=== PATIENT | male | born 1950 | race Caucasian/White ===

== ENCOUNTER 2019-11-10 03:12 | Inpatient (IN) | payer MEDICARE, MEDICAID, SELFPAY ==
[2019-11-10] VITALS (32 sets, daily range): BP systolic 91–163; BP diastolic 64–84; PULSE 64–120; RESP 10–28; TEMP 35.7–37.2; O2SAT 67–100; BMI 28.5
--- NOTE | ~2019-11-10 | XR_ITS ---
EXAMINATION: XR chest 1V portable DATE: 11/22/2019 05:47 INDICATION: Respiratory failure. TECHNIQUE: A single frontal view of the chest was obtained. COMPARISON: Chest single view 11/21/2019 FINDINGS: There is mild atelectasis in the lower lung zones. No pleural effusion or pneumothorax. The heart size is normal. The endotracheal tube tip is 1.1 cm above the sherie. A left subclavian centra l venous catheter is seen with tip in the superior vena cava. The nasogastric tube tip is beyond the inferior margin of the radiograph, but at least to the stomach. There are changes of coronary artery bypass grafting. There is a thoracotomy defect of right sixth rib. IMPRESSION: 1. Mild atelectasis in the lower lung zones. Reviewed, dictated and finalized at location A. CULTURIST
--- NOTE | ~2019-11-10 | XR_ITS ---
EXAMINATION: XR abdomen NG/feed tube rechec EXAM DATE: 11/13/2019 09:33 INDICATION: Feeding tube placement. TECHNIQUE: Frontal projection(s) of the abdomen for interpretation. Comparison is made to prior exami nation from 11/11/2019. FINDINGS: Feeding tube is in position. The upper abdominal bowel gas pattern is unremarkable. There is an endotracheal tube also appears to be in position. Left-sided portacatheter. IMPRESSION: Feeding tube position. Reviewed, dictated and finalized at location A. MANAGER IMPRESSION: Feeding tube position.
--- NOTE | ~2019-11-10 | XR_ITS ---
EXAMINATION: XR chest 1V portable DATE: 11/14/2019 06:04 INDICATION: Pneumonia. Acute respiratory failure. TECHNIQUE: A single frontal view of the chest was obtained. COMPARISON: Chest single view 11/13/2019 FINDINGS: Again seen is mild elevation of right hemidiaphragm. There are airspace opacities in the pe rihilar regions. There is mild atelectasis at the lung bases. No pleural effusion or pneumothorax. Th e heart size is normal. The endotracheal tube tip is 2.7 cm above the sherie. There are likely change s of coronary artery bypass grafting. The nasogastric tube tip is beyond the inferior margin of the r adiograph, but at least to the stomach. There is a left subclavian port with tip in superior vena cav a. IMPRESSION: 1. Airspace opacities in the perihilar regions with slight worsening on the right, consistent with pu lmonary edema versus pneumonia. Reviewed, dictated and finalized at location A. EXTINGUISHER CHARGER IMPRESSION: 1. Airspace opacities in the perihilar regions with slight worsening on the rig ht, consistent with pulmonary edema versus pneumonia.
--- NOTE | ~2019-11-10 | XR_ITS ---
EXAMINATION: XR chest 1V portable INDICATION: Pneumonia, acute respiratory failure TECHNIQUE: Portable AP chest at 0524 hours COMPARISON: 11/15/2019 FINDINGS: The endotracheal tube ends approximately 3.6 cm above the sherie. The nasogastric tube is i n the stomach. A left subclavian port ends with its tip in the superior vena cava. There is mild elev ation of the right hemidiaphragm. The heart size is normal. Patchy bilateral airspace opacities persi st without change. There are changes of coronary artery bypass grafting. IMPRESSION: 1. Diffuse lung disease without significant change, consistent with pulmonary edema versus pneumonia. Reviewed, dictated and finalized at location A. PROCESSING MACHINE OPERATOR IMPRESSION: 1. Diffuse lung disease without significant change, consistent with pulmonary e yue versus pneumonia.
--- NOTE | ~2019-11-10 | XR_ITS ---
XR chest 1V portable 11/17/2019 05:40 Indication: Acute respiratory failure. Pneumonia. Procedure: AP portable chest Comparison: Comparison to multiple prior studies sequentially, with oldest reviewed study dated 11/13. Findings: No significant change to patchy bilateral airspace disease. No pleural effusion or pneumoth orax. Stable cardiomediastinal silhouette. Port catheter tip in the SVC. Endotracheal tube tip 3.4 cm above the sherie. NG tube in the stomach. There are cholecystectomy clips. Impression: 1: Stable patchy bilateral airspace disease, pneumonia versus edema. Reviewed, dictated and finalized at location A. WRAPPER Impression: 1: Stable patchy bilateral airspace disease, pneumonia versus edema.
--- NOTE | ~2019-11-10 | US_ITS ---
EXAMINATION: US venous doppler [facility] DATE: 11/19/2019 17:32 INDICATION: Respiratory failure. Fever. TECHNIQUE: Grayscale ultrasound images without and with compression and Doppler ultrasound images of the bilateral lower extremity veins were obtained. COMPARISON: None. FINDINGS: The visualized portions of right common femoral vein, profunda (deep) femoral vein, femoral vein, pop liteal vein, posterior tibial veins, peroneal veins, gastrocnemius vein and greater saphenous vein ou tflow are patent. The visualized portions of left common femoral vein, profunda femoral vein, femoral vein, popliteal v ein, posterior tibial veins, peroneal veins, gastrocnemius vein and greater saphenous vein outflow ar e patent. IMPRESSION: 1. No deep venous thrombosis in either lower limb. Reviewed, dictated and finalized at location A. MIC ARTIST
--- NOTE | ~2019-11-10 | XR_ITS ---
EXAMINATION: XR chest 1V portable DATE: 11/24/2019 05:51 INDICATION: Respiratory failure. TECHNIQUE: A single frontal view of the chest was obtained. COMPARISON: Chest single view 11/23/2019 FINDINGS: There are airspace opacities in right midlung zone. There is mild atelectasis in the lower lung zones. No pleural effusion or pneumothorax. The heart size is normal. There are changes of coron hayley artery bypass grafting. The endotracheal tube tip is 3.0 cm above the sherie. There is a left sub clavian central venous catheter with tip in superior vena cava. IMPRESSION: 1. Worsened airspace opacities in right midlung zone, consistent with atelectasis versus pneumonia. 2. Mild atelectasis in the lower lung zones. Reviewed, dictated and finalized at location A. HOST/HOSTESS IMPRESSION: 1. Worsened airspace opacities in right midlung zone, consistent with atelectas is versus pneumonia. 2. Mild atelectasis in the lower lung zones.
--- NOTE | ~2019-11-10 | XR_ITS ---
EXAMINATION: XR chest 1V portable DATE: 11/11/2019 06:05 INDICATION: Shortness of breath TECHNIQUE: frontal view of the chest was obtained. COMPARISON: Chest radiograph dated 11/10/2019 FINDINGS: Endotracheal tube tip 2.8 cm above the sherie. Left subclavian central venous port catheter with dist al tip at the cephalad superior vena cava. Nasogastric tube appears to have withdrawn with distal tip approximately 9 cm above level of the gastroesophageal junction. Lung volumes are decreased. Increasing opacities in the bilateral lower lung zones. No pleural effusi on or pneumothorax. Borderline heart size. Median sternotomy plate and screw fixation and mediastinal surgical clips are seen, likely from prior coronary artery bypass grafting. Surgical clips projectin g over the lateral right mid to upper lung zone and likely posterior right sixth rib thoracotomy defe ct. Degenerative skeletal changes in the spine and at the right glenohumeral joint. IMPRESSION: 1. Nasogastric tube appears to have withdrawn into the distal esophagus. Per discussion with the stanton ent's nurse Mela Morrison the tube does not appear to have withdrawn at the nares and KUB radiogra phs of the upper abdomen would be recommended to more definitively confirm positioning. 2. Small lung volumes with opacities in the bilateral lower lung zones which could represent atelecta sis versus pneumonia. Reviewed, dictated and finalized at location A. ERY HEAD FORMER IMPRESSION: 1. Nasogastric tube appears to have withdrawn into the distal esophagus. Per di scussion with the patient's nurse Mela Morrison the tube does not appear to have withdrawn at the nares and KUB radiographs of the upper abdomen would be r ecommended to more definitively confirm positioning. 2. Small lung volumes with opacities in the bilateral lower lung zones which co uld represent atelectasis versus pneumonia.
--- NOTE | ~2019-11-10 | XR_ITS ---
EXAMINATION: XR chest 1V portable DATE: 11/10/2019 04:18 INDICATION: Shortness of breath TECHNIQUE: frontal view of the chest was obtained. COMPARISON: None FINDINGS: Small lung volumes. Primarily streaky opacities in the bilateral lower lung zones. pleural effusion o r pneumothorax. The cardiomediastinal silhouette is normal. Median sternotomy and screw fixation and mediastinal surgical clips are seen, likely from prior coronary artery bypass grafting. Left subclavi an central venous port catheter with distal tip at the cephalad superior vena cava. IMPRESSION: 1. Small lung volumes with streaky opacities in the bilateral lower lung zones most likely atelectasi s and could not exclude superimposed pulmonary edema or pneumonia. Reviewed, dictated and finalized at location A. O OPERATOR IMPRESSION: 1. Small lung volumes with streaky opacities in the bilateral lower lung zones most likely atelectasis and could not exclude superimposed pulmonary edema or p neumonia.
--- NOTE | ~2019-11-10 | XR_ITS ---
EXAMINATION: XR chest 1V portable DATE: 11/27/2019 06:07 INDICATION: Respiratory failure TECHNIQUE: frontal view of the chest was obtained. COMPARISON: Chest radiograph dated 11/26/2019 FINDINGS: Endotracheal tube has been removed and replaced with a tracheostomy tube which is in expected positio n at the thoracic inlet. Left subclavian central venous port catheter with distal tip at the superior vena cava. Elevation right hemidiaphragm. Persistent airspace opacities in the bilateral lower lung zones with s ome of which demonstrate linear configuration consistent with atelectasis. No pleural effusion or pne umothorax. The cardiomediastinal silhouette is normal. Median sternotomy with plate and screw fixatio n, ostial markers and mediastinal surgical clips consistent with prior coronary artery bypass graftin g. Additional surgical clips project over the right axilla. IMPRESSION: 1. Minimal change in bibasilar opacities likely related to to atelectasis although differential inclu albert superimposed pneumonia or residual mild pulmonary edema. Reviewed, dictated and finalized at location A. NE EQUIPMENT TEST ENGINEER IMPRESSION: 1. Minimal change in bibasilar opacities likely related to to atelectasis altho ugh differential includes superimposed pneumonia or residual mild pulmonary rachna
--- NOTE | ~2019-11-10 | XR_ITS ---
EXAMINATION: XR chest 1V portable DATE: 11/20/2019 05:29 INDICATION: Respiratory failure. TECHNIQUE: A single frontal view of the chest was obtained. COMPARISON: Chest single view 11/19/2019, chest CT 11/17/2019 FINDINGS: Lung volumes are small. There are mild airspace opacities involving all lung zones bilatera lly. No pleural effusion or pneumothorax. The heart size is normal. There is a left subclavian centra l venous catheter with tip in superior vena cava. There are changes of coronary artery bypass graftin g. IMPRESSION: 1. Small lung volumes with mild diffuse lung disease without change, likely a combination of atelecta sis and pneumonia. Reviewed, dictated and finalized at location A. AL REGULATORY LEAD IMPRESSION: 1. Small lung volumes with mild diffuse lung disease without change, likely a c ombination of atelectasis and pneumonia.
--- NOTE | ~2019-11-10 | XR_ITS ---
EXAMINATION: XR chest 1V portable DATE: 11/23/2019 05:47 INDICATION: Respiratory failure. TECHNIQUE: A single frontal view of the chest was obtained. COMPARISON: Chest single view 11/22/2019 FINDINGS: There is new mild elevation of right hemidiaphragm. There is mild atelectasis at the lung b ases. No pleural effusion or pneumothorax. The heart size is normal. The endotracheal tube tip is 3.3 cm above the sherie. There is a left subclavian port with tip in superior vena cava. There are hardin es of coronary artery bypass grafting. IMPRESSION: 1. New mild elevation of right hemidiaphragm and slightly improved mild atelectasis at the lung bases . Reviewed, dictated and finalized at location A. NESS PLANNING MANAGER IMPRESSION: 1. New mild elevation of right hemidiaphragm and slightly improved mild atelect asis at the lung bases.
--- NOTE | ~2019-11-10 | XR_ITS ---
EXAMINATION: XR chest 1V portable DATE: 11/26/2019 05:43 INDICATION: Respiratory failure TECHNIQUE: frontal view of the chest was obtained. COMPARISON: Chest radiograph dated 11/25/2019 FINDINGS: Endotracheal tube tip 4.2 cm above the sherie. Left subclavian central venous port catheter with dist al tip at the superior vena cava. Elevation right hemidiaphragm. Based opacities in the right mid and bilateral lower lung zones consis tent with likely improvement in prior pulmonary edema. Some of the opacities demonstrate linear confi guration consistent with atelectasis. No pleural effusion or pneumothorax. The cardiomediastinal silh ouette is normal. Median sternotomy with plate and screw fixation, ostial markers and mediastinal barbara gical clips consistent with prior coronary artery bypass grafting. IMPRESSION: 1. Interval decrease in pulmonary edema. 2. Residual opacities to atelectasis although differential includes superimposed pneumonia or residua l mild pulmonary edema. Reviewed, dictated and finalized at location A. ELET MAKER NOVELTY IMPRESSION: 1. Interval decrease in pulmonary edema. 2. Residual opacities to atelectasis although differential includes superimpose d pneumonia or residual mild pulmonary edema.
--- NOTE | ~2019-11-10 | XR_ITS ---
EXAMINATION: XR abdomen NG/feed tube insert EXAM DATE: 11/20/2019 09:49 INDICATION: Feeding tube placement. TECHNIQUE: Frontal projection(s) of the abdomen for interpretation. Comparison is made to prior exami nation from 11/13/2019. FINDINGS: Feeding tube tip and side-port project over left upper quadrant, expected position. Nonobs tructive upper abdominal bowel gas pattern. Moderate to severe lumbar spondylosis. IMPRESSION: Feeding tube in position. Reviewed, dictated and finalized at location B. INE RECORDS UNITS SUPERVISOR IMPRESSION: Feeding tube in position.
--- NOTE | ~2019-11-10 | XR_ITS ---
EXAMINATION: XR chest 1V portable DATE: 11/25/2019 05:41 INDICATION: Respiratory failure TECHNIQUE: frontal view of the chest was obtained. COMPARISON: Chest radiograph dated 11/24/2019 FINDINGS: Endotracheal tube tip 3.1 cm above the sherie. Left subclavian central venous port catheter with dist al tip at the cephalad superior vena cava. Elevation of the right hemidiaphragm. Airspace opacities in the right mid and bilateral lower lung zo karine including streaky/linear atelectasis. No pleural effusion or pneumothorax. Heart size is normal. Median sternotomy with plate and screw fixation, ostial markers and mediastinal surgical clips consis tent with prior coronary artery bypass grafting. IMPRESSION: 1. No significant interval change in opacities in the right mid and bilateral lower lung zones due at least in part to atelectasis although differential includes superimposed pneumonia or mild pulmonary edema. Reviewed, dictated and finalized at location A. EMIC DIRECTOR IMPRESSION: 1. No significant interval change in opacities in the right mid and bilateral l ower lung zones due at least in part to atelectasis although differential inclu albert superimposed pneumonia or mild pulmonary edema.
--- NOTE | ~2019-11-10 | US_ITS ---
EXAMINATION: US renal BI EXAM DATE: 11/11/2019 11:08 INDICATION: Acute kidney insufficiency. TECHNIQUE: Multiple grayscale and Doppler images of the kidneys were obtained (by a technologist who performed the scan) and subsequently reviewed. There is no prior study for comparison. FINDINGS: Right kidney: There is normal contour and echogenicity. It measures 11.3 x 5.7 x 4.6 centimeters. T here are no focal renal lesions identified. There is no hydronephrosis. Left kidney: There is normal contour and echogenicity. It measures 10.0 x 5.6 x 5.7 centimeters. Th ere are no focal renal lesions identified. There is no hydronephrosis. Bladder is collapsed, Flores catheter in position. IMPRESSION: 1. Sonographically unremarkable kidneys. Reviewed, dictated and finalized at location A. IN MARKER
--- NOTE | ~2019-11-10 | XR_ITS ---
XR chest 1V portable DATE: 11/13/2019 05:55 INDICATION: Acute respiratory failure. Pneumonia. TECHNIQUE: Portable AP chest on 11/13/2019 at 0514 hours COMPARISON: 11/12/2019 portable AP chest at 0516 hours FINDINGS: ET tube tip 1.6 cm above sherie; ideal range is 2-5 cm. NG tube is noted in stomach. Left subclavian central venous Port-A-Cath catheter tip overlies the upp er superior vena cava. Persistent bilateral lower lung infiltrate and/atelectasis, without significant change since 0. Normal heart size. Status post coronary artery bypass graft surgery. IMPRESSION: Endotracheal tube tip 1.5 cm above sherie; ideal range is 2-5 cm Stable bilateral lower lung infiltrate and/atelectasis Reviewed, dictated and finalized at location A. FEATHER MACHINE OPERATOR
--- NOTE | ~2019-11-10 | CT_ITS ---
EXAMINATION: CT chest abdomen pelvis w con DATE: 11/17/2019 18:38 INDICATION: Persistent fevers despite antibiotics TECHNIQUE: Transaxial computed tomographic images of the chest, abdomen, and pelvis were obtained aft er the administration of 100 cc of Omnipaque 350 intravenous contrast. The dose-length product (DLP) was 1360.96 mGy-cm. Automated exposure control and iterative reconstruction technique were employed. COMPARISON: None FINDINGS: CHEST CT: There are patchy bilateral airspace opacities. There appears to be an approximately 1.5 cm area of ca vitation with internal debris in the right middle lobe on image 57. The heart size is normal. There a re small pleural effusions. No pneumothorax is identified. Changes of coronary artery bypass grafting are noted. The lower sternum is dehiscent with a small amount of fluid seen in the vacated space. Th yroid nodules measure up to 10 mm. Surgical changes in the posterior right ribs are consistent with p rior thoracotomy. A left subclavian Port-A-Cath ends with its tip in the proximal superior vena cava. There is calcified coronary artery atherosclerosis. No pathologically enlarged thoracic lymph nodes are identified. The endotracheal tube is in adequate position. ABDOMEN/PELVIS CT: The nasogastric tube is in the stomach. The liver, spleen, pancreas, gallbladder, and adrenal glands are normal. Streak artifact from the patient's arms somewhat limits evaluation of the kidneys. There are questionable perfusion defects in both kidneys. No pathologically enlarged abdominal or pelvic ly mph nodes are identified. There is no free intraperitoneal gas or evidence of bowel obstruction. Ther e is calcified atherosclerosis of the aorta and many of the other arteries. The bladder is decompress ed by a Flores catheter. A large volume of colonic stool is present. The appendix is normal. There is lumbar levoscoliosis and severe spondylosis. IMPRESSION: 1. Patchy bilateral airspace opacities, consistent with atelectasis and pneumonia. 2. Possible perfusion defects of the kidneys which could reflect pyelonephritis although evaluation l imited by streak artifact from the patient's arms. Correlation with urinalysis is recommended. 3. Lower sternal dehiscence with fluid in the vacated space. Reviewed, dictated and finalized at location A. OR NET DEVELOPER IMPRESSION: 1. Patchy bilateral airspace opacities, consistent with atelectasis and pneumon ia. 2. Possible perfusion defects of the kidneys which could reflect pyelonephritis although evaluation limited by streak artifact from the patient's arms. Correl ation with urinalysis is recommended. 3. Lower sternal dehiscence with fluid in the vacated space.
--- NOTE | ~2019-11-10 | XR_ITS ---
EXAMINATION: XR chest 1V portable DATE: 11/19/2019 05:31 INDICATION: Respiratory failure. TECHNIQUE: A single frontal view of the chest was obtained. COMPARISON: Chest single view 11/18/2019 FINDINGS: The lung volumes are small. There is mild atelectasis in the lower lung zones. There are mi ld airspace opacities in right mid and upper lung zones and left upper lung zone. No pleural effusion or pneumothorax. The heart size is normal. There are changes of coronary artery bypass grafting. The re is a thoracotomy defect of right sixth rib. The endotracheal tube tip is 3.9 cm above the sherie. There is a left-sided central venous catheter with tip in superior vena cava. IMPRESSION: 1. Worsened mild airspace opacities in right mid and upper lung zones and left upper lung zone, consi stent with pneumonia. 2. Small lung volumes with mild atelectasis in the lower lung zones. Reviewed, dictated and finalized at location A. STICS OPERATIONS MANAGER IMPRESSION: 1. Worsened mild airspace opacities in right mid and upper lung zones and left upper lung zone, consistent with pneumonia. 2. Small lung volumes with mild atelectasis in the lower lung zones.
--- NOTE | ~2019-11-10 | XR_ITS ---
EXAMINATION: XR chest 1V portable DATE: 11/12/2019 05:30 INDICATION: Intubation TECHNIQUE: frontal view of the chest was obtained. COMPARISON: Chest radiograph dated 11/11/2019 FINDINGS: Endotracheal tube tip 3.5 cm above the sherie. Nasogastric tube in the stomach. Left subclavian centr al venous port catheter with distal tip in the cephalad superior vena cava. Elevation of right hemidiaphragm. Bilateral airspace opacities predominantly at the lower lung zones. Skinfold projects over the left hemithorax. No pleural effusion or pneumothorax. Cardiomegaly. Plain screw fixation for median sternotomy, ostial markers and mediastinal surgical clips consistent with coronary artery bypass grafting. Additional surgical clips project over the right axilla. Right sixth rib thoracotomy defect. Severe right glenohumeral osteoarthritis. IMPRESSION: 1. Small lung volumes with unchanged low lung predominant airspace disease which could represent atel ectasis or pneumonia. 2. Cardiomegaly. Reviewed, dictated and finalized at location A. TER AND CUTTER OPERATOR IMPRESSION: 1. Small lung volumes with unchanged low lung predominant airspace disease whic h could represent atelectasis or pneumonia. 2. Cardiomegaly.
--- NOTE | ~2019-11-10 | CT_ITS ---
EXAMINATION: CT brain wo con EXAM DATE: 11/21/2019 10:41 INDICATION: Sepsis. Altered mental status. TECHNIQUE: Spiral CT of the head was performed without contrast. Axial, coronal and sagittal images were reviewed. The dose-length product (DLP) for this examination was 756.67 mGy-cm. The exposure w as tailored according to patient size, and iterative reconstruction (ASIR) was used as additional dos e reduction technique. There is no prior study for comparison. FINDINGS: There is no acute intraparenchymal hemorrhage. No evidence of intraparenchymal brain mass lesion. No evidence of acute infarction. Please note that initial head CT has limited sensitivity f or small or acute infarctions. There is mild periventricular and subcortical hypodensity, nonspecific but probably related to small vessel ischemic disease. There is moderate prominence of the sulci a nd ventricles related to cerebral atrophy. There is intracranial carotid arteriosclerosis. There a re no extra-axial collections. There is no mass effect or midline shift. Patient has had bilateral ocular lens surgery. Soft tissue is unremarkable. The visualized sinuses and mastoid air cells are well aerated. IMPRESSION: 1. No acute intracranial findings. 2. Chronic age related findings. Reviewed, dictated and finalized at location B. ER REPAIRER
--- NOTE | ~2019-11-10 | US_ITS ---
EXAMINATION: US abscess cyst aspiration DATE: 11/18/2019 11:19 INDICATION: Median sternotomy fluid collection. Fever. TECHNIQUE: The skin overlying the sternum was prepped and draped in usual sterile fashion. Anestheti c was administered with 1% lidocaine subcutaneously. An 18 gauge spinal needle was then used to aspi rate fluid under continuous sonographic guidance. The entry site was cleaned and dressed. There were no immediate complications. FINDINGS: Ultrasound images demonstrate the needle in a 3.7 x 1.5 x 1.4 cm fluid collection in the me rodolfo sternotomy. IMPRESSION: 1. Ultrasound-guided needle aspiration of a fluid collection in the median sternotomy. Reviewed, dictated and finalized at location A. CHOOL TEACHER ASSISTANT IMPRESSION: 1. Ultrasound-guided needle aspiration of a fluid collection in the median ster notomy.
--- NOTE | ~2019-11-10 | XR_ITS ---
EXAMINATION: XR chest 1V portable INDICATION: Intubation TECHNIQUE: Portable AP chest at 0508 hours COMPARISON: 11/17/2019 FINDINGS: The endotracheal tube ends approximately 2.5 cm above the sherie. The nasogastric tube is in the stomach. A left subclavian Port-A-Cath ends with its tip in the proximal superior vena cava. T here are minimal bibasilar airspace opacities. No pleural effusion or pneumothorax is identified. The heart size is normal. IMPRESSION: 1. Bibasilar airspace opacities consistent with atelectasis and pneumonia. Reviewed, dictated and finalized at location A. L CUTTER
--- NOTE | ~2019-11-10 | US_ITS ---
EXAMINATION: US venous doppler UE DATE: 11/19/2019 17:32 INDICATION: Respiratory failure. Fever. TECHNIQUE: Grayscale images without and with compression and Doppler images of the bilateral upper ex tremity veins were obtained. COMPARISON: None. FINDINGS: The right internal jugular vein, subclavian vein, axillary vein, brachial vein, basilic vein, cephali c vein, radial vein, and ulnar vein are patent. Small amount of noncompressible thrombus in the left cephalic vein just above the level of the antecu bital fossa the distal upper arm. The cephalic vein is patent and compressible at both the mid upper arm. The left internal jugular vein, subclavian vein, axillary vein, brachial vein, basilic vein, rad ial vein, and ulnar vein are patent. IMPRESSION: 1. Small amount of thrombus within the left cephalic vein at the distal left upper arm. Findings were discussed with Pieter Puentes, the nurse caring for the patient, at 7:15 PM. 2. No thrombosis in the right upper extremity. Reviewed, dictated and finalized at location A. SAFETY COORDINATOR IMPRESSION: 1. Small amount of thrombus within the left cephalic vein at the distal left up per arm. Findings were discussed with Pieter Puentes, the nurse caring for the patient, at 7:15 PM. 2. No thrombosis in the right upper extremity.
--- NOTE | ~2019-11-10 | XR_ITS ---
EXAMINATION: XR chest 1V portable DATE: 11/21/2019 05:35 INDICATION: Respiratory failure. TECHNIQUE: A single frontal view of the chest was obtained. COMPARISON: Chest single view 11/20/2019, chest CT 11/17/2019 FINDINGS: Again seen is elevation of right hemidiaphragm. There is mild atelectasis in the lower lung zones. There are mild airspace opacities in right mid and upper lung zones and left upper lung zone. No pleural effusion or pneumothorax. The heart size is normal. The endotracheal tube tip is 3.2 cm a dean the sherie. There is a left subclavian central venous catheter with tip in superior vena cava. T he nasogastric tube tip is beyond the inferior margin of the radiograph, but at least to the stomach. IMPRESSION: 1. Stable mild diffuse lung disease, likely a combination of atelectasis and pneumonia. Reviewed, dictated and finalized at location A. ETIC INTERN IMPRESSION: 1. Stable mild diffuse lung disease, likely a combination of atelectasis and pn eumonia.
--- NOTE | ~2019-11-10 | XR_ITS ---
EXAMINATION: XR chest ET placement EXAM DATE: 11/20/2019 09:49 INDICATION: Intubated. Respiratory distress. TECHNIQUE: Portable AP frontal chest x-ray was obtained. Comparison is made to prior examination from earlier same date. FINDINGS: Endotracheal tube tip is 3-4 centimeters above the sherie (ideal range is between 2 to 5 cm ). Feeding tube is in position. There is a left subclavian venous line in position. Patchy bilateral perihilar, left basilar airspace disease probably combination of atelectasis and pne umonia. There are no sizable pleural effusions. There is no pneumothorax suspected. The cardiome diastinal silhouette is prominent but magnified on this AP technique. The bones and soft tissues ar e unremarkable. There is no significant interval change compared to prior exam. IMPRESSION: 1. Line(s) and tube(s) in position. 2. Stable airspace disease and other findings as above. Reviewed, dictated and finalized at location B. APPLICATIONS ASSOCIATE
--- NOTE | ~2019-11-10 | XR_ITS ---
EXAMINATION: XR chest 1V portable DATE: 11/15/2019 05:57 INDICATION: Pneumonia. Acute respiratory failure. TECHNIQUE: A single frontal view of the chest was obtained. COMPARISON: Chest single view 11/14/2019 FINDINGS: Again seen is mild elevation of right hemidiaphragm. There are airspace opacities in all ida ng zones bilaterally. No pleural effusion or pneumothorax. The heart size is normal. The endotracheal tube tip is 4.37 m above the sherie. There is a left subclavian port with tip in superior vena cava. There is displacement of the catheter between the clavicle and first rib. There are likely changes o f coronary artery bypass grafting. The nasogastric tube tip is in the stomach. IMPRESSION: 1. Worsened diffuse lung disease, consistent with pulmonary edema versus pneumonia. Reviewed, dictated and finalized at location A. IGN EXCHANGE DEALER IMPRESSION: 1. Worsened diffuse lung disease, consistent with pulmonary edema versus pneumo lucinda.
--- NOTE | ~2019-11-10 | XR_ITS ---
EXAMINATION: XR abdomen NG/feed tube insert INDICATION: OG placement TECHNIQUE: Portable AP KUB-NG at 1406 hours COMPARISON: None available FINDINGS: The tip of the nasogastric tube is in the stomach. The proximal side port is near the gastr oesophageal junction. IMPRESSION: 1. Nasogastric tube in the stomach with the proximal side port near the gastroesophageal junction. Co nsider advancing 2 to 3 cm. Reviewed, dictated and finalized at location A. RANCE JOB TITLES IMPRESSION: 1. Nasogastric tube in the stomach with the proximal side port near the gastroe sophageal junction. Consider advancing 2 to 3 cm.
--- NOTE | ~2019-11-10 | XR_ITS ---
EXAMINATION: XR chest ET placement DATE: 11/10/2019 14:11 INDICATION: Endotracheal tube placement TECHNIQUE: frontal view of the chest was obtained. COMPARISON: Chest radiograph dated 11/10/2019 FINDINGS: Endotracheal tube tip 3.3 cm above the sherie. Left subclavian central venous port catheter with dist al tip at the cephalad superior vena cava. Nasogastric tube extends below the left hemidiaphragm wit h distal tip collimated off the study. Decreased lung volumes. Curvilinear opacities at the left lower lung zone favoring atelectasis/scarri ng. Right thoracotomy defect at the posterior right sixth rib few surgical clips project over the lat eral right mid to upper lung zone. Blunting at the right costophrenic angle which could represent sma ll pleural effusion or pleural parenchymal scarring. No pneumothorax. Heart size is normal. Median st ernotomy plate and screw fixation and mediastinal surgical clips are seen, likely from prior coronary artery bypass grafting. IMPRESSION: 1. Lines and tubes in expected position. 2. Persistent mild left basilar atelectasis. 3. Small right pleural effusion versus pleural parenchymal scarring at the right costophrenic angle r elated to prior surgical procedure in the right hemithorax with posterior right thoracotomy defect. Reviewed, dictated and finalized at location A. AND GARDEN TECHNICIAN IMPRESSION: 1. Lines and tubes in expected position. 2. Persistent mild left basilar atelectasis. 3. Small right pleural effusion versus pleural parenchymal scarring at the righ t costophrenic angle related to prior surgical procedure in the right hemithora x with posterior right thoracotomy defect.
--- NOTE | ~2019-11-10 | XR_ITS ---
EXAMINATION: XR abdomen NG/feed tube rechec DATE: 11/11/2019 08:02 INDICATION: Confirm nasogastric tube positioning. TECHNIQUE: A supine view of the abdomen and lower chest was obtained for evaluation of feeding tube placement. COMPARISON: 11/10/2019 FINDINGS: Nasogastric tube extends below the gastroesophageal junction with distal tip in the body of the stoma ch. Linear atelectasis at the lateral left lung base. Ostial markers and mediastinal surgical clips c onsistent with prior coronary artery bypass grafting. Handley for an intravenous port catheter proj ects over the left midlung zone. Severe thoracolumbar spondylosis. IMPRESSION: 1. Nasogastric tube in the stomach. Reviewed, dictated and finalized at location A. T END SOFTWARE DEVELOPER
--- NOTE | 2019-11-10 03:16 | ECG_ITS ---
Measurements Intervals [place] Rate: 114 P: [place]: 0 QRS: 35 QRSD: 150 T: 31 QT: 353 QTc: 487 Interpretive Statements ECTOPIC ATRIAL TACHYCARDIA FREQUENT VENTRICULAR PREMATURE COMPLEXES RIGHT BUNDLE BRANCH BLOCK BASELINE ARTIFACT- V1-V3 ABNORMAL ECG Electronically Signed On 11-10-2019 9:23:42 DIRECTOR INSTRUCTIONAL MATERIAL by Torito Stapleton D.O.
[2019-11-10 03:30] LABS: Basophils Absolute Auto 0.1 K/mm3 (0.0-0.1); Basophils Percent Auto 0.3 % (0.2-1.2); Eosinophils Percent Auto 0.1 % (0-4.4); Hematocrit 33.7 % (42.0-52.0); Hemoglobin 10.4 g/dL (14.0-18.0); Immature Granulocyte Absolute 0.14 K/mm3 (0.00-0.031); Immature Granulocyte Percent A 0.9 % (0-0.5); Lymphocytes Absolute Auto 0.28 K/mm3 (0.9-3.2); Lymphocytes Percent Auto 1.8 % (18.3-44.2); Mean Corpuscular HGB Conc 30.9 g/dl (32-36); Mean Corpuscular Hemoglobin 26.5 pg (26-34); Mean Platelet Volume 10.5 fl (7.4-10.4); Monocytes Absolute Auto 0.4 K/mm3 (0.1-0.6); Monocytes Percent Auto 2.8 % (2.6-8.5); Neutrophils Percent Auto 94.1 % (45.5-73.1); Platelet Count Result 169 k/mm3 (150-375); Red Blood Count 3.92 M/mm3 (4.6-6.20); Red Cell Distribution Width 17.4 % (11.5-14.5); White Blood Count 15.9 K/mm3 (4.5-10.0)
[2019-11-10 03:48] LABS: Blood Urea Nitrogen 30 mg/dL (9-20); Calcium 8.2 mg/dL (8.4-10.2); Carbon Dioxide 26 mmol/L (22-30); Chloride 92 mmol/L (98-107); Estimated Glomerular Filt Rate 32; Glucose 229 mg/dL (75-110); Potassium 5.6 mmol/L (3.4-5.0); Sodium 132 mmol/L (137-145)
[2019-11-10] MEDS: IPRATROPIUM BR 0.02% INH SOLN 0.5 MG/2.5 ML VIAL 1 MG INHALATION (03:52)
[2019-11-10] MEDS: ALBUTEROL SULFATE NEB 2.5 MG/0.5 ML INH 10 MG INHALATION (03:52)
[2019-11-10 03:53] LABS: Hypochromasia 1+ (NORMAL); Macrocytosis 1+ (NORMAL); Platelet Estimate Adequate (Adequate)
[2019-11-10 04:05] LABS: Alveolar/Arterial O2 Gradient 82.4 mmHg; Base Excess ABG -3.8 mEq/l (+/-2.0); Carboxyhemoglobin 1.2 % THb (0-2.0); Fractional Inspired Oxygen 60 %; HCO3 ABG 26.5 mEq/l (22.0-26.0); Methemoglobin ABG 0.4 %THb (0-1.5); Oxygen Content ABG 15.8 %vol (16.0-22.0); Oxygen Saturation ABG 99.3 % (95.0-100.0); Oxyhemoglobin 97.3 % THb (90.0-100.0); PO2 ABG 256.7 mmHg (80.0-100.0); PO2 FiO2 Ratio Arterial Blood 4.28 %; Reduced Hemoglobin 1.1 %THb (0-5.0); Total Hemoglobin 11.1 g/dL (12.0-18.0)
[2019-11-10 04:06] LABS: PCO2 ABG 80.6 mmHg (35.0-45.0); pH ABG 7.135 (7.350-7.450)
[2019-11-10 04:07] LABS: Device SIMPLE MASK; Modified Allen's Test Pass; Site Drawn LEFT RADIAL
[2019-11-10 04:11] LABS: INR 1.2; Partial Thromboplastin Time 30.4 SECONDS (22.3-36.8); Prothrombin Time 14.6 Seconds (11.1-14.7)
[2019-11-10 04:13] LABS: Lactic Acid Reflex 1.2 mmol/L (0.7-2.1)
--- NOTE | 2019-11-10 04:26 | PC.NURSE ---
Pt put on BIPAP at this time.
[2019-11-10] MEDS: SODIUM CHLORIDE 0.9% IV 1,000 ML 999 ML IV CONT ×2 (04:50→16:20)
--- NOTE | 2019-11-10 04:55 | ED.SOB ---
HPI - SOB/Dyspnea General Chief Complaint: Shortness of Breath/Dyspnea Stated Complaint: sob Time Seen by Provider: 11/10/19 03:40 History of Present Illness HPI Narrative: Patient is a 69-year-old male who presents the ER from [facility]. Patient was found to be satting 73% on room air so EMS was called. Patient is developed increased shortness of breath over the last couple days with productive cough of yellow sputum. Patient was short of breath the point today that he decided to quit smoking. Patient had a CABG performed in February 2019 at [place]. Patient having difficulty giving history given clinical condition. Related Data Home Medications Medication Instructions Recorded Confirmed albuterol sulfate [ProAir HFA] 2 puff INHALATION QID PRN 11/10/19 aspirin 325 mg PO BID 11/10/19 citalopram 20 mg PO DAILY 11/10/19 esomeprazole magnesium 40 mg PO DAILY 11/10/19 furosemide 11/10/19 insulin glargine [Lantus U-100 15 unit SUBCUT HS 11/10/19 Insulin] paliperidone palmitate [Invega 156 mg IM Q30D 11/10/19 Sustenna] Allergies Allergy/AdvReac Type Severity Reaction Status Date / Time latex Allergy Unknown Verified 11/10/19 03:42 PLASTIC Allergy Unknown Uncoded 11/10/19 03:43 Review of Systems Review of Systems: ROS unobtainable: unobtainable due to mental condition PMFSH Past Medical History Medical History (Updated 11/10/19 @ 05:39 by Andrea Amanda MD) COPD (chronic obstructive pulmonary disease) Diabetes type 2, controlled GERD (gastroesophageal reflux disease) Hyperlipidemia Hypertension Schizoaffective disorder Surgical History Surgical History (Updated 11/10/19 @ 05:34 by Andrea Amanda MD) History of open heart surgery History of thoracotomy Social History Social History (Updated 11/10/19 @ 05:34 by Andrea Amanda MD) Smoking status: Current every day smoker Exam Narrative: Exam Narrative: GENERAL: Chronically yeh-otyhzocoo-gwuyclqyt, well-nourished, and in moderate distress. HEAD: Normocephalic, atraumatic. EYES: PERRL and EOMI. ENT: Dry mucous membranes. CHEST: Coarse rales throughout with scattered wheezing as well. Moderate respiratory distress and speaking in 3-5 word phrases with frequent coughing. HEART: Irregular rate and rhythm that is tachycardic. Normal peripheral pulses. ABDOMEN: Soft, nontender, nondistended. EXTREMITIES: Normal range of motion. Normal strength. SKIN: Warm, dry, no rash. Healing wound upper central chest wall that is packed. NEURO: Alert and oriented x3. Course Course Emergency Course: Patient tolerating BiPAP well and seems to be improving with hour-long nebulizer treatment and some IV fluid. Chest x-ray concerning for pneumonia and some pulmonary edema. BNP elevated. Unsure what patient's baseline creatinine is however suspect patient is dry due to sepsis so we will continue to hydrate. Vital Signs Vital signs: Vital Signs Temperature 99.0 F 11/10/19 03:09 Pulse Rate 115 H 11/10/19 03:09 Respiratory Rate 28 H 11/10/19 03:09 Blood Pressure 163/84 H 11/10/19 03:09 Pulse Oximetry 67 L 11/10/19 03:09 Temperature 99.0 F 11/10/19 03:09 Pulse Rate 120 H 11/10/19 04:27 Respiratory Rate 25 H 11/10/19 04:27 Blood Pressure 163/84 H 11/10/19 03:09 Pulse Oximetry 98 11/10/19 04:27 MDM - SOB/Dyspnea Lab Data Result diagrams: 11/10/19 03:25 11/10/19 03:25 Labs: Lab Results 11/10/19 11/10/19 11/10/19 Range/Units 03:25 03:25 03:25 WBC 15.9 H (4.5-10.0) K/mm3 RBC 3.92 L (4.6-6.20) M/mm3 Hgb 10.4 L (14.0-18.0) g/dL Hct 33.7 L (42.0-52.0) % MCV 86.0 (80-100) fl MCH 26.5 (26-34) pg MCHC 30.9 L (32-36) g/dl RDW 17.4 H (11.5-14.5) % Plt Count 169 (150-375) k/mm3 MPV 10.5 H (7.4-10.4) fl Immature Gran % (Auto) 0.9 H (0-0.5) % Neut % (Auto) 94.1 H (45.5-73.1) % Lymph % (Auto) 1.8 L (18.3-4
[2019-11-10 04:56] LABS: NT Pro B Type Natriuretic Pept 10400 PG/ML (5-100)
--- NOTE | 2019-11-10 06:56 | ADMGEN ---
This patient, Marquis Cosme, was admitted to Intensive Care Unit-8 at 0633. Patient/family oriented to hospital policies and general routines including ID bracelet, bed and alarms, visiting hours, pain management, procedures, bathroom and other care routines, personal items, smoking policy, room service/diet, and visiting hours. Valuables list has been completed. Information on how to activate the Rapid Response Team has been discussed. Patient/Family are encouraged to report perceived risks to care and to ask questions if they do not understand what they are told or what they should do.
[2019-11-10] MEDS: SODIUM CHLORIDE 0.9% IV 1,000 ML 125 ML IV CONT (07:21)
[2019-11-10] MEDS: MORPHINE SULFATE 4 MG/ML INJ IV PUSH (08:57)
[2019-11-10] MEDS: LEVALBUTEROL NEB 1.25 MG/3 ML 0.63 MG INHALATION ×2 (09:34→20:22)
[2019-11-10 09:53] LABS: Alveolar/Arterial O2 Gradient 145.5 mmHg; Base Excess ABG -6.4 mEq/l (+/-2.0); Fractional Inspired Oxygen 40 %; HCO3 ABG 23.5 mEq/l (22.0-26.0); Oxygen Content ABG 12.4 %vol (16.0-22.0); Oxyhemoglobin 81.5 % THb (90.0-100.0); PO2 ABG 56.4 mmHg (80.0-100.0); PO2 FiO2 Ratio Arterial Blood 1.41 %; Total Hemoglobin 10.8 g/dL (12.0-18.0)
[2019-11-10 09:56] LABS: PCO2 ABG 72.4 mmHg (35.0-45.0)
[2019-11-10 09:57] LABS: Oxygen Saturation ABG 78.5 % (95.0-100.0)
[2019-11-10 09:58] LABS: Device NON-INVASIVE VENT; Modified Allen's Test Pass; Site Drawn RIGHT RADIAL
[2019-11-10 10:22] LABS: Alveolar/Arterial O2 Gradient 247.7 mmHg; Fractional Inspired Oxygen 70 %; HCO3 ABG 23.9 mEq/l (22.0-26.0); Oxygen Content ABG 15.1 %vol (16.0-22.0); Oxygen Saturation ABG 98.6 % (95.0-100.0); Oxyhemoglobin 97.3 % THb (90.0-100.0); PO2 ABG 172.8 mmHg (80.0-100.0); PO2 FiO2 Ratio Arterial Blood 2.47 %; Total Hemoglobin 10.8 g/dL (12.0-18.0)
[2019-11-10 10:23] LABS: pH ABG 7.133 (7.350-7.450)
[2019-11-10 10:24] LABS: Device NON-INVASIVE VENT; Non-Invasive Expiratory Pressure 8 CMH2O; Non-Invasive Inspiratory Pressure 14 CMH2O; Non-Invasive Vent Rate 16 /MIN; PCO2 ABG 73.1 mmHg (35.0-45.0); Site Drawn RIGHT BRACHIAL
[2019-11-10] MEDS: FUROSEMIDE INJ 40 MG/4 ML VIAL IV PUSH (10:30)
[2019-11-10 13:23] LABS: Alveolar/Arterial O2 Gradient 194.5 mmHg; Base Excess ABG -6.1 mEq/l (+/-2.0); Fractional Inspired Oxygen 50 %; HCO3 ABG 24.6 mEq/l (22.0-26.0); Oxyhemoglobin 89.6 % THb (90.0-100.0); PO2 ABG 70.7 mmHg (80.0-100.0); PO2 FiO2 Ratio Arterial Blood 1.41 %; Total Hemoglobin 11.1 g/dL (12.0-18.0)
[2019-11-10 13:24] LABS: Oxygen Saturation ABG 86.7 % (95.0-100.0); PCO2 ABG 81.2 mmHg (35.0-45.0)
[2019-11-10 13:25] LABS: Device BIPAP; Expiratory Pressure 8 cmH2O; Inspiratory Pressure 18 cmH2O; Modified Allen's Test Pass; Site Drawn LEFT RADIAL
--- NOTE | 2019-11-10 14:06 | P.PCNBED_ITS ---
Procedures Intubation: Intubation Date: 11/10/19 Intubation Time: 13:57 A pre- procedural Time-Out was completed immediately before starting the procedure and confirmed: Patient Identification, Site, Procedure, Patient Position and the Availability of Requisite Equipment: Yes Sedative: etomidate Paralytic: rocuronium Laryngoscope: fiber optic video scope Assist device used: fiber optic device ET tube size: 8 Tube placement confirmation: visualized tube passing through cords, equal breath sounds bilaterally, no breath sounds over epigastrium and confirmation by capnometry Patient tolerated procedure: well Intubation complications: none Additional comments: consent could not be obtained as the number that is listed on the chart has been disconnected. it was an emergency intubation and patient was listed as a full code The patient was lying in the supine position. Preoxygenation via BVM was provided for a minimum of 3 minutes. The patient had continuous cardiac as well as pulse oximetry monitoring during the procedure. Rapid sequence induction was provided by administration of Etomidate and rocuronium. A Glidescope blade 4 was used to directly visualize the vocal cords. A 8 mm endotracheal tube was visualized advancing between the cords to a level of 25 cm at the lip. The stylette was then removed. Tube placement was also noted by fogging in the tube, equal and bilateral breath sounds, no sounds over the epigastrium, and end-tidal colorimetric monitoring. The cuff was then inflated with 10 ml of air and the tube secured using a commercially available device. A good pulse oximetry wave form was seen on the monitor throughout the procedure. The patient was then connected to the ventilator and placed on pressure control ventilation with inspiratory pressure of 44 and peep of 5, 60% FiO2 and rate of 24. Portable chest x-ray shows ETT tip to be in appropriate position.Continued sedation will be provided by Fentanyl and Versed continuous infusion titrated to a RASS of -2. The patient tolerated the procedure well.
--- NOTE | 2019-11-10 14:06 | WPDCNINT ---
Assessment and Plan Assessment and plan (1) Acute hypercapnic respiratory failure: Code(s): J96.02 - Acute respiratory failure with hypercapnia Status: Acute Assessment and Plan: patient acute hypercapnic respiratory failure. Did not tolerate a trial of BiPAP, intubated on 09/09/2020 - on pressure control ventilation due to high peak pressures - will repeat blood cultures - started on ceftriaxone and azithromycin, - started on Solu-Medrol, bronchodilators - sedated with fentanyl and Versed infusion, RASS of 0 to -2, daily sedation vacation (2) COPD exacerbation: Code(s): J44.1 - Chronic obstructive pulmonary disease with (acute) exacerbation Status: Acute Assessment and Plan: continue bronchodilators, steroids, antibiotics and mechanical ventilation (3) Acute kidney injury: Code(s): N17.9 - Acute kidney failure, unspecified Status: Acute Assessment and Plan: patient with acute kidney injury. creatinine 2.10 this morning, unknown baseline. Patient did receive fluid bolus in the ER. - continue maintenance IV fluids - will check renal ultrasound - check urine lytes - monitor urine output, renal function,electrolytes (4) Acute hyperkalemia: Code(s): E87.5 - Hyperkalemia Status: Acute Assessment and Plan: hyperkalemia was treated - repeat BMP (5) Diabetes: Qualifiers: Diabetes mellitus type: type 2 Diabetes mellitus termination clerk insulin use: with termination clerk use Diabetes mellitus complication status: with other specified complication Qualified Code(s): E11.69 - Type 2 diabetes mellitus with other specified complication; Z79.4 - termination clerk (current) use of insulin Code(s): E11.9 - Type 2 diabetes mellitus without complications Status: Acute Assessment and Plan: continue Accu-Cheks, sliding scale insulin and Lantus (6) DVT prophylaxis: Code(s): Z29.9 - Encounter for prophylactic measures, unspecified Status: Acute Assessment and Plan: enoxaparin Additional Plan discussed with patient's sister, Keiko, , and updated her with patient's condition and plan of care. Code status: Full code Critical care time spent: 53 minutes Due to a high probability of clinically significant, life threatening deterioration, the patient required my highest level of preparedness to intervene emergently and I personally spent this critical care time directly and personally managing the patient. This critical care time included obtaining a history; examining the patient; pulse oximetry; ordering and review of studies; arranging urgent treatment with development of a management plan; evaluation of patient's response to treatment; frequent reassessment; and discussions with other providers. It was exclusive of separately billable procedures and treating other patients and teaching time. Please see Assessment and Plan section and the rest of the note for further information on patient assessment and treatment Adobe Ball Mixer Consult Note Consult date: 11/10/19 Time Seen: 14:06 Reason for consult: Acute hypercapnic respiratory failure, COPD exacerbation HPI: Marquis Cosme is a 69 year old male with past medical history of COPD, diabetes type 2, GERD, hyperlipidemia, hypertension, schizoaffective disorder, recent bypass, history of thoracotomy presented the ED from [facility] where was found to be desaturating in the 70s on room air, EMS was called. Patient developed increasing shortness of breath over the last couple of days with productive cough with yellow sputum. patient was short of breath 2 point today that he decided he would quit smoking. Patient had a recent CABG in February 2019 at [place]. Patient's WBC count was 15.9, hemoglobin 10.4, platelets 169, neutrophil 94%. Initial blood gases in the ED showed pH of 7.13, pCO2 of 80, PO2 of 256 on 60% FiO2. Patient was placed on BiPAP
[2019-11-10] MEDS: ALBUTEROL SULFATE NEB 2.5 MG/0.5 ML INH 15 MG (14:09)
[2019-11-10] MEDS: MIDAZOLAM HCL 50 MG in DEXTROSE 5% 90 ML IV CONT (14:14)
[2019-11-10] MEDS: methylPREDNISolone SOD SUCC 125 MG VIAL IV PUSH (14:14)
[2019-11-10 16:07] LABS: Creatinine Urine 48.5 mg/dL
[2019-11-10 16:08] LABS: Potassium Urine Random 34.7 meq/L; Sodium Urine Random 68 meq/L
[2019-11-10 16:17] LABS: Blood Urea Nitrogen 36 mg/dL (9-20); Calcium 7.8 mg/dL (8.4-10.2); Carbon Dioxide 20 mmol/L (22-30); Chloride 93 mmol/L (98-107); Estimated CRCL calculation 29 ml/min; Estimated Glomerular Filt Rate 30; Glucose 186 mg/dL (75-110); Potassium 4.8 mmol/L (3.4-5.0); Sodium 133 mmol/L (137-145)
[2019-11-10 16:26] LABS: Alveolar/Arterial O2 Gradient 203.6 mmHg; Base Excess ABG -7.7 mEq/l (+/-2.0); Fractional Inspired Oxygen 60 %; HCO3 ABG 18.4 mEq/l (22.0-26.0); Oxygen Content ABG 14.9 %vol (16.0-22.0); Oxygen Saturation ABG 99.1 % (95.0-100.0); Oxyhemoglobin 97.9 % THb (90.0-100.0); PCO2 ABG 39.5 mmHg (35.0-45.0); PO2 ABG 180.8 mmHg (80.0-100.0); PO2 FiO2 Ratio Arterial Blood 3.01 %; Total Hemoglobin 10.5 g/dL (12.0-18.0)
[2019-11-10] MEDS: GABAPENTIN 300 MG CAPSULE 600 MG PO (16:26)
[2019-11-10] MEDS: SENNA/DOCUSATE SODIUM TABLET 2 TAB PO (16:26)
[2019-11-10] MEDS: SODIUM CHLORIDE 0.9% IV 1,000 ML 75 ML IV CONT (16:27)
[2019-11-10 16:28] LABS: pH ABG 7.285 (7.350-7.450)
[2019-11-10 16:29] LABS: Device VENTILATOR; Site Drawn LEFT BRACHIAL
[2019-11-10 16:31] LABS: Arterial Blood Gas Minute Volume 0 LPM; Arterial Blood Gas PEEP 5 cmH2O; Arterial Blood Gas Pressure Support 0 cmH2O; Arterial Blood Gas Tidal Volume 0 ml; Arterial Blood Gas Vent Mode PRESSURE CONTROL; Arterial Blood Gas Ventilator rate 24 /MIN; Peak Inspiratory Pressure 44 cmH2O
--- NOTE | 2019-11-10 16:46 | PM.IMHP ---
H&P: HPI History of Present Illness Chief complaint: acute respiratoy,pneumonia,acute renal failure,sep Narrative: Marquis Cosme is a 69 year old male from [facility]. Here with SOB. Pt is Sob at rest started on BIPAP, still appears to be in distress ABG was rpted after adjusted BIPAP setting. ABG is worsening. Pt changed to ICU status and emergently intubated. Pt is too unwell to give a history, Pt has history of COPD, HTN, GERD, DM, schizoaffective disorder. Pt had been coughing and SOb with wheezing and was brought to ED for evalution. Pt has recently had a CABG performed in February 2019 in [place]. Sternotomy scar still fresh and oozing little at the top. Pt seen at 10am today. Nurse mentions that pts feet feel cold, bedside dopplers positive for pulses will order arterial dopplers tomorrow. pt is a smoker and had recent CABG surgery. Review of Systems Review of Systems: ROS unobtainable: unobtainable due to mental condition Respiratory: Respiratory: Reports cough, Reports dyspnea, Reports dyspnea on exertion and Reports wheezing PMFSH Past Medical History Medical History COPD (chronic obstructive pulmonary disease) Diabetes type 2, controlled GERD (gastroesophageal reflux disease) Hyperlipidemia Hypertension Schizoaffective disorder Surgical History Surgical History History of open heart surgery History of thoracotomy Family History Family History Other Unknown family medical history Social History Social History Smoking status: Current every day smoker Alcohol intake: former Substance use: unknown Gender identity (if verbalized by the patient): Male Spiritual care concerns: No Agree to blood products: Yes Meds Home Medications and Allergies Home Medications Medication Instructions Recorded Confirmed Type Antifungal Cream (miconazole) 1 unit TOPICAL Q12H 11/10/19 11/10/19 History Daily Multivitamin 1 tab-cap PO DAILY 11/10/19 11/10/19 History Spiriva Respimat 1 cap INHALATION DAILY 11/10/19 11/10/19 History acetaminophen [Tylenol] 650 mg PO Q6H PRN 11/10/19 11/10/19 History albuterol sulfate [ProAir HFA] 2 puff INHALATION Q4H PRN 11/10/19 11/10/19 History aspirin 325 mg PO DAILY 11/10/19 11/10/19 History citalopram 20 mg PO DAILY 11/10/19 11/10/19 History cyanocobalamin (vitamin B-12) 1,000 mcg PO DAILY 11/10/19 11/10/19 History [Vitamin B-12] esomeprazole magnesium 40 mg PO DAILY 11/10/19 11/10/19 History ferrous sulfate 325 mg PO BID 11/10/19 11/10/19 History fluticasone propion-salmeterol 1 puff INHALATION Q12H 11/10/19 11/10/19 History [Advair Diskus] furosemide 40 mg PO DAILY 11/10/19 11/10/19 History gabapentin 600 mg PO BID 11/10/19 11/10/19 History hydroxyzine pamoate 25 mg PO TID 11/10/19 11/10/19 History insulin glargine [Lantus U-100 14 unit SUBCUT HS 11/10/19 11/10/19 History Insulin] insulin lispro [Humalog U-100 See Rx Instructions .ROUTE .COMPLEX 11/10/19 11/10/19 History Insulin] ipratropium-albuterol 3 ml INHALATION Q6H PRN 11/10/19 11/10/19 History lanolin arztile-su-v.pet-ceres 1 applic TOPICAL Q12H 11/10/19 11/10/19 History [Eucerin] linagliptin [Tradjenta] 5 mg PO DAILY 11/10/19 11/10/19 History losartan 25 mg PO DAILY 11/10/19 11/10/19 History metformin 500 mg PO BID 11/10/19 11/10/19 History metoprolol tartrate 12.5 mg PO Q12H 11/10/19 11/10/19 History nicotine 1 patch TRANSDERMAL DAILY 11/10/19 11/10/19 History paliperidone palmitate [Invega 156 mg IM MONTHLY 11/10/19 11/10/19 History Sustenna] polyethylene glycol 3350 17 g PO DAILY 11/10/19 11/10/19 History sennosides-docusate sodium [Senna 2 tablet PO BID 11/10/19 11/10/19 History with Docusate Sodium] simvastatin 20 mg PO DAILY 11/10/19 11/10/19 History s
[2019-11-10] MEDS: INSULIN ASPART (*BKC) 100 UNITS/ML SUB-Q ×2 (17:20→23:32)
[2019-11-10 17:58] LABS: Glucose Point of Care 216 (65-105)
[2019-11-10] MEDS: INSULIN GLARGINE (*BKC) 100 UNITS/ML 14 UNITS SUB-Q (20:50)
[2019-11-10] MEDS: methylPREDNISolone SOD SUCC 125 MG VIAL 60 MG IV PUSH (20:50)
[2019-11-10 23:31] LABS: Glucose Point of Care 218 (65-105)
[2019-11-11] VITALS (30 sets, daily range): BP systolic 107–159; BP diastolic 70–91; PULSE 70–132; RESP 15–97; TEMP 36–36.6; O2SAT 20–100; BMI 29.3
[2019-11-11] MEDS: LEVALBUTEROL NEB 1.25 MG/3 ML 0.63 MG INHALATION ×4 (01:33→21:25)
[2019-11-11 04:26] LABS: Basophils Percent Auto 0.1 % (0.2-1.2); Hemoglobin 9.5 g/dL (14.0-18.0); Immature Granulocyte Absolute 0.07 K/mm3 (0.00-0.031); Lymphocytes Absolute Auto 0.17 K/mm3 (0.9-3.2); Lymphocytes Percent Auto 2.4 % (18.3-44.2); Mean Corpuscular HGB Conc 31.7 g/dl (32-36); Mean Corpuscular Hemoglobin 26.8 pg (26-34); Mean Corpuscular Volume 84.5 fl (80-100); Mean Platelet Volume 9.7 fl (7.4-10.4); Monocytes Absolute Auto 0.1 K/mm3 (0.1-0.6); Monocytes Percent Auto 1.7 % (2.6-8.5); Neutrophils Absolute Auto 6.6 K/mm3 (1.3-6.7); Neutrophils Percent Auto 94.8 % (45.5-73.1); Platelet Count Result 114 k/mm3 (150-375); Red Blood Count 3.55 M/mm3 (4.6-6.20); Red Cell Distribution Width 17.1 % (11.5-14.5)
[2019-11-11 04:39] LABS: Lactic Acid 0.6 mmol/L (0.7-2.1)
[2019-11-11 04:42] LABS: Alanine Aminotransferase 26 U/L (4-50); Albumin Level 3.3 g/dL (3.5-5.1); Alkaline Phosphatase 99 U/L (38-126); Aspartate Amino Transferase 55 U/L (17-59); Bilirubin,Total 0.2 mg/dL (0.2-1.3); Blood Urea Nitrogen 37 mg/dL (9-20); Calcium 7.8 mg/dL (8.4-10.2); Carbon Dioxide 21 mmol/L (22-30); Chloride 101 mmol/L (98-107); Estimated CRCL calculation 39 ml/min; Estimated Glomerular Filt Rate 43; Glucose 174 mg/dL (75-110); Magnesium 1.5 mg/dL (1.6-2.3); Phosphorus 2.5 mg/dL (2.5-4.5); Potassium 4.6 mmol/L (3.4-5.0); Sodium 134 mmol/L (137-145)
[2019-11-11 05:05] LABS: Base Excess ABG -3.5 mEq/l (+/-2.0); Carboxyhemoglobin 0.3 % THb (0-2.0); Fractional Inspired Oxygen 40 %; HCO3 ABG 22.2 mEq/l (22.0-26.0); Methemoglobin ABG 0.3 %THb (0-1.5); Oxygen Content ABG 14.2 %vol (16.0-22.0); Oxyhemoglobin 93.9 % THb (90.0-100.0); PCO2 ABG 42.4 mmHg (35.0-45.0); PO2 ABG 79.4 mmHg (80.0-100.0); PO2 FiO2 Ratio Arterial Blood 1.99 %; Reduced Hemoglobin 5.5 %THb (0-5.0); Total Hemoglobin 10.7 g/dL (12.0-18.0); pH ABG 7.336 (7.350-7.450)
[2019-11-11 05:07] LABS: Arterial Blood Gas Vent Mode PRESSURE CONTROL; Arterial Blood Gas Ventilator rate 20 /MIN; Device VENTILATOR; Modified Allen's Test Pass; Site Drawn LEFT RADIAL
[2019-11-11 05:08] LABS: Arterial Blood Gas PEEP 5 cmH2O; Arterial Blood Gas Pressure Support 44 cmH2O
[2019-11-11] MEDS: MIDAZOLAM HCL 50 MG in DEXTROSE 5% 90 ML 6 MG IV CONT (05:32)
[2019-11-11] MEDS: SODIUM CHLORIDE 0.9% IV 1,000 ML 75 ML IV CONT ×2 (05:38→18:15)
[2019-11-11] MEDS: methylPREDNISolone SOD SUCC 125 MG VIAL 60 MG IV PUSH ×3 (08:26→17:17)
[2019-11-11] MEDS: polyethylene glycoL 3350 17 GM POWD.PACK PO (08:27)
[2019-11-11] MEDS: ASPIRIN 325 MG TABLET PO (08:27)
[2019-11-11] MEDS: NICOTINE (*PBKC) 21 MG PATCH 1 PATCH TRANSDERM (08:27)
[2019-11-11] MEDS: SENNA/DOCUSATE SODIUM TABLET 2 TAB PO ×2 (08:28→17:16)
[2019-11-11] MEDS: SIMVASTATIN 20 MG TABLET PO (08:28)
[2019-11-11] MEDS: GABAPENTIN 300 MG CAPSULE 600 MG PO ×2 (08:28→17:16)
[2019-11-11] MEDS: ENOXAPARIN 40 MG/0.4 ML SYRINGE SUB-Q (08:28)
[2019-11-11] MEDS: CITALOPRAM HYDROBROMIDE 20 MG TABLET PO (08:28)
--- NOTE | 2019-11-11 08:30 | WPDCDIQUERY2 ---
CDI Query Clarification Request -Sepsis documented by EDP -On arrival T 96.2, P 115, RR 28, WBC 15.9 and Pneumonia, acute renal failure and acute respiratory failure documented. -No mention of sepsis by hospitalist Please clarify if sepsis was ruled in or ruled out or if unable to determine. <Chikis Simmons RN - Last Filed: 11/11/19 08:33>
[2019-11-11] MEDS: MAGNESIUM SULF 2 GM/WATER 50ML 2 GM/50 ML BAG IVPB (09:32)
--- NOTE | 2019-11-11 09:47 | WPDINTPN ---
Progress Note: A&P Assessment and Plan (1) Sepsis: Qualifiers: Acute renal failure type: unspecified Sepsis acute organ dysfunction status: with acute organ dysfunction Sepsis type: sepsis due to unspecified organism Severe sepsis acute organ dysfunction type: acute renal failure Severe sepsis shock status: without septic shock Qualified Code(s): A41.9 - Sepsis, unspecified organism; R65.20 - Severe sepsis without septic shock; N17.9 - Acute kidney failure, unspecified Code(s): A41.9 - Sepsis, unspecified organism Status: Acute Assessment and Plan: patient presented with sepsis, with altered mental status, respiratory distress and tachycardia - lactic acid was normal, acute kidney injury on admission with elevated creatinine - blood cultures have been ordered - likely source of sepsis is lungs (2) Acute hypercapnic respiratory failure: Code(s): J96.02 - Acute respiratory failure with hypercapnia Status: Acute Assessment and Plan: patient acute hypercapnic respiratory failure. Did not tolerate a trial of BiPAP, intubated on 09/09/2020 - on pressure control ventilation due to high peak pressures, - continue ceftriaxone and azithromycin, - continue, bronchodilators - sedated with fentanyl and Versed infusion, RASS of 0 to -2, daily sedation vacation - chest x-ray and ABGs reviewed (3) COPD exacerbation: Code(s): J44.1 - Chronic obstructive pulmonary disease with (acute) exacerbation Status: Acute Assessment and Plan: continue bronchodilators, steroids, antibiotics and mechanical ventilation (4) Acute kidney injury: Code(s): N17.9 - Acute kidney failure, unspecified Status: Acute Assessment and Plan: patient with acute kidney injury. creatinine 2.10 this morning, unknown baseline. Patient did receive fluid bolus in the ER. - continue maintenance IV fluids - urine output much improved, creatinine trending down - monitor urine output, renal function,electrolytes (5) Acute hyperkalemia: Code(s): E87.5 - Hyperkalemia Status: Resolved Assessment and Plan: RESOLVED (6) Diabetes: Qualifiers: Diabetes mellitus complication status: with other specified complication Diabetes mellitus care home insulin use: with care home use Diabetes mellitus type: type 2 Qualified Code(s): E11.69 - Type 2 diabetes mellitus with other specified complication; Z79.4 - ocean transportation intermediary (current) use of insulin Code(s): E11.9 - Type 2 diabetes mellitus without complications Status: Acute Assessment and Plan: continue Accu-Cheks, sliding scale insulin and Lantus (7) DVT prophylaxis: Code(s): Z29.9 - Encounter for prophylactic measures, unspecified Status: Acute Assessment and Plan: enoxaparin Additional Plan discussed with patient's sister, Keiko, , and updated her with patient's condition and plan of care. she will be coming to the hospital on 11/12/2019 Code status: Full code Critical care time spent: 33 minutes Due to a high probability of clinically significant, life threatening deterioration, the patient required my highest level of preparedness to intervene emergently and I personally spent this critical care time directly and personally managing the patient. This critical care time included obtaining a history; examining the patient; pulse oximetry; ordering and review of studies; arranging urgent treatment with development of a management plan; evaluation of patient's response to treatment; frequent reassessment; and discussions with other providers. It was exclusive of separately billable procedures and treating other patients and teaching time. Please see Assessment and Plan section and the rest of the note for further information on patient assessment and treatment Subjective Date/time seen: 11/11/19 09:47 Reason for consult: Acute hypercapnic
[2019-11-11] MEDS: DORNASE ALFA INH SOLN 1 MG/ML 2.5 ML AMP 2.5 MG INHALATION ×2 (10:17→21:25)
[2019-11-11] MEDS: PANTOPRAZOLE SODIUM IV 40 MG VIAL IV PUSH (12:07)
[2019-11-11] MEDS: INSULIN ASPART (*BKC) 100 UNITS/ML SUB-Q (12:08)
[2019-11-11 12:32] LABS: Glucose Point of Care 205 (65-105)
[2019-11-11] MEDS: MIDAZOLAM HCL 50 MG in DEXTROSE 5% 90 ML 10 MG IV CONT (17:01)
[2019-11-11 17:18] LABS: Non-Invasive Expiratory Pressure 8 CMH2O; Non-Invasive Inspiratory Pressure 14 CMH2O; Non-Invasive Vent Rate 16 /MIN
[2019-11-11 17:35] LABS: Glucose Point of Care 197 (65-105)
--- NOTE | 2019-11-11 17:44 | PM.IMPN ---
Progress Note: A&P Assessment and Plan (1) COPD exacerbation: Code(s): J44.1 - Chronic obstructive pulmonary disease with (acute) exacerbation Status: Acute Assessment and Plan: Patient with acute respiratory failure secondary to hypercapnia most likely secondary to exacerbation of COPD patient is being treated with Solu-Medrol updraft antibiotics patient is seen by veterinary practitioner (2) Diabetes: Qualifiers: Diabetes mellitus type: type 2 Diabetes mellitus asphalt raker insulin use: with usp use Diabetes mellitus complication status: with other specified complication Qualified Code(s): E11.69 - Type 2 diabetes mellitus with other specified complication; Z79.4 - supervisor type photography (current) use of insulin Code(s): E11.9 - Type 2 diabetes mellitus without complications Status: Acute Assessment and Plan: Accuchecks, SSI, hold home medications (3) DVT prophylaxis: Code(s): Z29.9 - Encounter for prophylactic measures, unspecified Status: Acute Assessment and Plan: lovenox (4) Acute hypercapnic respiratory failure: Code(s): J96.02 - Acute respiratory failure with hypercapnia Status: Acute Assessment and Plan: Worsening ABG pt emergently intubated (5) Pneumonia: Qualifiers: Laterality: unspecified laterality Lung location: unspecified part of lung Pneumonia type: due to unspecified organism Qualified Code(s): J18.9 - Pneumonia, unspecified organism Code(s): J18.9 - Pneumonia, unspecified organism Status: Acute Assessment and Plan: Cxr shows Small right pleural effusion versus pleural parenchymal scarring at the right costophrenic angle related to prior surgical procedure in the right hemithorax with posterior right thoracotomy defect. (6) Acute kidney injury: Code(s): N17.9 - Acute kidney failure, unspecified Status: Acute Assessment and Plan: Creat is 1.6 pt is on iv fluids patient kidney function is improved ARF secondary to pneumonia Continue to monitor (7) Acute hyperkalemia: Code(s): E87.5 - Hyperkalemia Status: Resolved Assessment and Plan: AFter fluids (8) History of open heart surgery: Code(s): Z98.890 - Other specified postprocedural states Status: Acute Assessment and Plan: recent CABG in [facility] obtain notes, wound swab on sternotomy wound Subjective Date/time seen: 11/11/19 17:44 Patient with history of COPD presented with hypoxia most likely secondary to hypercapnic respiratory failure and now on ventilator Review of Systems Review of Systems: ROS unobtainable: unobtainable due to endotracheal tube Exam Const: Other: Patient on vent HENMT: Other: ET tube in place Eyes: Sclera: sclerae normal Neck: Neck: supple Resp: Other: Bilateral poor air entry with wheezing and rhonchi Cardio: Rate: regular rate Rhythm: regular rhythm GI: Auscultation: normal bowel sounds Skin: General skin exam: normal color and no rashes or lesions noted Neuro: Other: Patient on vent and sedated Extrem: General: normal to inspection Psych: Other: Patient on vent and sedated Objective Data Vital Signs Vital Signs: Vital Signs - 24 hr 11/10/19 18:00 11/10/19 19:56 11/10/19 20:23 Temperature 97.9 F Pulse Rate 91 99 92 Respiratory Rate 20 20 Blood Pressure 97/68 L 101/69 Pulse Oximetry 98 100 100 11/10/19 20:27 11/10/19 20:28 11/10/19 20:37 Temperature Pulse Rate 92 92 87 Respiratory Rate 20 20 Blood Pressure Pulse Oximetry 11/10/19 22:00 11/10/19 23:10 11/10/19 23:40 Temperature 97.6 F Pulse Rate 92 91 92 Respiratory Rate 20 20 Blood Pressure 102/67 91/64 L Pulse Oximetry 98 99 98 11/11/19 01:35 11/11/19 01:36 11/11/19 01:45 Temperature Pulse Rate 88 88 83 Respiratory Rate 20 20 Blood Pressure Pulse Oximetry 96 11/11/19 02:00 11/11/19 04:00 11/11/19 05:11 Temperature
[2019-11-11] MEDS: INSULIN GLARGINE (*BKC) 100 UNITS/ML 14 UNITS SUB-Q (21:47)
[2019-11-12] VITALS (25 sets, daily range): BP systolic 86–167; BP diastolic 62–97; PULSE 92–128; RESP 20; TEMP 36.3–36.9; O2SAT 91–100
[2019-11-12 00:12] LABS: Glucose Point of Care 221 (65-105)
[2019-11-12] MEDS: methylPREDNISolone SOD SUCC 125 MG VIAL 60 MG IV PUSH ×5 (00:16→23:50)
[2019-11-12] MEDS: INSULIN ASPART (*BKC) 100 UNITS/ML SUB-Q ×4 (00:17→23:47)
[2019-11-12] MEDS: MIDAZOLAM HCL 50 MG in DEXTROSE 5% 90 ML 12 MG IV CONT ×2 (02:15→10:29)
[2019-11-12] MEDS: LEVALBUTEROL NEB 1.25 MG/3 ML 0.63 MG INHALATION ×4 (02:18→21:32)
[2019-11-12 04:39] LABS: Alveolar/Arterial O2 Gradient 147.8 mmHg; Base Excess ABG -4.2 mEq/l (+/-2.0); Carboxyhemoglobin 0.3 % THb (0-2.0); Fractional Inspired Oxygen 40 %; Methemoglobin ABG 0.1 %THb (0-1.5); Oxygen Content ABG 15.6 %vol (16.0-22.0); Oxygen Saturation ABG 98.6 % (95.0-100.0); Oxyhemoglobin 97.3 % THb (90.0-100.0); PO2 ABG 112.6 mmHg (80.0-100.0); PO2 FiO2 Ratio Arterial Blood 2.82 %; Reduced Hemoglobin 2.3 %THb (0-5.0); Total Hemoglobin 11.3 g/dL (12.0-18.0)
[2019-11-12 04:41] LABS: PCO2 ABG 21.6 mmHg (35.0-45.0); pH ABG 7.515 (7.350-7.450)
[2019-11-12 04:42] LABS: Arterial Blood Gas PEEP 5 cmH2O; Arterial Blood Gas Vent Mode PRESSURE CONTROL; Arterial Blood Gas Ventilator rate 20 /MIN; Device VENTILATOR; Modified Allen's Test Pass; Peak Inspiratory Pressure 44 cmH2O; Site Drawn LEFT RADIAL
[2019-11-12] MEDS: SODIUM CHLORIDE 0.9% IV 1,000 ML 75 ML IV CONT ×2 (06:24→20:37)
[2019-11-12 06:49] LABS: Basophils Percent Auto 0.1 % (0.2-1.2); Hemoglobin 10.4 g/dL (14.0-18.0); Immature Granulocyte Absolute 0.05 K/mm3 (0.00-0.031); Immature Granulocyte Percent A 0.5 % (0-0.5); Lymphocytes Absolute Auto 0.23 K/mm3 (0.9-3.2); Lymphocytes Percent Auto 2.4 % (18.3-44.2); Mean Corpuscular HGB Conc 33.5 g/dl (32-36); Mean Corpuscular Hemoglobin 27.4 pg (26-34); Mean Corpuscular Volume 81.8 fl (80-100); Mean Platelet Volume 10.7 fl (7.4-10.4); Monocytes Absolute Auto 0.3 K/mm3 (0.1-0.6); Monocytes Percent Auto 3.1 % (2.6-8.5); Neutrophils Absolute Auto 8.9 K/mm3 (1.3-6.7); Neutrophils Percent Auto 93.9 % (45.5-73.1); Platelet Count Result 138 k/mm3 (150-375); Red Blood Count 3.79 M/mm3 (4.6-6.20); Red Cell Distribution Width 17.5 % (11.5-14.5); White Blood Count 9.4 K/mm3 (4.5-10.0)
[2019-11-12 07:03] LABS: Blood Urea Nitrogen 31 mg/dL (9-20); Calcium 8.4 mg/dL (8.4-10.2); Carbon Dioxide 18 mmol/L (22-30); Chloride 102 mmol/L (98-107); Estimated CRCL calculation 97 ml/min; Estimated Glomerular Filt Rate > 60; Glucose 247 mg/dL (75-110); Magnesium 1.8 mg/dL (1.6-2.3); Phosphorus 1.5 mg/dL (2.5-4.5); Potassium 3.7 mmol/L (3.4-5.0); Sodium 138 mmol/L (137-145)
[2019-11-12] MEDS: DORNASE ALFA INH SOLN 1 MG/ML 2.5 ML AMP 2.5 MG INHALATION ×2 (08:10→21:30)
[2019-11-12] MEDS: CITALOPRAM HYDROBROMIDE 20 MG TABLET PO (08:26)
[2019-11-12] MEDS: ASPIRIN 325 MG TABLET PO (08:26)
[2019-11-12] MEDS: GABAPENTIN 300 MG CAPSULE 600 MG PO ×2 (08:26→17:17)
[2019-11-12] MEDS: NICOTINE (*PBKC) 21 MG PATCH 1 PATCH TRANSDERM (08:27)
[2019-11-12] MEDS: SENNA/DOCUSATE SODIUM TABLET 2 TAB PO ×2 (08:27→17:17)
[2019-11-12] MEDS: ENOXAPARIN 40 MG/0.4 ML SYRINGE SUB-Q (08:27)
[2019-11-12] MEDS: polyethylene glycoL 3350 17 GM POWD.PACK PO (08:27)
[2019-11-12] MEDS: SIMVASTATIN 20 MG TABLET PO (08:27)
[2019-11-12] MEDS: PANTOPRAZOLE SODIUM IV 40 MG VIAL IV PUSH (08:28)
--- NOTE | 2019-11-12 11:19 | PCDIET ---
Nutrition Follow-Up Complete: Nutrition Diagnosis: Inadequate oral intake related to respiratory failure as evidenced by NPO. Nutrition Goal: Patient to meet estimated nutritional needs. Goal in progress. RN increased Glucerna 1.2 to 60mL/hr earlier today with goal rate being 65mL/hr. Patient has tolerated well without reported residuals. Last recorded weight is 192.1 kg which is entered in error. Patient is 87.3kg which is stable. Bowel Motility: No documented bowel movement. Labs Reviewed: Glu (247), BUN (31), PO4 (1.5), Hgb (10.4), Hct (31.0) Meds Noted: Rocephin, Novolog, Versed, Protonix, Miralax, Fentanyl, Lantus, Solu Medrol, Senna, NS @ 75mL/hr Additional Notes: Small open area at CABG incision with Band-Aid. No other skin issues reported. Recommend continuing to advance tube feeding as tolerated to goal rate and replacing phosphorus as medically appropriate. Nutrition Monitoring and Evaluation: Follow up every Monday/Monday. Follow daily in ICU rounds.
[2019-11-12 12:25] LABS: Glucose Point of Care 385 (65-105)
--- NOTE | 2019-11-12 13:46 | WPDINTPN ---
Progress Note: A&P Assessment and Plan (1) Sepsis: Qualifiers: Sepsis type: sepsis due to unspecified organism Sepsis acute organ dysfunction status: with acute organ dysfunction Severe sepsis acute organ dysfunction type: acute renal failure Acute renal failure type: unspecified Severe sepsis shock status: without septic shock Qualified Code(s): A41.9 - Sepsis, unspecified organism; R65.20 - Severe sepsis without septic shock; N17.9 - Acute kidney failure, unspecified Code(s): A41.9 - Sepsis, unspecified organism Status: Acute Assessment and Plan: patient presented with sepsis, with altered mental status, respiratory distress and tachycardia - lactic acid was normal, acute kidney injury on admission with elevated creatinine - blood cultures pending - sputum culture growing gram-negative coccobacilli, identification and sensitivities pending - continue ceftriaxone and azithromycin (2) Acute hypercapnic respiratory failure: Code(s): J96.02 - Acute respiratory failure with hypercapnia Status: Acute Assessment and Plan: patient acute hypercapnic respiratory failure. Did not tolerate a trial of BiPAP, intubated on 09/09/2020 - patient initially was on pressure control ventilation due to high peak pressures, with improvement in airway resistance, peak pressures much improved. Will switch patient to CMV mode of ventilation. - continue Antibiotics as above - continue, bronchodilators, steroids - sedated with fentanyl and Versed infusion, RASS of 0 to -2, daily sedation vacation - chest x-ray and ABGs reviewed (3) COPD exacerbation: Code(s): J44.1 - Chronic obstructive pulmonary disease with (acute) exacerbation Status: Acute Assessment and Plan: continue bronchodilators, steroids, antibiotics and mechanical ventilation (4) Acute kidney injury: Code(s): N17.9 - Acute kidney failure, unspecified Status: Acute Assessment and Plan: RESOLVED: - initially admitted with acute kidney injury. creatinine 2.20, received adequate IV fluids - continue maintenance IV fluids - urine output much improved, creatinine normalized - monitor urine output, renal function,electrolytes (5) Acute hyperkalemia: Code(s): E87.5 - Hyperkalemia Status: Resolved Assessment and Plan: RESOLVED (6) Diabetes: Qualifiers: Diabetes mellitus type: type 2 Diabetes mellitus group home insulin use: with terminal make up operator use Diabetes mellitus complication status: with other specified complication Qualified Code(s): E11.69 - Type 2 diabetes mellitus with other specified complication; Z79.4 - manager long term care (current) use of insulin Code(s): E11.9 - Type 2 diabetes mellitus without complications Status: Acute Assessment and Plan: continue Accu-Cheks, sliding scale insulin - patient hyperglycemic could be related to steroids, will increase Lantus (7) DVT prophylaxis: Code(s): Z29.9 - Encounter for prophylactic measures, unspecified Status: Acute Assessment and Plan: enoxaparin Additional Plan discussed with patient's sister, Keiko, , updated with patient's condition and plan of care. Also updated with lab and radiology reports. I answered all questions Code status: Full code Critical care time spent: 32 minutes Due to a high probability of clinically significant, life threatening deterioration, the patient required my highest level of preparedness to intervene emergently and I personally spent this critical care time directly and personally managing the patient. This critical care time included obtaining a history; examining the patient; pulse oximetry; ordering and review of studies; arranging urgent treatment with development of a management plan; evaluation of patient's response to treatment; frequent reassessment; and discussions with other providers. It was exclusive of [facility]
[2019-11-12 17:22] LABS: Glucose Point of Care 394 (65-105)
[2019-11-12] MEDS: MIDAZOLAM HCL 50 MG in DEXTROSE 5% 90 ML 10 MG IV CONT (20:41)
[2019-11-12] MEDS: INSULIN GLARGINE (*BKC) 100 UNITS/ML 16 UNITS SUB-Q (20:53)
[2019-11-12 23:47] LABS: Glucose Point of Care 373 (65-105)
[2019-11-13] VITALS (26 sets, daily range): BP systolic 111–146; BP diastolic 72–92; PULSE 89–120; RESP 20–26; TEMP 36.6–37.3; O2SAT 92–99
[2019-11-13] MEDS: LEVALBUTEROL NEB 1.25 MG/3 ML 0.63 MG INHALATION ×4 (01:40→20:59)
[2019-11-13 04:27] LABS: Alveolar/Arterial O2 Gradient 123.2 mmHg; Base Excess ABG -2.4 mEq/l (+/-2.0); Carboxyhemoglobin 0.3 % THb (0-2.0); Fractional Inspired Oxygen 35 %; HCO3 ABG 23.4 mEq/l (22.0-26.0); Methemoglobin ABG 0.2 %THb (0-1.5); Oxygen Content ABG 14.6 %vol (16.0-22.0); Oxygen Saturation ABG 94.3 % (95.0-100.0); Oxyhemoglobin 93.3 % THb (90.0-100.0); PCO2 ABG 44.1 mmHg (35.0-45.0); PO2 ABG 75.1 mmHg (80.0-100.0); PO2 FiO2 Ratio Arterial Blood 2.15 %; Reduced Hemoglobin 6.2 %THb (0-5.0); Total Hemoglobin 11.1 g/dL (12.0-18.0); pH ABG 7.342 (7.350-7.450)
[2019-11-13 04:28] LABS: Device VENTILATOR; Modified Allen's Test Pass; Site Drawn RIGHT RADIAL
[2019-11-13 04:30] LABS: Arterial Blood Gas PEEP 5 cmH2O; Arterial Blood Gas Tidal Volume 480 ml; Arterial Blood Gas Vent Mode CMV; Arterial Blood Gas Ventilator rate 20 /MIN
[2019-11-13 05:06] LABS: Basophils Percent Auto 0.1 % (0.2-1.2); Immature Granulocyte Absolute 0.05 K/mm3 (0.00-0.031); Immature Granulocyte Percent A 0.6 % (0-0.5); Lymphocytes Absolute Auto 0.19 K/mm3 (0.9-3.2); Lymphocytes Percent Auto 2.3 % (18.3-44.2); Mean Corpuscular HGB Conc 32.3 g/dl (32-36); Mean Corpuscular Hemoglobin 27.2 pg (26-34); Mean Corpuscular Volume 84.2 fl (80-100); Mean Platelet Volume 9.3 fl (7.4-10.4); Monocytes Absolute Auto 0.2 K/mm3 (0.1-0.6); Monocytes Percent Auto 2.3 % (2.6-8.5); Neutrophils Percent Auto 94.7 % (45.5-73.1); Platelet Count Result 115 k/mm3 (150-375); Red Blood Count 3.68 M/mm3 (4.6-6.20); Red Cell Distribution Width 18.4 % (11.5-14.5); White Blood Count 8.4 K/mm3 (4.5-10.0)
[2019-11-13 05:25] LABS: Blood Urea Nitrogen 37 mg/dL (9-20); Calcium 8.1 mg/dL (8.4-10.2); Carbon Dioxide 25 mmol/L (22-30); Chloride 104 mmol/L (98-107); Estimated CRCL calculation 56 ml/min; Estimated Glomerular Filt Rate > 60; Glucose 360 mg/dL (75-110); Magnesium 2.1 mg/dL (1.6-2.3); Phosphorus 2.4 mg/dL (2.5-4.5); Potassium 4.3 mmol/L (3.4-5.0); Sodium 139 mmol/L (137-145)
[2019-11-13 05:31] LABS: Microcytosis 1+ (NORMAL); Platelet Estimate Decreased (Adequate)
[2019-11-13 05:46] LABS: Glucose Point of Care 370 (65-105)
[2019-11-13] MEDS: INSULIN ASPART (*BKC) 100 UNITS/ML SUB-Q ×4 (05:48→23:01)
[2019-11-13] MEDS: methylPREDNISolone SOD SUCC 125 MG VIAL 60 MG IV PUSH (05:52)
[2019-11-13] MEDS: MIDAZOLAM HCL 50 MG in DEXTROSE 5% 90 ML 10 MG IV CONT (06:37)
[2019-11-13] MEDS: ASPIRIN 325 MG TABLET PO (07:59)
[2019-11-13] MEDS: SENNA/DOCUSATE SODIUM TABLET 2 TAB PO ×2 (08:00→18:01)
[2019-11-13] MEDS: ENOXAPARIN 40 MG/0.4 ML SYRINGE SUB-Q (08:00)
[2019-11-13] MEDS: NICOTINE (*PBKC) 21 MG PATCH 1 PATCH TRANSDERM (08:00)
[2019-11-13] MEDS: polyethylene glycoL 3350 17 GM POWD.PACK PO (08:01)
[2019-11-13] MEDS: PANTOPRAZOLE SODIUM IV 40 MG VIAL IV PUSH (08:01)
[2019-11-13] MEDS: GABAPENTIN 300 MG CAPSULE 600 MG PO ×2 (08:01→18:02)
[2019-11-13] MEDS: CITALOPRAM HYDROBROMIDE 20 MG TABLET PO (08:01)
[2019-11-13] MEDS: SIMVASTATIN 20 MG TABLET PO (08:01)
[2019-11-13] MEDS: SODIUM CHLORIDE 0.9% IV 1,000 ML 75 ML IV CONT ×2 (08:13→21:09)
[2019-11-13] MEDS: DORNASE ALFA INH SOLN 1 MG/ML 2.5 ML AMP 2.5 MG INHALATION ×2 (08:45→21:00)
--- NOTE | 2019-11-13 11:05 | PCDIET ---
ICU Rounding Note: Tube feedings on hold for possible extubation. Patient previously tolerating Glucerna 1.2 at goal rate of 65mL/hr with no reported residuals. Last recorded weight is 82.8kg which is decreased. Bowel Motility: No documented bowel movements. Patient on Miralax and Senna. Labs Reviewed: Hgb (10.0), Hct (31.0), Glu (370), BUN (37), PO4 (2.4) Meds Noted: Rocephin, Precedex, Fentanyl, Novolog, Lantus, Solu Medrol, Versed, Protonix, Miralax, Senna, NS @ 75mL/hr Additional Notes: Novolog increased for high blood sugars. Chest incision with small open area; no pressure ulcers reported. Recommend resuming tube feedings if unable to extubate today. Following daily in ICU rounds. Assessing/reassessing every Monday/Monday.
[2019-11-13 11:07] LABS: Glucose Point of Care 326 (65-105)
--- NOTE | 2019-11-13 12:05 | WPDINTPN ---
Progress Note: A&P Assessment and Plan (1) Sepsis: Qualifiers: Sepsis type: sepsis due to unspecified organism Sepsis acute organ dysfunction status: with acute organ dysfunction Severe sepsis acute organ dysfunction type: acute renal failure Acute renal failure type: unspecified Severe sepsis shock status: without septic shock Qualified Code(s): A41.9 - Sepsis, unspecified organism; R65.20 - Severe sepsis without septic shock; N17.9 - Acute kidney failure, unspecified Code(s): A41.9 - Sepsis, unspecified organism Status: Acute Assessment and Plan: patient presented with sepsis, with altered mental status, respiratory distress and tachycardia - lactic acid was normal, acute kidney injury on admission with elevated creatinine, creatinine normalized - blood cultures no growth x2 - sputum culture Pseudomonas, sensitivities pending, will switch ceftriaxone to cefepime - continue azithromycin (2) Acute hypercapnic respiratory failure: Code(s): J96.02 - Acute respiratory failure with hypercapnia Status: Acute Assessment and Plan: acute hypercapnic respiratory failure. Did not tolerate a trial of BiPAP, intubated on 09/09/2020 - patient initially was on pressure control ventilation due to high peak pressures, with improvement in airway resistance, peak pressures much improved. continue CMV mode of ventilation, chest x-ray and ABGs reviewed - continue Antibiotics as above - continue, bronchodilators, will decrease steroid - will start Precedex infusion and wean off Precedex and Versed infusion (3) COPD exacerbation: Code(s): J44.1 - Chronic obstructive pulmonary disease with (acute) exacerbation Status: Acute Assessment and Plan: continue bronchodilators, steroids, antibiotics and mechanical ventilation (4) Acute kidney injury: Code(s): N17.9 - Acute kidney failure, unspecified Status: Acute Assessment and Plan: RESOLVED: - initially admitted with acute kidney injury. creatinine 2.20, received adequate IV fluids - continue maintenance IV fluids - urine output much improved, creatinine normalized - monitor urine output, renal function,electrolytes (5) Acute hyperkalemia: Code(s): E87.5 - Hyperkalemia Status: Resolved Assessment and Plan: RESOLVED (6) Diabetes: Qualifiers: Diabetes mellitus type: type 2 Diabetes mellitus tank terminal gauger insulin use: with tank terminal gauger use Diabetes mellitus complication status: with other specified complication Qualified Code(s): E11.69 - Type 2 diabetes mellitus with other specified complication; Z79.4 - manager terminal (current) use of insulin Code(s): E11.9 - Type 2 diabetes mellitus without complications Status: Acute Assessment and Plan: continue Accu-Cheks, sliding scale insulin - patient hyperglycemic could be related to steroids, will increase Lantus - tolerating tube feeds, Glucerna, at goal (7) DVT prophylaxis: Code(s): Z29.9 - Encounter for prophylactic measures, unspecified Status: Acute Assessment and Plan: enoxaparin Additional Plan discussed with patient's sister, Keiko, , updated with patient's condition and plan of care. I answered all questions Code status: Full code Critical care time spent: 33 minutes Due to a high probability of clinically significant, life threatening deterioration, the patient required my highest level of preparedness to intervene emergently and I personally spent this critical care time directly and personally managing the patient. This critical care time included obtaining a history; examining the patient; pulse oximetry; ordering and review of studies; arranging urgent treatment with development of a management plan; evaluation of patient's response to treatment; frequent reassessment; and discussions with other providers. It was exclusive of separately billabl
[2019-11-13] MEDS: methylPREDNISolone SOD SUCC 40 MG VIAL IV PUSH ×2 (14:05→21:10)
--- NOTE | 2019-11-13 16:09 | PM.IMPN ---
Progress Note: A&P Assessment and Plan (1) COPD exacerbation: Code(s): J44.1 - Chronic obstructive pulmonary disease with (acute) exacerbation Status: Acute Assessment and Plan: Patient with acute respiratory failure secondary to hypercapnia most likely secondary to exacerbation of COPD patient is being treated with Solu-Medrol updraft antibiotics patient is seen by [employer] supervisor needs to be in the patient off the vent patient is on Precedex (2) Diabetes: Qualifiers: Diabetes mellitus type: type 2 Diabetes mellitus halfway insulin use: with termite exterminator use Diabetes mellitus complication status: with other specified complication Qualified Code(s): E11.69 - Type 2 diabetes mellitus with other specified complication; Z79.4 - termite exterminator (current) use of insulin Code(s): E11.9 - Type 2 diabetes mellitus without complications Status: Acute Assessment and Plan: Accuchecks, SSI, hold home medications (3) DVT prophylaxis: Code(s): Z29.9 - Encounter for prophylactic measures, unspecified Status: Acute Assessment and Plan: lovenox (4) Acute hypercapnic respiratory failure: Code(s): J96.02 - Acute respiratory failure with hypercapnia Status: Acute Assessment and Plan: Worsening ABG pt emergently intubated (5) Pneumonia: Qualifiers: Laterality: unspecified laterality Lung location: unspecified part of lung Pneumonia type: due to unspecified organism Qualified Code(s): J18.9 - Pneumonia, unspecified organism Code(s): J18.9 - Pneumonia, unspecified organism Status: Acute Assessment and Plan: Cxr shows Small right pleural effusion versus pleural parenchymal scarring at the right costophrenic angle related to prior surgical procedure in the right hemithorax with posterior right thoracotomy defect. (6) Acute kidney injury: Code(s): N17.9 - Acute kidney failure, unspecified Status: Acute Assessment and Plan: Creat is 1.6 pt is on iv fluids patient kidney function is improved ARF secondary to pneumonia Continue to monitor (7) Acute hyperkalemia: Code(s): E87.5 - Hyperkalemia Status: Resolved Assessment and Plan: AFter fluids (8) History of open heart surgery: Code(s): Z98.890 - Other specified postprocedural states Status: Acute Assessment and Plan: recent CABG in [facility] obtain notes, wound swab on sternotomy wound (9) Sepsis: Qualifiers: Sepsis type: sepsis due to unspecified organism Sepsis acute organ dysfunction status: with acute organ dysfunction Severe sepsis acute organ dysfunction type: acute renal failure Acute renal failure type: unspecified Severe sepsis shock status: without septic shock Qualified Code(s): A41.9 - Sepsis, unspecified organism; R65.20 - Severe sepsis without septic shock; N17.9 - Acute kidney failure, unspecified Code(s): A41.9 - Sepsis, unspecified organism Status: Acute Assessment and Plan: Upon arrival patient with criteria of sepsis most likely secondary to pneumonia patient being treated azithromycin and Cefepime Subjective Date/time seen: 11/13/19 16:09 patient with exacerbation of COPD respiratory failure secondary to hypercapnia patient on vent Review of Systems Review of Systems: ROS unobtainable: unobtainable due to endotracheal tube Exam Narrative: Exam Narrative: Patient on vent Const: General: no acute distress HENMT: Other: ET tube in place Neck: Neck: supple Resp: Other: Bilateral poor air entry with rhonchi and Cardio: Rate: regular rate Rhythm: regular rhythm GI: Auscultation: normal bowel sounds Skin: General skin exam: normal color and no rashes or lesions noted Neuro: Other: Patient on vent and sedated Extrem: General: normal to inspection Psych: Other: Patient on vent and sedated Objective Data Vital Signs Vital Signs: Vital Signs
[2019-11-13 18:06] LABS: Glucose Point of Care 306 (65-105)
[2019-11-13 19:56] LABS: Chloride Rand Ur 75 mmol/L (32-290); Chloride/Creatinine Rand Ur 153 (23-275); Creatinine Random Urine 49 mg/dL (20-320)
[2019-11-13 20:02] LABS: Glucose Point of Care 287 (65-105)
[2019-11-13] MEDS: INSULIN GLARGINE (*BKC) 100 UNITS/ML 25 UNITS SUB-Q (20:03)
[2019-11-13 23:05] LABS: Glucose Point of Care 339 (65-105)
[2019-11-14] VITALS (31 sets, daily range): BP systolic 116–146; BP diastolic 83–106; PULSE 62–142; RESP 18–37; TEMP 36.1–39; O2SAT 86–100
[2019-11-14] MEDS: LEVALBUTEROL NEB 1.25 MG/3 ML 0.63 MG INHALATION ×4 (03:21→21:13)
[2019-11-14 04:30] LABS: Alveolar/Arterial O2 Gradient 100.3 mmHg; Base Excess ABG 0.1 mEq/l (+/-2.0); Carboxyhemoglobin 0.3 % THb (0-2.0); Device VENTILATOR; Fractional Inspired Oxygen 30 %; HCO3 ABG 25.1 mEq/l (22.0-26.0); Methemoglobin ABG 0.3 %THb (0-1.5); Modified Allen's Test Pass; Oxygen Content ABG 15.2 %vol (16.0-22.0); Oxygen Saturation ABG 92.1 % (95.0-100.0); PCO2 ABG 42.5 mmHg (35.0-45.0); PO2 ABG 63.7 mmHg (80.0-100.0); PO2 FiO2 Ratio Arterial Blood 2.12 %; Reduced Hemoglobin 7.4 %THb (0-5.0); Site Drawn LEFT RADIAL; Total Hemoglobin 11.7 g/dL (12.0-18.0)
[2019-11-14 04:31] LABS: Arterial Blood Gas Ventilator rate 20 /MIN
[2019-11-14 04:32] LABS: Arterial Blood Gas PEEP 5 cmH2O; Arterial Blood Gas Tidal Volume 480 ml; Arterial Blood Gas Vent Mode CMV
[2019-11-14 05:16] LABS: Glucose Point of Care 403 (65-105)
[2019-11-14] MEDS: methylPREDNISolone SOD SUCC 40 MG VIAL IV PUSH (05:32)
[2019-11-14] MEDS: INSULIN ASPART (*BKC) 100 UNITS/ML 10 UNITS SUB-Q (05:33)
[2019-11-14 05:41] LABS: Basophils Percent Auto 0.1 % (0.2-1.2); Hematocrit 33.4 % (42.0-52.0); Hemoglobin 10.4 g/dL (14.0-18.0); Immature Granulocyte Absolute 0.08 K/mm3 (0.00-0.031); Immature Granulocyte Percent A 0.7 % (0-0.5); Lymphocytes Absolute Auto 0.27 K/mm3 (0.9-3.2); Lymphocytes Percent Auto 2.5 % (18.3-44.2); Mean Corpuscular HGB Conc 31.1 g/dl (32-36); Mean Corpuscular Hemoglobin 27.1 pg (26-34); Mean Platelet Volume 10.9 fl (7.4-10.4); Monocytes Absolute Auto 0.4 K/mm3 (0.1-0.6); Monocytes Percent Auto 3.5 % (2.6-8.5); Neutrophils Absolute Auto 10.2 K/mm3 (1.3-6.7); Neutrophils Percent Auto 93.2 % (45.5-73.1); Platelet Count Result 96 k/mm3 (150-375); Red Blood Count 3.84 M/mm3 (4.6-6.20); Red Cell Distribution Width 18.4 % (11.5-14.5); White Blood Count 10.9 K/mm3 (4.5-10.0)
[2019-11-14 05:56] LABS: Blood Urea Nitrogen 40 mg/dL (9-20); Calcium 8.2 mg/dL (8.4-10.2); Carbon Dioxide 25 mmol/L (22-30); Chloride 109 mmol/L (98-107); Estimated CRCL calculation 61 ml/min; Estimated Glomerular Filt Rate > 60; Glucose 380 mg/dL (75-110); Phosphorus 1.6 mg/dL (2.5-4.5); Potassium 4.9 mmol/L (3.4-5.0); Sodium 140 mmol/L (137-145)
[2019-11-14 06:20] LABS: Platelet Estimate Decreased (Adequate)
[2019-11-14 06:21] LABS: Anisocytosis 1+ (NORMAL)
[2019-11-14] MEDS: DORNASE ALFA INH SOLN 1 MG/ML 2.5 ML AMP 2.5 MG INHALATION ×2 (08:42→21:13)
[2019-11-14] MEDS: POTASSIUM/PHOSPHORUS/SODIUM 1.5 GM PACKET 1 PACKET FEED TUBE (08:42)
[2019-11-14] MEDS: SENNA/DOCUSATE SODIUM TABLET 2 TAB PO ×2 (08:43→17:07)
[2019-11-14] MEDS: polyethylene glycoL 3350 17 GM POWD.PACK PO (08:43)
[2019-11-14] MEDS: CITALOPRAM HYDROBROMIDE 20 MG TABLET PO (08:44)
[2019-11-14] MEDS: NICOTINE (*PBKC) 21 MG PATCH 1 PATCH TRANSDERM (08:44)
[2019-11-14] MEDS: SIMVASTATIN 20 MG TABLET PO (08:44)
[2019-11-14] MEDS: GABAPENTIN 300 MG CAPSULE 600 MG PO ×2 (08:44→17:07)
[2019-11-14] MEDS: ASPIRIN 325 MG TABLET PO (08:44)
[2019-11-14] MEDS: PANTOPRAZOLE SODIUM IV 40 MG VIAL IV PUSH (08:44)
[2019-11-14] MEDS: ENOXAPARIN 40 MG/0.4 ML SYRINGE SUB-Q (08:44)
[2019-11-14] MEDS: predniSONE 20 MG TABLET PO (09:36)
--- NOTE | 2019-11-14 09:36 | ECHO_ITS ---
Patient Info Name: Marquis Cosme Age: 69 years : 1950 Gender: Male Ht: 68 in Wt: 182 lbs BSA: 2.01 m2 HR: 110 bpm BP: 125 / 89 mmHg Heart Rhythm: Tachycardia, Sinus Rhythm Technical Quality: Good Exam Date: 11/14/2019 12:45 PM Exam Location: [facility] Patient Status: Inpatient Admit Date: 11/10/2019 Staff Ordering Physician: Claire Giles MD School Speech Therapist: Adria Greene RDCS Attending Provider: Sg Shaw MD Referring Physician: Tisha MONTOYA; Exam Type: CA echo dop color flow w con Study Info Indications I50.9 - Heart failure, unspecified Complete two-dimensional, color flow and Doppler transthoracic echocardiogram is performed with contrast to opacify the left ventrical and to improve the deliniation of the left ventrical endocarial boarders. Strain analysis performed. Contrast/Agitated Saline Contrast/Ag. Saline: Definity Amount: 2.00 ml Administered By: Nabila Duke RN History/Risk Factors CHF; COPD exacerbation, HTN, CAD s/p 6vCABG, DM2. Summary 1. Normal left ventricular size with mild concentric hypertrophy. The global ventricular function was mildly impaired, with severe hypokinesis of the mid anteroseptal segments and akinesis of the distal septum, anterior wall, lateral wall, inferior wall and apex. This is consistent with an ischemic or Tako-Tsubo cardiomyopathy. The estimated ejection fraction is 25-30% with a calculated ejection fraction of 29%. Diastolic dysfunction, grade 2, is present. The average global longitudinal strain is 4%, severely diminished, consistent with severe left ventricular dysfunction. 2. Right ventricular chamber dimension is mildly enlarged with mild hypokinesis.. 3. Left atrial chamber dimension is mildly enlarged. 4. There is mild mitral valve regurgitation. 5. Calcification of the proximal aorta. 6. Sinus tachycardia with PVCs. Left Ventricle Left ventricular chamber dimension is normal. Left ventricular systolic function is normal, estimated at 25-30%. There is mildly increased left ventricular wall thickness. Left ventricular septal wall motion is normal. The left ventricular diastolic function is grade II diastolic dysfunction. Global longitudinal strain is severely elevated at 4 %. Normal left ventricular size with mild concentric hypertrophy. The global ventricular function was mildly impaired, with severe hypokinesis of the mid anteroseptal segments and akinesis of the distal septum, anterior wall, lateral wall, inferior wall and apex. This is consistent with an ischemic or Tako-Tsubo cardiomyopathy. The estimated ejection fraction is 25-30% with a calculated ejection fraction of 29%. Diastolic dysfunction, grade 2, is present. The average global longitudinal strain is 4%, severely diminished, consistent with severe left ventricular dysfunction. Right Ventricle Right ventricular chamber dimension is mildly enlarged with mild hypokinesis.. Right ventricular systolic function is reduced. Left Atria Left atrial chamber dimension is mildly enlarged. Right Atria Right atrial chamber dimension is normal. Aortic Valve The aortic valve is trileaflet. There is no aortic valve sclerosis. There is no aortic valve stenosis. There is no aortic valve regurgitation. Pulmonic Valve The pulmonic valve is normal. There is no pulmonic valve stenosis. There is no pulmonic regurgitation. Mitral Valve The mitral valve has thickened leaflets. Th
[2019-11-14] MEDS: LEVALBUTEROL NEB 1.25 MG/3 ML (10:39)
[2019-11-14] MEDS: INSULIN GLARGINE (*BKC) 100 UNITS/ML 20 UNITS SUB-Q (10:58)
--- NOTE | 2019-11-14 11:01 | PCDIET ---
ICU Rounding Note: Tube feedings on hold for possible extubation. Patient previously tolerating Glucerna 1.2 at 65mL/hr goal rate. No significant residuals reported. Last recorded weight is 82.7kg which is stable. Bowel Motility: No documented bowel movement. Labs Reviewed: Glu (403), PO4 (1.6), Ca (8.2) Meds Noted: Cefepime, Precedex, Fentanyl, Protonix, Miralax, Novolog, Lantus, Versed, Senna, Prednisone, NS @ 75mL/hr Additional Notes: Sternal incision with small open area s/p CABG last year. No other skin issues reported. Recommend resuming tube feedings if unable to extubate and replacing phosphorus as medically appropriate. Following daily in ICU rounds. Assessing/reassessing every Monday/Monday.
[2019-11-14] MEDS: SODIUM CHLORIDE 0.9% IV 1,000 ML 75 ML IV CONT (11:56)
[2019-11-14] MEDS: INSULIN ASPART (*BKC) 100 UNITS/ML SUB-Q ×3 (11:57→23:04)
[2019-11-14 12:04] LABS: Glucose Point of Care 315 (65-105)
--- NOTE | 2019-11-14 13:11 | WPDINTPN ---
Progress Note: A&P Assessment and Plan (1) Sepsis: Qualifiers: Sepsis type: sepsis due to unspecified organism Sepsis acute organ dysfunction status: with acute organ dysfunction Severe sepsis acute organ dysfunction type: acute renal failure Acute renal failure type: unspecified Severe sepsis shock status: without septic shock Qualified Code(s): A41.9 - Sepsis, unspecified organism; R65.20 - Severe sepsis without septic shock; N17.9 - Acute kidney failure, unspecified Code(s): A41.9 - Sepsis, unspecified organism Status: Acute Assessment and Plan: Patient febrile, hemodynamically stable. Sputum cultures growing Pseudomonas, sensitive to cefepime. - Continue cefepime - blood cultures no growth x2 - continue azithromycin (2) Acute hypercapnic respiratory failure: Code(s): J96.02 - Acute respiratory failure with hypercapnia Status: Acute Assessment and Plan: acute hypercapnic respiratory failure. Did not tolerate a trial of BiPAP, intubated on 09/09/2020 - patient on CMV mode of ventilation, 30% FiO2 - continue Antibiotics as above - continue, bronchodilators, started patient on prednisone - on Precedex infusion - patient placed on SBT but did not tolerate he was tachypneic, tachycardic. Patient was placed back on CMV mode of ventilation (3) COPD exacerbation: Code(s): J44.1 - Chronic obstructive pulmonary disease with (acute) exacerbation Status: Acute Assessment and Plan: continue bronchodilators, steroids, antibiotics and mechanical ventilation (4) Acute kidney injury: Code(s): N17.9 - Acute kidney failure, unspecified Status: Acute Assessment and Plan: RESOLVED: - initially admitted with acute kidney injury. creatinine 2.20, received adequate IV fluids - continue maintenance IV fluids - urine output much improved, creatinine normalized - monitor urine output, renal function,electrolytes (5) Acute hyperkalemia: Code(s): E87.5 - Hyperkalemia Status: Resolved Assessment and Plan: RESOLVED (6) Diabetes: Qualifiers: Diabetes mellitus type: type 2 Diabetes mellitus longwall headgate operator insulin use: with longwall headgate operator use Diabetes mellitus complication status: with other specified complication Qualified Code(s): E11.69 - Type 2 diabetes mellitus with other specified complication; Z79.4 - nursing home (current) use of insulin Code(s): E11.9 - Type 2 diabetes mellitus without complications Status: Acute Assessment and Plan: continue Accu-Cheks, sliding scale insulin - patient hyperglycemic could be related to steroids, will increase Lantus - tolerating tube feeds, Glucerna, at goal (7) DVT prophylaxis: Code(s): Z29.9 - Encounter for prophylactic measures, unspecified Status: Acute Assessment and Plan: enoxaparin Additional Plan discussed with patient's sister, Keiko, , updated with patient's condition and plan of care. I answered all questions Code status: Full code Critical care time spent: 35 minutes Due to a high probability of clinically significant, life threatening deterioration, the patient required my highest level of preparedness to intervene emergently and I personally spent this critical care time directly and personally managing the patient. This critical care time included obtaining a history; examining the patient; pulse oximetry; ordering and review of studies; arranging urgent treatment with development of a management plan; evaluation of patient's response to treatment; frequent reassessment; and discussions with other providers. It was exclusive of separately billable procedures and treating other patients and teaching time. Please see Assessment and Plan section and the rest of the note for further information on patient assessment and treatment Subjective Date/time seen: 11/14/19 13:11 Reason for consult
[2019-11-14] MEDS: PERFLUTREN LIPID MICROSPHERES 1.5 ML VIAL DILUTED TO 10 ML TOTAL VOLUME IV PUSH (13:42)
--- NOTE | 2019-11-14 13:50 | PM.CNPUL ---
Assessment and Plan Assessment and plan (1) COPD exacerbation: Code(s): J44.1 - Chronic obstructive pulmonary disease with (acute) exacerbation Status: Acute Assessment and Plan: - agree with levalbuterol Q6h scheduled - will add ipratropium bromide 0.5 mg Q6h scheduled - agree with limiting prednisone to 20 mg daily in light of hyperglycemia, continue for a total of 5-7 days then discontinue without taper (2) Pneumonia: Qualifiers: Laterality: unspecified laterality Lung location: unspecified part of lung Pneumonia type: due to unspecified organism Qualified Code(s): J18.9 - Pneumonia, unspecified organism Code(s): J18.9 - Pneumonia, unspecified organism Status: Acute Assessment and Plan: - agree with Cefepime 2gm IV Q8 for pansensitive Pseduomonas. - given fever this morining would suggest repeat sputum, blood and urine culture per [employer] discretion. (3) CHF (congestive heart failure): Code(s): I50.9 - Heart failure, unspecified Status: Acute Assessment and Plan: BNP > 10,000 on admission with cardiomegaly and interstial opacities, recent CABG. There appears to be some CHF present and this may be hindering his extubation. - Will repeat BNP - 2D echo ordered - Lasix 20 mg IV Q8h for 24-48 hours to help facilitate extubation. History of Present Illness History of Present Illness Consult date: 11/14/19 Chief complaint: acute respiratoy,pneumonia,acute renal failure,sep Narrative: Thank you for involving me in the care of this patient. This is 69 y/o male with history of COPD, DM, HTN, hyperlipidemia and CAD s/p CABG a few months ago. He was admitted with COPD exacerbation, bilateral pneumonia and was intubated with respiratory failure. He has failed a weaning trial today. BNP on admission was greater than 10,000 and he does have some cardiomegaly along with bilateral diffuse interstitial infiltrates. Unclear of the infiltrates are due to mostly pneumonia, pulmonary edema or both. He is currently intubated, on precedex and appears comfortable. He did spike more fevers this morning, WBC has trended down since admission. Sputum culture is growing pansensitive Pseudomonas and he is on Cefepime for that. Review of Systems Review of Systems: All systems reviewed & are unremarkable except as noted in HPI and below PMFSH Past Medical History Medical History COPD (chronic obstructive pulmonary disease) Diabetes type 2, controlled GERD (gastroesophageal reflux disease) Hyperlipidemia Hypertension Schizoaffective disorder Surgical History Surgical History History of open heart surgery History of thoracotomy Family History Family History Other Unknown family medical history Social History Social History Smoking status: Current every day smoker Alcohol intake: former Substance use: unknown Gender identity (if verbalized by the patient): Male Spiritual care concerns: No Agree to blood products: Yes Meds Home Medications and Allergies Home Medications Medication Instructions Recorded Confirmed Type Antifungal Cream (miconazole) 1 unit TOPICAL Q12H 11/10/19 11/10/19 History Daily Multivitamin 1 tab-cap PO DAILY 11/10/19 11/10/19 History Spiriva Respimat 1 cap INHALATION DAILY 11/10/19 11/10/19 History acetaminophen [Tylenol] 650 mg PO Q6H PRN 11/10/19 11/10/19 History albuterol sulfate [ProAir HFA] 2 puff INHALATION Q4H PRN 11/10/19 11/10/19 History aspirin 325 mg PO DAILY 11/10/19 11/10/19 History citalopram 20 mg PO DAILY 11/10/19 11/10/19 History cyanocobalamin (vitamin B-12) 1,000 mcg PO DAILY 11/10/19 11/10/19 History [Vitamin B-12] esomeprazole magnesium 40 mg PO DAILY 11/10/19 11/10/19 History ferrous
[2019-11-14 15:09] LABS: NT Pro B Type Natriuretic Pept > 35000 PG/ML (5-100)
[2019-11-14] MEDS: FUROSEMIDE INJ 40 MG/4 ML VIAL 20 MG IV PUSH ×2 (16:29→21:25)
[2019-11-14 17:24] LABS: Glucose Point of Care 309 (65-105)
[2019-11-14] MEDS: INSULIN GLARGINE (*BKC) 100 UNITS/ML 35 UNITS SUB-Q (21:06)
[2019-11-14] MEDS: IPRATROPIUM BR 0.02% INH SOLN 0.5 MG/2.5 ML VIAL INHALATION ×2 (21:13→21:14)
[2019-11-14 21:15] LABS: Glucose Point of Care 276 (65-105)
[2019-11-14 23:03] LABS: Glucose Point of Care 332 (65-105)
[2019-11-15] VITALS (32 sets, daily range): BP systolic 110–143; BP diastolic 65–98; PULSE 83–124; RESP 23–29; TEMP 37.1–39.3; O2SAT 96–99
[2019-11-15] MEDS: SODIUM CHLORIDE 0.9% IV 1,000 ML 75 ML IV CONT (02:15)
[2019-11-15] MEDS: LEVALBUTEROL NEB 1.25 MG/3 ML 0.63 MG INHALATION ×4 (02:15→21:01)
[2019-11-15] MEDS: IPRATROPIUM BR 0.02% INH SOLN 0.5 MG/2.5 ML VIAL INHALATION ×4 (02:15→21:00)
[2019-11-15 04:24] LABS: Basophils Percent Auto 0.2 % (0.2-1.2); Hematocrit 35.2 % (42.0-52.0); Hemoglobin 11.1 g/dL (14.0-18.0); Immature Granulocyte Absolute 0.14 K/mm3 (0.00-0.031); Immature Granulocyte Percent A 1.2 % (0-0.5); Lymphocytes Absolute Auto 0.61 K/mm3 (0.9-3.2); Lymphocytes Percent Auto 5.4 % (18.3-44.2); Mean Corpuscular HGB Conc 31.5 g/dl (32-36); Mean Corpuscular Hemoglobin 27.1 pg (26-34); Mean Corpuscular Volume 85.9 fl (80-100); Mean Platelet Volume 10.5 fl (7.4-10.4); Monocytes Absolute Auto 0.4 K/mm3 (0.1-0.6); Monocytes Percent Auto 3.4 % (2.6-8.5); Neutrophils Absolute Auto 10.2 K/mm3 (1.3-6.7); Neutrophils Percent Auto 89.8 % (45.5-73.1); Platelet Count Result 90 k/mm3 (150-375); Red Cell Distribution Width 18.3 % (11.5-14.5); White Blood Count 11.4 K/mm3 (4.5-10.0)
[2019-11-15 04:42] LABS: Blood Urea Nitrogen 41 mg/dL (9-20); Calcium 8.2 mg/dL (8.4-10.2); Carbon Dioxide 28 mmol/L (22-30); Chloride 103 mmol/L (98-107); Estimated CRCL calculation 61 ml/min; Estimated Glomerular Filt Rate > 60; Glucose 329 mg/dL (75-110); Magnesium 1.7 mg/dL (1.6-2.3); Phosphorus 1.5 mg/dL (2.5-4.5); Potassium 4.1 mmol/L (3.4-5.0); Sodium 141 mmol/L (137-145)
[2019-11-15] MEDS: FUROSEMIDE INJ 40 MG/4 ML VIAL 20 MG IV PUSH ×3 (05:34→21:23)
[2019-11-15] MEDS: INSULIN ASPART (*BKC) 100 UNITS/ML SUB-Q ×4 (05:34→23:36)
[2019-11-15 05:37] LABS: Alveolar/Arterial O2 Gradient 96.9 mmHg; Base Excess ABG 2.9 mEq/l (+/-2.0); Carboxyhemoglobin 0.2 % THb (0-2.0); Fractional Inspired Oxygen 30 %; HCO3 ABG 26.8 mEq/l (22.0-26.0); Methemoglobin ABG 0.2 %THb (0-1.5); Oxygen Content ABG 17.5 %vol (16.0-22.0); Oxygen Saturation ABG 95.2 % (95.0-100.0); Oxyhemoglobin 94.2 % THb (90.0-100.0); PCO2 ABG 38.6 mmHg (35.0-45.0); PO2 ABG 71.6 mmHg (80.0-100.0); PO2 FiO2 Ratio Arterial Blood 2.39 %; Reduced Hemoglobin 5.4 %THb (0-5.0); Total Hemoglobin 13.2 g/dL (12.0-18.0); pH ABG 7.459 (7.350-7.450)
[2019-11-15 05:38] LABS: Device VENTILATOR; Modified Allen's Test Pass; Site Drawn LEFT RADIAL
[2019-11-15 05:39] LABS: Arterial Blood Gas PEEP 5 cmH2O; Arterial Blood Gas Tidal Volume 480 ml; Arterial Blood Gas Vent Mode CMV; Arterial Blood Gas Ventilator rate 20 /MIN
[2019-11-15] MEDS: DORNASE ALFA INH SOLN 1 MG/ML 2.5 ML AMP 2.5 MG INHALATION ×2 (08:45→21:00)
[2019-11-15] MEDS: SENNA/DOCUSATE SODIUM TABLET 2 TAB PO ×2 (09:40→17:15)
[2019-11-15] MEDS: CITALOPRAM HYDROBROMIDE 20 MG TABLET PO (09:40)
[2019-11-15] MEDS: polyethylene glycoL 3350 17 GM POWD.PACK PO (09:40)
[2019-11-15] MEDS: POTASSIUM/PHOSPHORUS/SODIUM 1.5 GM PACKET 1 PACKET FEED TUBE (09:40)
[2019-11-15] MEDS: GABAPENTIN 300 MG CAPSULE 600 MG PO ×2 (09:40→17:15)
[2019-11-15] MEDS: PANTOPRAZOLE SODIUM IV 40 MG VIAL IV PUSH (09:40)
[2019-11-15] MEDS: ENOXAPARIN 40 MG/0.4 ML SYRINGE SUB-Q (09:41)
[2019-11-15] MEDS: NICOTINE (*PBKC) 21 MG PATCH 1 PATCH TRANSDERM (09:41)
[2019-11-15] MEDS: predniSONE 20 MG TABLET PO (09:41)
[2019-11-15] MEDS: SIMVASTATIN 20 MG TABLET PO (09:41)
[2019-11-15] MEDS: ASPIRIN 325 MG TABLET PO (09:41)
[2019-11-15] MEDS: INSULIN GLARGINE (*BKC) 100 UNITS/ML 25 UNITS SUB-Q ×2 (09:50→20:47)
[2019-11-15] MEDS: carvediloL 3.125 MG TABLET PO ×2 (11:06→20:37)
[2019-11-15 11:15] LABS: Glucose Point of Care 369 (65-105)
--- NOTE | 2019-11-15 11:37 | PCDIET ---
Nutrition Follow-Up Complete: Nutrition Diagnosis: Inadequate oral intake related to respiratory failure as evidenced by NPO. Nutrition Goal: Patient to meet estimated nutritional needs. Goal met. Patient tolerating Glucerna 1.2 at goal rate of 65mL/hr with no significant residuals. No plan for extubation today. Last recorded weight is 86.4 kg which is increased. I/O positive. Bowel Motility: +BM today. Labs Reviewed: Glu (329), PO4 (1.5), Ca (8.2), Hgb (11.1), Hct (35.2) Meds Noted: Cefepime, Novolog, Precedex, Lantus, Fentanyl, Versed, Lasix, Protonix, Miralax, Senna, Prednisone, NS at 75mL/hr Additional Notes: Small opening in previous CABG incision; no pressure sores reported. MD continuing to adjust insulin, as needed. s/p Neutra-Phos replacement. Recommend continuing tube feedings until able to extubate. Nutrition Monitoring and Evaluation: Follow up every Monday/Monday. Follow daily in ICU rounds.
--- NOTE | 2019-11-15 12:29 | WPDINTPN ---
Progress Note: A&P Assessment and Plan (1) Sepsis: Qualifiers: Sepsis type: sepsis due to unspecified organism Sepsis acute organ dysfunction status: with acute organ dysfunction Severe sepsis acute organ dysfunction type: acute renal failure Acute renal failure type: unspecified Severe sepsis shock status: without septic shock Qualified Code(s): A41.9 - Sepsis, unspecified organism; R65.20 - Severe sepsis without septic shock; N17.9 - Acute kidney failure, unspecified Code(s): A41.9 - Sepsis, unspecified organism Status: Acute Assessment and Plan: Patient febrile, hemodynamically stable. Sputum cultures growing Pseudomonas, sensitive to cefepime. - Continue cefepime and azithromycin - blood cultures no growth x2 - patient febrile, obtain blood cultures, sputum cultures and urine cultures. (2) Acute hypercapnic respiratory failure: Code(s): J96.02 - Acute respiratory failure with hypercapnia Status: Acute Assessment and Plan: acute hypercapnic respiratory failure. Did not tolerate a trial of BiPAP, intubated on 09/09/2020 - patient on CMV mode of ventilation, 30% FiO2 - continue Antibiotics as above - continue, bronchodilators, his started on prednisone patient is - on Precedex infusion - chest x-ray shows worsening infiltrates, increasing WBC count. Will monitor (3) Cardiomyopathy: Code(s): I42.9 - Cardiomyopathy, unspecified Status: Acute Assessment and Plan: echocardiogram done on 11/14/2019 showed normal LV size with concentric hypertrophy. Hypokinesis of the mid anteroseptal segments and akinesis of the distal septum, anterior wall, lateral wall, inferior wall and apex. This is consistent with ischemic or Takotsubo cardiomyopathy. Is 25-30%. Grade 2 diastolic dysfunction. Mild mitral valve regurg - Will start patient on small dose carvedilol (4) COPD exacerbation: Code(s): J44.1 - Chronic obstructive pulmonary disease with (acute) exacerbation Status: Acute Assessment and Plan: continue bronchodilators, steroids, antibiotics and mechanical ventilation - appreciate pulmonology following the patient (5) Acute kidney injury: Code(s): N17.9 - Acute kidney failure, unspecified Status: Acute Assessment and Plan: RESOLVED: - initially admitted with acute kidney injury. creatinine 2.20, received adequate IV fluids - continue maintenance IV fluids - urine output much improved, creatinine normalized - monitor urine output, renal function,electrolytes (6) Acute hyperkalemia: Code(s): E87.5 - Hyperkalemia Status: Resolved Assessment and Plan: RESOLVED (7) Diabetes: Qualifiers: Diabetes mellitus type: type 2 Diabetes mellitus prison insulin use: with prison use Diabetes mellitus complication status: with other specified complication Qualified Code(s): E11.69 - Type 2 diabetes mellitus with other specified complication; Z79.4 - [facility] (current) use of insulin Code(s): E11.9 - Type 2 diabetes mellitus without complications Status: Acute Assessment and Plan: continue Accu-Cheks, sliding scale insulin - patient hyperglycemic could be related to steroids, will increase Lantus to b.i.d. dosing - tolerating tube feeds, Glucerna, at goal (8) DVT prophylaxis: Code(s): Z29.9 - Encounter for prophylactic measures, unspecified Status: Acute Assessment and Plan: enoxaparin Additional Plan discussed with patient's sister, Keiko, , updated with patient's condition and plan of care. I discussed with her regarding possibility of a tracheostomy and PEG tube placement. She also commented if a tracheostomy and PEG tube is not done what is the alternative and I did discuss with her regarding comfort care and withdrawal of support. She stated she is going to be talking to the brother. I did tell her that w
--- NOTE | 2019-11-15 15:34 | PM.PNPUL ---
Progress Note: A&P Assessment and Plan (1) CHF (congestive heart failure): Code(s): I50.9 - Heart failure, unspecified Status: Acute Assessment and Plan: - continue diuersis judiciously as tolerated - BP and HR control (2) COPD exacerbation: Code(s): J44.1 - Chronic obstructive pulmonary disease with (acute) exacerbation Status: Acute Assessment and Plan: - continue levalbuterol and ipratropium as prescribed. - will decrease prednisone to 10 mg daily and discontinue after three more days (3) Pneumonia: Qualifiers: Laterality: unspecified laterality Lung location: unspecified part of lung Pneumonia type: due to unspecified organism Qualified Code(s): J18.9 - Pneumonia, unspecified organism Code(s): J18.9 - Pneumonia, unspecified organism Status: Acute Assessment and Plan: - continue cefepime for Pseudomonas Pneumonia - f/u on repeat sputum, urine and blood culture - daily CPAP trials with PSV 5 and PEEP of 5 as tolerated. Time Spent With Patient Time with patient: 15 - 25 minutes Subjective Date/time seen: 11/15/19 15:34 Interval history: Had fever yesterday, still tachycardic but on minimal support from vent. Sputum, urine and blood cultures pending. BP stable. Echo showed EF of 25-30%, likely related to CAD, recent CABG less than one year ago. Tolerating diuresis. CXR still shows bilateral interstitial infiltrates with RML atelectasis and elevation of right hemidiaphragm. Review of Systems Review of Systems: All systems reviewed & are unremarkable except as noted in HPI and below Exam Const: General: comfortable and no acute distress HENMT: Mouth: Yes moist mucous membranes Neck: Neck: supple and no JVD Resp: Auscultation: crackles and diminished lung sounds Cardio: Rate: regular rate Rhythm: regular rhythm GI: Auscultation: normal bowel sounds Urinary Catheter: Urinary Catheter: patent and draining and urine clear Extrem: General: normal to inspection, no edema and no pedal edema Objective Data Vital Signs Vital Signs: Vital Signs - 24 hr 11/14/19 16:00 11/14/19 16:43 11/14/19 18:00 Temperature 36.1 C L Pulse Rate 112 H 107 H 95 Respiratory Rate 23 H 37 H Blood Pressure 123/87 135/95 H Pulse Oximetry 96 97 98 11/14/19 20:00 11/14/19 20:46 11/14/19 21:14 Temperature 38.8 C H 38.8 C H Pulse Rate 105 H 103 H Respiratory Rate 29 H 22 H Blood Pressure 138/99 H Pulse Oximetry 98 99 11/14/19 21:35 11/14/19 22:00 11/14/19 23:32 Temperature Pulse Rate 109 H 92 106 H Respiratory Rate 22 H 21 H 26 H Blood Pressure 125/89 Pulse Oximetry 98 99 11/14/19 23:47 11/15/19 00:00 11/15/19 00:38 Temperature 38.8 C H 37.6 C Pulse Rate 105 H 95 Respiratory Rate 24 H Blood Pressure 124/87 Pulse Oximetry 99 98 11/15/19 02:00 11/15/19 02:15 11/15/19 02:30 Temperature Pulse Rate 85 99 115 H Respiratory Rate 23 H 24 H 27 H Blood Pressure 127/65 Pulse Oximetry 96 99 11/15/19 04:00 11/15/19 05:09 11/15/19 06:00 Temperature 37.1 C Pulse Rate 94 116 H 109 H Respiratory Rate 26 H 27 H Blood Pressure 139/96 H 138/98 H Pulse Oximetry 98 98 99 11/15/19 08:00 11/15/19 08:45 11/15/19 08:49 Temperature 37.5 C Pulse Rate 97 106 H 111 H Respiratory Rate 26 H 29 H Blood Pressure 134/88 Pulse Oximetry 97 97 11/15/19 08:58 11/15/19 10:00 11/15/19 11:06 Temperature Pulse Rate 111 H 117 H 124 H Respiratory Rate 29 H 29 H Blood Pressure 143/90 H Pulse Oximetry 97 11/15/19 11:51 11/15/19 12:00 11/15/19 14:00 Temperature 37.4 C Pulse Rate 101 H 101 H 84 Respiratory Rate 25 H 25 H Blood Pressure 113/77 110/76 Pulse Oximetry 99 98 97 11/15/19 14:01 11/15/19 14:04 11/15/19 14:11 Temperature Pulse Rate 99 99 98 Respiratory Rate 26 H 26 H Blood Pressure Pulse Oximetry 99 Intake/Output Intake/Output: Intake & Output 11/12/19 11/13/19 02
--- NOTE | 2019-11-15 16:12 | PM.IMPN ---
Progress Note: A&P Assessment and Plan (1) COPD exacerbation: Code(s): J44.1 - Chronic obstructive pulmonary disease with (acute) exacerbation Status: Acute Assessment and Plan: 11/15/19 16:12 Patient with acute respiratory failure secondary to hypercapnia most likely secondary to exacerbation of COPD patient is being treated with Solu-Medrol updraft antibiotics patient was given trial of SBT however it was not successful, patient is seen by front sight attacher needs to be in the patient off the vent patient is on Precedex (2) Diabetes: Qualifiers: Diabetes mellitus type: type 2 Diabetes mellitus fpc insulin use: with fpc use Diabetes mellitus complication status: with other specified complication Qualified Code(s): E11.69 - Type 2 diabetes mellitus with other specified complication; Z79.4 - emt intermediate (current) use of insulin Code(s): E11.9 - Type 2 diabetes mellitus without complications Status: Acute Assessment and Plan: Accuchecks, SSI, hold home medications (3) DVT prophylaxis: Code(s): Z29.9 - Encounter for prophylactic measures, unspecified Status: Acute Assessment and Plan: lovenox (4) Acute hypercapnic respiratory failure: Code(s): J96.02 - Acute respiratory failure with hypercapnia Status: Acute Assessment and Plan: Worsening ABG pt emergently intubated (5) Pneumonia: Qualifiers: Laterality: unspecified laterality Lung location: unspecified part of lung Pneumonia type: due to unspecified organism Qualified Code(s): J18.9 - Pneumonia, unspecified organism Code(s): J18.9 - Pneumonia, unspecified organism Status: Acute Assessment and Plan: Cxr shows Small right pleural effusion versus pleural parenchymal scarring at the right costophrenic angle related to prior surgical procedure in the right hemithorax with posterior right thoracotomy defect. (6) Acute kidney injury: Code(s): N17.9 - Acute kidney failure, unspecified Status: Acute Assessment and Plan: Creat is 1.6 pt is on iv fluids patient kidney function is improved ARF secondary to pneumonia Continue to monitor (7) Acute hyperkalemia: Code(s): E87.5 - Hyperkalemia Status: Resolved Assessment and Plan: AFter fluids (8) History of open heart surgery: Code(s): Z98.890 - Other specified postprocedural states Status: Acute Assessment and Plan: recent CABG in [facility] obtain notes, wound swab on sternotomy wound (9) Sepsis: Qualifiers: Sepsis type: sepsis due to unspecified organism Sepsis acute organ dysfunction status: with acute organ dysfunction Severe sepsis acute organ dysfunction type: acute renal failure Acute renal failure type: unspecified Severe sepsis shock status: without septic shock Qualified Code(s): A41.9 - Sepsis, unspecified organism; R65.20 - Severe sepsis without septic shock; N17.9 - Acute kidney failure, unspecified Code(s): A41.9 - Sepsis, unspecified organism Status: Acute Assessment and Plan: Upon arrival patient with criteria of sepsis most likely secondary to pneumonia patient being treated azithromycin and Cefepime Subjective Date/time seen: 11/15/19 16:12 Patient with acute respiratory failure secondary to hypercapnia most likely secondary to exacerbation of COPD patient is being treated with Solu-Medrol updraft antibiotics patient was given trial of SBT however it was not successful, patient is seen by front sight attacher needs to be in the patient off the vent patient is on Precedex Review of Systems Review of Systems: ROS unobtainable: unobtainable due to endotracheal tube Exam Const: Other: Patient on vent HENMT: Other: ET tube in place Eyes: Sclera: sclerae normal Neck: Neck: supple Resp: Other: Bilateral poor air entry with rhonchi Cardio: Rate: regular rate Rhythm: regular rhythm GI: A
[2019-11-15 17:37] LABS: Glucose Point of Care 337 (65-105)
[2019-11-15 20:42] LABS: Glucose Point of Care 308 (65-105)
[2019-11-15 23:50] LABS: Glucose Point of Care 325 (65-105)
[2019-11-16] VITALS (37 sets, daily range): BP systolic 81–132; BP diastolic 56–89; PULSE 74–110; RESP 21–29; TEMP 37.4–39.4; O2SAT 95–100
[2019-11-16] MEDS: IPRATROPIUM BR 0.02% INH SOLN 0.5 MG/2.5 ML VIAL INHALATION ×4 (01:40→20:56)
[2019-11-16] MEDS: LEVALBUTEROL NEB 1.25 MG/3 ML 0.63 MG INHALATION ×4 (01:40→20:56)
[2019-11-16 04:49] LABS: Alveolar/Arterial O2 Gradient 102.3 mmHg; Base Excess ABG 7.7 mEq/l (+/-2.0); Carboxyhemoglobin 0.2 % THb (0-2.0); Fractional Inspired Oxygen 30 %; HCO3 ABG 30.8 mEq/l (22.0-26.0); Methemoglobin ABG 0.3 %THb (0-1.5); Oxygen Content ABG 16.8 %vol (16.0-22.0); Oxygen Saturation ABG 95.4 % (95.0-100.0); Oxyhemoglobin 93.9 % THb (90.0-100.0); PCO2 ABG 37.3 mmHg (35.0-45.0); PO2 ABG 67.8 mmHg (80.0-100.0); PO2 FiO2 Ratio Arterial Blood 2.26 %; Reduced Hemoglobin 5.6 %THb (0-5.0); Total Hemoglobin 12.7 g/dL (12.0-18.0)
[2019-11-16 04:51] LABS: Modified Allen's Test Pass; Site Drawn RIGHT RADIAL; pH ABG 7.534 (7.350-7.450)
[2019-11-16 04:52] LABS: Arterial Blood Gas Vent Mode CMV; Arterial Blood Gas Ventilator rate 20 /MIN; Device VENTILATOR
[2019-11-16 04:53] LABS: Arterial Blood Gas PEEP 5 cmH2O; Arterial Blood Gas Pressure Support 0 cmH2O; Arterial Blood Gas Tidal Volume 480 ml
[2019-11-16 05:43] LABS: Glucose Point of Care 253 (65-105)
[2019-11-16] MEDS: FUROSEMIDE INJ 40 MG/4 ML VIAL 20 MG IV PUSH (05:56)
[2019-11-16] MEDS: INSULIN ASPART (*BKC) 100 UNITS/ML SUB-Q ×4 (06:01→23:46)
[2019-11-16 06:17] LABS: Blood Urea Nitrogen 45 mg/dL (9-20); Calcium 7.9 mg/dL (8.4-10.2); Carbon Dioxide 33 mmol/L (22-30); Chloride 100 mmol/L (98-107); Estimated CRCL calculation 56 ml/min; Estimated Glomerular Filt Rate > 60; Glucose 283 mg/dL (75-110); Magnesium 1.5 mg/dL (1.6-2.3); Phosphorus 1.3 mg/dL (2.5-4.5); Potassium 3.6 mmol/L (3.4-5.0); Sodium 142 mmol/L (137-145)
[2019-11-16 07:02] LABS: Basophils Percent Auto 0.2 % (0.2-1.2); Hematocrit 37.2 % (42.0-52.0); Immature Granulocyte Absolute 0.18 K/mm3 (0.00-0.031); Immature Granulocyte Percent A 1.4 % (0-0.5); Lymphocytes Absolute Auto 0.77 K/mm3 (0.9-3.2); Lymphocytes Percent Auto 6.2 % (18.3-44.2); Mean Corpuscular HGB Conc 32.3 g/dl (32-36); Mean Corpuscular Hemoglobin 27.1 pg (26-34); Monocytes Absolute Auto 0.5 K/mm3 (0.1-0.6); Monocytes Percent Auto 3.6 % (2.6-8.5); Neutrophils Absolute Auto 11.1 K/mm3 (1.3-6.7); Neutrophils Percent Auto 88.6 % (45.5-73.1); Platelet Count Result 83 k/mm3 (150-375); Red Blood Count 4.43 M/mm3 (4.6-6.20); Red Cell Distribution Width 17.7 % (11.5-14.5); White Blood Count 12.5 K/mm3 (4.5-10.0)
[2019-11-16] MEDS: ENOXAPARIN 40 MG/0.4 ML SYRINGE SUB-Q (08:45)
[2019-11-16] MEDS: CITALOPRAM HYDROBROMIDE 20 MG TABLET PO (08:56)
[2019-11-16] MEDS: GABAPENTIN 300 MG CAPSULE 600 MG PO ×2 (08:57→17:37)
[2019-11-16] MEDS: DORNASE ALFA INH SOLN 1 MG/ML 2.5 ML AMP 2.5 MG INHALATION (08:57)
[2019-11-16] MEDS: SIMVASTATIN 20 MG TABLET PO (08:57)
[2019-11-16] MEDS: carvediloL 3.125 MG TABLET PO ×2 (08:58→20:28)
[2019-11-16] MEDS: NICOTINE (*PBKC) 21 MG PATCH 1 PATCH TRANSDERM (08:58)
[2019-11-16] MEDS: ASPIRIN 325 MG TABLET PO (08:58)
[2019-11-16] MEDS: INSULIN GLARGINE (*BKC) 100 UNITS/ML 25 UNITS SUB-Q ×2 (08:59→20:25)
[2019-11-16] MEDS: FUROSEMIDE INJ 40 MG/4 ML VIAL IV PUSH ×2 (09:21→17:37)
[2019-11-16] MEDS: FAMOTIDINE 20 MG/2 ML VIAL IV PUSH ×2 (09:42→20:28)
[2019-11-16] MEDS: predniSONE 10 MG TABLET PO (09:44)
[2019-11-16] MEDS: POTASSIUM PHOS,M-BASIC-D-BASIC 20 MMOL in SODIUM CHLORIDE 0.9% IV 250 ML 62.5 MMOL IVPB (09:45)
[2019-11-16] MEDS: POTASSIUM/PHOSPHORUS/SODIUM 1.5 GM PACKET 1 PACKET FEED TUBE (09:45)
[2019-11-16] MEDS: MAGNESIUM SULF 4 GM/WATER100ML 4 GM/100 ML BAG IVPB (09:46)
--- NOTE | 2019-11-16 11:14 | WPDINTPN ---
Progress Note: A&P Assessment and Plan (1) Sepsis: Qualifiers: Sepsis type: sepsis due to unspecified organism Sepsis acute organ dysfunction status: with acute organ dysfunction Severe sepsis acute organ dysfunction type: acute renal failure Acute renal failure type: unspecified Severe sepsis shock status: without septic shock Qualified Code(s): A41.9 - Sepsis, unspecified organism; R65.20 - Severe sepsis without septic shock; N17.9 - Acute kidney failure, unspecified Code(s): A41.9 - Sepsis, unspecified organism Status: Acute Assessment and Plan: Patient febrile Persistently, hemodynamically stable. Sputum cultures growing Pseudomonas, sensitive to cefepime. - Continue cefepime and azithromycin for now. - Will involve Infectious Disease Service because of persistent febrile status in spite of him on appropriate antibiotics for the last few days. He may need CT chest abdomen pelvis to look for any abscess or any other probable source of infection. - blood cultures no growth x2 - patient febrile, obtain blood cultures, sputum cultures and urine cultures. (2) Acute hypercapnic respiratory failure: Code(s): J96.02 - Acute respiratory failure with hypercapnia Status: Acute Assessment and Plan: acute hypercapnic respiratory failure. Did not tolerate a trial of BiPAP, intubated on 09/09/2020 - patient on CMV mode of ventilation, 30% FiO2. He has been placed on SBT trial with pressure support of 12 and PEEP of 5. Would not expect him to be extubated today. - continue Antibiotics as above - continue, bronchodilators, He was on steroid which is being weaned off. Down to 10 mg of prednisone now. Continue bronchodilator. - on Precedex infusion. Daily sedation vacation trial. - chest x-ray shows worsening infiltrates, increasing WBC count. Will monitor (3) Cardiomyopathy: Code(s): I42.9 - Cardiomyopathy, unspecified Status: Acute Assessment and Plan: echocardiogram done on 11/14/2019 showed normal LV size with concentric hypertrophy. Hypokinesis of the mid anteroseptal segments and akinesis of the distal septum, anterior wall, lateral wall, inferior wall and apex. This is consistent with ischemic or Takotsubo cardiomyopathy. Is 25-30%. Grade 2 diastolic dysfunction. Mild mitral valve regurg - Will start patient on small dose carvedilol. - Cardiology will be consulted considering significant echocardiography findings. He is being diuresed with Lasix 20 mg IV 3 times a day. Strict intake output record and daily weight. Monitor renal parameters and electrolytes. (4) COPD exacerbation: Code(s): J44.1 - Chronic obstructive pulmonary disease with (acute) exacerbation Status: Acute Assessment and Plan: continue bronchodilators, steroids, antibiotics and mechanical ventilation - appreciate pulmonology following the patient will taper steroid to off in the next 2-3 days. (5) Acute kidney injury: Code(s): N17.9 - Acute kidney failure, unspecified Status: Acute Assessment and Plan: RESOLVED: - initially admitted with acute kidney injury. creatinine 2.20, received adequate IV fluids. Now renal parameters improved and seems to be his baseline. - urine output much improved, creatinine normalized - monitor urine output, renal function,electrolytes (6) Acute hyperkalemia: Code(s): E87.5 - Hyperkalemia Status: Resolved Assessment and Plan: Resolved (7) Diabetes: Qualifiers: Diabetes mellitus type: type 2 Diabetes mellitus skilled nursing insulin use: with skilled nursing use Diabetes mellitus complication status: with other specified complication Qualified Code(s): E11.69 - Type 2 diabetes mellitus with other specified complication; Z79.4 - salvage determiner (current) use of insulin Code(s): E11.9 - Type 2 diabetes mellitus without complications Status: Acute As
[2019-11-16] MEDS: ACETAMINOPHEN 325 MG TABLET 650 MG PO ×2 (11:27→20:24)
--- NOTE | 2019-11-16 12:21 | PM.PNPUL ---
Progress Note: A&P Assessment and Plan (1) CHF (congestive heart failure): Code(s): I50.9 - Heart failure, unspecified Status: Acute Assessment and Plan: - continue diuersis judiciously as tolerated - BP and HR control (2) COPD exacerbation: Code(s): J44.1 - Chronic obstructive pulmonary disease with (acute) exacerbation Status: Acute Assessment and Plan: - continue levalbuterol and ipratropium as prescribed. - will decrease prednisone to 10 mg daily and discontinue after three more days (3) Pneumonia: Qualifiers: Laterality: unspecified laterality Lung location: unspecified part of lung Pneumonia type: due to unspecified organism Qualified Code(s): J18.9 - Pneumonia, unspecified organism Code(s): J18.9 - Pneumonia, unspecified organism Status: Acute Assessment and Plan: - continue cefepime for Pseudomonas Pneumonia - f/u on repeat sputum, urine and blood culture - daily CPAP trials with PSV 5 and PEEP of 5 as tolerated. Subjective Date/time seen: 11/16/19 12:21 Interval history: Stable overnight. CXR is not greatly improved despite diuresis. Repeat sputum, blood and urine cultures pending. Review of Systems Review of Systems: All systems reviewed & are unremarkable except as noted in HPI and below Exam Const: General: comfortable and no acute distress HENMT: Mouth: Yes moist mucous membranes Neck: Neck: supple and no JVD Resp: Auscultation: crackles and diminished lung sounds Cardio: Rate: regular rate Rhythm: regular rhythm GI: Auscultation: normal bowel sounds Urinary Catheter: Urinary Catheter: patent and draining and urine clear Extrem: General: normal to inspection, no edema and no pedal edema Objective Data Vital Signs Vital Signs: Vital Signs - 24 hr 11/15/19 14:00 11/15/19 14:01 11/15/19 14:04 Temperature Pulse Rate 84 99 99 Respiratory Rate 25 H 26 H Blood Pressure 110/76 Pulse Oximetry 97 99 11/15/19 14:11 11/15/19 16:00 11/15/19 16:39 Temperature Pulse Rate 98 104 H 107 H Respiratory Rate 26 H 27 H Blood Pressure 117/75 Pulse Oximetry 97 97 11/15/19 17:15 11/15/19 17:30 11/15/19 18:00 Temperature 38.6 C H 38.6 C H 39.3 C H Pulse Rate 105 H Respiratory Rate 23 H Blood Pressure 122/82 Pulse Oximetry 98 11/15/19 20:00 11/15/19 20:37 11/15/19 21:03 Temperature 37.7 C H Pulse Rate 95 92 95 Respiratory Rate 25 H 25 H Blood Pressure 114/79 Pulse Oximetry 97 11/15/19 21:05 11/15/19 21:20 11/15/19 22:00 Temperature Pulse Rate 83 99 93 Respiratory Rate 25 H 26 H Blood Pressure 131/88 Pulse Oximetry 96 98 11/15/19 22:46 11/16/19 00:00 11/16/19 01:41 Temperature 38.1 C H Pulse Rate 97 96 100 Respiratory Rate 26 H 29 H Blood Pressure 131/89 Pulse Oximetry 97 97 11/16/19 01:42 11/16/19 01:54 11/16/19 02:00 Temperature Pulse Rate 102 H 102 H 103 H Respiratory Rate 29 H 26 H Blood Pressure 132/88 Pulse Oximetry 98 96 11/16/19 04:00 11/16/19 04:15 11/16/19 04:24 Temperature 39.3 C H 39.3 C H Pulse Rate 100 94 Respiratory Rate 22 H Blood Pressure 123/82 Pulse Oximetry 96 100 11/16/19 04:45 11/16/19 06:00 11/16/19 06:45 Temperature 39.1 C H 38.8 C H Pulse Rate 97 Respiratory Rate 25 H Blood Pressure 128/84 Pulse Oximetry 97 11/16/19 07:15 11/16/19 08:00 11/16/19 08:58 Temperature 39.3 C H 39.4 C H Pulse Rate 99 98 Respiratory Rate 25 H 26 H Blood Pressure 115/74 Pulse Oximetry 97 11/16/19 09:01 11/16/19 09:32 11/16/19 10:00 Temperature Pulse Rate 97 108 H 110 H Respiratory Rate 27 H 25 H Blood Pressure 100/70 Pulse Oximetry 96 96 11/16/19 11:27 11/16/19 11:52 Temperature 39.4 C H Pulse Rate 108 H Respiratory Rate Blood Pressure Pulse Oximetry 95 Intake/Output Intake/Output: Intake & Output 11/13/19 11/14/19 11/15/19 11/16/19 23:59 23:59 23:59 23
[2019-11-16 13:29] LABS: Glucose Point of Care 363 (65-105)
--- NOTE | 2019-11-16 17:31 | WPDINFPN2 ---
Progress Note: A&P Additional Plan Patient was seen in consult dictated. Thank you. Subjective Date/time seen: 11/16/19 17:31 Objective Data Vital Signs Vital Signs: Vital Signs - 24 hr 11/15/19 18:00 11/15/19 20:00 11/15/19 20:37 Temperature 39.3 C H 37.7 C H Pulse Rate 105 H 95 92 Respiratory Rate 23 H 25 H Blood Pressure 122/82 114/79 Pulse Oximetry 98 97 11/15/19 21:03 11/15/19 21:05 11/15/19 21:20 Temperature Pulse Rate 95 83 99 Respiratory Rate 25 H 25 H Blood Pressure Pulse Oximetry 96 11/15/19 22:00 11/15/19 22:46 11/16/19 00:00 Temperature 38.1 C H Pulse Rate 93 97 96 Respiratory Rate 26 H 26 H Blood Pressure 131/88 131/89 Pulse Oximetry 98 97 97 11/16/19 01:41 11/16/19 01:42 11/16/19 01:54 Temperature Pulse Rate 100 102 H 102 H Respiratory Rate 29 H 29 H Blood Pressure Pulse Oximetry 98 11/16/19 02:00 11/16/19 04:00 11/16/19 04:15 Temperature 39.3 C H 39.3 C H Pulse Rate 103 H 100 Respiratory Rate 26 H 22 H Blood Pressure 132/88 123/82 Pulse Oximetry 96 96 11/16/19 04:24 11/16/19 04:45 11/16/19 06:00 Temperature 39.1 C H Pulse Rate 94 97 Respiratory Rate 25 H Blood Pressure 128/84 Pulse Oximetry 100 97 11/16/19 06:45 11/16/19 07:15 11/16/19 08:00 Temperature 38.8 C H 39.3 C H 39.4 C H Pulse Rate 99 Respiratory Rate 25 H Blood Pressure 115/74 Pulse Oximetry 97 11/16/19 08:58 11/16/19 09:01 11/16/19 09:32 Temperature Pulse Rate 98 97 108 H Respiratory Rate 26 H 27 H Blood Pressure Pulse Oximetry 96 11/16/19 10:00 11/16/19 11:27 11/16/19 11:52 Temperature 39.4 C H Pulse Rate 110 H 108 H Respiratory Rate 25 H Blood Pressure 100/70 Pulse Oximetry 96 95 11/16/19 12:00 02/22/20 14:00 11/16/19 14:35 Temperature Pulse Rate 107 H 96 99 Respiratory Rate 22 H Blood Pressure Pulse Oximetry 11/16/19 14:37 11/16/19 14:51 11/16/19 17:13 Temperature Pulse Rate 97 97 102 H Respiratory Rate 25 H Blood Pressure Pulse Oximetry 97 97 Intake/Output Intake/Output: Intake & Output 11/13/19 11/14/19 11/15/19 11/16/19 23:59 23:59 23:59 23:59 Intake Total 3867 3450.1 3824.9 1067 Output Total 2150 3350 6000 4150 Balance 1717 100.1 -9944.1 -2634 Meds/Results Medications: Active Medications Generic Name Dose Route Start Last Admin Trade Name Freq PRN Reason Stop Dose Admin Acetaminophen 650 mg 11/16/19 09:36 11/16/19 11:27 Tylenol Tablet PO 650 mg Q4H PRN Administration Mild Pain (1-3) or Fever Aspirin 325 mg 11/11/19 09:00 11/16/19 08:58 Aspirin PO 325 mg DAILY KASSIDY Administration Carvedilol 3.125 mg 11/15/19 09:00 11/16/19 08:58 Coreg PO 3.125 mg Q12HR KASSIDY Administration Citalopram Hydrobromide 20 mg 11/11/19 09:00 11/16/19 08:56 Celexa PO 20 mg DAILY KASSIDY Administration Dextrose 12.5 gm 11/10/19 13:31 Dextrose 50% Syringe IV PUSH PRN PRN Hypoglycemia Protocol Dornase Noel 2.5 mg 11/11/19 09:50 11/16/19 08:57 Pulmozyme INHALATION 2.5 mg Q12HRT KASSIDY Administration Enoxaparin Sodium 40 mg 11/11/19 09:00 11/16/19 08:45 Lovenox SUB-Q 40 mg DAILY KASSIDY Administration Famotidine 20 mg 11/16/19 09:00 11/16/19 09:42 Pepcid Iv IV PUSH 20 mg Q12HR KASSIDY Administration Furosemide 40 mg 11/16/19 09:00 11/16/19 09:21 Lasix Inj IV PUSH 40 mg BID KASSIDY Administration Gabapentin 600 mg 11/10/19 17:00 11/16/19 08:57 Neurontin PO 600 mg BID KASSIDY Administration Glucagon 1 mg 11/10/19 13:31 Glucagon For Inj IM PRN PRN Hypoglycemia Protocol Glucose 15 gm 11/10/19 13:31 Glutose 15 PO PRN PRN Hypoglycemia Protocol Dextrose 1,000 mls @ 100 mls/hr 11/10/19 13:31 Dextrose 5% 1,000 Ml IVPB PRN PRN Hypoglycemia Protocol Midazolam HCl 50 mg/ Dextrose 100 mls @ 0 mls/hr 11/10/19 14:15 02
[2019-11-16 17:40] LABS: Glucose Point of Care 381 (65-105)
[2019-11-16 20:41] LABS: Glucose Point of Care 373 (65-105)
--- NOTE | 2019-11-16 20:48 | CONS_ITS ---
DATE OF CONSULTATION: 11/16/2019 REQUESTING PHYSICIAN: Norma Westbrook M.D. REASON FOR CONSULTATION: Persistent fever, respiratory failure on a ventilator. HISTORY OF PRESENT ILLNESS: This is a 69-year-old male, who presented to the emergency room with acute shortness of breath on November 10, requiring emergent intubation. He has underlying history of COPD, hypertension, and type 2 diabetes, with schizoaffective disorder. Since intubation, the patient has been diagnosed with sepsis with acute exacerbation of COPD. The patient has continuously been running fever and we were requested to see him for further management. Since intubation, he has had a tracheal aspirate, which showed Pseudomonas aeruginosa; organism has been pansensitive including to cefepime. The patient is currently on cefepime and azithromycin. We were asked to see him due to breakthrough fevers despite on antibiotics therapy. Currently, T-max was 39.4. The patient is currently intubated, and sedated, therefore history is obtained from the chart. 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 PAST SURGICAL HISTORY: Open heart surgery, thoracotomy of the right foot, digit amputation. FAMILY HISTORY: Positive for hypertension and diabetes. REVIEW OF SYSTEMS: Unable to obtain since the patient is currently intubated and sedated and he is unable to give any history. SOCIAL HISTORY: Currently every day smoker. No alcohol or substance abuse. MEDICATION: At home: 1. Multivitamin. 2. Spiriva. 3. Aspirin. 4. Citalopram. 5. Esomeprazole. 6. Ferrous sulfate. 7. Advair. 8. Furosemide. 9. Gabapentin. 10. Hydroxyzine. 11. Insulin glycine. 12. Tradjenta. 13. Losartan. 14. Metformin. 15. Metoprolol. 16. Simvastatin. Medications in the hospital, he is on : 1. Azithromycin day #5. 2. Cefepime, day #3. 3. Enoxaparin. 4. Aspirin. 5. Gabapentin. 6. Simvastatin. 7. Insulin. 8. Prednisone 10 mg daily. 9. Furosemide. PHYSICAL EXAMINATION: GENERAL: The patient is currently on the ventilator. VITAL SIGNS: His temperature is a 39.4, pulse rate of 102, respiratory rate of 25, blood pressure 100/70. He is saturating 98% on 30% FiO2. HEAD AND NECK EXAMINATION: Normocephalic, atraumatic. ET tube in place. Pupils are sluggish. NECK: Supple. No nuchal rigidity. LUNGS: Good bilateral air entry. Minimal scattered rhonchi. CARDIOVASCULAR SYSTEM: Positive S1 and S2-S4 no murmur. ABDOMINAL EXAM: Positive bowel sounds. Nontender. No organomegaly. No mass. EXTREMITIES: No edema. Bilateral feet is cool. Dorsalis pedis are difficult to palpate. Right foot 5th digit prior amputation wound is completely healed. NEUROLOGICAL: He is sedated. SKIN EXAMINATION: There is no rash. Port on the left precordial area has been accessed. IV sites on the right upper extremity are clean. No induration. LABORATORY EXAMINATION: Blood cultures from November 10 as well as from the has been so far negative. Urine cultures are pending. Tracheal aspirate cultures are positive for Pseudomonas aeruginosa. WBC count is 12,000, hemoglobin of 12, hematocrit of 37, platelet of 83,000, segmental of 88%. Sodium is 142, potassium of 3.6, chloride of 100, bicarb of 33, BUN 45, creatinine of 1, glucose of 283, AST of 55, ALT of 26, an alkaline phosphatase of 99. Admitting white count of 15,000. Chest x-ray, diffuse lung disease without significant change consistent with pulmonary edema versus pneumonia. ASSESSMENT AND PLAN: 1. Febrile illness secondary to lower respiratory tract infection versus others including bloodstream infecti
[2019-11-16] MEDS: NOREPINEPHRINE 8 MG/D5W 250 ML 8 MG/250 ML BAG 9.4 MG IV CONT (21:34)
[2019-11-16] MEDS: SODIUM CHLORIDE 0.9% IV 500 ML IV CONT (21:41)
[2019-11-16 23:45] LABS: Glucose Point of Care 283 (65-105)
[2019-11-17] VITALS (37 sets, daily range): BP systolic 89–124; BP diastolic 65–76; PULSE 82–108; RESP 18–23; TEMP 38–39.6; O2SAT 94–99
[2019-11-17] MEDS: LEVALBUTEROL NEB 1.25 MG/3 ML 0.63 MG INHALATION ×4 (02:55→21:35)
[2019-11-17] MEDS: IPRATROPIUM BR 0.02% INH SOLN 0.5 MG/2.5 ML VIAL INHALATION ×4 (02:56→21:36)
[2019-11-17] MEDS: ACETAMINOPHEN 325 MG TABLET 650 MG PO ×4 (03:25→20:40)
[2019-11-17 04:38] LABS: Alveolar/Arterial O2 Gradient 107.8 mmHg; Base Excess ABG 3.4 mEq/l (+/-2.0); Carboxyhemoglobin 0.6 % THb (0-2.0); Fractional Inspired Oxygen 30 %; HCO3 ABG 26.5 mEq/l (22.0-26.0); Methemoglobin ABG 0.3 %THb (0-1.5); Oxygen Content ABG 17.2 %vol (16.0-22.0); Oxygen Saturation ABG 94.3 % (95.0-100.0); Oxyhemoglobin 92.2 % THb (90.0-100.0); PCO2 ABG 35.3 mmHg (35.0-45.0); PO2 ABG 64.6 mmHg (80.0-100.0); PO2 FiO2 Ratio Arterial Blood 2.15 %; Reduced Hemoglobin 6.9 %THb (0-5.0); Total Hemoglobin 13.3 g/dL (12.0-18.0); pH ABG 7.493 (7.350-7.450)
[2019-11-17 04:39] LABS: Device VENTILATOR; Modified Allen's Test Pass; Site Drawn RIGHT RADIAL
[2019-11-17 04:40] LABS: Arterial Blood Gas PEEP 5 cmH2O; Arterial Blood Gas Pressure Support 0 cmH2O; Arterial Blood Gas Tidal Volume 480 ml; Arterial Blood Gas Vent Mode CMV; Arterial Blood Gas Ventilator rate 20 /MIN
[2019-11-17 05:51] LABS: Glucose Point of Care 291 (65-105)
[2019-11-17 05:57] LABS: Hematocrit 39.4 % (42.0-52.0); Hemoglobin 12.4 g/dL (14.0-18.0); Immature Platelet Fraction Pct 12.5 % (0.9-11.2); Mean Corpuscular HGB Conc 31.5 g/dl (32-36); Mean Corpuscular Hemoglobin 27.3 pg (26-34); Mean Corpuscular Volume 86.6 fl (80-100); Platelet Count Result 85 k/mm3 (150-375); Red Blood Count 4.55 M/mm3 (4.6-6.20); White Blood Count 17.9 K/mm3 (4.5-10.0)
[2019-11-17] MEDS: INSULIN ASPART (*BKC) 100 UNITS/ML SUB-Q ×3 (06:01→18:53)
[2019-11-17 06:08] LABS: Blood Urea Nitrogen 54 mg/dL (9-20); Calcium 6.9 mg/dL (8.4-10.2); Carbon Dioxide 35 mmol/L (22-30); Chloride 98 mmol/L (98-107); Estimated CRCL calculation 52 ml/min; Estimated Glomerular Filt Rate 60; Glucose 318 mg/dL (75-110); Magnesium 2.2 mg/dL (1.6-2.3); Phosphorus 1.7 mg/dL (2.5-4.5); Potassium 3.4 mmol/L (3.4-5.0); Sodium 142 mmol/L (137-145)
[2019-11-17] MEDS: ASPIRIN 325 MG TABLET PO (08:46)
[2019-11-17] MEDS: GABAPENTIN 300 MG CAPSULE 600 MG PO ×2 (08:46→16:21)
[2019-11-17] MEDS: carvediloL 3.125 MG TABLET PO (08:46)
[2019-11-17] MEDS: FAMOTIDINE 20 MG/2 ML VIAL IV PUSH ×2 (08:46→20:42)
[2019-11-17] MEDS: FUROSEMIDE INJ 40 MG/4 ML VIAL IV PUSH (08:46)
[2019-11-17] MEDS: ENOXAPARIN 40 MG/0.4 ML SYRINGE SUB-Q (08:46)
[2019-11-17] MEDS: NICOTINE (*PBKC) 21 MG PATCH 1 PATCH TRANSDERM (08:47)
[2019-11-17] MEDS: SIMVASTATIN 20 MG TABLET PO (08:47)
[2019-11-17] MEDS: CITALOPRAM HYDROBROMIDE 20 MG TABLET PO (08:47)
[2019-11-17] MEDS: predniSONE 10 MG TABLET PO (08:47)
[2019-11-17] MEDS: INSULIN GLARGINE (*BKC) 100 UNITS/ML 25 UNITS SUB-Q (08:48)
[2019-11-17] MEDS: DORNASE ALFA INH SOLN 1 MG/ML 2.5 ML AMP 2.5 MG INHALATION ×2 (08:57→21:36)
[2019-11-17 08:58] LABS: Glucose Point of Care 314 (65-105)
[2019-11-17] MEDS: SODIUM CHLORIDE 0.9% IV 500 ML IV CONT (09:16)
--- NOTE | 2019-11-17 11:09 | PM.CNCAR ---
History of Present Illness History of Present Illness Consult date/time: THIS PATIENT WAS SEEN BY ANOTHER STATE FEDERAL RELATIONS DEPUTY DIRECTOR. PLEASE DELETE THIS NOTE. Reason For Visit: acute respiratoy,pneumonia,acute renal failure,sep [facility] Past Medical History Medical History COPD (chronic obstructive pulmonary disease) Diabetes type 2, controlled GERD (gastroesophageal reflux disease) Hyperlipidemia Hypertension Schizoaffective disorder Surgical History Surgical History History of thoracotomy Hx of CABG 02/2019 Family History Family History Other Unknown family medical history Social History Social History Smoking status: Current every day smoker Alcohol intake: former Substance use: unknown Gender identity (if verbalized by the patient): Male Spiritual care concerns: No Agree to blood products: Yes Meds Home Medications and Allergies Home Medications Medication Instructions Recorded Confirmed Type Antifungal Cream (miconazole) 1 unit TOPICAL Q12H 11/10/19 11/10/19 History Daily Multivitamin 1 tab-cap PO DAILY 11/10/19 11/10/19 History Spiriva Respimat 1 cap INHALATION DAILY 11/10/19 11/10/19 History acetaminophen [Tylenol] 650 mg PO Q6H PRN 11/10/19 11/10/19 History albuterol sulfate [ProAir HFA] 2 puff INHALATION Q4H PRN 11/10/19 11/10/19 History aspirin 325 mg PO DAILY 11/10/19 11/10/19 History citalopram 20 mg PO DAILY 11/10/19 11/10/19 History cyanocobalamin (vitamin B-12) 1,000 mcg PO DAILY 11/10/19 11/10/19 History [Vitamin B-12] esomeprazole magnesium 40 mg PO DAILY 11/10/19 11/10/19 History ferrous sulfate 325 mg PO BID 11/10/19 11/10/19 History fluticasone propion-salmeterol 1 puff INHALATION Q12H 11/10/19 11/10/19 History [Advair Diskus] furosemide 40 mg PO DAILY 11/10/19 11/10/19 History gabapentin 600 mg PO BID 11/10/19 11/10/19 History hydroxyzine pamoate 25 mg PO TID 11/10/19 11/10/19 History insulin glargine [Lantus U-100 14 unit SUBCUT HS 11/10/19 11/10/19 History Insulin] insulin lispro [Humalog U-100 See Rx Instructions .ROUTE .COMPLEX 11/10/19 11/10/19 History Insulin] ipratropium-albuterol 3 ml INHALATION Q6H PRN 11/10/19 11/10/19 History lanolin [id number]-ax-g.pet-ceres 1 applic TOPICAL Q12H 11/10/19 11/10/19 History [Eucerin] linagliptin [Tradjenta] 5 mg PO DAILY 11/10/19 11/10/19 History losartan 25 mg PO DAILY 11/10/19 11/10/19 History metformin 500 mg PO BID 11/10/19 11/10/19 History metoprolol tartrate 12.5 mg PO Q12H 11/10/19 11/10/19 History nicotine 1 patch TRANSDERMAL DAILY 11/10/19 11/10/19 History paliperidone palmitate [Invega 156 mg IM MONTHLY 11/10/19 11/10/19 History Sustenna] polyethylene glycol 3350 17 g PO DAILY 11/10/19 11/10/19 History sennosides-docusate sodium [Senna 2 tablet PO BID 11/10/19 11/10/19 History with Docusate Sodium] simvastatin 20 mg PO DAILY 11/10/19 11/10/19 History sodium chloride 1,000 mg PO BID 11/10/19 11/10/19 History trihexyphenidyl 2 mg PO BID 11/10/19 11/10/19 History Allergies Allergy/AdvReac Type Severity Reaction Status Date / Time latex Allergy Unknown Verified 11/10/19 03:42 PLASTIC Allergy Unknown Uncoded 11/10/19 03:43 Vital Signs Vital Signs - 24 hr 11/16/19 11:27 11/16/19 11:52 11/16/19 12:00 Temperature 39.4 C H Pulse Rate 108 H 100 Respiratory Rate 25 H Blood Pressure Pulse Oximetry 95 95 11/16/19 14:00 11/16/19 14:35 11/16/19 14:37 Temperature Pulse Rate 96 99 97 Respiratory Rate 22 H Blood Pressure Pulse Oximetry 97 11/16/19 14:51 11/16/19 17:13 11/16/19 18:00 Temperature Pulse Rate 97 102 H 102 H Respiratory Rate 25 H Blood Pressure Pulse Oximetry 97 11/16/19 19:50 11/16/19 20:00 11/16/19 20:24 Temperature 39.3 C H 3
--- NOTE | 2019-11-17 11:30 | PM.CNCAR ---
Assessment and Plan Assessment and plan (1) Cardiomyopathy: Code(s): I42.9 - Cardiomyopathy, unspecified Status: Acute Assessment and Plan: He has ischemic cardiomyopathy with low EF, but seems to be semi since last year as he had bypass surgery. Will try to get records from [facility] on well as EF afterwards, and what was the hospital course after hospital coronary bypass surgery (2) CHF (congestive heart failure): Code(s): I50.9 - Heart failure, unspecified Status: Acute Assessment and Plan: Does not seem to be fluid overloaded now, currently he is hypotensive likely due to sepsis is unlikely is due to cardiogenic shock, however will start on low-dose dobutamine to support his circulatory status to improve his cardiac output, in the event that we suspect cardiogenic shock will have to do small to consider Impella if needed (3) Sepsis: Qualifiers: Sepsis type: sepsis due to unspecified organism Sepsis acute organ dysfunction status: with acute organ dysfunction Severe sepsis acute organ dysfunction type: acute renal failure Acute renal failure type: unspecified Severe sepsis shock status: without septic shock Qualified Code(s): A41.9 - Sepsis, unspecified organism; R65.20 - Severe sepsis without septic shock; N17.9 - Acute kidney failure, unspecified Code(s): A41.9 - Sepsis, unspecified organism Status: Acute Assessment and Plan: Getting covered with IV antibiotics now (4) Diabetes: Qualifiers: Diabetes mellitus type: type 2 Diabetes mellitus keno terminal operator insulin use: with alf use Diabetes mellitus complication status: with other specified complication Qualified Code(s): E11.69 - Type 2 diabetes mellitus with other specified complication; Z79.4 - keno terminal operator (current) use of insulin Code(s): E11.9 - Type 2 diabetes mellitus without complications Status: Acute (5) Acute hypercapnic respiratory failure: Code(s): J96.02 - Acute respiratory failure with hypercapnia Status: Acute (6) Pneumonia: Qualifiers: Laterality: unspecified laterality Lung location: unspecified part of lung Pneumonia type: due to unspecified organism Qualified Code(s): J18.9 - Pneumonia, unspecified organism Code(s): J18.9 - Pneumonia, unspecified organism Status: Acute (7) Coronary artery disease: Code(s): I25.10 - Atherosclerotic heart disease of [place] coronary artery without angina pectoris Status: Acute Assessment and Plan: Status post coronary bypass surgery last year Additional Plan Thank you for allowing me to participate in this patient's care, I will be following up with you. Please do not hesitate to call me for any other inquiry History of Present Illness History of Present Illness Consult date/time: 11/17/19 11:30 69 years old gentleman with history of ischemic cardiomyopathy, status post coronary bypass surgery, was admitted to the hospital because of shortness breath and fever noted to have pneumonia, currently being treated for pneumonia but noted to have hypotension with possible sepsis. I was asked to see him for further evaluation and treatment, I was able to retrieve his records from [facility] in [place] back in January of last year at that time seems to be having three-vessel coronary disease was scheduled for bypass surgery for which she was subsequently transferred to [facility] underwent bypass surgery there and he stayed in hospital for long time had prolonged hospital course complicated with sternal wound abscess, and chronic respiratory failure. According to the family subsequently eventually he did fine but continued to be weak. Now here he has fever, and he is currently on Levophed at 8 micrograms/minute. Cardiac enzymes negative, no new EKG changes so far. Echocardiogram showed severe left ventricular systolic dysfunction but is the same as he had before last year Reason For V
--- NOTE | 2019-11-17 11:35 | WPDINTPN ---
Progress Note: A&P Assessment and Plan (1) Sepsis: Qualifiers: Sepsis type: sepsis due to unspecified organism Sepsis acute organ dysfunction status: with acute organ dysfunction Severe sepsis acute organ dysfunction type: acute renal failure Acute renal failure type: unspecified Severe sepsis shock status: without septic shock Qualified Code(s): A41.9 - Sepsis, unspecified organism; R65.20 - Severe sepsis without septic shock; N17.9 - Acute kidney failure, unspecified Code(s): A41.9 - Sepsis, unspecified organism Status: Acute Assessment and Plan: Patient febrile persistently. Sputum cultures growing Pseudomonas, sensitive to cefepime. - Continue cefepime and azithromycin for now. - Infectious disease service recommendations appreciated. We will get CT abdomen and pelvis with contrast and CT chest to look for any alternative source of infection and any abscess formation. - blood cultures no growth x2 - Sputum culture is pending (2) Acute hypercapnic respiratory failure: Code(s): J96.02 - Acute respiratory failure with hypercapnia Status: Acute Assessment and Plan: acute hypercapnic respiratory failure. Did not tolerate a trial of BiPAP, intubated on 09/09/2020 - patient on CMV mode of ventilation, 30% FiO2. He did tolerate pressure support ventilation with pressure support of 12 or peep of 5 yesterday. - continue Antibiotics as above - continue, bronchodilators, He was on steroid which is being weaned off. Down to 10 mg of prednisone now. Continue bronchodilator. - on Precedex infusion. Daily sedation vacation trial. He wakes up but not following command when sedation is weaned off. - chest x-ray shows worsening infiltrates, increasing WBC count. will get CT chest abdomen pelvis. (3) Cardiomyopathy: Code(s): I42.9 - Cardiomyopathy, unspecified Status: Acute Assessment and Plan: He has known ischemic cardiomyopathy with low EF. He had bypass surgery at [facility] after he was transferred from [facility] with some neurological changes in February 2019. He had CABG done in the [facility] but apparently had a complicated course afterward is he remained in ICU for almost 8 weeks. echocardiogram done on 11/14/2019 showed normal LV size with concentric hypertrophy. Hypokinesis of the mid anteroseptal segments and akinesis of the distal septum, anterior wall, lateral wall, inferior wall and apex. This is consistent with ischemic or Takotsubo cardiomyopathy. Is 25-30%. Grade 2 diastolic dysfunction. Mild mitral valve regurg - Will hold carvedilol because of hypertension. - Cardiology Service recommendation appreciated. Start him on low-dose dobutamine to support his circulatory status. Bedside echo done by myself showed decreased EF and small IVC with significant respiratory variation. Will hold diuresis until his hemodynamically status improved. Strict intake output record and daily weight. Monitor renal parameters and electrolytes. (4) COPD exacerbation: Code(s): J44.1 - Chronic obstructive pulmonary disease with (acute) exacerbation Status: Acute Assessment and Plan: continue bronchodilators, steroids, antibiotics and mechanical ventilation - appreciate pulmonology following the patient will taper steroid to off in the next 2-3 days. he is not having any significant wheezing. (5) Acute kidney injury: Code(s): N17.9 - Acute kidney failure, unspecified Status: Acute Assessment and Plan: RESOLVED: - initially admitted with acute kidney injury. creatinine 2.20, received adequate IV fluids. Now renal parameters improved and seems to be his baseline. - urine output much improved, creatinine normalized - monitor urine output, renal function,electrolytes (6) Acute hyperkalemia: Code(s): E87.5 - Hyperkalemia Status: Resolved Assessment and Plan: Res
[2019-11-17] MEDS: IBUPROFEN 400 MG TABLET FEED TUBE (11:45)
[2019-11-17 11:55] LABS: Glucose Point of Care 367 (65-105)
[2019-11-17] MEDS: DOBUTamine 250 MG/D5W 250 ML 250 MG/250 ML BAG 12.5 MG IV CONT (11:55)
[2019-11-17] MEDS: POTASSIUM PHOS,M-BASIC-D-BASIC 20 MMOL in SODIUM CHLORIDE 0.9% IV 250 ML 64 MMOL IVPB (11:57)
[2019-11-17] MEDS: NOREPINEPHRINE 8 MG/D5W 250 ML 8 MG/250 ML BAG 15 MG IV CONT (13:10)
[2019-11-17 18:52] LABS: Glucose Point of Care 328 (65-105)
[2019-11-17] MEDS: INSULIN GLARGINE (*BKC) 100 UNITS/ML 30 UNITS SUB-Q (20:44)
[2019-11-18] VITALS (26 sets, daily range): BP systolic 93–139; BP diastolic 66–90; PULSE 90–123; RESP 15–24; TEMP 36.6–39.2; O2SAT 94–100
[2019-11-18 00:02] LABS: Glucose Point of Care 224 (65-105)
[2019-11-18] MEDS: INSULIN ASPART (*BKC) 100 UNITS/ML SUB-Q ×6 (00:14→20:09)
[2019-11-18] MEDS: ACETAMINOPHEN 325 MG TABLET 650 MG PO ×2 (00:26→15:38)
[2019-11-18] MEDS: LEVALBUTEROL NEB 1.25 MG/3 ML 0.63 MG INHALATION ×4 (02:02→21:24)
[2019-11-18] MEDS: IPRATROPIUM BR 0.02% INH SOLN 0.5 MG/2.5 ML VIAL INHALATION ×4 (02:03→21:25)
[2019-11-18 05:09] LABS: Alveolar/Arterial O2 Gradient 96.3 mmHg; Base Excess ABG 8.8 mEq/l (+/-2.0); Carboxyhemoglobin 0.6 % THb (0-2.0); Fractional Inspired Oxygen 30 %; HCO3 ABG 32.8 mEq/l (22.0-26.0); Methemoglobin ABG 0.2 %THb (0-1.5); Oxygen Content ABG 16.5 %vol (16.0-22.0); Oxyhemoglobin 93.1 % THb (90.0-100.0); PCO2 ABG 42.3 mmHg (35.0-45.0); PO2 ABG 67.9 mmHg (80.0-100.0); PO2 FiO2 Ratio Arterial Blood 2.26 %; Reduced Hemoglobin 6.1 %THb (0-5.0); Total Hemoglobin 12.6 g/dL (12.0-18.0); pH ABG 7.507 (7.350-7.450)
[2019-11-18 05:10] LABS: Blood Urea Nitrogen 57 mg/dL (9-20); Calcium 6.8 mg/dL (8.4-10.2); Carbon Dioxide 36 mmol/L (22-30); Chloride 99 mmol/L (98-107); Estimated CRCL calculation 48 ml/min; Estimated Glomerular Filt Rate 55; Glucose 225 mg/dL (75-110); Magnesium 2.2 mg/dL (1.6-2.3); Phosphorus 2.4 mg/dL (2.5-4.5); Potassium 3.4 mmol/L (3.4-5.0); Sodium 142 mmol/L (137-145)
[2019-11-18 05:11] LABS: Device VENTILATOR; Modified Allen's Test Pass; Site Drawn RIGHT RADIAL
[2019-11-18 05:12] LABS: Arterial Blood Gas Vent Mode CMV; Arterial Blood Gas Ventilator rate 20 /MIN
[2019-11-18 05:13] LABS: Arterial Blood Gas PEEP 5 cmH2O; Arterial Blood Gas Pressure Support 0 cmH2O; Arterial Blood Gas Tidal Volume 480 ml
[2019-11-18 05:22] LABS: Hematocrit 38.5 % (42.0-52.0); Hemoglobin 11.9 g/dL (14.0-18.0); Mean Corpuscular HGB Conc 30.9 g/dl (32-36); Mean Corpuscular Volume 87.3 fl (80-100); Platelet Count Result 97 k/mm3 (150-375); Red Blood Count 4.41 M/mm3 (4.6-6.20); Red Cell Distribution Width 18.4 % (11.5-14.5); White Blood Count 13.2 K/mm3 (4.5-10.0)
--- NOTE | 2019-11-18 08:10 | WPDINTPN ---
Progress Note: A&P Assessment and Plan (1) Sepsis: Qualifiers: Sepsis type: sepsis due to unspecified organism Sepsis acute organ dysfunction status: with acute organ dysfunction Severe sepsis acute organ dysfunction type: acute renal failure Acute renal failure type: unspecified Severe sepsis shock status: without septic shock Qualified Code(s): A41.9 - Sepsis, unspecified organism; R65.20 - Severe sepsis without septic shock; N17.9 - Acute kidney failure, unspecified Code(s): A41.9 - Sepsis, unspecified organism Status: Acute Assessment and Plan: Patient febrile persistently. Sputum cultures growing Pseudomonas, sensitive to cefepime. - Continue cefepime for now. - DC azithromycin as pt has been on it for 7 days - Infectious disease service recommendations appreciated. CT Report reviewed - Check UA and Culture - Will discuss with ID and IR regarding sternal fluid collection. Doesn't appear to be very big and blood cultures have been negative - blood cultures no growth x2 - Sputum culture is also negative - Check Lipase (2) Acute hypercapnic respiratory failure: Code(s): J96.02 - Acute respiratory failure with hypercapnia Status: Acute Assessment and Plan: acute hypercapnic respiratory failure. Did not tolerate a trial of BiPAP, intubated on 09/09/2020 - patient on CMV mode of ventilation, 30% FiO2. He did tolerate pressure support ventilation with pressure support of 12 or peep of 5 few days ago will try again today - continue Antibiotics as above - continue, bronchodilators, He was on steroid which is being weaned off. Down to 10 mg of prednisone now. Continue bronchodilator. - Off all sedation. Extubation wiill depend on improvement in both neuro and pulm status - Diamox for Pulm edema and metabolic alkalosis (3) Cardiomyopathy: Code(s): I42.9 - Cardiomyopathy, unspecified Status: Acute Assessment and Plan: He has known ischemic cardiomyopathy with low EF. He had bypass surgery at [facility] after he was transferred from [facility] with some neurological changes in February 2019. He had CABG done in the [facility] but apparently had a complicated course afterward is he remained in ICU for almost 8 weeks. echocardiogram done on 11/14/2019 showed normal LV size with concentric hypertrophy. Hypokinesis of the mid anteroseptal segments and akinesis of the distal septum, anterior wall, lateral wall, inferior wall and apex. This is consistent with ischemic or Takotsubo cardiomyopathy. Is 25-30%. Grade 2 diastolic dysfunction. Mild mitral valve regurg - Will hold carvedilol because of hypotension. - Cardiology Service recommendation appreciated. Start him on low-dose dobutamine to support his circulatory status. Bedside echo done by myself showed decreased EF and small IVC with significant respiratory variation. Will hold aggressive diuresis until his hemodynamically status improved. Strict intake output record and daily weight. Monitor renal parameters and electrolytes. (4) COPD exacerbation: Code(s): J44.1 - Chronic obstructive pulmonary disease with (acute) exacerbation Status: Acute Assessment and Plan: continue bronchodilators, steroids, antibiotics and mechanical ventilation - appreciate pulmonology following the patient - Will DC steroids after todays dose (5) Acute kidney injury: Code(s): N17.9 - Acute kidney failure, unspecified Status: Acute Assessment and Plan: RESOLVED: - initially admitted with acute kidney injury. creatinine 2.20, received adequate IV fluids. Now renal parameters improved and seems to be his baseline. - urine output much improved, creatinine normalized - monitor urine output, renal function,electrolytes (6) Acute hyperkalemia: Code(s): E87.5 - Hyperkalemia Status: Resolved Assessment and Plan: Resolved (7) Diabetes:
[2019-11-18] MEDS: DORNASE ALFA INH SOLN 1 MG/ML 2.5 ML AMP 2.5 MG INHALATION ×3 (08:12→21:25)
[2019-11-18] MEDS: DOBUTamine 250 MG/D5W 250 ML 250 MG/250 ML BAG 12.5 MG IV CONT (08:22)
[2019-11-18] MEDS: predniSONE 10 MG TABLET PO (08:23)
[2019-11-18] MEDS: ASPIRIN 325 MG TABLET PO (08:24)
[2019-11-18] MEDS: CITALOPRAM HYDROBROMIDE 20 MG TABLET PO (08:24)
[2019-11-18] MEDS: SENNA/DOCUSATE SODIUM TABLET 2 TAB PO ×2 (08:25→17:58)
[2019-11-18] MEDS: FAMOTIDINE 20 MG/2 ML VIAL IV PUSH ×2 (08:25→20:10)
[2019-11-18] MEDS: ENOXAPARIN 40 MG/0.4 ML SYRINGE SUB-Q (08:25)
[2019-11-18] MEDS: SIMVASTATIN 20 MG TABLET PO (08:26)
[2019-11-18] MEDS: NICOTINE (*PBKC) 21 MG PATCH 1 PATCH TRANSDERM (08:26)
[2019-11-18 08:31] LABS: Glucose Point of Care 236 (65-105)
[2019-11-18] MEDS: INSULIN GLARGINE (*BKC) 100 UNITS/ML 40 UNITS SUB-Q ×2 (08:48→20:08)
[2019-11-18] MEDS: WATER, STERILE FOR INJECTION 10 ML VIAL XX (09:10)
[2019-11-18 12:05] LABS: Add Urine Microscopic? YES; Appearance Urine Clear (Clear); Bilirubin Urine Negative (Negative); Blood Urine 1+ (Negative); Color Urine Yellow (Yellow); Glucose Urine UA Negative (Negative); Ketones Urine Negative (Negative); Leukocyte Esterase Ur Negative LEU/UL (Negative); Nitrate Urine Negative (Negative); Protein Urine 2+ mg/dL (Negative); Specific Grav Ur 1.021 (1.001-1.035); WBC Urine 0-3 /hpf
[2019-11-18 12:12] LABS: Influenza Control Positive
[2019-11-18] MEDS: NOREPINEPHRINE 8 MG/D5W 250 ML 8 MG/250 ML BAG 11.3 MG IV CONT (12:16)
[2019-11-18 13:06] LABS: Glucose Point of Care 229 (65-105)
--- NOTE | 2019-11-18 13:48 | WPDINFPN2 ---
Progress Note: A&P Assessment and Plan (1) Fever: Code(s): R50.9 - Fever, unspecified Status: Acute Assessment and Plan: 1. Fever, resp vs other source. 2. Retrosternal fluid collection, POD # 0 perc drainage 3. Resp failure 4. Ischemic CM 5. DM REC Cefepime #6 and Vanc same. F/U on fluid results. Off aizthro. CXR stable. BCs ngsf (multiple) Subjective Date/time seen: 11/18/19 13:48 Interval history: sedated on vent Exam Narrative: Exam Narrative: t max 39.3 rectal Const: General: no acute distress Resp: Effort & Inspection: normal respiratory effort Auscultation: clear to auscultation bilaterally and diminished lung sounds Cardio: Rate: tachycardic Rhythm: regular rhythm Heart sounds: no gallops and Murmur heart sound present GI: Inspection: non-distended GI Palp: Yes Soft to palpation and No Tenderness to palpation present (GI) Urinary Catheter: Urinary Catheter: patent and draining and urine clear Skin: General skin exam: normal color and no rashes or lesions noted Objective Data Vital Signs Vital Signs: Vital Signs - 24 hr 11/17/19 13:58 11/17/19 14:00 11/17/19 14:04 Temperature 39.2 C H Pulse Rate 102 H 103 H 102 H Respiratory Rate 22 H 23 H Blood Pressure 110/74 Pulse Oximetry 97 98 11/17/19 14:08 11/17/19 16:00 11/17/19 16:33 Temperature 39.2 C H 39.2 C H 39.2 C H Pulse Rate 104 H Respiratory Rate 20 Blood Pressure 108/73 Pulse Oximetry 97 11/17/19 16:39 11/17/19 18:00 11/17/19 20:00 Temperature 39.2 C H 38.8 C H Pulse Rate 106 H 108 H 99 Respiratory Rate 20 20 Blood Pressure 93/68 L 111/71 Pulse Oximetry 98 98 98 11/17/19 20:28 11/17/19 20:40 11/17/19 21:30 Temperature 38.8 C H 38.8 C H Pulse Rate 100 Respiratory Rate 20 Blood Pressure Pulse Oximetry 98 11/17/19 21:40 11/17/19 21:43 11/17/19 22:00 Temperature 38.8 C H Pulse Rate 99 100 Respiratory Rate 20 20 Blood Pressure 113/72 Pulse Oximetry 97 11/17/19 23:08 11/18/19 00:00 11/18/19 00:26 Temperature 38.8 C H 38.9 C H Pulse Rate 99 103 H Respiratory Rate 20 Blood Pressure 102/69 Pulse Oximetry 98 97 11/18/19 01:34 11/18/19 02:00 11/18/19 02:03 Temperature 38.8 C H Pulse Rate 103 H 104 H Respiratory Rate 20 20 Blood Pressure 93/66 L Pulse Oximetry 98 97 11/18/19 04:00 11/18/19 04:50 11/18/19 06:00 Temperature 38.8 C H 38.8 C H Pulse Rate 103 H 101 H Respiratory Rate 20 20 Blood Pressure 110/75 116/72 Pulse Oximetry 96 95 96 11/18/19 08:00 11/18/19 08:10 11/18/19 08:20 Temperature 39.2 C H Pulse Rate 108 H 110 H 112 H Respiratory Rate 23 H 24 H 24 H Blood Pressure 108/71 Pulse Oximetry 95 94 11/18/19 10:00 11/18/19 11:15 11/18/19 12:00 Temperature 38.6 C H 36.6 C Pulse Rate 104 H 99 105 H Respiratory Rate 21 H 21 H Blood Pressure 115/72 133/81 Pulse Oximetry 99 100 97 Intake/Output Intake/Output: Intake & Output 11/15/19 11/16/19 11/17/19 11/18/19 23:59 23:59 23:59 23:59 Intake Total 3824.9 2067 3021.8 986 Output Total 6000 4800 2800 750 Balance -2175.1 -2733 221.8 236 Meds/Results Medications: Active Medications Generic Name Dose Route Start Last Admin Trade Name Freq PRN Reason Stop Dose Admin Acetaminophen 650 mg 11/16/19 09:36 11/18/19 00:26 Tylenol Tablet PO 650 mg Q4H PRN Administration Mild Pain (1-3) or Fever Aspirin 325 mg 11/11/19 09:00 11/18/19 08:24 Aspirin PO 325 mg DAILY KASSIDY Administration Citalopram Hydrobromide 20 mg 11/11/19 09:00 11/18/19 08:24 Celexa PO 20 mg DAILY KASSIDY Administration Dextrose 12.5 gm 11/10/19 13:31 Dextrose 50% Syringe IV PUSH PRN PRN Hypoglycemia Protocol Dornase Noel 2.5 mg 11/11/19 09:50 11/18/19 08:13 Pulmozyme INHALATION 2.5 mg Q12HRT KASSIDY Administration Enoxaparin Sodium 40 mg 11/11/19 09:00 11/18/19 08:25 Lovenox SUB-Q 40 mg DAILY KASSIDY Admini
--- NOTE | 2019-11-18 14:54 | PM.IMPN ---
Progress Note: A&P Assessment and Plan (1) COPD exacerbation: Code(s): J44.1 - Chronic obstructive pulmonary disease with (acute) exacerbation Status: Acute Assessment and Plan: 11/18/19 14:54 Patient with acute respiratory failure secondary to hypercapnia most likely secondary to exacerbation of COPD patient is being treated with Solu-Medrol updraft antibiotics patient was given trial of SBT however it was not successful, patient is seen by idea worker, patient has developed sternal fluids patient had ultrasound guided aspiration of the fluid pending culture and chemistry, patient is off sedation in hope for extubation however patient still quite somnolent he minimally response to stimuli, (2) Diabetes: Qualifiers: Diabetes mellitus complication status: with other specified complication Diabetes mellitus mcfp insulin use: with mcfp use Diabetes mellitus type: type 2 Qualified Code(s): E11.69 - Type 2 diabetes mellitus with other specified complication; Z79.4 - retirement (current) use of insulin Code(s): E11.9 - Type 2 diabetes mellitus without complications Status: Acute Assessment and Plan: Accuchecks, SSI, hold home medications (3) DVT prophylaxis: Code(s): Z29.9 - Encounter for prophylactic measures, unspecified Status: Acute Assessment and Plan: lovenox (4) Acute hypercapnic respiratory failure: Code(s): J96.02 - Acute respiratory failure with hypercapnia Status: Acute Assessment and Plan: Worsening ABG pt emergently intubated (5) Pneumonia: Qualifiers: Laterality: unspecified laterality Lung location: unspecified part of lung Pneumonia type: due to unspecified organism Qualified Code(s): J18.9 - Pneumonia, unspecified organism Code(s): J18.9 - Pneumonia, unspecified organism Status: Acute Assessment and Plan: Cxr shows Small right pleural effusion versus pleural parenchymal scarring at the right costophrenic angle related to prior surgical procedure in the right hemithorax with posterior right thoracotomy defect. (6) Acute kidney injury: Code(s): N17.9 - Acute kidney failure, unspecified Status: Acute Assessment and Plan: Creat is 1.6 pt is on iv fluids patient kidney function is improved ARF secondary to pneumonia Continue to monitor (7) Acute hyperkalemia: Code(s): E87.5 - Hyperkalemia Status: Resolved Assessment and Plan: AFter fluids (8) History of open heart surgery: Code(s): Z98.890 - Other specified postprocedural states Status: Acute Assessment and Plan: [place] obtain notes, wound swab on sternotomy wound (9) Sepsis: Qualifiers: Acute renal failure type: unspecified Sepsis acute organ dysfunction status: with acute organ dysfunction Sepsis type: sepsis due to unspecified organism Severe sepsis acute organ dysfunction type: acute renal failure Severe sepsis shock status: without septic shock Qualified Code(s): A41.9 - Sepsis, unspecified organism; R65.20 - Severe sepsis without septic shock; N17.9 - Acute kidney failure, unspecified Code(s): A41.9 - Sepsis, unspecified organism Status: Acute Assessment and Plan: Upon arrival patient with criteria of sepsis most likely secondary to pneumonia patient being treated azithromycin and Cefepime Subjective Date/time seen: 11/18/19 14:54 Patient with acute respiratory failure secondary to hypercapnia most likely secondary to exacerbation of COPD patient is being treated with Solu-Medrol updraft antibiotics patient was given trial of SBT however it was not successful, patient is seen by idea worker, patient has developed sternal fluids patient had ultrasound guided aspiration of the fluid pending culture and chemistry, patient is off sedation in hope for extubation however patient still quite somnolent he minimally respons
--- NOTE | 2019-11-18 16:54 | PM.PNCARD ---
Progress Note: A&P Assessment and Plan (1) Cardiomyopathy: Code(s): I42.9 - Cardiomyopathy, unspecified Status: Acute Assessment and Plan: He has ischemic cardiomyopathy with low EF, but seems to be semi since last year as he had bypass surgery. Will try to get records from [place] on well as EF afterwards, and what was the hospital course after hospital coronary bypass surgery (2) CHF (congestive heart failure): Code(s): I50.9 - Heart failure, unspecified Status: Acute Assessment and Plan: Does not seem to be fluid overloaded now, currently he is hypotensive likely due to sepsis is unlikely is due to cardiogenic shock, however will start on low-dose dobutamine to support his circulatory status to improve his cardiac output, in the event that we suspect cardiogenic shock will have to do small to consider Impella if needed (3) Sepsis: Qualifiers: Sepsis type: sepsis due to unspecified organism Sepsis acute organ dysfunction status: with acute organ dysfunction Severe sepsis acute organ dysfunction type: acute renal failure Acute renal failure type: unspecified Severe sepsis shock status: without septic shock Qualified Code(s): A41.9 - Sepsis, unspecified organism; R65.20 - Severe sepsis without septic shock; N17.9 - Acute kidney failure, unspecified Code(s): A41.9 - Sepsis, unspecified organism Status: Acute Assessment and Plan: Getting covered with IV antibiotics now (4) Diabetes: Qualifiers: Diabetes mellitus type: type 2 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 Diabetes mellitus complication status: with other specified complication Qualified Code(s): E11.69 - Type 2 diabetes mellitus with other specified complication; Z79.4 - retirement (current) use of insulin Code(s): E11.9 - Type 2 diabetes mellitus without complications Status: Acute (5) Acute hypercapnic respiratory failure: Code(s): J96.02 - Acute respiratory failure with hypercapnia Status: Acute (6) Pneumonia: Qualifiers: Laterality: unspecified laterality Lung location: unspecified part of lung Pneumonia type: due to unspecified organism Qualified Code(s): J18.9 - Pneumonia, unspecified organism Code(s): J18.9 - Pneumonia, unspecified organism Status: Acute (7) Coronary artery disease: Code(s): I25.10 - Atherosclerotic heart disease of [place] coronary artery without angina pectoris Status: Acute Assessment and Plan: Status post coronary bypass surgery last year Subjective Date/time seen: 11/18/19 16:54 He is more awake now off sedation, not in acute distress tolerating current medications okay, still with fever Exam Narrative: Exam Narrative: Currently he is intubated ventilated Neck is supple no obvious JVD, no carotid bruit Chest: Good air entry bilaterally, lungs are clear to auscultation and percussion bilaterally Cardiovascular: Regular rate and rhythm, 2/6 systolic murmur noted left sternal border Abdomen: Soft nontender bowel sounds positive Extremities: No edema has good pulses distally bilaterally Objective Data Vital Signs Vital Signs: Vital Signs - 24 hr 11/17/19 18:00 11/17/19 20:00 11/17/19 20:28 Temperature 39.2 C H 38.8 C H 38.8 C H Pulse Rate 108 H 99 Respiratory Rate 20 20 Blood Pressure 93/68 L 111/71 Pulse Oximetry 98 98 11/17/19 20:40 11/17/19 21:30 11/17/19 21:40 Temperature 38.8 C H 38.8 C H Pulse Rate 100 Respiratory Rate 20 Blood Pressure Pulse Oximetry 98 11/17/19 21:43 11/17/19 22:00 11/17/19 23:08 Temperature Pulse Rate 99 100 99 Respiratory Rate 20 20 Blood Pressure 113/72 Pulse Oximetry 97 98 11/18/19 00:00 11/18/19 00:26 11/18/19 01:34 Temperature 38.8 C H 38.9 C H 38.8 C H Pulse Rate 103 H Respiratory Rate 20 Blood Pressure 102/69 Pulse Oximetry 97 11/18/19 02:00 11/18/19 02:03 11/18/19 04:
[2019-11-18 17:54] LABS: Glucose Point of Care 326 (65-105)
[2019-11-18] MEDS: FUROSEMIDE INJ 40 MG/4 ML VIAL 20 MG IV PUSH ×2 (17:57→23:20)
[2019-11-18 18:51] LABS: Lipase 194 U/L (23-300)
--- NOTE | 2019-11-18 20:20 | PM.PNPUL ---
Progress Note: A&P Assessment and Plan (1) CHF (congestive heart failure): Code(s): I50.9 - Heart failure, unspecified Status: Acute Assessment and Plan: - continue diuersis judiciously as tolerated - BP and HR control (2) COPD exacerbation: Code(s): J44.1 - Chronic obstructive pulmonary disease with (acute) exacerbation Status: Acute Assessment and Plan: - continue levalbuterol and ipratropium as prescribed. - will decrease prednisone to 10 mg daily and discontinue after three more days (3) Pneumonia: Qualifiers: Laterality: unspecified laterality Lung location: unspecified part of lung Pneumonia type: due to unspecified organism Qualified Code(s): J18.9 - Pneumonia, unspecified organism Code(s): J18.9 - Pneumonia, unspecified organism Status: Acute Assessment and Plan: - continue cefepime for Pseudomonas Pneumonia - f/u on repeat sputum, urine and blood culture - daily CPAP trials with PSV 5 and PEEP of 5 as tolerated. - he is improving gradually, close to extubation Subjective Date/time seen: 11/18/19 20:20 THis 69 yo man is seen in follow up for Pseudomonas pneumonia and CHF. Remains on mechanical ventilator. Not responding to stimuli. Review of Systems Review of Systems: Narrative: Cannot obtain due to intubation and medical condition. Exam Const: General: comfortable and no acute distress HENMT: Mouth: Yes moist mucous membranes Neck: Neck: supple and no JVD Resp: Auscultation: crackles, rhonchi, wheezes and diminished lung sounds Cardio: Rate: regular rate Rhythm: regular rhythm Heart sounds: no murmurs GI: Auscultation: normal bowel sounds Urinary Catheter: Urinary Catheter: patent and draining and urine clear Skin: General skin exam: normal color Extrem: General: normal to inspection, no edema and no pedal edema Objective Data Vital Signs Vital Signs: Vital Signs - 24 hr 11/17/19 20:28 11/17/19 20:40 11/17/19 21:30 Temperature 38.8 C H 38.8 C H Pulse Rate 100 Respiratory Rate 20 Blood Pressure Pulse Oximetry 98 11/17/19 21:40 11/17/19 21:43 11/17/19 22:00 Temperature 38.8 C H Pulse Rate 99 100 Respiratory Rate 20 20 Blood Pressure 113/72 Pulse Oximetry 97 11/17/19 23:08 11/18/19 00:00 11/18/19 00:26 Temperature 38.8 C H 38.9 C H Pulse Rate 99 103 H Respiratory Rate 20 Blood Pressure 102/69 Pulse Oximetry 98 97 11/18/19 01:34 11/18/19 02:00 11/18/19 02:03 Temperature 38.8 C H Pulse Rate 103 H 104 H Respiratory Rate 20 20 Blood Pressure 93/66 L Pulse Oximetry 98 97 11/18/19 04:00 11/18/19 04:50 11/18/19 06:00 Temperature 38.8 C H 38.8 C H Pulse Rate 103 H 101 H Respiratory Rate 20 20 Blood Pressure 110/75 116/72 Pulse Oximetry 96 95 96 11/18/19 08:00 11/18/19 08:10 11/18/19 08:20 Temperature 39.2 C H Pulse Rate 108 H 110 H 112 H Respiratory Rate 23 H 24 H 24 H Blood Pressure 108/71 Pulse Oximetry 95 94 11/18/19 10:00 11/18/19 11:15 11/18/19 12:00 Temperature 38.6 C H 36.6 C Pulse Rate 104 H 99 105 H Respiratory Rate 21 H 21 H Blood Pressure 115/72 133/81 Pulse Oximetry 99 100 97 11/18/19 14:00 11/18/19 14:10 11/18/19 15:38 Temperature 37.2 C 37.9 C H Pulse Rate 90 95 Respiratory Rate 20 20 Blood Pressure 112/67 Pulse Oximetry 97 11/18/19 16:00 11/18/19 16:57 11/18/19 17:55 Temperature 38.0 C H 38.0 C H Pulse Rate 114 H 117 H Respiratory Rate 22 H Blood Pressure 111/80 Pulse Oximetry 97 97 11/18/19 18:00 Temperature 38.4 C H Pulse Rate 123 H Respiratory Rate 24 H Blood Pressure 115/83 Pulse Oximetry 97 Intake/Output Intake/Output: Intake & Output 11/15/19 11/16/19 11/17/19 11/18/19 23:59 23:59 23:59 23:59 Intake Total 3824.9 2067 3021.8 1918 Output Total 6000 48[address] [facility] -2175.1 -2733 221.8 743 Meds/Results Medications: Active Medications Generic Name Dos
[2019-11-18 20:25] LABS: Glucose Point of Care 278 (65-105)
[2019-11-19] VITALS (31 sets, daily range): BP systolic 95–129; BP diastolic 71–84; PULSE 100–123; RESP 18–28; TEMP 37.1–37.9; O2SAT 91–99
[2019-11-19 00:11] LABS: Glucose Point of Care 168 (65-105)
[2019-11-19] MEDS: LEVALBUTEROL NEB 1.25 MG/3 ML 0.63 MG INHALATION ×4 (02:10→21:10)
[2019-11-19] MEDS: IPRATROPIUM BR 0.02% INH SOLN 0.5 MG/2.5 ML VIAL INHALATION ×4 (02:10→21:09)
[2019-11-19] MEDS: ACETAMINOPHEN 325 MG TABLET 650 MG PO (03:40)
[2019-11-19] MEDS: DOBUTamine 250 MG/D5W 250 ML 250 MG/250 ML BAG 12.5 MG IV CONT (03:42)
[2019-11-19] MEDS: INSULIN ASPART (*BKC) 100 UNITS/ML SUB-Q (04:30)
[2019-11-19 04:53] LABS: Glucose Point of Care 205 (65-105)
[2019-11-19 05:05] LABS: Hematocrit 36.8 % (42.0-52.0); Hemoglobin 11.4 g/dL (14.0-18.0); Immature Platelet Fraction Pct 15.2 % (0.9-11.2); Mean Corpuscular Hemoglobin 27.1 pg (26-34); Mean Corpuscular Volume 87.4 fl (80-100); Platelet Count Result 91 k/mm3 (150-375); Red Blood Count 4.21 M/mm3 (4.6-6.20); Red Cell Distribution Width 17.8 % (11.5-14.5); White Blood Count 13.9 K/mm3 (4.5-10.0)
[2019-11-19 05:07] LABS: Alveolar/Arterial O2 Gradient 80.7 mmHg; Base Excess ABG 8.1 mEq/l (+/-2.0); Fractional Inspired Oxygen 30 %; HCO3 ABG 31.6 mEq/l (22.0-26.0); Oxygen Content ABG 17.1 %vol (16.0-22.0); Oxygen Saturation ABG 97.3 % (95.0-100.0); Oxyhemoglobin 95.9 % THb (90.0-100.0); PCO2 ABG 39.9 mmHg (35.0-45.0); PO2 ABG 86.3 mmHg (80.0-100.0); PO2 FiO2 Ratio Arterial Blood 2.88 %; Total Hemoglobin 12.6 g/dL (12.0-18.0)
[2019-11-19 05:09] LABS: Device VENTILATOR; Modified Allen's Test Unable to perform; Site Drawn RIGHT RADIAL; pH ABG 7.517 (7.350-7.450)
[2019-11-19 05:10] LABS: Arterial Blood Gas PEEP 5 cmH2O; Arterial Blood Gas Tidal Volume 440 ml; Arterial Blood Gas Vent Mode CMV; Arterial Blood Gas Ventilator rate 20 /MIN
[2019-11-19 05:22] LABS: Blood Urea Nitrogen 54 mg/dL (9-20); Calcium 7.9 mg/dL (8.4-10.2); Carbon Dioxide 34 mmol/L (22-30); Chloride 103 mmol/L (98-107); Estimated CRCL calculation 56 ml/min; Estimated Glomerular Filt Rate > 60; Glucose 180 mg/dL (75-110); Magnesium 2.2 mg/dL (1.6-2.3); Phosphorus 2.2 mg/dL (2.5-4.5); Potassium 3.2 mmol/L (3.4-5.0); Sodium 142 mmol/L (137-145)
[2019-11-19] MEDS: FUROSEMIDE INJ 40 MG/4 ML VIAL 20 MG IV PUSH ×3 (05:43→17:26)
--- NOTE | 2019-11-19 07:45 | WPDINTPN ---
Progress Note: A&P Assessment and Plan (1) Sepsis: Qualifiers: Sepsis type: sepsis due to unspecified organism Sepsis acute organ dysfunction status: with acute organ dysfunction Severe sepsis acute organ dysfunction type: acute renal failure Acute renal failure type: unspecified Severe sepsis shock status: without septic shock Qualified Code(s): A41.9 - Sepsis, unspecified organism; R65.20 - Severe sepsis without septic shock; N17.9 - Acute kidney failure, unspecified Code(s): A41.9 - Sepsis, unspecified organism Status: Acute Assessment and Plan: Pseudomona PNA - Patient febrile persistently. Sputum cultures grew Pseudomonas, sensitive to cefepime. - Continue cefepime for now. - DCed azithromycin x 7 days - Infectious disease service following - CT Report reviewed - UA unremarkable - Infrasternal fluid collection aspirated 11/18 and fluid sent for cultures and pending - Lipase normal - Check US B/L - WBC decreasing (2) Acute hypercapnic respiratory failure: Code(s): J96.02 - Acute respiratory failure with hypercapnia Status: Acute Assessment and Plan: acute hypercapnic respiratory failure. Did not tolerate a trial of BiPAP, intubated on 09/09/2020 - patient on CMV mode of ventilation, 30% FiO2. He did tolerate pressure support ventilation with pressure support of 12 or peep of 5 few days ago will try again today - continue Antibiotics as above - continue, bronchodilators - Prednisone tapered off On lasix per cardiology - Decrease RR to 16 on Vent - Diamox for Pulm edema and metabolic alkalosis (3) Cardiomyopathy: Code(s): I42.9 - Cardiomyopathy, unspecified Status: Acute Assessment and Plan: He has known ischemic cardiomyopathy with low EF. He had bypass surgery at [facility] after he was transferred from [facility] with some neurological changes in February 2019. He had CABG done in the [facility] but apparently had a complicated course afterward is he remained in ICU for almost 8 weeks. echocardiogram done on 11/14/2019 showed normal LV size with concentric hypertrophy. Hypokinesis of the mid anteroseptal segments and akinesis of the distal septum, anterior wall, lateral wall, inferior wall and apex. This is consistent with ischemic or Takotsubo cardiomyopathy. Is 25-30%. Grade 2 diastolic dysfunction. Mild mitral valve regurg - Not on carvedilol because of hypotension. - Cardiology Service recommendation appreciated. Start him on low-dose dobutamine to support his circulatory status. Bedside echo done by myself showed decreased EF and small IVC with significant respiratory variation. - On Lasix per cardiology (4) COPD exacerbation: Code(s): J44.1 - Chronic obstructive pulmonary disease with (acute) exacerbation Status: Acute Assessment and Plan: continue bronchodilators, steroids, antibiotics and mechanical ventilation - Pulmonology following the patient - Prednisone tapered off (5) Acute kidney injury: Code(s): N17.9 - Acute kidney failure, unspecified Status: Acute Assessment and Plan: RESOLVED: - initially admitted with acute kidney injury. creatinine 2.20, received adequate IV fluids. Now renal parameters improved and seems to be his baseline. - urine output much improved, creatinine normalized - monitor urine output, renal function,electrolytes (6) Acute hyperkalemia: Code(s): E87.5 - Hyperkalemia Status: Resolved Assessment and Plan: Resolved (7) Diabetes: Qualifiers: Diabetes mellitus type: type 2 Diabetes mellitus skilled nursing insulin use: with terminal make up operator use Diabetes mellitus complication status: with other specified complication Qualified Code(s): E11.69 - Type 2 diabetes mellitus with other specified complication; Z79.4 - USP (current) use of insulin Code(s): E11.9 - Type 2 diabetes mellitus without complication
--- NOTE | 2019-11-19 07:57 | P.PNINT_ITS ---
Progress Note: A&P Assessment and Plan (1) Sepsis: Qualifiers: Sepsis type: sepsis due to unspecified organism Sepsis acute organ dysfunction status: with acute organ dysfunction Severe sepsis acute organ dysfunction type: acute renal failure Acute renal failure type: unspecified Severe sepsis shock status: without septic shock Qualified Code(s): A41.9 - Sepsis, unspecified organism; R65.20 - Severe sepsis without septic shock; N17.9 - Acute kidney failure, unspecified Code(s): A41.9 - Sepsis, unspecified organism Status: Acute Assessment and Plan: Patient febrile persistently. Sputum cultures growing Pseudomonas, sensitive to cefepime. - Continue cefepime for now. - DC azithromycin as pt has been on it for 7 days - Infectious disease service recommendations appreciated. CT Report reviewed - Check UA and Culture - Will discuss with ID and IR regarding sternal fluid collection. Doesn't appear to be very big and blood cultures have been negative - blood cultures no growth x2 - Sputum culture is also negative - Check Lipase (2) Acute hypercapnic respiratory failure: Code(s): J96.02 - Acute respiratory failure with hypercapnia Status: Acute Assessment and Plan: acute hypercapnic respiratory failure. Did not tolerate a trial of BiPAP, intubated on 09/09/2020 - patient on CMV mode of ventilation, 30% FiO2. He did tolerate pressure support ventilation with pressure support of 12 or peep of 5 few days ago will try again today - continue Antibiotics as above - continue, bronchodilators, He was on steroid which is being weaned off. Down to 10 mg of prednisone now. Continue bronchodilator. - Off all sedation. Extubation wiill depend on improvement in both neuro and pulm status - Diamox for Pulm edema and metabolic alkalosis (3) Cardiomyopathy: Code(s): I42.9 - Cardiomyopathy, unspecified Status: Acute Assessment and Plan: He has known ischemic cardiomyopathy with low EF. He had bypass surgery at [facility] after he was transferred from [facility] with some neurological changes in February 2019. He had CABG done in the [facility] but apparently had a complicated course afterward is he remained in ICU for almost 8 weeks. echocardiogram done on 11/14/2019 showed normal LV size with concentric hype rtrophy. Hypokinesis of the mid anteroseptal segments and akinesis of the distal septum, anterior wall, lateral wall, inferior wall and apex. This is consistent with ischemic or Takotsubo cardiomyopathy. Is 25-30%. Grade 2 diastolic dysfunction. Mild mitral valve regurg - Will hold carvedilol because of hypotension. - Cardiology Service recommendation appreciated. Start him on low-dose dobutamine to support his circulatory status. Bedside echo done by myself showed decreased EF and small IVC with significant respiratory variation. Will hold aggressive diuresis until his hemodynamically status improved. Strict intake output record and daily weight. Monitor renal parameters and electrolytes. (4) COPD exacerbation: Code(s): J44.1 - Chronic obstructive pulmonary disease with (acute) exacerbation Status: Acute Assessment and Plan: continue bronchodilators, steroids, antibiotics and mechanical ventilation - appreciate pulmonology following the patient - Will DC steroids after todays dose (5) Acute kidney injury: Code(s): N17.9 - Acute kidney failure, unspecified Status: Acute Assessment and Plan: RESOLVED: - initially admitted with acute kidney injury. creatinine 2.20, received adequate IV fluids. No
[2019-11-19] MEDS: DORNASE ALFA INH SOLN 1 MG/ML 2.5 ML AMP 2.5 MG INHALATION ×2 (08:06→21:10)
[2019-11-19] MEDS: ASPIRIN 325 MG TABLET PO (08:19)
[2019-11-19] MEDS: POTASSIUM CHLORIDE 20 MEQ PACKET (FOR LIQUID) PO (08:19)
[2019-11-19] MEDS: ENOXAPARIN 40 MG/0.4 ML SYRINGE SUB-Q (08:19)
[2019-11-19] MEDS: NICOTINE (*PBKC) 21 MG PATCH 1 PATCH TRANSDERM (08:20)
[2019-11-19] MEDS: FAMOTIDINE 20 MG/2 ML VIAL IV PUSH ×2 (08:20→20:54)
[2019-11-19] MEDS: SIMVASTATIN 20 MG TABLET PO (08:20)
[2019-11-19] MEDS: CITALOPRAM HYDROBROMIDE 20 MG TABLET PO (08:20)
[2019-11-19 08:59] LABS: Glucose Point of Care 140 (65-105)
[2019-11-19] MEDS: WATER, STERILE FOR INJECTION 10 ML VIAL XX (09:05)
--- NOTE | 2019-11-19 10:39 | PCDIET ---
Nutrition Follow-Up Complete: Nutrition Diagnosis: Inadequate oral intake related to respiratory failure as evidenced by NPO. Nutrition Goal: Patient to meet estimated nutritional needs. Goal previously met; however, tube feedings now on hold for breathing trial. Previously tolerating Glucerna 1.2 at 65mL/hr goal rate without issues. Last recorded weight is 83.4 kg which is decreased from last review. Bowel Motility: +BM 11/18/19. Labs Reviewed: Glu (140), BUN (54), K (3.2), PO4 (2.2), Hgb (11.4), Hct (36.8) Meds Noted: Cefepime, Dobutamine, Pepcid, Fentanyl, Lasix, Novolog, Lantus, Versed, Levophed, Miralax, K-Phos, Senna Additional Notes: Left heel with blister. Chest incision with small open area. Recommend resuming tube feedings if unable to extubate. If able to extubate, recommend ALUMINUM MOLDER consult and/or MBS. Nutrition Monitoring and Evaluation: Follow up every Monday/Monday. Follow daily in ICU rounds.
[2019-11-19 10:43] LABS: Alveolar/Arterial O2 Gradient 91.2 mmHg; Base Excess ABG 7.2 mEq/l (+/-2.0); Carboxyhemoglobin 0.3 % THb (0-2.0); Fractional Inspired Oxygen 30 %; HCO3 ABG 32.1 mEq/l (22.0-26.0); Methemoglobin ABG 0.2 %THb (0-1.5); Oxygen Content ABG 16.7 %vol (16.0-22.0); Oxygen Saturation ABG 94.4 % (95.0-100.0); Oxyhemoglobin 92.8 % THb (90.0-100.0); PCO2 ABG 46.1 mmHg (35.0-45.0); PO2 ABG 68.5 mmHg (80.0-100.0); PO2 FiO2 Ratio Arterial Blood 2.28 %; Reduced Hemoglobin 6.7 %THb (0-5.0); Total Hemoglobin 12.8 g/dL (12.0-18.0)
[2019-11-19 10:44] LABS: Device VENTILATOR; Modified Allen's Test Pass; Site Drawn RIGHT RADIAL
[2019-11-19 10:45] LABS: Arterial Blood Gas Minute Volume 0 LPM; Arterial Blood Gas PEEP 5 cmH2O; Arterial Blood Gas Pressure Support 5 cmH2O; Arterial Blood Gas Tidal Volume 0 ml; Arterial Blood Gas Vent Mode SPONTANEOUS; Arterial Blood Gas Ventilator rate 0 /MIN; Peak Inspiratory Pressure 0 cmH2O
--- NOTE | 2019-11-19 13:11 | WPDINFPN2 ---
Progress Note: A&P Assessment and Plan (1) Fever: Qualifiers: Fever type: due to other condition Qualified Code(s): R50.81 - Fever presenting with conditions classified elsewhere Code(s): R50.9 - Fever, unspecified Status: Acute Assessment and Plan: 1. Fever, respiratory source likely. 2. Retrosternal fluid collection, POD # 1 perc drainage 3. Resp failure 4. Ischemic CM 5. DM REC Cefepime #7, continue 3 more days tentatively. Stop Vanc (few GPC seen on tracheal aspirate smear, found to be normal hubert, and MRSA screen of nares is negative). Subjective Date/time seen: 11/19/19 13:11 Interval history: extubated few hours ago. He responds to Qs but is non verbal Exam Narrative: Exam Narrative: t max 38.4 Const: General: no acute distress Eyes: General: appearance normal, both eyes and all related structures Resp: Effort & Inspection: normal respiratory effort Auscultation: clear to auscultation bilaterally and diminished lung sounds Cardio: Rate: tachycardic Rhythm: regular rhythm Heart sounds: no murmurs GI: Inspection: non-distended GI Palp: Yes Soft to palpation and No Tenderness to palpation present (GI) Skin: General skin exam: normal color and no rashes or lesions noted Other: chest at sternum: no erythema no draining sinus tracts no tenderness Objective Data Vital Signs Vital Signs: Vital Signs - 24 hr 11/18/19 14:00 11/18/19 14:10 11/18/19 15:38 Temperature 37.2 C 37.9 C H Pulse Rate 90 95 Respiratory Rate 20 20 Blood Pressure 112/67 Pulse Oximetry 97 11/18/19 16:00 11/18/19 16:57 11/18/19 17:55 Temperature 38.0 C H 38.0 C H Pulse Rate 114 H 117 H Respiratory Rate 22 H Blood Pressure 111/80 Pulse Oximetry 97 97 11/18/19 18:00 11/18/19 20:00 11/18/19 21:25 Temperature 38.4 C H 38.4 C H Pulse Rate 123 H 116 H 105 H Respiratory Rate 24 H 21 H 21 H Blood Pressure 115/83 102/72 Pulse Oximetry 97 97 98 11/18/19 21:43 11/18/19 22:00 02/24/20 23:04 Temperature Pulse Rate 102 H 108 H 107 H Respiratory Rate 22 H 15 Blood Pressure 139/90 Pulse Oximetry 98 97 11/19/19 00:00 11/19/19 02:00 11/19/19 02:10 Temperature 37.1 C 37.1 C Pulse Rate 101 H 108 H 108 H Respiratory Rate 20 20 20 Blood Pressure 102/71 108/75 Pulse Oximetry 96 97 97 11/19/19 02:19 11/19/19 03:40 11/19/19 04:00 Temperature 37.9 C H 37.4 C Pulse Rate 108 H 107 H Respiratory Rate 20 20 Blood Pressure 117/72 Pulse Oximetry 96 11/19/19 04:31 11/19/19 05:21 11/19/19 06:00 Temperature 37.5 C 37.7 C H Pulse Rate 106 H 114 H Respiratory Rate 22 H Blood Pressure 107/73 Pulse Oximetry 97 97 11/19/19 08:00 11/19/19 08:07 11/19/19 08:09 Temperature 37.7 C H Pulse Rate 111 H 113 H 111 H Respiratory Rate 20 18 Blood Pressure 103/73 Pulse Oximetry 96 96 11/19/19 08:20 11/19/19 08:38 11/19/19 10:00 Temperature 37.5 C Pulse Rate 110 H 112 H 115 H Respiratory Rate 18 24 H Blood Pressure 129/78 Pulse Oximetry 96 97 11/19/19 11:37 Temperature Pulse Rate 116 H Respiratory Rate Blood Pressure Pulse Oximetry 98 Intake/Output Intake/Output: Intake & Output 11/16/19 11/17/19 11/18/19 11/19/19 23:59 23:59 23:59 23:59 Intake Total 2067 3021.8 1968 978 Output Total 4800 2800 2825 550 Balance -1313 221.8 856 428 Meds/Results Medications: Active Medications Generic Name Dose Route Start Last Admin Trade Name Freq PRN Reason Stop Dose Admin Acetaminophen 650 mg 11/16/19 09:36 11/19/19 03:40 Tylenol Tablet PO 650 mg Q4H PRN Administration Mild Pain (1-3) or Fever Acetazolamide Sodium 500 mg 11/19/19 09:00 11/19/19 08:38 Diamox Inj IV PUSH 500 mg QAM KASSIDY Administration Aspirin 325 mg 11/11/19 09:00 11/19/19 08:19 Aspirin PO 325 mg DAILY KASSIDY Administration Citalopram Hydrobromide 20 mg 11/11/19 09:00 11/19/19 08:20 Celexa PO 20 mg DAILY KASSIDY
[2019-11-19] MEDS: DIGOXIN INJ 250 MCG/ML 2 ML AMP (*BKC) 125 MCG IV PUSH (13:40)
[2019-11-19 13:51] LABS: Glucose Point of Care 107 (65-105)
--- NOTE | 2019-11-19 15:23 | PM.PNCARD ---
Progress Note: A&P Assessment and Plan (1) Cardiomyopathy: Code(s): I42.9 - Cardiomyopathy, unspecified Status: Acute Assessment and Plan: He has ischemic cardiomyopathy with low EF, but seems to be thae same since last year as he had bypass surgery. (2) CHF (congestive heart failure): Code(s): I50.9 - Heart failure, unspecified Status: Acute Assessment and Plan: seems to be better now, still with mild fluid overload, continue diuresis, follow up input and outputs closely (3) Sepsis: Qualifiers: Sepsis type: sepsis due to unspecified organism Sepsis acute organ dysfunction status: with acute organ dysfunction Severe sepsis acute organ dysfunction type: acute renal failure Acute renal failure type: unspecified Severe sepsis shock status: without septic shock Qualified Code(s): A41.9 - Sepsis, unspecified organism; R65.20 - Severe sepsis without septic shock; N17.9 - Acute kidney failure, unspecified Code(s): A41.9 - Sepsis, unspecified organism Status: Acute Assessment and Plan: Getting covered with IV antibiotics now (4) Diabetes: Qualifiers: Diabetes mellitus type: type 2 Diabetes mellitus assisted insulin use: with assisted use Diabetes mellitus complication status: with other specified complication Qualified Code(s): E11.69 - Type 2 diabetes mellitus with other specified complication; Z79.4 - termite control representative (current) use of insulin Code(s): E11.9 - Type 2 diabetes mellitus without complications Status: Acute (5) Acute hypercapnic respiratory failure: Code(s): J96.02 - Acute respiratory failure with hypercapnia Status: Acute (6) Pneumonia: Qualifiers: Laterality: unspecified laterality Lung location: unspecified part of lung Pneumonia type: due to unspecified organism Qualified Code(s): J18.9 - Pneumonia, unspecified organism Code(s): J18.9 - Pneumonia, unspecified organism Status: Acute (7) Coronary artery disease: Code(s): I25.10 - Atherosclerotic heart disease of [place] coronary artery without angina pectoris Status: Acute Assessment and Plan: Status post coronary bypass surgery last year Additional Plan Thank you for allowing me to participate in this patient's care, I will be following up with you. Please do not hesitate to call me for any other inquiry Subjective Date/time seen: 11/19/19 15:23 he seems to be much better now, he got extubated today, still with shortness of breath, but not in acute distress. No chest pain, he is diuresing well Exam Narrative: Exam Narrative: awake and alert, but significant fatigue Neck is supple no obvious JVD, no carotid bruit Chest: decreased breathing sounds at the bases, with crackles noted and rhonchi noted Cardiovascular: Regular rate and rhythm, 2/6 systolic murmur noted left sternal border Abdomen: Soft nontender bowel sounds positive Extremities: No edema has good pulses distally bilaterally Objective Data Vital Signs Vital Signs: Vital Signs - 24 hr 11/18/19 15:38 11/18/19 16:00 11/18/19 16:57 Temperature 37.9 C H 38.0 C H Pulse Rate 114 H 117 H Respiratory Rate 22 H Blood Pressure 111/80 Pulse Oximetry 97 97 11/18/19 17:55 11/18/19 18:00 11/18/19 20:00 Temperature 38.0 C H 38.4 C H 38.4 C H Pulse Rate 123 H 116 H Respiratory Rate 24 H 21 H Blood Pressure 115/83 102/72 Pulse Oximetry 97 97 11/18/19 21:25 11/18/19 21:43 11/18/19 22:00 Temperature Pulse Rate 105 H 102 H 108 H Respiratory Rate 21 H 22 H 15 Blood Pressure 139/90 Pulse Oximetry 98 98 11/18/19 23:04 11/19/19 00:00 11/19/19 02:00 Temperature 37.1 C 37.1 C Pulse Rate 107 H 101 H 108 H Respiratory Rate 20 20 Blood Pressure 102/71 108/75 Pulse Oximetry 97 96 97 11/19/19 02:10 11/19/19 02:19 11/19/19 03:40 Temperature 37.9 C H Pulse Rate 108 H 108 H Respiratory Rate 20 20 Blood Pressure
--- NOTE | 2019-11-19 16:12 | PM.IMPN ---
Progress Note: A&P Assessment and Plan (1) COPD exacerbation: Code(s): J44.1 - Chronic obstructive pulmonary disease with (acute) exacerbation Status: Acute Assessment and Plan: 11/18/19 14:54 Patient with acute respiratory failure secondary to hypercapnia most likely secondary to exacerbation of COPD patient is being treated with Solu-Medrol updraft antibiotics patient was given trial of SBT however it was not successful, patient is seen by real estate lawyer, patient has developed sternal fluids patient had ultrasound guided aspiration of the fluid pending culture and chemistry, patient is off sedation in hope for extubation however patient still quite somnolent he minimally response to stimuli, today patient was extubated his still quite somnolent and nonverbal (2) Diabetes: Qualifiers: Diabetes mellitus type: type 2 Diabetes mellitus exterminator insulin use: with exterminator use Diabetes mellitus complication status: with other specified complication Qualified Code(s): E11.69 - Type 2 diabetes mellitus with other specified complication; Z79.4 - superintendent terminal (current) use of insulin Code(s): E11.9 - Type 2 diabetes mellitus without complications Status: Acute Assessment and Plan: Accuchecks, SSI, hold home medications (3) DVT prophylaxis: Code(s): Z29.9 - Encounter for prophylactic measures, unspecified Status: Acute Assessment and Plan: lovenox (4) Acute hypercapnic respiratory failure: Code(s): J96.02 - Acute respiratory failure with hypercapnia Status: Acute Assessment and Plan: Worsening ABG was emergently intubated upon arrival patient was extubated today (5) Pneumonia: Qualifiers: Laterality: unspecified laterality Lung location: unspecified part of lung Pneumonia type: due to unspecified organism Qualified Code(s): J18.9 - Pneumonia, unspecified organism Code(s): J18.9 - Pneumonia, unspecified organism Status: Acute Assessment and Plan: Cxr shows Small right pleural effusion versus pleural parenchymal scarring at the right costophrenic angle related to prior surgical procedure in the right hemithorax with posterior right thoracotomy defect. (6) Acute kidney injury: Code(s): N17.9 - Acute kidney failure, unspecified Status: Acute Assessment and Plan: Creat is 1.1 pt is on iv fluids patient kidney function is improved ARF secondary to pneumonia Continue to monitor (7) Acute hyperkalemia: Code(s): E87.5 - Hyperkalemia Status: Resolved Assessment and Plan: AFter fluids (8) History of open heart surgery: Code(s): Z98.890 - Other specified postprocedural states Status: Acute Assessment and Plan: recent CABG [place] obtain notes, wound swab on sternotomy wound (9) Sepsis: Qualifiers: Sepsis type: sepsis due to unspecified organism Sepsis acute organ dysfunction status: with acute organ dysfunction Severe sepsis acute organ dysfunction type: acute renal failure Acute renal failure type: unspecified Severe sepsis shock status: without septic shock Qualified Code(s): A41.9 - Sepsis, unspecified organism; R65.20 - Severe sepsis without septic shock; N17.9 - Acute kidney failure, unspecified Code(s): A41.9 - Sepsis, unspecified organism Status: Acute Assessment and Plan: Upon arrival patient with criteria of sepsis most likely secondary to pneumonia patient being treated Cefepime #7/[address] rubio Subjective Date/time seen: 11/19/19 16:12 Patient with acute respiratory failure secondary to hypercapnia most likely secondary to exacerbation of COPD patient is being treated with Solu-Medrol updraft antibiotics patient was given trial of SBT however it was not successful, patient is seen by real estate lawyer, patient has developed sternal fluids patient had ultrasound guided aspiration of the fluid pending culture a
[2019-11-19 16:50] LABS: Troponin I 0.209 ng/mL (0.000-0.034)
[2019-11-19 16:58] LABS: Legionella pneumophila Ag Ur Not Detected (Not Detected)
[2019-11-19 17:36] LABS: Glucose Point of Care 83 (65-105)
[2019-11-19] MEDS: HEPARIN SOD FLUSH 500 UNITS/5 ML SYRINGE IV PUSH (19:03)
[2019-11-19 20:36] LABS: Troponin I 0.213 ng/mL (0.000-0.034)
[2019-11-19] MEDS: DEXTROSE 50% 25 GM/50 ML SYRINGE IV PUSH (20:47)
[2019-11-19 21:21] LABS: Glucose Point of Care 154 (65-105)
[2019-11-19 21:21] LABS: Glucose Point of Care 68 (65-105)
--- NOTE | 2019-11-19 21:50 | PM.PNPUL ---
Progress Note: A&P Assessment and Plan (1) Acute respiratory failure: Qualifiers: Respiratory failure complication: hypoxia and hypercapnia Qualified Code(s): J96.01 - Acute respiratory failure with hypoxia; J96.02 - Acute respiratory failure with hypercapnia Code(s): J96.00 - Acute respiratory failure, unspecified whether with hypoxia or hypercapnia Status: Acute Assessment and Plan: Extubated earlier, treated for Pseudomonas pneumonia; bipap 10/5, 40%. (2) Pneumonia: Qualifiers: Laterality: unspecified laterality Lung location: unspecified part of lung Pneumonia type: due to unspecified organism Qualified Code(s): J18.9 - Pneumonia, unspecified organism Code(s): J18.9 - Pneumonia, unspecified organism Status: Acute Assessment and Plan: - continue cefepime for Pseudomonas Pneumonia - extubated today, now on bipap 10/5, 40% weaning as his sat is 100%; follow closely with increased resp rate and poor cognition. (3) COPD exacerbation: Code(s): J44.1 - Chronic obstructive pulmonary disease with (acute) exacerbation Status: Acute Assessment and Plan: - continue levalbuterol and ipratropium as prescribed. - had oral steroids, but may need IV with extubation and increased work of breathing. (4) CHF (congestive heart failure): Qualifiers: Heart failure type: other Qualified Code(s): I50.9 - Heart failure, unspecified Code(s): I50.9 - Heart failure, unspecified Status: Acute Assessment and Plan: - continue diuersis judiciously as tolerated - BP and HR control Subjective Date/time seen: 11/19/19 21:50 This 69 yo man was extubated at noon, now on bipap due to increased resp effort; tolerating this adequately however respiratory rate is borderline in the mid to high 20s. Infrasternal fluid aspirated for analysis, post CABG February 2019 at [place]. He has a small left cephalic vein thrombus found today 11/19. Remains febrile. . Review of Systems Review of Systems: All systems reviewed & are unremarkable except as noted in HPI and below Exam Const: General: comfortable and no acute distress HENMT: Mouth: Yes moist mucous membranes Neck: Neck: supple and no JVD Resp: Auscultation: crackles, rhonchi, wheezes and diminished lung sounds Cardio: Rate: regular rate Rhythm: regular rhythm Heart sounds: no murmurs GI: Auscultation: normal bowel sounds Urinary Catheter: Urinary Catheter: patent and draining and urine clear Skin: General skin exam: normal color Neuro: General: patient obtunded Cognition (Neuro): abnormal cognition Gait exam (Neuro): Unable to assess gait Sensory Exam: Sensory deficit (Neuro) Extrem: General: normal to inspection, no edema and no pedal edema Objective Data Vital Signs Vital Signs: Vital Signs - 24 hr 11/18/19 22:00 11/18/19 23:04 11/19/19 00:00 Temperature 37.1 C Pulse Rate 108 H 107 H 101 H Respiratory Rate 15 20 Blood Pressure 139/90 102/71 Pulse Oximetry 98 97 96 11/19/19 02:00 11/19/19 02:10 11/19/19 02:19 Temperature 37.1 C Pulse Rate 108 H 108 H 108 H Respiratory Rate 20 20 20 Blood Pressure 108/75 Pulse Oximetry 97 97 11/19/19 03:40 11/19/19 04:00 11/19/19 04:31 Temperature 37.9 C H 37.4 C 37.5 C Pulse Rate 107 H Respiratory Rate 20 Blood Pressure 117/72 Pulse Oximetry 96 11/19/19 05:21 11/19/19 06:00 11/19/19 08:00 Temperature 37.7 C H 37.7 C H Pulse Rate 106 H 114 H 111 H Respiratory Rate 22 H 20 Blood Pressure 107/73 103/73 Pulse Oximetry 97 97 96 11/19/19 08:07 11/19/19 08:09 11/19/19 08:20 Temperature Pulse Rate 113 H 111 H 110 H Respiratory Rate 18 18 Blood Pressure Pulse Oximetry 96 11/19/19 08:38 11/19/19 10:00 11/19/19 11:37 Temperature 37.5 C Pulse Rate 112 H 115 H 116 H Respiratory Rate 24 H Blood Pressure 129/78 Pulse Oximetry 96 97 98 11/19/19 12:00 11/19/19 13:40
[2019-11-20] VITALS (37 sets, daily range): BP systolic 90–122; BP diastolic 63–82; PULSE 117–140; RESP 19–28; TEMP 37.7–38.2; O2SAT 9–100; BMI 27.7
[2019-11-20] MEDS: FUROSEMIDE INJ 40 MG/4 ML VIAL 20 MG IV PUSH ×4 (00:04→18:24)
[2019-11-20 00:13] LABS: Glucose Point of Care 111 (65-105)
[2019-11-20] MEDS: IPRATROPIUM BR 0.02% INH SOLN 0.5 MG/2.5 ML VIAL INHALATION ×4 (02:39→19:50)
[2019-11-20] MEDS: LEVALBUTEROL NEB 1.25 MG/3 ML 0.63 MG INHALATION ×4 (02:39→19:50)
[2019-11-20] MEDS: DEXTROSE 50% 25 GM/50 ML SYRINGE IV PUSH (04:13)
[2019-11-20 04:37] LABS: Glucose Point of Care 187 (65-105)
[2019-11-20 04:37] LABS: Glucose Point of Care 66 (65-105)
[2019-11-20 04:49] LABS: Hematocrit 39.4 % (42.0-52.0); Hemoglobin 12.4 g/dL (14.0-18.0); Immature Platelet Fraction Pct 15.7 % (0.9-11.2); Mean Corpuscular HGB Conc 31.5 g/dl (32-36); Mean Corpuscular Hemoglobin 27.7 pg (26-34); Mean Corpuscular Volume 87.9 fl (80-100); Platelet Count Result 116 k/mm3 (150-375); Red Blood Count 4.48 M/mm3 (4.6-6.20); White Blood Count 18.7 K/mm3 (4.5-10.0)
[2019-11-20 05:04] LABS: Blood Urea Nitrogen 49 mg/dL (9-20); Calcium 8.3 mg/dL (8.4-10.2); Carbon Dioxide 29 mmol/L (22-30); Chloride 109 mmol/L (98-107); Estimated CRCL calculation 45 ml/min; Estimated Glomerular Filt Rate 51; Glucose 71 mg/dL (75-110); Magnesium 2.1 mg/dL (1.6-2.3); Phosphorus 3.8 mg/dL (2.5-4.5); Potassium 3.4 mmol/L (3.4-5.0); Sodium 147 mmol/L (137-145)
[2019-11-20] MEDS: DORNASE ALFA INH SOLN 1 MG/ML 2.5 ML AMP 2.5 MG INHALATION ×2 (07:47→19:49)
--- NOTE | 2019-11-20 08:35 | ECG_ITS ---
Measurements Intervals [place] Rate: 131 P: 33 SD: 205 QRS: 39 QRSD: 124 T: 51 QT: 336 QTc: 497 Interpretive Statements ECTOPIC ATRIAL TACHYCARDIA RIGHT BUNDLE BRANCH BLOCK BASELINE WANDER- III, V2-V4 ABNORMAL ECG Electronically Signed On 11-20-2019 10:31:47 CUSTOMER DATA TECHNICIAN by Torito Stapleton D.O.
[2019-11-20 08:51] LABS: Alveolar/Arterial O2 Gradient 92.1 mmHg; Base Excess ABG 2.2 mEq/l (+/-2.0); Device NON-INVASIVE VENT; Fractional Inspired Oxygen 30 %; HCO3 ABG 26.7 mEq/l (22.0-26.0); Modified Allen's Test Pass; Oxygen Content ABG 16.7 %vol (16.0-22.0); Oxygen Saturation ABG 95.1 % (95.0-100.0); Oxyhemoglobin 92.7 % THb (90.0-100.0); PCO2 ABG 41.2 mmHg (35.0-45.0); PO2 ABG 73.4 mmHg (80.0-100.0); PO2 FiO2 Ratio Arterial Blood 2.45 %; Site Drawn LEFT RADIAL; Total Hemoglobin 12.8 g/dL (12.0-18.0); pH ABG 7.429 (7.350-7.450)
[2019-11-20 08:52] LABS: Non-Invasive Expiratory Pressure 5 CMH2O; Non-Invasive Inspiratory Pressure 10 CMH2O; Non-Invasive Vent Rate 10 /MIN
--- NOTE | 2019-11-20 09:00 | WPDINTPN ---
Progress Note: A&P Assessment and Plan (1) Acute respiratory failure with hypoxia and hypercapnia: Code(s): J96.01 - Acute respiratory failure with hypoxia; J96.02 - Acute respiratory failure with hypercapnia Status: Acute Assessment and Plan: Acute hypoxic and hypercapnic respiratory failure - multifactorial- Pseudomonas pneumonia, COPD, CHF, generalized weakness - Initially pt did not tolerate a trial of BiPAP and was intubated on 09/09/2020 - he was extubated on 11/19. his respiratory status worsened overnight with increased work of breathing or tachypnea and respiratory distress - patient was reintubated on 11/20 - patient on CMV mode of ventilation, 40% FiO2. - I have reviewed chest x-ray and ABGs pending - continue Antibiotics as above - continue bronchodilators - Prednisone were tapered off - continue lasix per cardiology - Diamox was given yesterday for Pulm edema and metabolic alkalosis (2) Sepsis: Qualifiers: Sepsis type: sepsis due to unspecified organism Sepsis acute organ dysfunction status: with acute organ dysfunction Severe sepsis acute organ dysfunction type: acute renal failure Acute renal failure type: unspecified Severe sepsis shock status: without septic shock Qualified Code(s): A41.9 - Sepsis, unspecified organism; R65.20 - Severe sepsis without septic shock; N17.9 - Acute kidney failure, unspecified Code(s): A41.9 - Sepsis, unspecified organism Status: Acute Assessment and Plan: secondary to Pseudomona PNA - Patient febrile persistently. Sputum cultures grew Pseudomonas, sensitive to cefepime. - Continue cefepime for now. - DCed azithromycin x 7 days - Infectious disease service following - CT Report reviewed - UA unremarkable - Infrasternal fluid collection aspirated 11/18 and fluid sent for cultures and pending. 1 culture is growing yeast will discuss with infectious disease - Lipase normal - US B/L showed superficial cephalic thrombosis on left side - off Levophed (3) Cardiomyopathy: Code(s): I42.9 - Cardiomyopathy, unspecified Status: Acute Assessment and Plan: He has known ischemic cardiomyopathy with low EF. He had bypass surgery at [facility] after he was transferred from [facility] with some neurological changes in February 2019. He had CABG done in the [facility] but apparently had a complicated course afterward is he remained in ICU for almost 8 weeks. echocardiogram done on 11/14/2019 showed normal LV size with concentric hypertrophy. Hypokinesis of the mid anteroseptal segments and akinesis of the distal septum, anterior wall, lateral wall, inferior wall and apex. This is consistent with ischemic or Takotsubo cardiomyopathy. Is 25-30%. Grade 2 diastolic dysfunction. Mild mitral valve regurg - Not on carvedilol because of hypotension. - Cardiology Service recommendation appreciated. Start him on low-dose dobutamine to support his circulatory status. Bedside echo done by myself showed decreased EF and small IVC with significant respiratory variation. - On Lasix per cardiology (4) COPD exacerbation: Code(s): J44.1 - Chronic obstructive pulmonary disease with (acute) exacerbation Status: Acute Assessment and Plan: continue bronchodilators, steroids, antibiotics and mechanical ventilation - Pulmonology following the patient - Prednisone tapered off (5) Acute kidney injury: Code(s): N17.9 - Acute kidney failure, unspecified Status: Acute Assessment and Plan: patient was admitted with elevated creatinine which improved with resuscitation. over time patient was started on diuretics. creatinine has increased to 1.4 today monitor creatinine electrolytes and urine output closely. May have to cut down Lasix (6) Acute hyperkalemia: Code(s): E87.5 - Hyperkalemia Status: Resolved Assessment and Plan: Resolved (7) Diabetes:
--- NOTE | 2019-11-20 09:30 | P.PCNBED_ITS ---
Procedures Intubation: Intubation Date: 11/20/19 Intubation Time: 09:30 A pre- procedural Time-Out was completed immediately before starting the procedure and confirmed: Patient Identification, Site, Procedure, Patient Position and the Availability of Requisite Equipment: Yes Sedative: etomidate Mg given: 20 Paralytic: succinylcholine Mg given: 100 Laryngoscope: Avelino (4) ET tube size: 7.5 Tube secured depth (cm): 25 Tube secured location: lips Tube placement confirmation: visualized tube passing through cords, equal breath sounds bilaterally, no breath sounds over epigastrium and confirmation by capnometry Patient tolerated procedure: well Intubation complications: none
--- NOTE | 2019-11-20 09:57 | PM.PNCARD ---
Progress Note: A&P Assessment and Plan (1) Cardiomyopathy: Code(s): I42.9 - Cardiomyopathy, unspecified Status: Acute Assessment and Plan: He has ischemic cardiomyopathy with low EF, but seems to be thae same since last year as he had bypass surgery. No evidence of overt volume overload on exam. Continue diuresing in attempt to wean off vent though he is reintubated now Heart rate up to 130s. Odd [place]. Sinus tachycardia in the setting of resp failure. Follow heart rate now reintubated. Consider resuming low dose Metoprolol 12.5 BID as BP tolerates. (2) CHF (congestive heart failure): Code(s): I50.9 - Heart failure, unspecified Status: Acute Assessment and Plan: Continue diuresis, follow up input and outputs closely (3) Sepsis: Qualifiers: Sepsis type: sepsis due to unspecified organism Sepsis acute organ dysfunction status: with acute organ dysfunction Severe sepsis acute organ dysfunction type: acute renal failure Acute renal failure type: unspecified Severe sepsis shock status: without septic shock Qualified Code(s): A41.9 - Sepsis, unspecified organism; R65.20 - Severe sepsis without septic shock; N17.9 - Acute kidney failure, unspecified Code(s): A41.9 - Sepsis, unspecified organism Status: Acute Assessment and Plan: Getting covered with IV antibiotics now (4) Diabetes: Qualifiers: Diabetes mellitus type: type 2 Diabetes mellitus termite treater helper insulin use: with halfway use Diabetes mellitus complication status: with other specified complication Qualified Code(s): E11.69 - Type 2 diabetes mellitus with other specified complication; Z79.4 - penitentiary (current) use of insulin Code(s): E11.9 - Type 2 diabetes mellitus without complications Status: Acute (5) Acute hypercapnic respiratory failure: Code(s): J96.02 - Acute respiratory failure with hypercapnia Status: Acute Assessment and Plan: With COPD, pneumonia and CHF. (6) Pneumonia: Qualifiers: Laterality: unspecified laterality Lung location: unspecified part of lung Pneumonia type: due to unspecified organism Qualified Code(s): J18.9 - Pneumonia, unspecified organism Code(s): J18.9 - Pneumonia, unspecified organism Status: Acute (7) Coronary artery disease: Code(s): I25.10 - Atherosclerotic heart disease of [place] coronary artery without angina pectoris Status: Acute Assessment and Plan: Status post coronary bypass surgery last year Additional Plan Thank you for allowing me to participate in this patient's care, I will be following up with you. Please do not hesitate to call me for any other inquiry Subjective Date/time seen: 11/20/19 09:57 Extubated yesterday, was on Bipap overnight and re intubated this am with ongoing resp failure and tachycardia Review of Systems Review of Systems: ROS unobtainable: unobtainable due to endotracheal tube Exam Narrative: Exam Narrative: Sedated and intubated Neck is supple no obvious JVD, no carotid bruit Chest: decreased breathing sounds at the bases, with crackles noted and rhonchi noted Cardiovascular: Regular rate and rhythm, 2/6 systolic murmur noted left sternal border Abdomen: Soft nontender bowel sounds positive Extremities: No edema has good pulses distally bilaterally Objective Data Vital Signs Vital Signs: Vital Signs - 24 hr 11/19/19 10:00 11/19/19 11:37 11/19/19 12:00 Temperature 37.5 C 37.6 C Pulse Rate 115 H 116 H 118 H Respiratory Rate 24 H 27 H Blood Pressure 129/78 117/74 Pulse Oximetry 97 98 95 11/19/19 13:40 11/19/19 14:00 11/19/19 14:28 Temperature 37.7 C H Pulse Rate 117 H 117 H 122 H Respiratory Rate 20 20 Blood Pressure 117/84 Pulse Oximetry 95 11/19/19 14:38 11/19/19 16:00 11/19/19 18:00 Temperature 37.7 C H 37.7 C H Pulse Rate 121 H 120 H 119 H Respiratory Rate 20 22 H 22 H Blood Pressur
[2019-11-20] MEDS: RAPID SEQUENCE INTUBATION KIT 1 EACH (10:36)
[2019-11-20 10:38] LABS: Alveolar/Arterial O2 Gradient 160.1 mmHg; Base Excess ABG 3.5 mEq/l (+/-2.0); Carboxyhemoglobin 0.3 % THb (0-2.0); Fractional Inspired Oxygen 40 %; HCO3 ABG 27.9 mEq/l (22.0-26.0); Methemoglobin ABG 0.3 %THb (0-1.5); Oxygen Saturation ABG 95.9 % (95.0-100.0); Oxyhemoglobin 94.4 % THb (90.0-100.0); PCO2 ABG 41.6 mmHg (35.0-45.0); PO2 ABG 77.3 mmHg (80.0-100.0); PO2 FiO2 Ratio Arterial Blood 1.93 %; Total Hemoglobin 12.8 g/dL (12.0-18.0); pH ABG 7.444 (7.350-7.450)
[2019-11-20] MEDS: SENNA/DOCUSATE SODIUM TABLET 2 TAB PO ×2 (10:38→17:02)
[2019-11-20] MEDS: ASPIRIN 325 MG TABLET PO (10:39)
[2019-11-20] MEDS: SIMVASTATIN 20 MG TABLET PO (10:39)
[2019-11-20 10:40] LABS: Modified Allen's Test Pass; Site Drawn RIGHT RADIAL
[2019-11-20] MEDS: DIGOXIN TAB 125 MCG TABLET PO (10:40)
[2019-11-20 10:41] LABS: Arterial Blood Gas PEEP 5 cmH2O; Arterial Blood Gas Tidal Volume 400 ml; Arterial Blood Gas Vent Mode CMV; Arterial Blood Gas Ventilator rate 18 /MIN; Device VENTILATOR
[2019-11-20] MEDS: CITALOPRAM HYDROBROMIDE 20 MG TABLET PO (10:41)
[2019-11-20] MEDS: ENOXAPARIN 40 MG/0.4 ML SYRINGE SUB-Q (10:41)
[2019-11-20] MEDS: FAMOTIDINE 20 MG/2 ML VIAL IV PUSH ×2 (10:42→20:56)
[2019-11-20] MEDS: polyethylene glycoL 3350 17 GM POWD.PACK PO (10:42)
--- NOTE | 2019-11-20 10:55 | PCDIET ---
ICU Rounding Note: Patient extubated 11/19/19 with discontinuation of tube feedings; however, patient reintubated today with plan to resume tube feedings. Nutrition recommendation: Recommend continuation of Glucerna 1.2 at increased rate of 70mls/hr over 22 hrs; providing 1848kcals, 92g pro, and 1240mls free water. Recommend 30ml water flushes Q4. Last recorded weight is 82.8kg which is decreased. -I/O noted. Bowel Motility:+BM 11/19 Labs Reviewed:Na(147), K(3.4), Ca(8.3), BUN(49), Cr(1.40), Glu(71) Meds Noted: Lovenox, Heparin, Digoxin, Ofirmev, Pepcid, Lasix, Miralax Additional Notes: Recalculated needs with [employer] equation with needs of 2039kcals. Pro needs of 83-94g/d. Glucerna 1.2 @ 70mls/hr x 22 hours most appropriate, providing adequate calories and protein without risk fluid overload. Noted that Lantus administration will begin again today and pt is off Prednisone. Following daily in ICU rounds. Assessing/reassessing T/F.
--- NOTE | 2019-11-20 11:18 | PCNSR ---
On 11/20/19, the student, Rima Barrett, provided care and completed [facility] documentation on this patient. I have reviewed the student's documentation and agree with the findings.
[2019-11-20 12:09] LABS: Glucose Point of Care 129 (65-105)
[2019-11-20 16:06] LABS: C. pneumoniae Ab (IgM) <1:10 (<1:10); C. psittaci Ab (IgM) <1:10 (<1:10); C. trachomatis Ab (IgM) <1:10 (<1:10)
--- NOTE | 2019-11-20 16:59 | PM.IMPN ---
Progress Note: A&P Assessment and Plan (1) COPD exacerbation: Code(s): J44.1 - Chronic obstructive pulmonary disease with (acute) exacerbation Status: Acute Assessment and Plan: Patient with acute respiratory failure secondary to hypercapnia most likely secondary to exacerbation of COPD, intubated due to respiratory distress, pt has history of COPD, HTN, GERD, DM, schizoaffective disorder and ischemic cardiomyopathy with low EF. Some sternal fluid/ infection after his CABG. Ongoing sepsis and fever. 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 use: with half-way use Diabetes mellitus complication status: with other specified complication Qualified Code(s): E11.69 - Type 2 diabetes mellitus with other specified complication; Z79.4 - senior living (current) use of insulin Code(s): E11.9 - Type 2 diabetes mellitus without complications Status: Acute Assessment and Plan: Accuchecks, SSI, hold home medications (3) DVT prophylaxis: Code(s): Z29.9 - Encounter for prophylactic measures, unspecified Status: Acute Assessment and Plan: Lovenox (4) Acute hypercapnic respiratory failure: Code(s): J96.02 - Acute respiratory failure with hypercapnia Status: Acute Assessment and Plan: Worsening ABG was emergently intubated yesterday (5) Pneumonia: Qualifiers: Laterality: unspecified laterality Lung location: unspecified part of lung Pneumonia type: due to unspecified organism Qualified Code(s): J18.9 - Pneumonia, unspecified organism Code(s): J18.9 - Pneumonia, unspecified organism Status: Acute Assessment and Plan: Cxr shows Small right pleural effusion versus pleural parenchymal scarring at the right costophrenic angle related to prior surgical procedure in the right hemithorax with posterior right thoracotomy defect. Rpt CXR tomorrow (6) Acute kidney injury: Code(s): N17.9 - Acute kidney failure, unspecified Status: Acute Assessment and Plan: Creat is 1.4, continue to watch (7) Acute hyperkalemia: Code(s): E87.5 - Hyperkalemia Status: Resolved Assessment and Plan: After fluids (8) History of open heart surgery: Code(s): Z98.890 - Other specified postprocedural states Status: Acute Assessment and Plan: [place] CAB[place] [facility] [place] obtain notes, wound swab on sternotomy wound (9) Sepsis: Qualifiers: Sepsis type: sepsis due to unspecified organism Sepsis acute organ dysfunction status: with acute organ dysfunction Severe sepsis acute organ dysfunction type: acute renal failure Acute renal failure type: unspecified Severe sepsis shock status: without septic shock Qualified Code(s): A41.9 - Sepsis, unspecified organism; R65.20 - Severe sepsis without septic shock; N17.9 - Acute kidney failure, unspecified Code(s): A41.9 - Sepsis, unspecified organism Status: Acute Assessment and Plan: Upon arrival patient with criteria of sepsis most likely secondary to pneumonia patient being treated Cefepime #8/[address] Richardson Subjective Date/time seen: 11/20/19 16:59 Interval history: Patient with acute respiratory failure secondary to hypercapnia most likely secondary to exacerbation of COPD, intubated due to respiratory distress, pt has history of COPD, HTN, GERD, DM, schizoaffective disorder and ischemic cardiomyopathy with low EF,. Some sternal fluid/ infection after his CABG. Ongoing sepsis and fever. Review of Systems Review of Systems: ROS unobtainable: unobtainable due to endotracheal tube Exam Narrative: Exam Narrative: Patient appears chronically ill and older than his age Const: General: no acute distress, acute distress, lethargic and uncomfortable Orientation/consciousness: lethargic Other: Patient on vent HENMT: Head: normocephalic General nose exam: Normal n
[2019-11-20 17:15] LABS: Glucose Point of Care 171 (65-105)
--- NOTE | 2019-11-20 20:42 | WPDINFPN2 ---
Progress Note: A&P Additional Plan 1. Febrile illness secondary to respiratory tract infection including retrosternal fluid collection. Status post drainage postoperative day 2. Cultures currently are showing sparse growth of yeast. Patient is currently on cefepime day 8. Will add Mycamine until identification of organism is available. 2. Respiratory failure currently on a ventilator. 3. Type 2 diabetes stable blood sugar. 4. Leukocytosis with white count up at 18,000. Suspect secondary to retrosternal infection. Follow up on cultures. Add antifungal coverage. Subjective Date/time seen: 11/20/19 20:42 Fever and respiratory failure Exam HENMT: Other: ET tube in place. Neck: Other: Supple no lymphadenopathy. Resp: Other: Good bilateral air entry no rales or wheeze. Cardio: Other: Positive S1 and positive S2. GI: Other: Positive bowel sound nontender. Urinary Catheter: Urinary Catheter: other (Catheter in place.) Skin: Other: Port site soft tissues clean. No surrounding erythema or drainage. Neuro: Other: Patient is currently intubated and sedated. Extrem: Other: No edema. Objective Data Vital Signs Vital Signs: Vital Signs - 24 hr 11/19/19 21:11 11/19/19 21:21 11/19/19 22:00 Temperature 37.7 C H Pulse Rate 115 H 119 H 121 H Respiratory Rate 24 H 24 H 22 H Blood Pressure 102/76 Pulse Oximetry 99 11/19/19 23:14 11/19/19 23:33 11/19/19 23:41 Temperature 37.9 C H Pulse Rate 123 H 121 H Respiratory Rate 25 H 24 H Blood Pressure Pulse Oximetry 99 98 11/20/19 00:00 11/20/19 00:11 11/20/19 01:55 Temperature 37.9 C H 37.9 C H Pulse Rate 120 H 123 H Respiratory Rate 23 H Blood Pressure 115/82 Pulse Oximetry 99 11/20/19 02:00 11/20/19 02:40 11/20/19 02:44 Temperature 37.9 C H Pulse Rate 120 H 121 H 124 H Respiratory Rate 22 H 24 H 24 H Blood Pressure 107/73 Pulse Oximetry 99 98 11/20/19 02:48 11/20/19 03:35 11/20/19 04:00 Temperature 37.9 C H Pulse Rate 121 H 121 H 122 H Respiratory Rate 23 H 22 H 25 H Blood Pressure 103/75 Pulse Oximetry 98 99 11/20/19 05:55 11/20/19 06:00 11/20/19 06:15 Temperature 37.8 C H 37.8 C H Pulse Rate 127 H 131 H Respiratory Rate 28 H Blood Pressure 122/80 Pulse Oximetry 9 L 11/20/19 06:45 11/20/19 07:51 11/20/19 07:53 Temperature 37.9 C H Pulse Rate 130 H 128 H Respiratory Rate 25 H 25 H Blood Pressure Pulse Oximetry 96 11/20/19 07:59 11/20/19 08:00 11/20/19 08:02 Temperature 37.8 C H Pulse Rate 130 H 129 H 131 H Respiratory Rate 25 H 26 H 26 H Blood Pressure 104/79 Pulse Oximetry 99 100 11/20/19 09:25 11/20/19 10:00 11/20/19 10:31 Temperature 37.8 C H Pulse Rate 140 H 130 H 126 H Respiratory Rate 25 H Blood Pressure 96/66 L Pulse Oximetry 97 100 97 11/20/19 12:00 11/20/19 13:58 11/20/19 14:00 Temperature 38.1 C H 38.2 C H Pulse Rate 126 H 125 H 126 H Respiratory Rate 27 H 26 H 24 H Blood Pressure 94/68 L 91/68 L Pulse Oximetry 98 98 11/20/19 14:03 11/20/19 14:07 11/20/19 16:00 Temperature 37.9 C H Pulse Rate 125 H 125 H 118 H Respiratory Rate 26 H 24 H Blood Pressure 92/65 L Pulse Oximetry 100 100 11/20/19 16:52 11/20/19 18:00 11/20/19 19:53 Temperature 37.7 C H Pulse Rate 117 H 118 H 125 H Respiratory Rate 24 H 21 H Blood Pressure 90/67 L Pulse Oximetry 100 98 11/20/19 19:54 Temperature Pulse Rate 125 H Respiratory Rate Blood Pressure Pulse Oximetry 97 Intake/Output Intake/Output: Intake & Output 11/17/19 11/18/19 11/19/19 11/20/19 23:59 23:59 23:59 23:59 Intake Total 3021.8 1968 1617 976 Output Total 2800 2825 2350 2450 Balance 221.8 -857 -733 -1474 Meds/Results Medications: Active Medications Generic Name Dose Route Start Last Admin Trade Name Freq PRN Reason Stop Dose Admin Acetaminophen 650 mg 11/16/19 09:36 11/19/19 03:40 Tylenol Tablet PO 650 mg Q4H PRN Administration Mi
[2019-11-20] MEDS: INSULIN ASPART (*BKC) 100 UNITS/ML SUB-Q (20:57)
[2019-11-20] MEDS: INSULIN GLARGINE (*BKC) 100 UNITS/ML 30 UNITS SUB-Q (20:57)
[2019-11-20 21:05] LABS: Glucose Point of Care 208 (65-105)
--- NOTE | 2019-11-20 21:50 | PM.PNPUL ---
Progress Note: A&P Assessment and Plan (1) CHF (congestive heart failure): Code(s): I50.9 - Heart failure, unspecified Status: Acute Assessment and Plan: - continue diuersis judiciously as tolerated - BP and HR control (2) COPD exacerbation: Code(s): J44.1 - Chronic obstructive pulmonary disease with (acute) exacerbation Status: Acute Assessment and Plan: - continue levalbuterol and ipratropium as prescribed. - prednisone to 10 mg daily and discontinue after three days total (3) Pneumonia: Qualifiers: Laterality: unspecified laterality Lung location: unspecified part of lung Pneumonia type: due to unspecified organism Qualified Code(s): J18.9 - Pneumonia, unspecified organism Code(s): J18.9 - Pneumonia, unspecified organism Status: Acute Assessment and Plan: - continue cefepime for Pseudomonas Pneumonia - f/u on repeat sputum, urine and blood culture - extubated today, now on bipap 10/5, 40% weaning as his sat is 100%; . - he is improving Subjective Date/time seen: 11/20/19 21:50 This 69 yo man was extubated yesterday, now re-intubated, on 30%, 5 PEEP. Review of Systems Review of Systems: All systems reviewed & are unremarkable except as noted in HPI and below Exam Const: General: comfortable and no acute distress HENMT: Mouth: Yes moist mucous membranes Neck: Neck: supple and no JVD Resp: Auscultation: crackles, rhonchi, wheezes and diminished lung sounds Cardio: Rate: regular rate Rhythm: regular rhythm Heart sounds: no murmurs GI: Auscultation: normal bowel sounds Urinary Catheter: Urinary Catheter: patent and draining and urine clear Skin: General skin exam: normal color Extrem: General: normal to inspection, no edema and no pedal edema Objective Data Vital Signs Vital Signs: Vital Signs - 24 hr 11/19/19 22:00 11/19/19 23:14 11/19/19 23:33 Temperature 37.7 C H Pulse Rate 121 H 123 H 121 H Respiratory Rate 22 H 25 H 24 H Blood Pressure 102/76 Pulse Oximetry 99 99 98 11/19/19 23:41 11/20/19 00:00 11/20/19 00:11 Temperature 37.9 C H 37.9 C H 37.9 C H Pulse Rate 120 H Respiratory Rate 23 H Blood Pressure 115/82 Pulse Oximetry 99 11/20/19 01:55 11/20/19 02:00 11/20/19 02:40 Temperature 37.9 C H Pulse Rate 123 H 120 H 121 H Respiratory Rate 22 H 24 H Blood Pressure 107/73 Pulse Oximetry 99 11/20/19 02:44 11/20/19 02:48 11/20/19 03:35 Temperature Pulse Rate 124 H 121 H 121 H Respiratory Rate 24 H 23 H 22 H Blood Pressure Pulse Oximetry 98 98 11/20/19 04:00 11/20/19 05:55 11/20/19 06:00 Temperature 37.9 C H 37.8 C H Pulse Rate 122 H 127 H 131 H Respiratory Rate 25 H 28 H Blood Pressure 103/75 122/80 Pulse Oximetry 99 9 L 11/20/19 06:15 11/20/19 06:45 11/20/19 07:51 Temperature 37.8 C H 37.9 C H Pulse Rate 130 H Respiratory Rate 25 H Blood Pressure Pulse Oximetry 11/20/19 07:53 11/20/19 07:59 11/20/19 08:00 Temperature 37.8 C H Pulse Rate 128 H 130 H 129 H Respiratory Rate 25 H 25 H 26 H Blood Pressure 104/79 Pulse Oximetry 96 99 100 11/20/19 08:02 11/20/19 09:25 11/20/19 10:00 Temperature 37.8 C H Pulse Rate 131 H 140 H 130 H Respiratory Rate 26 H 25 H Blood Pressure 96/66 L Pulse Oximetry 97 100 11/20/19 10:31 11/20/19 12:00 11/20/19 13:58 Temperature 38.1 C H Pulse Rate 126 H 126 H 125 H Respiratory Rate 27 H 26 H Blood Pressure 94/68 L Pulse Oximetry 97 98 11/20/19 14:00 11/20/19 14:03 11/20/19 14:07 Temperature 38.2 C H Pulse Rate 126 H 125 H 125 H Respiratory Rate 24 H 26 H Blood Pressure 91/68 L Pulse Oximetry 98 100 11/20/19 16:00 11/20/19 16:52 11/20/19 18:00 Temperature 37.9 C H 37.7 C H Pulse Rate 118 H 117 H 118 H Respiratory Rate 24 H 24 H Blood Pressure 92/65 L 90/67 L Pulse Oximetry 100 100 98 11/20/19 19:53 11/20/19 19:54 Temperature Pulse Rate 125 H 125 H
[2019-11-20] MEDS: MICAFUNGIN SODIUM 100 MG in SODIUM CHLORIDE 0.9% IV 100 ML IVPB (22:21)
[2019-11-21] VITALS (30 sets, daily range): BP systolic 93–116; BP diastolic 69–83; PULSE 116–127; RESP 19–229; TEMP 37.7–38.3; O2SAT 93–98
[2019-11-21] MEDS: FUROSEMIDE INJ 40 MG/4 ML VIAL 20 MG IV PUSH ×3 (00:13→08:46)
[2019-11-21 00:17] LABS: Glucose Point of Care 233 (65-105)
[2019-11-21] MEDS: INSULIN ASPART (*BKC) 100 UNITS/ML SUB-Q ×6 (00:17→20:43)
[2019-11-21] MEDS: LEVALBUTEROL NEB 1.25 MG/3 ML 0.63 MG INHALATION ×4 (02:03→19:26)
[2019-11-21] MEDS: IPRATROPIUM BR 0.02% INH SOLN 0.5 MG/2.5 ML VIAL INHALATION ×4 (02:04→19:26)
[2019-11-21 04:56] LABS: Hematocrit 37.5 % (42.0-52.0); Hemoglobin 11.4 g/dL (14.0-18.0); Immature Platelet Fraction Pct 11.4 % (0.9-11.2); Mean Corpuscular HGB Conc 30.4 g/dl (32-36); Mean Corpuscular Hemoglobin 27.7 pg (26-34); Mean Platelet Volume 13.1 fl (7.4-10.4); Platelet Count Result 142 k/mm3 (150-375); Red Blood Count 4.12 M/mm3 (4.6-6.20); Red Cell Distribution Width 18.2 % (11.5-14.5); White Blood Count 17.6 K/mm3 (4.5-10.0)
[2019-11-21 05:13] LABS: Blood Urea Nitrogen 55 mg/dL (9-20); Calcium 8.4 mg/dL (8.4-10.2); Carbon Dioxide 33 mmol/L (22-30); Chloride 106 mmol/L (98-107); Estimated CRCL calculation 42 ml/min; Estimated Glomerular Filt Rate 47; Glucose 236 mg/dL (75-110); Magnesium 2.3 mg/dL (1.6-2.3); Phosphorus 2.7 mg/dL (2.5-4.5); Potassium 3.1 mmol/L (3.4-5.0); Sodium 148 mmol/L (137-145)
[2019-11-21 05:16] LABS: Alveolar/Arterial O2 Gradient 101.5 mmHg; Base Excess ABG 4.7 mEq/l (+/-2.0); Carboxyhemoglobin 0.3 % THb (0-2.0); Fractional Inspired Oxygen 30 %; HCO3 ABG 28.9 mEq/l (22.0-26.0); Methemoglobin ABG 0.3 %THb (0-1.5); Oxygen Content ABG 17.2 %vol (16.0-22.0); Oxygen Saturation ABG 93.5 % (95.0-100.0); Oxyhemoglobin 91.5 % THb (90.0-100.0); PCO2 ABG 41.3 mmHg (35.0-45.0); PO2 ABG 63.9 mmHg (80.0-100.0); PO2 FiO2 Ratio Arterial Blood 2.13 %; Reduced Hemoglobin 7.9 %THb (0-5.0); Total Hemoglobin 13.4 g/dL (12.0-18.0); pH ABG 7.463 (7.350-7.450)
[2019-11-21 05:17] LABS: Arterial Blood Gas Ventilator rate 18 /MIN; Device VENTILATOR; Modified Allen's Test Pass; Site Drawn RIGHT RADIAL
[2019-11-21 05:18] LABS: Arterial Blood Gas PEEP 5 cmH2O; Arterial Blood Gas Tidal Volume 400 ml; Arterial Blood Gas Vent Mode CMV
--- NOTE | 2019-11-21 07:15 | WPDINTPN ---
Progress Note: A&P Assessment and Plan (1) Acute respiratory failure with hypoxia and hypercapnia: Code(s): J96.01 - Acute respiratory failure with hypoxia; J96.02 - Acute respiratory failure with hypercapnia Status: Acute Assessment and Plan: Acute hypoxic and hypercapnic respiratory failure - multifactorial- Pseudomonas pneumonia, COPD, CHF, generalized weakness - Initially pt did not tolerate a trial of BiPAP and was intubated on 09/09/2020 - he was extubated on 11/19. his respiratory status worsened overnight with increased work of breathing or tachypnea and respiratory distress - patient was reintubated on 11/20 - chest x-ray and ABG reviewed - patient on CMV mode of ventilation, 40% FiO2. I will decrease the rate to 16 and FiO2 to 30% - I will try pressure support ventilation today - continue Antibiotics as patient is on cefepime - continue bronchodilators - Prednisone was tapered off - continue lasix but decreased does - Diamox for Pulm edema and metabolic alkalosis (2) Sepsis: Qualifiers: Sepsis type: sepsis due to unspecified organism Sepsis acute organ dysfunction status: with acute organ dysfunction Severe sepsis acute organ dysfunction type: acute renal failure Acute renal failure type: unspecified Severe sepsis shock status: without septic shock Qualified Code(s): A41.9 - Sepsis, unspecified organism; R65.20 - Severe sepsis without septic shock; N17.9 - Acute kidney failure, unspecified Code(s): A41.9 - Sepsis, unspecified organism Status: Acute Assessment and Plan: secondary to Pseudomona PNA - Patient febrile persistently. Sputum cultures grew Pseudomonas, sensitive to cefepime. - Continue cefepime for now. - DCed azithromycin x 7 days - Infectious disease service following - CT Report reviewed - UA unremarkable - Infrasternal fluid collection aspirated 11/18 and fluid sent for cultures and pending. 1 culture is growing yeast - anti fungal Mycamine was started by Infectious Disease - Lipase normal - US B/L showed superficial cephalic thrombosis on left side - off Levophed (3) Cardiomyopathy: Code(s): I42.9 - Cardiomyopathy, unspecified Status: Acute Assessment and Plan: He has known ischemic cardiomyopathy with low EF. He had bypass surgery at [facility] after he was transferred from [facility] with some neurological changes in February 2019. He had CABG done in the [facility] but apparently had a complicated course afterward is he remained in ICU for almost 8 weeks. echocardiogram done on 11/14/2019 showed normal LV size with concentric hypertrophy. Hypokinesis of the mid anteroseptal segments and akinesis of the distal septum, anterior wall, lateral wall, inferior wall and apex. This is consistent with ischemic or Takotsubo cardiomyopathy. Is 25-30%. Grade 2 diastolic dysfunction. Mild mitral valve regurg - Not on carvedilol because of hypotension. - Cardiology Service recommendation appreciated. Start him on low-dose dobutamine to support his circulatory status. Bedside echo done by myself showed decreased EF and small IVC with significant respiratory variation. - On Lasix but will decrease dose - digoxin started by cardiology. - May need inotrope (4) COPD exacerbation: Code(s): J44.1 - Chronic obstructive pulmonary disease with (acute) exacerbation Status: Acute Assessment and Plan: continue bronchodilators, steroids, antibiotics and mechanical ventilation - Pulmonology following the patient - Prednisone tapered off (5) Acute kidney injury: Code(s): N17.9 - Acute kidney failure, unspecified Status: Acute Assessment and Plan: patient was admitted with elevated creatinine which improved with resuscitation. over time patient was started on diuretics. creatinine has increased to 1.5 today increased sodium and chloride, metabolic alkalosis suggest interval
[2019-11-21] MEDS: ASPIRIN 325 MG TABLET PO (08:44)
[2019-11-21] MEDS: SIMVASTATIN 20 MG TABLET PO (08:44)
[2019-11-21] MEDS: CITALOPRAM HYDROBROMIDE 20 MG TABLET PO (08:44)
[2019-11-21] MEDS: DORNASE ALFA INH SOLN 1 MG/ML 2.5 ML AMP 2.5 MG INHALATION (08:44)
[2019-11-21] MEDS: POTASSIUM CHLORIDE 20 MEQ PACKET (FOR LIQUID) 40 MEQ PO ×2 (08:45→12:43)
[2019-11-21] MEDS: SENNA/DOCUSATE SODIUM TABLET 2 TAB PO (08:45)
[2019-11-21] MEDS: FAMOTIDINE 20 MG/2 ML VIAL IV PUSH ×2 (08:46→20:42)
[2019-11-21] MEDS: polyethylene glycoL 3350 17 GM POWD.PACK PO (08:47)
[2019-11-21] MEDS: ENOXAPARIN 40 MG/0.4 ML SYRINGE SUB-Q (08:47)
[2019-11-21] MEDS: INSULIN GLARGINE (*BKC) 100 UNITS/ML 25 UNITS SUB-Q ×2 (08:55→20:44)
[2019-11-21] MEDS: WATER, STERILE FOR INJECTION 10 ML VIAL XX (08:58)
[2019-11-21] MEDS: DIGOXIN TAB 125 MCG TABLET PO (09:07)
[2019-11-21 09:36] LABS: Glucose Point of Care 284 (65-105)
--- NOTE | 2019-11-21 11:00 | P.PNCROSS_ITS ---
Event Note Event Note Event Note: Family Meeting I met with patient's brother, sister and brother in law in presence of child care education coordinator Piedad and pt's nurse Cecelia to discuss medical decisions and level of care regarding patient's current condition including Respiratory failure, heart failure, acute kidney injury, COPD, pneumonia and suspected fungal infection. Patient himself is unable to participate. I updated them with patient's current condition, treatment plan, expected prognosis and different potential outcomes. they told they told us that patient has 2 children 1 son and daughter but they are not in contact with the. Neither brother nor sister knew where they live or have the contact information. They have tried to find them through Facebook and other means but have been unsuccessful. They also not sure if the patient was in contact with either of them. They are willing to be involved in the decision-making at this time. They really struggled with this decision as they never had any real discussion with the patient about these issues because of his mental disorder. After reviewing all the aspect of his current condition, prior issues with his mental health and in and out from medical and psychiatric facilities the family has decided, , to continue medical therapy at this time but do not resuscitate pt in case of cardiac arrest. They request the patient be trached and pegged if needed to continue medical support but do not want any CPR or electric shock in case of a cardiac arrest. I have made pt DNR in chart. I will consult ENT and GI for trach and PEG respectively. Total time spent 50 minutes
--- NOTE | 2019-11-21 11:30 | PCDIET ---
ICU Rounding Note: Patient tolerating Glucerna 1.2 tube feedings which are advancing toward goal rate of 70mL/hr. No documented residuals. Last recorded weight is 79.7kg which is decreased. -I/O noted. Bowel Motility: +BM x 2 today. Labs Reviewed: Glu (236), BUN (55), Cr (1.5), K (3.1), Na (148), Hgb (11.4), Hct (37.5) Meds Noted: Diamox, Cefepime, Novolog, Levophed, Miralax, KCl, Precedex, Pepcid, Lasix, Lantus, Senna Additional Notes: Noted Lasix was decreased. Left heel with blister. Medial chest incision with small open area. Family to decide re: trach/PEG vs. alternative. Will continue to follow closely. Following daily in ICU rounds. Assessing/reassessing every Monday/Monday.
--- NOTE | 2019-11-21 12:25 | PM.IMPN ---
Progress Note: A&P Assessment and Plan (1) COPD exacerbation: Code(s): J44.1 - Chronic obstructive pulmonary disease with (acute) exacerbation Status: Acute Assessment and Plan: Patient with acute respiratory failure secondary to hypercapnia most likely secondary to exacerbation of COPD, intubated due to respiratory distress, pt has history of COPD, HTN, GERD, DM, schizoaffective disorder and ischemic cardiomyopathy with low EF. Some sternal fluid/ infection after his CABG. Ongoing sepsis and fever. Pt also has acute kidney injury and suspected fungal infection. Family have decided on active medical therapy but do not resuscitate pt in case of cardiac arrest. Pt will need Trach and PEG. Family are aware of poor prognosis (2) Diabetes: Qualifiers: Diabetes mellitus type: type 2 Diabetes mellitus nursing home insulin use: with nursing home use Diabetes mellitus complication status: with other specified complication Qualified Code(s): E11.69 - Type 2 diabetes mellitus with other specified complication; Z79.4 - custodial (current) use of insulin Code(s): E11.9 - Type 2 diabetes mellitus without complications Status: Acute Assessment and Plan: Accuchecks, SSI, hold home medications (3) DVT prophylaxis: Code(s): Z29.9 - Encounter for prophylactic measures, unspecified Status: Acute Assessment and Plan: Lovenox (4) Acute hypercapnic respiratory failure: Code(s): J96.02 - Acute respiratory failure with hypercapnia Status: Acute Assessment and Plan: Worsening ABG was emergently intubated yesterday (5) Pneumonia: Qualifiers: Laterality: unspecified laterality Lung location: unspecified part of lung Pneumonia type: due to unspecified organism Qualified Code(s): J18.9 - Pneumonia, unspecified organism Code(s): J18.9 - Pneumonia, unspecified organism Status: Acute Assessment and Plan: Cxr shows Small right pleural effusion versus pleural parenchymal scarring at the right costophrenic angle related to prior surgical procedure in the right hemithorax with posterior right thoracotomy defect. (6) Acute kidney injury: Code(s): N17.9 - Acute kidney failure, unspecified Status: Acute Assessment and Plan: Creat is 1.4, continue to watch (7) Acute hyperkalemia: Code(s): E87.5 - Hyperkalemia Status: Resolved Assessment and Plan: After fluids (8) History of open heart surgery: Code(s): Z98.890 - Other specified postprocedural states Status: Acute Assessment and Plan: [place] obtain notes, wound swab on sternotomy wound (9) Sepsis: Qualifiers: Sepsis type: sepsis due to unspecified organism Sepsis acute organ dysfunction status: with acute organ dysfunction Severe sepsis acute organ dysfunction type: acute renal failure Acute renal failure type: unspecified Severe sepsis shock status: without septic shock Qualified Code(s): A41.9 - Sepsis, unspecified organism; R65.20 - Severe sepsis without septic shock; N17.9 - Acute kidney failure, unspecified Code(s): A41.9 - Sepsis, unspecified organism Status: Acute Assessment and Plan: Upon arrival patient with criteria of sepsis most likely secondary to pneumonia patient being treated Cefepime #9/ seen by Dr. Richardson Subjective Date/time seen: 11/21/19 12:25 Interval history: Patient with acute respiratory failure secondary to hypercapnia most likely secondary to exacerbation of COPD, intubated due to respiratory distress, pt has history of COPD, HTN, GERD, DM, schizoaffective disorder and ischemic cardiomyopathy with low EF,. Some sternal fluid/ infection after his CABG. Ongoing sepsis and fever. Pt also has acute kidney injury and suspected fungal infection. Family have decided on active medical therapy but do not resuscitate pt in case of cardiac arrest. Pt will need Trac
[2019-11-21 13:00] LABS: Glucose Point of Care 283 (65-105)
--- NOTE | 2019-11-21 14:51 | PM.PNCARD ---
Progress Note: A&P Assessment and Plan (1) Cardiomyopathy: Code(s): I42.9 - Cardiomyopathy, unspecified Status: Acute Assessment and Plan: He has ischemic cardiomyopathy with low EF, but seems to be thae same since last year as he had bypass surgery. No evidence of overt volume overload on exam. (2) CHF (congestive heart failure): Code(s): I50.9 - Heart failure, unspecified Status: Acute Assessment and Plan: Continue diuresis, follow up input and outputs closely (3) Sepsis: Qualifiers: Sepsis type: sepsis due to unspecified organism Sepsis acute organ dysfunction status: with acute organ dysfunction Severe sepsis acute organ dysfunction type: acute renal failure Acute renal failure type: unspecified Severe sepsis shock status: without septic shock Qualified Code(s): A41.9 - Sepsis, unspecified organism; R65.20 - Severe sepsis without septic shock; N17.9 - Acute kidney failure, unspecified Code(s): A41.9 - Sepsis, unspecified organism Status: Acute Assessment and Plan: Getting covered with IV antibiotics now (4) Diabetes: Qualifiers: Diabetes mellitus type: type 2 Diabetes mellitus custodial insulin use: with sand technologist use Diabetes mellitus complication status: with other specified complication Qualified Code(s): E11.69 - Type 2 diabetes mellitus with other specified complication; Z79.4 - sports medicine trainer (current) use of insulin Code(s): E11.9 - Type 2 diabetes mellitus without complications Status: Acute (5) Acute hypercapnic respiratory failure: Code(s): J96.02 - Acute respiratory failure with hypercapnia Status: Acute Assessment and Plan: With COPD, pneumonia and CHF. (6) Pneumonia: Qualifiers: Laterality: unspecified laterality Lung location: unspecified part of lung Pneumonia type: due to unspecified organism Qualified Code(s): J18.9 - Pneumonia, unspecified organism Code(s): J18.9 - Pneumonia, unspecified organism Status: Acute (7) Coronary artery disease: Code(s): I25.10 - Atherosclerotic heart disease of [place] coronary artery without angina pectoris Status: Acute Assessment and Plan: Status post coronary bypass surgery last year Subjective Date/time seen: 11/21/19 14:51 Events noted, he is currently again intubated, not in acute distress Exam Narrative: Exam Narrative: Sedated and intubated Neck is supple no obvious JVD, no carotid bruit Chest: decreased breathing sounds at the bases, with crackles noted and rhonchi noted Cardiovascular: Regular rate and rhythm, 2/6 systolic murmur noted left sternal border Abdomen: Soft nontender bowel sounds positive Extremities: No edema has good pulses distally bilaterally Objective Data Vital Signs Vital Signs: Vital Signs - 24 hr 11/20/19 16:00 11/20/19 16:52 11/20/19 18:00 Temperature 37.9 C H 37.7 C H Pulse Rate 118 H 117 H 118 H Respiratory Rate 24 H 24 H Blood Pressure 92/65 L 90/67 L Pulse Oximetry 100 100 98 11/20/19 19:53 11/20/19 19:54 11/20/19 20:00 Temperature 37.9 C H Pulse Rate 125 H 125 H 122 H Respiratory Rate 21 H 19 Blood Pressure 92/64 L Pulse Oximetry 97 95 11/20/19 20:15 11/20/19 22:00 11/20/19 23:30 Temperature 37.8 C H Pulse Rate 119 H 120 H 118 H Respiratory Rate 20 23 H Blood Pressure 96/63 L Pulse Oximetry 96 95 11/20/19 23:32 11/21/19 00:00 11/21/19 02:00 Temperature 38.0 C H 37.9 C H Pulse Rate 119 H 119 H 119 H Respiratory Rate 26 H 25 H 19 Blood Pressure 99/74 L 106/76 Pulse Oximetry 95 95 96 11/21/19 02:06 11/21/19 02:08 11/21/19 02:18 Temperature Pulse Rate 120 H 120 H 116 H Respiratory Rate 24 H 24 H Blood Pressure Pulse Oximetry 97 11/21/19 03:30 11/21/19 04:00 11/21/19 05:00 Temperature 37.7 C H Pulse Rate 118 H 118 H 116 H Respiratory Rate 19 23 H Blood Pressure 113/80 Pulse Oximetry 94 93
--- NOTE | 2019-11-21 15:59 | WPDGICN ---
Assessment and Plan Additional Plan This is a 69-year-old white male patient I am asked to see at the request of the clinical account manager service. Request is made for PEG tube placement. Patient was admitted to the hospital on November 10, 2019. He has been intubated because of respiratory failure. And now ventilator dependent. He will require PEG tube feedings for nutrition. Patient has metabolic encephalopathy is unable to give additional history. The patient has history of cardiomyopathy and now congestive heart failure. He has an underlying history of COPD and now has pneumonia. He is felt to be sepsis. there is suspicious of underlying fungal infection. The family has agreed to tracheostomy and PEG tube placement but limited code has been suggested on this patient. Attempts to extubate the patient earlier in the week were not fruitful. Current medications include Tylenol, Celexa, digoxin, Pulmozyme, Lovenox, Pepcid, Sublimaze, glucagon, Lasix, heparin flush, cefepime, Levophed, Precedex, NovoLog insulin, Xopenex, Zofran, Zocor and MiraLax. An allergy to latex is reported. Physical exam reveals patient to be intubated. NG tube is in place for nutritional support currently lungs reveal scattered rhonchi. Heart is without murmur. Midline scar is appreciated. Abdomen is soft bowel sounds are present no organomegaly evident on exam. CBC reveals WBC 17.6, hemoglobin 11.4, hematocrit 37, MCV 91, platelets 142 1000, protime 14.6, INR 1.2 Impression 1. Respiratory failure. Patient is ventilator dependent. New nutritional support it will depend on tube feedings. A PEG is been requested and will be placed tomorrow. Anticoagulants including Lovenox will be held this evening. And probably restarted shortly after placement of PEG tube. Patient has an underlying history of COPD, congestive heart failure, pneumonia, sepsis, diabetes mellitus, metabolic encephalopathy. Currently has limited code status but family agrees to proceed with PEG tube. This will be and planned in the morning. GI Consult Note Consult date/time: 11/21/19 15:59 HPI: Marquis Cosme is a 69 year old male [facility] Past Medical History Medical History COPD (chronic obstructive pulmonary disease) Diabetes type 2, controlled GERD (gastroesophageal reflux disease) Hyperlipidemia Hypertension Schizoaffective disorder Surgical History Surgical History History of open heart surgery History of thoracotomy Family History Family History Other Unknown family medical history Social History Social History Smoking status: Current every day smoker Alcohol intake: former Substance use: unknown Gender identity (if verbalized by the patient): Male Spiritual care concerns: No Agree to blood products: Yes Meds Home Medications and Allergies Home Medications Medication Instructions Recorded Confirmed Type Antifungal Cream (miconazole) 1 unit TOPICAL Q12H 11/10/19 11/10/19 History Daily Multivitamin 1 tab-cap PO DAILY 11/10/19 11/10/19 History Spiriva Respimat 1 cap INHALATION DAILY 11/10/19 11/10/19 History acetaminophen [Tylenol] 650 mg PO Q6H PRN 11/10/19 11/10/19 History albuterol sulfate [ProAir HFA] 2 puff INHALATION Q4H PRN 11/10/19 11/10/19 History aspirin 325 mg PO DAILY 11/10/19 11/10/19 History citalopram 20 mg PO DAILY 11/10/19 11/10/19 History cyanocobalamin (vitamin B-12) 1,000 mcg PO DAILY 11/10/19 11/10/19 History [Vitamin B-12] esomeprazole magnesium 40 mg PO DAILY 11/10/19 11/10/19 History ferrous sulfate 325 mg PO BID 11/10/19 11/10/19 History fluticasone propion-salmeterol 1 puff INHALATION Q12H 11/10/19 11/10/19 History [Advair Diskus] furosemide 40 mg PO DAILY 11/10/19 11/10/19 History gabapentin 600 mg PO BID 10/26
[2019-11-21 17:14] LABS: Glucose Point of Care 273 (65-105)
--- NOTE | 2019-11-21 17:20 | PM.PNPUL ---
Progress Note: A&P Assessment and Plan (1) CHF (congestive heart failure): Code(s): I50.9 - Heart failure, unspecified Status: Acute Assessment and Plan: - continue diuersis judiciously as tolerated - BP and HR control (2) COPD exacerbation: Code(s): J44.1 - Chronic obstructive pulmonary disease with (acute) exacerbation Status: Acute Assessment and Plan: - continue levalbuterol and ipratropium as prescribed. - prednisone to 10 mg daily and discontinue after three days total (3) Pneumonia: Qualifiers: Laterality: unspecified laterality Lung location: unspecified part of lung Pneumonia type: due to unspecified organism Qualified Code(s): J18.9 - Pneumonia, unspecified organism Code(s): J18.9 - Pneumonia, unspecified organism Status: Acute Assessment and Plan: - continue cefepime for Pseudomonas Pneumonia - f/u on repeat sputum, urine and blood culture - extubated today, now on bipap 10/5, 40% weaning as his sat is 100%; . - he is improving Subjective Date/time seen: 11/21/19 17:20 Review of Systems Review of Systems: All systems reviewed & are unremarkable except as noted in HPI and below Exam Const: General: comfortable and no acute distress HENMT: Mouth: Yes moist mucous membranes Neck: Neck: supple and no JVD Resp: Auscultation: crackles, rhonchi, wheezes and diminished lung sounds Cardio: Rate: regular rate Rhythm: regular rhythm Heart sounds: no murmurs GI: Auscultation: normal bowel sounds Urinary Catheter: Urinary Catheter: patent and draining and urine clear Skin: General skin exam: normal color Extrem: General: normal to inspection, no edema and no pedal edema Objective Data Vital Signs Vital Signs: Vital Signs - 24 hr 11/20/19 18:00 11/20/19 19:53 11/20/19 19:54 Temperature 37.7 C H Pulse Rate 118 H 125 H 125 H Respiratory Rate 24 H 21 H Blood Pressure 90/67 L Pulse Oximetry 98 97 11/20/19 20:00 11/20/19 20:15 11/20/19 22:00 Temperature 37.9 C H 37.8 C H Pulse Rate 122 H 119 H 120 H Respiratory Rate 19 20 23 H Blood Pressure 92/64 L 96/63 L Pulse Oximetry 95 96 11/20/19 23:30 11/20/19 23:32 11/21/19 00:00 Temperature 38.0 C H Pulse Rate 118 H 119 H 119 H Respiratory Rate 26 H 25 H Blood Pressure 99/74 L Pulse Oximetry 95 95 95 11/21/19 02:00 11/21/19 02:06 11/21/19 02:08 Temperature 37.9 C H Pulse Rate 119 H 120 H 120 H Respiratory Rate 19 24 H Blood Pressure 106/76 Pulse Oximetry 96 97 11/21/19 02:18 11/21/19 03:30 11/21/19 04:00 Temperature 37.7 C H Pulse Rate 116 H 118 H 118 H Respiratory Rate 24 H 19 23 H Blood Pressure 113/80 Pulse Oximetry 94 93 11/21/19 05:00 11/21/19 05:57 11/21/19 06:00 Temperature 37.8 C H Pulse Rate 116 H 120 H 122 H Respiratory Rate 24 H Blood Pressure 116/83 Pulse Oximetry 96 95 11/21/19 08:00 11/21/19 08:45 11/21/19 08:50 Temperature 38.3 C H Pulse Rate 126 H 127 H 125 H Respiratory Rate 26 H 28 H Blood Pressure 102/80 Pulse Oximetry 96 96 11/21/19 09:04 11/21/19 09:07 11/21/19 10:00 Temperature 38.2 C H Pulse Rate 125 H 124 H 120 H Respiratory Rate 24 H 24 H Blood Pressure 116/76 Pulse Oximetry 96 11/21/19 10:51 11/21/19 12:00 11/21/19 14:00 Temperature 38.2 C H 38.1 C H Pulse Rate 121 H 124 H 118 H Respiratory Rate 28 H 28 H Blood Pressure 93/77 L 98/75 L Pulse Oximetry 98 94 95 11/21/19 14:40 11/21/19 14:42 11/21/19 14:56 Temperature Pulse Rate 118 H 118 H 118 H Respiratory Rate 25 H 27 H Blood Pressure Pulse Oximetry 94 11/21/19 16:00 11/21/19 16:46 Temperature 38.2 C H Pulse Rate 119 H 120 H Respiratory Rate 26 H Blood Pressure 108/79 Pulse Oximetry 94 95 Intake/Output Intake/Output: Intake & Output 11/18/19 11/19/19 11/20/1920 23:59 23:59 23:59 23:59 Intake Total 1967 1617 1026 816 Output Total 8293 3900 2450 1150 Bal
[2019-11-21 17:32] LABS: INR 1.2; Prothrombin Time 15.2 Seconds (11.1-14.7)
[2019-11-21 17:33] LABS: Partial Thromboplastin Time 32.9 SECONDS (22.3-36.8)
[2019-11-21 17:45] LABS: C. psittaci Ab (IgG) <1:64 (<1:64); C. trachomatis Ab (IgG) <1:64 (<1:64)
[2019-11-21 19:48] LABS: Glucose Point of Care 251 (65-105)
--- NOTE | 2019-11-21 20:07 | WPDINFPN2 ---
Progress Note: A&P Additional Plan 1. Febrile illness secondary to lower respiratory tract infection including pneumonia versus retrosternal infection. Status post drainage. Culture is showing yeast. Patient is currently on Mycamine day 2 and cefepime day 9. Patient continues to run low-grade fever. Blood cultures have been so far negative. WBC count is trending down. Continue current care. 2. Respiratory failure on a ventilator. 3. Type 2 diabetes stable blood sugars. 4. [place] [id number]. Continue current care. 5. Date of service 11/21/2019. Subjective Date/time seen: 11/21/19 20:07 Exam HENMT: Other: ET tube in place Neck: Other: NECK IS SUPPLE NO LYMPHADENOPATHY. Chest: Other: Left side port accessed. No surrounding erythema. Old sternotomy site small eschar in place. Resp: Other: Good bilateral air entry with scattered crackles at the bases. Cardio: Other: Positive S1 and positive S2 no murmur. GI: Other: Positive bowel sounds nontender no organomegaly. : Other: Indwelling catheter in place. Skin: Other: No rash. Extrem: Other: No edema bilaterally. Objective Data Vital Signs Vital Signs: Vital Signs - 24 hr 11/20/19 20:15 11/20/19 22:00 11/20/19 23:30 Temperature 37.8 C H Pulse Rate 119 H 120 H 118 H Respiratory Rate 20 23 H Blood Pressure 96/63 L Pulse Oximetry 96 95 11/20/19 23:32 11/21/19 00:00 11/21/19 02:00 Temperature 38.0 C H 37.9 C H Pulse Rate 119 H 119 H 119 H Respiratory Rate 26 H 25 H 19 Blood Pressure 99/74 L 106/76 Pulse Oximetry 95 95 96 11/21/19 02:06 11/21/19 02:08 11/21/19 02:18 Temperature Pulse Rate 120 H 120 H 116 H Respiratory Rate 24 H 24 H Blood Pressure Pulse Oximetry 97 11/21/19 03:30 11/21/19 04:00 11/21/19 05:00 Temperature 37.7 C H Pulse Rate 118 H 118 H 116 H Respiratory Rate 19 23 H Blood Pressure 113/80 Pulse Oximetry 94 93 96 11/21/19 05:57 11/21/19 06:00 11/21/19 08:00 Temperature 37.8 C H 38.3 C H Pulse Rate 120 H 122 H 126 H Respiratory Rate 24 H 26 H Blood Pressure 116/83 102/80 Pulse Oximetry 95 96 11/21/19 08:45 11/21/19 08:50 11/21/19 09:04 Temperature Pulse Rate 127 H 125 H 125 H Respiratory Rate 28 H 24 H Blood Pressure Pulse Oximetry 96 11/21/19 09:07 11/21/19 10:00 11/21/19 10:51 Temperature 38.2 C H Pulse Rate 124 H 120 H 121 H Respiratory Rate 24 H Blood Pressure 116/76 Pulse Oximetry 96 98 11/21/19 12:00 11/21/19 14:00 11/21/19 14:40 Temperature 38.2 C H 38.1 C H Pulse Rate 124 H 118 H 118 H Respiratory Rate 28 H 28 H 25 H Blood Pressure 93/77 L 98/75 L Pulse Oximetry 94 95 11/21/19 14:42 11/21/19 14:56 11/21/19 16:00 Temperature 38.2 C H Pulse Rate 118 H 118 H 119 H Respiratory Rate 27 H 26 H Blood Pressure 108/79 Pulse Oximetry 94 94 11/21/19 16:46 11/21/19 18:00 11/21/19 19:27 Temperature 38.2 C H Pulse Rate 120 H 120 H 120 H Respiratory Rate 26 H 30 H Blood Pressure 104/69 Pulse Oximetry 95 95 11/21/19 19:34 Temperature Pulse Rate 119 H Respiratory Rate 28 H Blood Pressure Pulse Oximetry Intake/Output Intake/Output: Intake & Output 11/18/19 11/19/19 11/20/19 11/21/19 23:59 23:59 23:59 23:59 Intake Total 1967 1617 1126 1712 Output Total 9372 2190 2450 2500 [facility] [phone] Meds/Results Medications: Active Medications Generic Name Dose Route Start Last Admin Trade Name Freq PRN Reason Stop Dose Admin Acetaminophen 650 mg 11/16/19 09:36 11/19/19 03:40 Tylenol Tablet PO 650 mg Q4H PRN Administration Mild Pain (1-3) or Fever Acetazolamide Sodium 500 mg 11/19/19 09:00 11/21/19 08:45 Diamox Inj IV PUSH 500 mg QAM KASSIDY Administration Aspirin 325 mg 11/11/19 09:00 11/21/19 08:44 Aspirin PO 325 mg DAILY KASSIDY Administration Citalopram Hydrobromide 20 mg 11/11/19 09:00 11/21/19 08:44 Celexa PO 20 mg
[2019-11-21] MEDS: MICAFUNGIN SODIUM 100 MG in SODIUM CHLORIDE 0.9% IV 100 ML IVPB (22:02)
[2019-11-21 23:58] LABS: Glucose Point of Care 173 (65-105)
[2019-11-22] VITALS (38 sets, daily range): BP systolic 93–141; BP diastolic 62–90; PULSE 107–133; RESP 20–31; TEMP 37.8–38.4; O2SAT 94–98
[2019-11-22] MEDS: LEVALBUTEROL NEB 1.25 MG/3 ML 0.63 MG INHALATION ×4 (01:55→21:03)
[2019-11-22] MEDS: IPRATROPIUM BR 0.02% INH SOLN 0.5 MG/2.5 ML VIAL INHALATION ×4 (01:55→21:03)
[2019-11-22] MEDS: ACETAMINOPHEN 325 MG TABLET 650 MG PO ×2 (03:06→23:16)
[2019-11-22 04:01] LABS: Glucose Point of Care 124 (65-105)
[2019-11-22 04:52] LABS: Hematocrit 36.2 % (42.0-52.0); Hemoglobin 11.1 g/dL (14.0-18.0); Immature Platelet Fraction Pct 7.5 % (0.9-11.2); Mean Corpuscular HGB Conc 30.7 g/dl (32-36); Mean Corpuscular Hemoglobin 27.4 pg (26-34); Mean Corpuscular Volume 89.4 fl (80-100); Mean Platelet Volume 12.7 fl (7.4-10.4); Platelet Count Result 166 k/mm3 (150-375); Red Blood Count 4.05 M/mm3 (4.6-6.20); Red Cell Distribution Width 18.4 % (11.5-14.5); White Blood Count 15.4 K/mm3 (4.5-10.0)
[2019-11-22 05:17] LABS: Blood Urea Nitrogen 56 mg/dL (9-20); Calcium 8.8 mg/dL (8.4-10.2); Carbon Dioxide 28 mmol/L (22-30); Chloride 115 mmol/L (98-107); Estimated CRCL calculation 42 ml/min; Estimated Glomerular Filt Rate 47; Glucose 134 mg/dL (75-110); Magnesium 2.4 mg/dL (1.6-2.3); Phosphorus 2.3 mg/dL (2.5-4.5); Potassium 3.6 mmol/L (3.4-5.0); Sodium 150 mmol/L (137-145)
[2019-11-22 05:46] LABS: Alveolar/Arterial O2 Gradient 96.7 mmHg; Base Excess ABG 3.2 mEq/l (+/-2.0); Carboxyhemoglobin 0.7 % THb (0-2.0); Fractional Inspired Oxygen 30 %; HCO3 ABG 27.3 mEq/l (22.0-26.0); Methemoglobin ABG 0.2 %THb (0-1.5); Modified Allen's Test Pass; Oxygen Content ABG 19.4 %vol (16.0-22.0); Oxyhemoglobin 93.2 % THb (90.0-100.0); PCO2 ABG 39.6 mmHg (35.0-45.0); PO2 ABG 70.7 mmHg (80.0-100.0); PO2 FiO2 Ratio Arterial Blood 2.36 %; Reduced Hemoglobin 5.9 %THb (0-5.0); Site Drawn RIGHT RADIAL; Total Hemoglobin 14.8 g/dL (12.0-18.0); pH ABG 7.456 (7.350-7.450)
[2019-11-22 05:47] LABS: Arterial Blood Gas Vent Mode CMV; Arterial Blood Gas Ventilator rate 16 /MIN; Device VENTILATOR
[2019-11-22 05:48] LABS: Arterial Blood Gas PEEP 5 cmH2O; Arterial Blood Gas Tidal Volume 400 ml
--- NOTE | 2019-11-22 07:00 | WPDINTPN ---
Progress Note: A&P Assessment and Plan (1) Acute respiratory failure with hypoxia and hypercapnia: Code(s): J96.01 - Acute respiratory failure with hypoxia; J96.02 - Acute respiratory failure with hypercapnia Status: Acute Assessment and Plan: Acute hypoxic and hypercapnic respiratory failure - multifactorial- Pseudomonas pneumonia, COPD, CHF, generalized weakness - Initially pt did not tolerate a trial of BiPAP and was intubated on 09/09/2020 - he was extubated on 11/19. his respiratory status worsened overnight with increased work of breathing or tachypnea and respiratory distress - patient was reintubated on 11/20 - chest x-ray and ABG reviewed - patient on CMV mode of ventilation, 30% FiO2. - he tolerated pressure support yesterday and I will try pressure support ventilation again today - continue Antibiotics as patient is on cefepime - continue bronchodilators - Prednisone was tapered off - continue lasix but decreased does - Diamox for Pulm edema and metabolic alkalosis - patient has been scheduled for tracheostomy on Monday (2) Sepsis: Qualifiers: Sepsis type: sepsis due to unspecified organism Sepsis acute organ dysfunction status: with acute organ dysfunction Severe sepsis acute organ dysfunction type: acute renal failure Acute renal failure type: unspecified Severe sepsis shock status: without septic shock Qualified Code(s): A41.9 - Sepsis, unspecified organism; R65.20 - Severe sepsis without septic shock; N17.9 - Acute kidney failure, unspecified Code(s): A41.9 - Sepsis, unspecified organism Status: Acute Assessment and Plan: secondary to Pseudomona PNA - Patient febrile persistently. Sputum cultures grew Pseudomonas, sensitive to cefepime. - Continue cefepime for now. - DCed azithromycin x 7 days - Infectious disease service following - CT Report reviewed - UA unremarkable - Infrasternal fluid collection aspirated 11/18 and fluid sent for cultures and pending. cultures are growing Katia albicans - patient is on anti fungal Mycamine which was started by Infectious Disease - Lipase normal - US B/L showed superficial cephalic thrombosis on left side - off Levophed (3) Cardiomyopathy: Code(s): I42.9 - Cardiomyopathy, unspecified Status: Acute Assessment and Plan: He has known ischemic cardiomyopathy with low EF. He had bypass surgery at [facility] after he was transferred from [facility] with some neurological changes in February 2019. He had CABG done in the [facility] but apparently had a complicated course afterward is he remained in ICU for almost 8 weeks. echocardiogram done on 11/14/2019 showed normal LV size with concentric hypertrophy. Hypokinesis of the mid anteroseptal segments and akinesis of the distal septum, anterior wall, lateral wall, inferior wall and apex. This is consistent with ischemic or Takotsubo cardiomyopathy. Is 25-30%. Grade 2 diastolic dysfunction. Mild mitral valve regurg - Not on carvedilol because of hypotension. - Cardiology Service recommendation appreciated. Start him on low-dose dobutamine to support his circulatory status. Bedside echo done by myself showed decreased EF and small IVC with significant respiratory variation. - On Lasix but will decrease dose - digoxin started by cardiology. - May need inotrope (4) COPD exacerbation: Code(s): J44.1 - Chronic obstructive pulmonary disease with (acute) exacerbation Status: Acute Assessment and Plan: continue bronchodilators, steroids, antibiotics and mechanical ventilation - Pulmonology following the patient - Prednisone tapered off (5) Acute kidney injury: Code(s): N17.9 - Acute kidney failure, unspecified Status: Acute Assessment and Plan: patient was admitted with elevated creatinine which improved with resuscitation. over time patient was started on diuretics. creatinine h
--- NOTE | 2019-11-22 07:12 | P.CDI_ITS ---
CDI Query Clarification Request -CHF has been documented by Dr Blankenship and Dr Pendleton, continue diuresis jodie ciously as tolerated by Dr Pendleton, no mention of CHF by hospitalists -Echo- The estimated ejection fraction is 25-30% with a calculated ejection fraction of 29%. Diastolic dysfunction,grade 2, is present. -Orders for Lasix 20mg IV q8hrs from 11/14-11/16, Lasix 40 IV daily 11/16 and 11/17, Lasix 20 IV q6hrs 11/18-11/21, and Lasix 20 IV daily beginning 11/21. Please clarify if CHF has been ruled in or ruled out. Also if ruled in, please also clarify type (systolic,diastolic, both, unable to determine) and acuity (acute, chronic, both, unable to determine) of CHF. <Chikis Simmons RN - Last Filed: 11/22/19 07:38>
[2019-11-22] MEDS: CITALOPRAM HYDROBROMIDE 20 MG TABLET PO (07:51)
[2019-11-22] MEDS: DIGOXIN TAB 125 MCG TABLET PO (07:51)
[2019-11-22] MEDS: FAMOTIDINE 20 MG/2 ML VIAL IV PUSH ×2 (07:51→21:13)
[2019-11-22] MEDS: SENNA/DOCUSATE SODIUM TABLET 2 TAB PO ×2 (07:51→16:12)
[2019-11-22] MEDS: FUROSEMIDE INJ 40 MG/4 ML VIAL 20 MG IV PUSH (07:51)
[2019-11-22] MEDS: SIMVASTATIN 20 MG TABLET PO (07:51)
[2019-11-22] MEDS: DEXTROSE 5% 1,000 ML 1,000 ML 50 ML IV CONT (08:04)
[2019-11-22 08:07] LABS: Glucose Point of Care 149 (65-105)
[2019-11-22] MEDS: POTASSIUM PHOS,M-BASIC-D-BASIC 20 MMOL in SODIUM CHLORIDE 0.9% IV 250 ML 62.5 MMOL IVPB (08:20)
[2019-11-22] MEDS: WATER, STERILE FOR INJECTION 10 ML VIAL XX (08:21)
--- NOTE | 2019-11-22 11:00 | NEURO_ITS ---
TEST: ELECTROENCEPHALOGRAM DIAGNOSIS: COMATOSE PATIENT NUMBER: [id number] EEG NUMBER: [id number] RECORDING DATE: 11/22/19 CLINICAL HISTORY: Patient is unresponsive and on vent in the ICU EEG DESCRIPTION: The whole record consists of low to medium voltage 2-3hz delta activity superimposed by 15-18hz beta activity. Bilateral symmetrical sleep activity is seen during sleep mixed with the low to medium voltage 5-7hz theta and 2-3hz delta. Nonparoxysmal. Nonfocal. Nonlateralizing. IMPRESSION: Abnormal record due to the presence of bi-hemispheric theta and delta activity but with no evidence of any paroxysmal discharge. Clinical correlation is recommended. These abnormalities are consistent of organic or metabolic encephalopathy. MTDD
--- NOTE | 2019-11-22 11:14 | PCDIET ---
Nutrition Follow-Up Complete: Nutrition Diagnosis: Inadequate oral intake related to respiratory failure as evidenced by NPO. Nutrition Goal: Patient to meet estimated nutritional needs. Goal previously met, as tube feedings were advanced to goal rate. However, feedings now on hold for PEG placement today. Expect tube feedings to resume once PEG placed and verified for use. Last recorded weight is 77.9 kg which is decreased. -I/O noted. Bowel Motility: BM x 2 on 11/21/19 Labs Reviewed: Hgb (11.1), Hct (36.2), BUN (56), Cr (1.5), Na (150), PO4 (2.3) Meds Noted: Diamox, Cefepime, Precedex, Pepcid, Sublimaze, Lasix, Novolog, Lantus, Levophed, Miralax, KPhos, Senna Additional Notes: Left heel blister; buttock abrasion; medial chest incision with small open area. Nutrition Monitoring and Evaluation: Follow up every Monday/Monday. Follow daily in ICU rounds.
--- NOTE | 2019-11-22 12:20 | SUR.OPER ---
PEG TUBE PLACEMENT PERFORMED AT BEDSIDE. PT IS CURRENTLY INTUBATED WITH NG TUBE IN PLACE. MARIA LUISA Sparrow at bedside. RT also at bedside. 1221-NG TUBE REMOVED.
--- NOTE | 2019-11-22 12:41 | PM.OP ---
Procedure Note - Brief Procedure Note - Brief Date of procedure: 11/22/19 Pre-op diagnosis: acute respiratoy,pneumonia,acute renal failure,sep Surgeon: Juan Gregorio MD Procedure is EGD with PEG tube placement. Preop diagnosis 1. Nutritional support. 2. Ventilator dependency. Postop diagnosis unremarkable EGD with placement of PEG tube. Informed consent is obtained from patient's family who are power of reject opener and filler. The risks benefits alternatives indications are agree tube prior to the procedure the risks include but are not limited to adverse reaction to medications including allergies. The risk of bleeding and possible need for transfusion. The risk of perforation. The risk of missed pathology. The risk of peritonitis. The risks for potential surgery. Patient is given no additional sedation. He remains unresponsive. Instrument is the DreamFundedinon video endoscope. Description of procedure. Fujinon video endoscope is passed through the esophagus. The esophagus appears unremarkable. Squamocolumnar junction is located 40cm from the incisors. Stomach is hands entirety including U-turn is normal. A small incidental polyp is noted in the gastric fundus. Theresa to be a benign polyp. Duodenum reveals normal bulb and sweep to 2nd portion. In the midbody of the stomach, area of maximal light transillumination through the abdomen is identified. In this area 1% lidocaine anesthesia is instilled in the abdomen. Needle is passed to the abdominal wall and visualized within the body of the stomach. Guidewire is passed through the needle and withdrawn endoscopically. Over this a 20 [place] gastrostomy tube is placed and withdrawn through the abdomen. Patient tolerated this procedure well with no immediate complications. NG tube was discontinued. Impression 1. Status post PEG tube placement. 2. Unremarkable EGD. Plan is for frequent cleansing of the G-tube site. Hydrogen peroxide and or Betadine is suggested. Every 8 hours. Tube feedings will be started at a low rate. 30cc an hour of Glucerna advised to begin at 5:00 p.m. tonight. It will be advanced to higher rate in the morning.
[2019-11-22 12:57] LABS: Glucose Point of Care 200 (65-105)
--- NOTE | 2019-11-22 14:22 | PM.IMPN ---
Progress Note: A&P Assessment and Plan (1) COPD exacerbation: Code(s): J44.1 - Chronic obstructive pulmonary disease with (acute) exacerbation Status: Acute Assessment and Plan: Patient with acute respiratory failure secondary to hypercapnia most likely secondary to exacerbation of COPD, intubated due to respiratory distress, pt has history of COPD, HTN, GERD, DM, schizoaffective disorder and ischemic cardiomyopathy with low EF. Some sternal fluid/ infection after his CABG. Ongoing sepsis and fever. Pt also has acute kidney injury and suspected fungal infection. Family have decided on active medical therapy but do not resuscitate pt in case of cardiac arrest. Pt will need Trach and PEG. Family are aware of poor prognosis. Pt had PEG placed today. (2) Diabetes: Qualifiers: Diabetes mellitus type: type 2 Diabetes mellitus terminal operator insulin use: with jail use Diabetes mellitus complication status: with other specified complication Qualified Code(s): E11.69 - Type 2 diabetes mellitus with other specified complication; Z79.4 - bed bug exterminator (current) use of insulin Code(s): E11.9 - Type 2 diabetes mellitus without complications Status: Acute Assessment and Plan: Accuchecks, SSI, hold home medications (3) DVT prophylaxis: Code(s): Z29.9 - Encounter for prophylactic measures, unspecified Status: Acute Assessment and Plan: Lovenox (4) Acute hypercapnic respiratory failure: Code(s): J96.02 - Acute respiratory failure with hypercapnia Status: Acute Assessment and Plan: Worsening ABG was emergently intubated few days ago. HR up RR up, [place] [id number] (5) Pneumonia: Qualifiers: Laterality: unspecified laterality Lung location: unspecified part of lung Pneumonia type: due to unspecified organism Qualified Code(s): J18.9 - Pneumonia, unspecified organism Code(s): J18.9 - Pneumonia, unspecified organism Status: Acute Assessment and Plan: Cxr shows Small right pleural effusion versus pleural parenchymal scarring at the right costophrenic angle related to prior surgical procedure in the right hemithorax with posterior right thoracotomy defect. Patient being treated Cefepime 07/[address] Richardson and micafungin IV (6) Acute kidney injury: Code(s): N17.9 - Acute kidney failure, unspecified Status: Acute Assessment and Plan: Creat is 1.4, continue to watch (7) Acute hyperkalemia: Code(s): E87.5 - Hyperkalemia Status: Resolved Assessment and Plan: After fluids (8) History of open heart surgery: Code(s): Z98.890 - Other specified postprocedural states Status: Acute Assessment and Plan: Recent CABG [place] [facility] [place] obtain notes, wound swab on sternotomy wound (9) Sepsis: Qualifiers: Sepsis type: sepsis due to unspecified organism Sepsis acute organ dysfunction status: with acute organ dysfunction Severe sepsis acute organ dysfunction type: acute renal failure Acute renal failure type: unspecified Severe sepsis shock status: without septic shock Qualified Code(s): A41.9 - Sepsis, unspecified organism; R65.20 - Severe sepsis without septic shock; N17.9 - Acute kidney failure, unspecified Code(s): A41.9 - Sepsis, unspecified organism Status: Acute Assessment and Plan: Upon arrival patient with criteria of sepsis most likely secondary to pneumonia patient being treated Cefepime 07/[address] Richardson and micafungin IV Subjective Date/time seen: 11/22/19 14:22 Interval history: Patient with acute respiratory failure secondary to hypercapnia most likely secondary to exacerbation of COPD, intubated due to respiratory distress, pt has history of COPD, HTN, GERD, DM, schizoaffective disorder and ischemic cardiomyopathy with low EF,. Some sternal fluid/ infection after his CABG. Ongoing sepsis and fever. Pt
--- NOTE | 2019-11-22 15:44 | PM.PNCARD ---
Progress Note: A&P Assessment and Plan (1) Cardiomyopathy: Code(s): I42.9 - Cardiomyopathy, unspecified Status: Acute Assessment and Plan: He has ischemic cardiomyopathy with low EF, but seems to be thae same since last year as he had bypass surgery. No evidence of overt volume overload on exam. (2) CHF (congestive heart failure): Code(s): I50.9 - Heart failure, unspecified Status: Acute Assessment and Plan: Continue diuresis, follow up input and outputs closely (3) Sepsis: Qualifiers: Sepsis type: sepsis due to unspecified organism Sepsis acute organ dysfunction status: with acute organ dysfunction Severe sepsis acute organ dysfunction type: acute renal failure Acute renal failure type: unspecified Severe sepsis shock status: without septic shock Qualified Code(s): A41.9 - Sepsis, unspecified organism; R65.20 - Severe sepsis without septic shock; N17.9 - Acute kidney failure, unspecified Code(s): A41.9 - Sepsis, unspecified organism Status: Acute Assessment and Plan: Getting covered with IV antibiotics now (4) Diabetes: Qualifiers: Diabetes mellitus type: type 2 Diabetes mellitus intermediate insulin use: with financial service representative use Diabetes mellitus complication status: with other specified complication Qualified Code(s): E11.69 - Type 2 diabetes mellitus with other specified complication; Z79.4 - airconditioning engineer (current) use of insulin Code(s): E11.9 - Type 2 diabetes mellitus without complications Status: Acute (5) Acute hypercapnic respiratory failure: Code(s): J96.02 - Acute respiratory failure with hypercapnia Status: Acute Assessment and Plan: With COPD, pneumonia and CHF. (6) Pneumonia: Qualifiers: Laterality: unspecified laterality Lung location: unspecified part of lung Pneumonia type: due to unspecified organism Qualified Code(s): J18.9 - Pneumonia, unspecified organism Code(s): J18.9 - Pneumonia, unspecified organism Status: Acute (7) Coronary artery disease: Code(s): I25.10 - Atherosclerotic heart disease of [place] coronary artery without angina pectoris Status: Acute Assessment and Plan: Status post coronary bypass surgery last year Additional Plan Prognosis is guarded, he get PEG tube placement today, and may be getting tracheostomy next week Subjective Date/time seen: 11/22/19 15:44 He had PEG tube placement today, still unresponsive, not in acute distress Exam Narrative: Exam Narrative: Sedated and intubated Neck is supple no obvious JVD, no carotid bruit Chest: decreased breathing sounds at the bases, with crackles noted and rhonchi noted Cardiovascular: Regular rate and rhythm, 2/6 systolic murmur noted left sternal border Abdomen: Soft nontender bowel sounds positive Extremities: No edema has good pulses distally bilaterally Objective Data Vital Signs Vital Signs: Vital Signs - 24 hr 11/21/19 16:00 11/21/19 16:46 11/21/19 18:00 Temperature 38.2 C H 38.2 C H Pulse Rate 119 H 120 H 120 H Respiratory Rate 26 H 26 H Blood Pressure 108/79 104/69 Pulse Oximetry 94 95 95 11/21/19 19:27 11/21/19 19:34 11/21/19 20:00 Temperature 37.8 C H Pulse Rate 120 H 119 H 120 H Respiratory Rate 30 H 28 H 28 H Blood Pressure 100/79 Pulse Oximetry 95 11/21/19 22:00 11/21/19 23:04 11/22/19 00:00 Temperature 38.2 C H Pulse Rate 122 H 121 H 123 H Respiratory Rate 229 H Blood Pressure 109/80 Pulse Oximetry 95 95 11/22/19 00:04 11/22/19 02:00 11/22/19 02:09 Temperature 38.2 C H 38.3 C H Pulse Rate 123 H 123 H 120 H Respiratory Rate 29 H 28 H 27 H Blood Pressure 102/67 96/62 L Pulse Oximetry 95 94 11/22/19 03:06 11/22/19 04:00 11/22/19 04:15 Temperature 38.4 C H 38.3 C H 38.4 C H Pulse Rate 118 H Respiratory Rate 28 H Blood Pressure 101/75 Pulse Oximetry 96 11/22/19 04:52 11/22/19 05:30 11/22/19
[2019-11-22 16:14] LABS: Glucose Point of Care 218 (65-105)
[2019-11-22] MEDS: INSULIN ASPART (*BKC) 100 UNITS/ML SUB-Q (16:16)
--- NOTE | 2019-11-22 19:40 | WPDINFPN2 ---
Progress Note: A&P Additional Plan 1. Febrile illness secondary to lower respiratory tract infection including pneumonia versus retrosternal infection with fluid accumulation. Status post drainage with cultures showing Katia. Patient is currently on Mycamine day 3. And cefepime day 10. WBC count is trending down. Low-grade fever persists. Continue current care. 2. Respiratory failure on a ventilator. For tracheostomy. Patient is not arousable of sedation. 3. Leukocytosis improving with white count trending down at 15,000. 4. Change in mental status with no improvement despite being off sedation. Not arousable. EEG is pending. May consider CT scan of the brain if EGD is unyielding. 5. Date of service 05/14/2020. Subjective Date/time seen: 11/22/19 19:40 Interval history: Febrile illness with leukocytosis Exam HENMT: Other: ET tube in place. Neck: Other: Neck is supple. Chest: Other: Good bilateral air entry. No rhonchi or wheeze. Resp: Other: Good bilateral air entry 0 wheeze. No rhonchi. Cardio: Other: Positive S1 and positive S2. No murmur. GI: Other: G-tube in place today. Positive bowel sounds. : Other: Indwelling catheter in place. No scrotal edema. Skin: Other: No rash, no petechiae or hemorrhage. Neuro: Other: Patient is off sedation and is unresponsive. Objective Data Vital Signs Vital Signs: Vital Signs - 24 hr 11/21/19 20:00 11/21/19 22:00 11/21/19 23:04 Temperature 37.8 C H 38.2 C H Pulse Rate 120 H 122 H 121 H Respiratory Rate 28 H 229 H Blood Pressure 100/79 109/80 Pulse Oximetry 95 95 95 11/22/19 00:00 11/22/19 00:04 11/22/19 02:00 Temperature 38.2 C H 38.3 C H Pulse Rate 123 H 123 H 123 H Respiratory Rate 29 H 28 H Blood Pressure 102/67 96/62 L Pulse Oximetry 95 94 11/22/19 02:09 11/22/19 03:06 11/22/19 04:00 Temperature 38.4 C H 38.3 C H Pulse Rate 120 H 118 H Respiratory Rate 27 H 28 H Blood Pressure 101/75 Pulse Oximetry 96 11/22/19 04:15 11/22/19 04:52 11/22/19 05:30 Temperature 38.4 C H Pulse Rate 122 H 117 H Respiratory Rate Blood Pressure Pulse Oximetry 94 95 11/22/19 06:00 11/22/19 07:45 11/22/19 07:46 Temperature 38.0 C H 37.8 C H Pulse Rate 116 H 114 H 115 H Respiratory Rate 26 H 23 H 24 H Blood Pressure 96/81 L 104/76 Pulse Oximetry 95 96 96 11/22/19 07:51 11/22/19 07:55 11/22/19 08:00 Temperature Pulse Rate 116 H 115 H 115 H Respiratory Rate 22 H 20 Blood Pressure Pulse Oximetry 96 11/22/19 09:59 11/22/19 10:00 11/22/19 11:43 Temperature Pulse Rate 119 H 118 H 107 H Respiratory Rate 23 H Blood Pressure 103/75 Pulse Oximetry 97 96 11/22/19 12:00 11/22/19 12:07 11/22/19 12:10 Temperature 37.8 C H Pulse Rate 114 H 115 H 110 H Respiratory Rate 24 H 25 H 22 H Blood Pressure 127/74 121/78 Pulse Oximetry 96 98 97 11/22/19 12:15 11/22/19 12:20 11/22/19 12:25 Temperature Pulse Rate 118 H 124 H 122 H Respiratory Rate 21 H 30 H 29 H Blood Pressure 123/78 141/90 H 107/65 Pulse Oximetry 97 95 96 11/22/19 14:00 11/22/19 14:07 11/22/19 14:59 Temperature Pulse Rate 122 H 120 H 119 H Respiratory Rate 25 H 26 H Blood Pressure 106/72 Pulse Oximetry 96 96 11/22/19 15:09 11/22/19 16:00 11/22/19 17:36 Temperature 37.9 C H Pulse Rate 117 H 130 H 121 H Respiratory Rate 25 H 28 H Blood Pressure 95/79 L Pulse Oximetry 96 95 11/22/19 18:00 Temperature 38.1 C H Pulse Rate 133 H Respiratory Rate 29 H Blood Pressure 93/63 L Pulse Oximetry 96 Intake/Output Intake/Output: Intake & Output 11/19/19 11/20/19 11/21/19 11/22/19 23:59 23:59 23:59 23:59 Intake Total 1617 1126 1862 810 Output Total 0484 8615 0812 4966 Balance -733 -1324 -638 -1140 Meds/Results Medications: Active Medications Generic Name Dose Route Start Last Admin Trade Name Freq PRN Reason Stop Dose Admin Acetaminophen 650 mg 11/16/19 09:36 11/22/19 03:06 Tylenol
--- NOTE | 2019-11-22 19:57 | PM.PNPUL ---
Subjective Date/time seen: 11/22/19 19:57 he had a PEG placed today; continues to run 100.8 fever, RR up to 30. Planning to have trach next MondayNov 25. Review of Systems Review of Systems: ROS unobtainable: unobtainable due to endotracheal tube Exam Const: General: comfortable and no acute distress HENMT: Mouth: Yes moist mucous membranes Neck: Neck: supple and no JVD Resp: Auscultation: crackles, rhonchi, wheezes and diminished lung sounds Cardio: Rate: regular rate Rhythm: regular rhythm Heart sounds: no murmurs GI: Auscultation: normal bowel sounds Urinary Catheter: Urinary Catheter: patent and draining and urine clear Skin: General skin exam: normal color Extrem: General: normal to inspection, no edema and no pedal edema Objective Data Vital Signs Vital Signs: Vital Signs - 24 hr 11/21/19 20:00 11/21/19 22:00 11/21/19 23:04 Temperature 37.8 C H 38.2 C H Pulse Rate 120 H 122 H 121 H Respiratory Rate 28 H 229 H Blood Pressure 100/79 109/80 Pulse Oximetry 95 95 95 11/22/19 00:00 11/22/19 00:04 11/22/19 02:00 Temperature 38.2 C H 38.3 C H Pulse Rate 123 H 123 H 123 H Respiratory Rate 29 H 28 H Blood Pressure 102/67 96/62 L Pulse Oximetry 95 94 11/22/19 02:09 11/22/19 03:06 11/22/19 04:00 Temperature 38.4 C H 38.3 C H Pulse Rate 120 H 118 H Respiratory Rate 27 H 28 H Blood Pressure 101/75 Pulse Oximetry 96 11/22/19 04:15 11/22/19 04:52 11/22/19 05:30 Temperature 38.4 C H Pulse Rate 122 H 117 H Respiratory Rate Blood Pressure Pulse Oximetry 94 95 11/22/19 06:00 11/22/19 07:45 11/22/19 07:46 Temperature 38.0 C H 37.8 C H Pulse Rate 116 H 114 H 115 H Respiratory Rate 26 H 23 H 24 H Blood Pressure 96/81 L 104/76 Pulse Oximetry 95 96 96 11/22/19 07:51 11/22/19 07:55 11/22/19 08:00 Temperature Pulse Rate 116 H 115 H 115 H Respiratory Rate 22 H 20 Blood Pressure Pulse Oximetry 96 11/22/19 09:59 11/22/19 10:00 11/22/19 11:43 Temperature Pulse Rate 119 H 118 H 107 H Respiratory Rate 23 H Blood Pressure 103/75 Pulse Oximetry 97 96 11/22/19 12:00 11/22/19 12:07 11/22/19 12:10 Temperature 37.8 C H Pulse Rate 114 H 115 H 110 H Respiratory Rate 24 H 25 H 22 H Blood Pressure 127/74 121/78 Pulse Oximetry 96 98 97 11/22/19 12:15 11/22/19 12:20 11/22/19 12:25 Temperature Pulse Rate 118 H 124 H 122 H Respiratory Rate 21 H 30 H 29 H Blood Pressure 123/78 141/90 H 107/65 Pulse Oximetry 97 95 96 11/22/19 14:00 11/22/19 14:07 11/22/19 14:59 Temperature Pulse Rate 122 H 120 H 119 H Respiratory Rate 25 H 26 H Blood Pressure 106/72 Pulse Oximetry 96 96 11/22/19 15:09 11/22/19 16:00 11/22/19 17:36 Temperature 37.9 C H Pulse Rate 117 H 130 H 121 H Respiratory Rate 25 H 28 H Blood Pressure 95/79 L Pulse Oximetry 96 95 11/22/19 18:00 Temperature 38.1 C H Pulse Rate 133 H Respiratory Rate 29 H Blood Pressure 93/63 L Pulse Oximetry 96 Intake/Output Intake/Output: Intake & Output 11/19/19 11/20/19 11/21/19 11/22/19 23:59 23:59 23:59 23:59 Intake Total 1617 1126 1862 810 Output Total 2350 2450 8658 1950 [facility] -[phone] Meds/Results Medications: Active Medications Generic Name Dose Route Start Last Admin Trade Name Freq PRN Reason Stop Dose Admin Acetaminophen 650 mg 11/16/19 09:36 11/22/19 03:06 Tylenol Tablet PO 650 mg Q4H PRN Administration Mild Pain (1-3) or Fever Acetazolamide Sodium 500 mg 11/19/19 09:00 11/22/19 07:51 Diamox Inj IV PUSH 500 mg QAM KASSIDY Administration Aspirin 325 mg 11/11/19 09:00 02/28/20 08:05 Aspirin PO Not Given DAILY KASSIDY Citalopram Hydrobromide 20 mg 11/11/19 09:00 11/22/19 07:51 Celexa PO 20 mg DAILY KASSIDY Administration Dextrose 12.5 gm 11/10/19 13:31 11/20/19 04:13 Dextrose 50% Syringe IV PUSH 12.5 gm PRN PRN Administration Hypoglycemia Protocol Dig
[2019-11-22 21:13] LABS: Glucose Point of Care 195 (65-105)
[2019-11-22] MEDS: INSULIN GLARGINE (*BKC) 100 UNITS/ML 25 UNITS SUB-Q (21:16)
[2019-11-22] MEDS: MICAFUNGIN SODIUM 100 MG in SODIUM CHLORIDE 0.9% IV 100 ML IVPB (22:17)
[2019-11-23] VITALS (38 sets, daily range): BP systolic 90–113; BP diastolic 66–80; PULSE 117–130; RESP 26–34; TEMP 37.8–38.5; O2SAT 95–97
[2019-11-23 01:37] LABS: Glucose Point of Care 243 (65-105)
[2019-11-23] MEDS: INSULIN ASPART (*BKC) 100 UNITS/ML SUB-Q ×2 (01:39→16:44)
[2019-11-23] MEDS: IPRATROPIUM BR 0.02% INH SOLN 0.5 MG/2.5 ML VIAL INHALATION ×4 (01:40→18:56)
[2019-11-23] MEDS: LEVALBUTEROL NEB 1.25 MG/3 ML 0.63 MG INHALATION ×4 (01:40→18:56)
[2019-11-23] MEDS: ACETAMINOPHEN 325 MG TABLET 650 MG PO ×4 (03:52→21:00)
[2019-11-23 04:14] LABS: Alveolar/Arterial O2 Gradient 98.2 mmHg; Base Excess ABG 0.8 mEq/l (+/-2.0); Carboxyhemoglobin 0.3 % THb (0-2.0); Fractional Inspired Oxygen 30 %; HCO3 ABG 23.8 mEq/l (22.0-26.0); Methemoglobin ABG 0.3 %THb (0-1.5); Oxygen Content ABG 15.8 %vol (16.0-22.0); Oxygen Saturation ABG 96.3 % (95.0-100.0); Oxyhemoglobin 94.2 % THb (90.0-100.0); PCO2 ABG 32.7 mmHg (35.0-45.0); PO2 ABG 77.3 mmHg (80.0-100.0); PO2 FiO2 Ratio Arterial Blood 2.58 %; Reduced Hemoglobin 5.2 %THb (0-5.0); Total Hemoglobin 11.9 g/dL (12.0-18.0); pH ABG 7.479 (7.350-7.450)
[2019-11-23 04:20] LABS: Device VENTILATOR; Modified Allen's Test Pass; Site Drawn RIGHT RADIAL
[2019-11-23 04:21] LABS: Arterial Blood Gas PEEP 5 cmH2O; Arterial Blood Gas Tidal Volume 400 ml; Arterial Blood Gas Vent Mode CMV; Arterial Blood Gas Ventilator rate 16 /MIN
[2019-11-23 04:45] LABS: Hematocrit 33.7 % (42.0-52.0); Hemoglobin 10.3 g/dL (14.0-18.0); Mean Corpuscular HGB Conc 30.6 g/dl (32-36); Mean Corpuscular Hemoglobin 27.7 pg (26-34); Mean Corpuscular Volume 90.6 fl (80-100); Mean Platelet Volume 12.5 fl (7.4-10.4); Platelet Count Result 224 k/mm3 (150-375); Red Blood Count 3.72 M/mm3 (4.6-6.20); Red Cell Distribution Width 18.6 % (11.5-14.5)
[2019-11-23 04:56] LABS: Blood Urea Nitrogen 54 mg/dL (9-20); Carbon Dioxide 27 mmol/L (22-30); Chloride 112 mmol/L (98-107); Estimated CRCL calculation 39 ml/min; Estimated Glomerular Filt Rate 43; Glucose 214 mg/dL (75-110); Magnesium 2.2 mg/dL (1.6-2.3); Phosphorus 3.2 mg/dL (2.5-4.5); Potassium 3.7 mmol/L (3.4-5.0); Sodium 147 mmol/L (137-145)
[2019-11-23 04:58] LABS: Glucose Point of Care 182 (65-105)
[2019-11-23 08:35] LABS: Glucose Point of Care 191 (65-105)
[2019-11-23] MEDS: INSULIN GLARGINE (*BKC) 100 UNITS/ML 25 UNITS SUB-Q ×2 (08:38→21:02)
[2019-11-23] MEDS: CITALOPRAM HYDROBROMIDE 20 MG TABLET PO (08:54)
[2019-11-23] MEDS: FAMOTIDINE 20 MG/2 ML VIAL IV PUSH ×2 (08:54→21:01)
[2019-11-23] MEDS: DIGOXIN TAB 125 MCG TABLET PO (08:54)
[2019-11-23] MEDS: SENNA/DOCUSATE SODIUM TABLET 2 TAB PO ×2 (08:54→16:44)
[2019-11-23] MEDS: ASPIRIN 325 MG TABLET PO (08:54)
[2019-11-23] MEDS: SIMVASTATIN 20 MG TABLET PO (08:55)
[2019-11-23] MEDS: FUROSEMIDE INJ 40 MG/4 ML VIAL 20 MG IV PUSH (08:55)
--- NOTE | 2019-11-23 09:00 | P.PNINT_ITS ---
Progress Note: A&P Assessment and Plan (1) Acute respiratory failure with hypoxia and hypercapnia: Code(s): J96.01 - Acute respiratory failure with hypoxia; J96.02 - Acute respiratory failure with hypercapnia Status: Acute Assessment and Plan: Acute hypoxic and hypercapnic respiratory failure - multifactorial- Pseudomonas pneumonia, COPD, CHF, generalized weakness - Initially pt did not tolerate a trial of BiPAP and was intubated on 09/09/2020 - he was extubated on 11/19. his respiratory status worsened overnight with increased work of breathing or tachypnea and respiratory distress - patient was reintubated on 11/20 - chest x-ray and ABG reviewed - Patient on CMV mode of ventilation, 30% FiO2. - he tolerated pressure support yesterday and I will try pressure support ventilation again today - continue Antibiotics as patient is on cefepime Per infectious disease - continue bronchodilators - Prednisone was tapered off - continue lasix but decreased dose due to increasing creatinine - Diamox for Pulm edema and metabolic alkalosis which has improved - patient has been scheduled for tracheostomy on Monday (2) Sepsis: Qualifiers: Sepsis type: sepsis due to unspecified organism Sepsis acute organ dysfunction status: with acute organ dysfunction Severe sepsis acute organ dysfunction type: acute renal failure Acute renal failure type: unspecified Severe sepsis shock status: without septic shock Qualified Code(s): A41.9 - Sepsis, unspecified organism; R65.20 - Severe sepsis without septic shock; N17.9 - Acute kidney failure, unspecified Code(s): A41.9 - Sepsis, unspecified organism Status: Acute Assessment and Plan: secondary to Pseudomona PNA - Patient febrile persistently. Sputum cultures grew Pseudomonas, sensitive to cefepime. - Continue cefepime for now. - DCed azithromycin x 7 days - Infectious disease service following - CT Report reviewed - UA unremarkable - Infrasternal fluid collection aspirated 11/18 and fluid sent for cultures and pending. cultures are growing Katia albicans - patient is on anti fungal Mycamine which was started by Infectious Disease - Lipase normal - US B/L showed superficial cephalic thrombosis on left side - off Levophed (3) Cardiomyopathy: Code(s): I42.9 - Cardiomyopathy, unspecified Status: Acute Assessment and Plan: He has known ischemic cardiomyopathy with low EF. He had bypass surgery at [facility] after he was transferred from [facility] with some neurological changes in February 2019. He had CABG done in the [facility] but apparently had a complicated course afterward is he remained in ICU for almost 8 weeks. echocardiogram done on 11/14/2019 showed normal LV size with concentric hypertrophy. Hypokinesis of the mid anteroseptal segments and akinesis of the distal septum, anterior wall, lateral wall, inferior wall and apex. This is consistent with ischemic or Takotsubo cardiomyopathy. Is 25-30%. Grade 2 diastolic dysfunction. Mild mitral valve regurg - Not on carvedilol because of hypotension. - Cardiology Service recommendation appreciated. Start him on low-dose dobutamine to support his circulatory status. Bedside echo done by myself showed decreased EF and small IVC with significant respiratory variation. - On Lasix but will decrease dose - digoxin started by cardiology. - May need inotrope (4) COPD exacerbation: Code(s): J44.1 - Chronic obstructive pulmonary disease with (acute) exacerbation Status: Acute Assessment and Plan: continue bronchodilators, steroids,
[2019-11-23] MEDS: ENOXAPARIN 40 MG/0.4 ML SYRINGE SUB-Q (09:15)
[2019-11-23 12:16] LABS: Glucose Point of Care 192 (65-105)
--- NOTE | 2019-11-23 12:21 | WPDGIPROGNO ---
Progress Note: A&P Additional Plan Patient remains on ventilator. Poorly responsive. Physical exam reveals abdomen to be soft. Bowel sounds present. Peg tube in left upper quadrant appears to be healing well. Peg site appears clean. Impression 1. Status post PEG. Plan is to increase tube feedings as required for nutritional support. Continue local care to PEG site. Other problems including ventilator dependency in mental status changes currently being evaluated by primary care service. Subjective Date/time seen: 11/23/19 12:21 Objective Data Vital Signs Vital Signs: Vital Signs - 24 hr 11/22/19 12:25 11/22/19 14:00 11/22/19 14:07 Temperature Pulse Rate 122 H 122 H 120 H Respiratory Rate 29 H 25 H Blood Pressure 107/65 106/72 Pulse Oximetry 96 96 11/22/19 14:59 11/22/19 15:09 11/22/19 16:00 Temperature 37.9 C H Pulse Rate 119 H 117 H 130 H Respiratory Rate 26 H 25 H 28 H Blood Pressure 95/79 L Pulse Oximetry 96 96 11/22/19 17:36 11/22/19 18:00 11/22/19 19:55 Temperature 38.1 C H Pulse Rate 121 H 133 H 132 H Respiratory Rate 29 H Blood Pressure 93/63 L Pulse Oximetry 95 96 96 11/22/19 20:00 11/22/19 21:04 11/22/19 21:15 Temperature 38.2 C H Pulse Rate 132 H 132 H 128 H Respiratory Rate 31 H 29 H 30 H Blood Pressure 96/71 L Pulse Oximetry 97 11/22/19 22:00 11/22/19 23:16 11/22/19 23:20 Temperature 38.3 C H 38.4 C H Pulse Rate 133 H 130 H Respiratory Rate 30 H Blood Pressure 99/65 L Pulse Oximetry 95 96 11/23/19 00:00 11/23/19 00:16 11/23/19 01:40 Temperature 38.4 C H 38.4 C H Pulse Rate 128 H 126 H Respiratory Rate 32 H 30 H Blood Pressure 94/71 L Pulse Oximetry 96 11/23/19 01:50 11/23/19 01:52 11/23/19 02:00 Temperature 37.8 C H Pulse Rate 130 H 123 H 124 H Respiratory Rate 30 H 30 H Blood Pressure 90/66 L Pulse Oximetry 96 96 11/23/19 03:52 11/23/19 04:00 11/23/19 04:52 Temperature 38.3 C H 38.3 C H 38.2 C H Pulse Rate 119 H Respiratory Rate 30 H Blood Pressure 98/69 L Pulse Oximetry 96 11/23/19 05:00 11/23/19 06:00 11/23/19 07:51 Temperature 38.2 C H 38.3 C H Pulse Rate 122 H 117 H 119 H Respiratory Rate 26 H 30 H Blood Pressure 98/75 L 98/75 L Pulse Oximetry 97 96 97 11/23/19 08:00 11/23/19 08:53 11/23/19 08:54 Temperature 38.3 C H Pulse Rate 120 H 121 H Respiratory Rate Blood Pressure Pulse Oximetry 97 11/23/19 08:57 11/23/19 09:03 11/23/19 09:53 Temperature 38.2 C H Pulse Rate 121 H 121 H Respiratory Rate 34 H 31 H Blood Pressure Pulse Oximetry 11/23/19 09:56 11/23/19 10:00 11/23/19 12:13 Temperature 38.1 C H Pulse Rate 118 H 118 H 120 H Respiratory Rate 28 H 30 H Blood Pressure 113/77 109/80 Pulse Oximetry 97 97 Intake/Output Intake/Output: Intake & Output 11/20/19 11/21/19 11/22/19 11/23/19 23:59 23:59 23:59 23:59 Intake Total 1126 5994 015 7842 Output Total 2450 2500 1950 450 [facility] -[phone] Meds/Results Medications: Active Medications Generic Name Dose Route Start Last Admin Trade Name Bhupinderq PRN Reason Stop Dose Admin Acetaminophen 650 mg 11/16/19 09:36 11/23/19 08:53 Tylenol Tablet PO 650 mg Q4H PRN Administration Mild Pain (1-3) or Fever Acetazolamide Sodium 500 mg 11/19/19 09:00 11/23/19 08:53 Diamox Inj IV PUSH 500 mg QAM KASSIDY Administration Aspirin 325 mg 11/11/19 09:00 11/23/19 08:54 Aspirin PO 325 mg DAILY KASSIDY Administration Citalopram Hydrobromide 20 mg 11/11/19 09:00 11/23/19 08:54 Celexa PO 20 mg DAILY KASSIDY Administration Dextrose 12.5 gm 11/10/19 13:31 11/20/19 04:13 Dextrose 50% Syringe IV PUSH 12.5 gm PRN PRN Administration Hypoglycemia Protocol Digoxin 125 mcg 11/20/19 09:00 11/23/19 08:54 Lanoxin Tab PO 125 mcg QAM KASSIDY Administration Enoxaparin Sodium 40 mg 11/20/19 09:00 11/23/19 09:15 Lovenox SUB-Q 40 m
--- NOTE | 2019-11-23 16:04 | PM.IMPN ---
Progress Note: A&P Assessment and Plan (1) COPD exacerbation: Code(s): J44.1 - Chronic obstructive pulmonary disease with (acute) exacerbation Status: Acute Assessment and Plan: Patient with acute respiratory failure secondary to hypercapnia most likely secondary to exacerbation of COPD, intubated due to respiratory distress, pt has history of COPD, HTN, GERD, DM, schizoaffective disorder and ischemic cardiomyopathy with low EF. Some sternal fluid/ infection after his CABG. Ongoing sepsis and fever. Pt also has acute kidney injury and suspected fungal infection. Family have decided on active medical therapy but do not resuscitate pt in case of cardiac arrest. Pt will need Trach and PEG. Family are aware of poor prognosis. Pt had PEG placed today. 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 HR up RR up, [place] [address] (5) Pneumonia: Qualifiers: Laterality: unspecified laterality Lung location: unspecified part of lung Pneumonia type: due to unspecified organism Qualified Code(s): J18.9 - Pneumonia, unspecified organism Code(s): J18.9 - Pneumonia, unspecified organism Status: Acute Assessment and Plan: Cxr shows Small right pleural effusion versus pleural parenchymal scarring at the right costophrenic angle related to prior surgical procedure in the right hemithorax with posterior right thoracotomy defect. Patient being treated Cefepime 07/[address] Richardson and micafungin IV (6) Acute kidney injury: Code(s): N17.9 - Acute kidney failure, unspecified Status: Acute Assessment and Plan: Creat is 1.6, continue to watch (7) Acute hyperkalemia: Code(s): E87.5 - Hyperkalemia Status: Resolved Assessment and Plan: After fluids (8) History of open heart surgery: Code(s): Z98.890 - Other specified postprocedural states Status: Acute Assessment and Plan: Recent CABG [place] [facility] [place] obtain notes, wound swab on sternotomy wound (9) Sepsis: Qualifiers: Sepsis type: sepsis due to unspecified organism Sepsis acute organ dysfunction status: with acute organ dysfunction Severe sepsis acute organ dysfunction type: acute renal failure Acute renal failure type: unspecified Severe sepsis shock status: without septic shock Qualified Code(s): A41.9 - Sepsis, unspecified organism; R65.20 - Severe sepsis without septic shock; N17.9 - Acute kidney failure, unspecified Code(s): A41.9 - Sepsis, unspecified organism Status: Acute Assessment and Plan: Upon arrival patient with criteria of sepsis most likely secondary to pneumonia patient being treated Cefepime for [address] Richardson and micafungin IV Subjective Date/time seen: 11/23/19 16:04 Interval history: Patient with acute respiratory failure secondary to hypercapnia most likely secondary to exacerbation of COPD, intubated due to respiratory distress, pt has history of COPD, HTN, GERD, DM, schizoaffective disorder and ischemic cardiomyopathy with low EF,. Some sternal fluid/ infection after his CABG. Ongoing sepsis and fever
[2019-11-23 16:43] LABS: Glucose Point of Care 224 (65-105)
[2019-11-23 20:59] LABS: Glucose Point of Care 166 (65-105)
[2019-11-23] MEDS: MICAFUNGIN SODIUM 100 MG in SODIUM CHLORIDE 0.9% IV 100 ML IVPB (21:41)
[2019-11-24] VITALS (35 sets, daily range): BP systolic 85–105; BP diastolic 62–81; PULSE 106–137; RESP 24–42; TEMP 38.2–39.5; O2SAT 94–98
[2019-11-24] MEDS: ACETAMINOPHEN 325 MG TABLET 650 MG PO ×5 (00:46→21:18)
[2019-11-24 00:48] LABS: Glucose Point of Care 190 (65-105)
[2019-11-24] MEDS: IPRATROPIUM BR 0.02% INH SOLN 0.5 MG/2.5 ML VIAL INHALATION ×4 (02:23→20:15)
[2019-11-24] MEDS: LEVALBUTEROL NEB 1.25 MG/3 ML 0.63 MG INHALATION ×4 (02:23→20:15)
[2019-11-24 04:41] LABS: Hematocrit 35.6 % (42.0-52.0); Hemoglobin 10.8 g/dL (14.0-18.0); Mean Corpuscular HGB Conc 30.3 g/dl (32-36); Mean Corpuscular Hemoglobin 27.8 pg (26-34); Mean Corpuscular Volume 91.8 fl (80-100); Mean Platelet Volume 12.5 fl (7.4-10.4); Platelet Count Result 233 k/mm3 (150-375); Red Blood Count 3.88 M/mm3 (4.6-6.20); Red Cell Distribution Width 18.8 % (11.5-14.5); White Blood Count 11.3 K/mm3 (4.5-10.0)
[2019-11-24 04:56] LABS: Blood Urea Nitrogen 60 mg/dL (9-20); Calcium 8.1 mg/dL (8.4-10.2); Carbon Dioxide 23 mmol/L (22-30); Chloride 113 mmol/L (98-107); Estimated CRCL calculation 37 ml/min; Estimated Glomerular Filt Rate 40; Glucose 257 mg/dL (75-110); Magnesium 2.4 mg/dL (1.6-2.3); Sodium 149 mmol/L (137-145)
[2019-11-24 05:04] LABS: Glucose Point of Care 241 (65-105)
[2019-11-24] MEDS: INSULIN ASPART (*BKC) 100 UNITS/ML SUB-Q ×3 (05:07→21:25)
[2019-11-24 05:13] LABS: Alveolar/Arterial O2 Gradient 109.8 mmHg; Base Excess ABG -1.5 mEq/l (+/-2.0); Carboxyhemoglobin 0.3 % THb (0-2.0); Fractional Inspired Oxygen 30 %; HCO3 ABG 21.1 mEq/l (22.0-26.0); Methemoglobin ABG 0.1 %THb (0-1.5); Oxygen Content ABG 16.5 %vol (16.0-22.0); Oxygen Saturation ABG 95.2 % (95.0-100.0); Oxyhemoglobin 92.8 % THb (90.0-100.0); PCO2 ABG 29.5 mmHg (35.0-45.0); PO2 ABG 69.4 mmHg (80.0-100.0); PO2 FiO2 Ratio Arterial Blood 2.31 %; Reduced Hemoglobin 6.8 %THb (0-5.0); Total Hemoglobin 12.6 g/dL (12.0-18.0); pH ABG 7.472 (7.350-7.450)
[2019-11-24 05:19] LABS: Arterial Blood Gas Vent Mode CMV; Arterial Blood Gas Ventilator rate 16 /MIN; Device VENTILATOR; Modified Allen's Test Pass; Site Drawn RIGHT RADIAL
[2019-11-24 05:20] LABS: Arterial Blood Gas PEEP 5 cmH2O; Arterial Blood Gas Tidal Volume 360 ml
[2019-11-24] MEDS: INSULIN GLARGINE (*BKC) 100 UNITS/ML 25 UNITS SUB-Q (07:42)
[2019-11-24 07:43] LABS: Glucose Point of Care 236 (65-105)
[2019-11-24] MEDS: ENOXAPARIN 40 MG/0.4 ML SYRINGE SUB-Q (07:43)
[2019-11-24] MEDS: FAMOTIDINE 20 MG/2 ML VIAL IV PUSH ×2 (07:50→21:07)
[2019-11-24] MEDS: FUROSEMIDE INJ 40 MG/4 ML VIAL 20 MG IV PUSH (07:50)
[2019-11-24] MEDS: SIMVASTATIN 20 MG TABLET PO (08:02)
[2019-11-24] MEDS: ASPIRIN 325 MG TABLET PO (08:03)
[2019-11-24] MEDS: DIGOXIN TAB 125 MCG TABLET PO (08:03)
[2019-11-24] MEDS: SENNA/DOCUSATE SODIUM TABLET 2 TAB PO ×2 (08:03→16:29)
[2019-11-24] MEDS: CITALOPRAM HYDROBROMIDE 20 MG TABLET PO (08:03)
--- NOTE | 2019-11-24 09:45 | WPDINTPN ---
Progress Note: A&P Assessment and Plan (1) Acute respiratory failure with hypoxia and hypercapnia: Code(s): J96.01 - Acute respiratory failure with hypoxia; J96.02 - Acute respiratory failure with hypercapnia Status: Acute Assessment and Plan: Acute hypoxic and hypercapnic respiratory failure - multifactorial- Pseudomonas pneumonia, COPD, CHF, generalized weakness - Initially pt did not tolerate a trial of BiPAP and was intubated on 09/09/2020 - he was extubated on 11/19. his respiratory status worsened overnight with increased work of breathing or tachypnea and respiratory distress - patient was reintubated on 11/20 - chest x-ray and ABG reviewed - Patient on CMV mode of ventilation, 30% FiO2. - he tolerated pressure support yesterday and I will try pressure support ventilation again today - continue Antibiotics as patient is on cefepime Per infectious disease - continue bronchodilators - Prednisone was tapered off - continue lasix as needed - Diamox for Pulm edema and metabolic alkalosis was given which has improved. Will hold further dosing at this time - patient has been scheduled for tracheostomy on Monday (2) Sepsis: Qualifiers: Sepsis type: sepsis due to unspecified organism Sepsis acute organ dysfunction status: with acute organ dysfunction Severe sepsis acute organ dysfunction type: acute renal failure Acute renal failure type: unspecified Severe sepsis shock status: without septic shock Qualified Code(s): A41.9 - Sepsis, unspecified organism; R65.20 - Severe sepsis without septic shock; N17.9 - Acute kidney failure, unspecified Code(s): A41.9 - Sepsis, unspecified organism Status: Acute Assessment and Plan: secondary to Pseudomona PNA - Patient febrile persistently. Sputum cultures grew Pseudomonas, sensitive to cefepime. white cell count is decreasing - Continue cefepime for now. - DCed azithromycin x 7 days - Infectious disease service following - CT Report reviewed - UA unremarkable - Infrasternal fluid collection aspirated 11/18 and fluid sent for cultures and pending. cultures are growing Katia albicans - patient is on anti fungal Mycamine which was started by Infectious Disease - Lipase normal - US B/L showed superficial cephalic thrombosis on left side - off Levophed (3) Cardiomyopathy: Code(s): I42.9 - Cardiomyopathy, unspecified Status: Acute Assessment and Plan: He has known ischemic cardiomyopathy with low EF. He had bypass surgery at [facility] after he was transferred from [facility] with some neurological changes in February 2019. He had CABG done in the [facility] but apparently had a complicated course afterward is he remained in ICU for almost 8 weeks. echocardiogram done on 11/14/2019 showed normal LV size with concentric hypertrophy. Hypokinesis of the mid anteroseptal segments and akinesis of the distal septum, anterior wall, lateral wall, inferior wall and apex. This is consistent with ischemic or Takotsubo cardiomyopathy. Is 25-30%. Grade 2 diastolic dysfunction. Mild mitral valve regurg - Not on carvedilol because of hypotension. - Cardiology Service recommendation appreciated. Start him on low-dose dobutamine to support his circulatory status. Bedside echo done by myself showed decreased EF and small IVC with significant respiratory variation. - On Lasix but but will hold at this time due to worsening creatinine - digoxin started by cardiology. - May need inotrope (4) COPD exacerbation: Code(s): J44.1 - Chronic obstructive pulmonary disease with (acute) exacerbation Status: Acute Assessment and Plan: continue bronchodilators, steroids, antibiotics and mechanical ventilation - Pulmonology following the patient - Prednisone tapered off (5) Acute kidney injury: Code(s): N17.9 - Acute kidney failure, unspecified Status: Acute Assess
--- NOTE | 2019-11-24 10:16 | WPDINTPN ---
Progress Note: A&P Assessment and Plan (1) Acute respiratory failure with hypoxia and hypercapnia: Code(s): J96.01 - Acute respiratory failure with hypoxia; J96.02 - Acute respiratory failure with hypercapnia Status: Acute Assessment and Plan: Acute hypoxic and hypercapnic respiratory failure - multifactorial- Pseudomonas pneumonia, COPD, CHF, generalized weakness - Initially pt did not tolerate a trial of BiPAP and was intubated on 09/09/2020 - he was extubated on 11/19. his respiratory status worsened overnight with increased work of breathing or tachypnea and respiratory distress - patient was reintubated on 11/20 - chest x-ray and ABG reviewed - Patient on CMV mode of ventilation, 30% FiO2. - he tolerated pressure support yesterday and I will try pressure support ventilation again today - continue Antibiotics as patient is on cefepime Per infectious disease - continue bronchodilators - Prednisone was tapered off - continue lasix but decreased dose due to increasing creatinine - Diamox for Pulm edema and metabolic alkalosis which has improved - patient has been scheduled for tracheostomy on Monday (2) Sepsis: Qualifiers: Sepsis type: sepsis due to unspecified organism Sepsis acute organ dysfunction status: with acute organ dysfunction Severe sepsis acute organ dysfunction type: acute renal failure Acute renal failure type: unspecified Severe sepsis shock status: without septic shock Qualified Code(s): A41.9 - Sepsis, unspecified organism; R65.20 - Severe sepsis without septic shock; N17.9 - Acute kidney failure, unspecified Code(s): A41.9 - Sepsis, unspecified organism Status: Acute Assessment and Plan: secondary to Pseudomona PNA - Patient febrile persistently. Sputum cultures grew Pseudomonas, sensitive to cefepime. - Continue cefepime for now. - DCed azithromycin x 7 days - Infectious disease service following - CT Report reviewed - UA unremarkable - Infrasternal fluid collection aspirated 11/18 and fluid sent for cultures and pending. cultures are growing Katia albicans - patient is on anti fungal Mycamine which was started by Infectious Disease - Lipase normal - US B/L showed superficial cephalic thrombosis on left side - off Levophed (3) Cardiomyopathy: Code(s): I42.9 - Cardiomyopathy, unspecified Status: Acute Assessment and Plan: He has known ischemic cardiomyopathy with low EF. He had bypass surgery at [facility] after he was transferred from [facility] with some neurological changes in February 2019. He had CABG done in the [facility] but apparently had a complicated course afterward is he remained in ICU for almost 8 weeks. echocardiogram done on 11/14/2019 showed normal LV size with concentric hypertrophy. Hypokinesis of the mid anteroseptal segments and akinesis of the distal septum, anterior wall, lateral wall, inferior wall and apex. This is consistent with ischemic or Takotsubo cardiomyopathy. Is 25-30%. Grade 2 diastolic dysfunction. Mild mitral valve regurg - Not on carvedilol because of hypotension. - Cardiology Service recommendation appreciated. Start him on low-dose dobutamine to support his circulatory status. Bedside echo done by myself showed decreased EF and small IVC with significant respiratory variation. - On Lasix but will decrease dose - digoxin started by cardiology. - May need inotrope (4) COPD exacerbation: Code(s): J44.1 - Chronic obstructive pulmonary disease with (acute) exacerbation Status: Acute Assessment and Plan: continue bronchodilators, steroids, antibiotics and mechanical ventilation - Pulmonology following the patient - Prednisone tapered off (5) Acute kidney injury: Code(s): N17.9 - Acute kidney failure, unspecified Status: Acute Assessment and Plan: patient was admitted with elevated creatinine which improved wit
[2019-11-24] MEDS: INSULIN GLARGINE (*BKC) 100 UNITS/ML 10 UNITS SUB-Q (10:46)
[2019-11-24 12:15] LABS: Glucose Point of Care 153 (65-105)
[2019-11-24 16:41] LABS: Glucose Point of Care 187 (65-105)
--- NOTE | 2019-11-24 17:33 | PM.IMPN ---
Progress Note: A&P Assessment and Plan (1) COPD exacerbation: Code(s): J44.1 - Chronic obstructive pulmonary disease with (acute) exacerbation Status: Acute Assessment and Plan: Patient with acute respiratory failure secondary to hypercapnia most likely secondary to exacerbation of COPD, intubated due to respiratory distress, pt has history of COPD, HTN, GERD, DM, schizoaffective disorder and ischemic cardiomyopathy with low EF. Some sternal fluid/ infection after his CABG. Ongoing sepsis and fever. Pt also has acute kidney injury and suspected fungal infection. Family have decided on active medical therapy but do not resuscitate pt in case of cardiac arrest. Pt will need Trach and PEG. Family are aware of poor prognosis. Pt had PEG placed today. Awaiting trach. 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 use: with jail use Diabetes mellitus complication status: with other specified complication Qualified Code(s): E11.69 - Type 2 diabetes mellitus with other specified complication; Z79.4 - long-term (current) use of insulin Code(s): E11.9 - Type 2 diabetes mellitus without complications Status: Acute Assessment and Plan: Accuchecks, SSI, hold home medications (3) DVT prophylaxis: Code(s): Z29.9 - Encounter for prophylactic measures, unspecified Status: Acute Assessment and Plan: Lovenox (4) Acute hypercapnic respiratory failure: Code(s): J96.02 - Acute respiratory failure with hypercapnia Status: Acute Assessment and Plan: Worsening ABG was emergently intubated @1 weeks ago. (5) Pneumonia: Qualifiers: Laterality: unspecified laterality Lung location: unspecified part of lung Pneumonia type: due to unspecified organism Qualified Code(s): J18.9 - Pneumonia, unspecified organism Code(s): J18.9 - Pneumonia, unspecified organism Status: Acute Assessment and Plan: Cxr shows Small right pleural effusion versus pleural parenchymal scarring at the right costophrenic angle related to prior surgical procedure in the right hemithorax with posterior right thoracotomy defect. Patient being treated Cefepime 07/[address] Richardson and micafungin IV (6) Acute kidney injury: Code(s): N17.9 - Acute kidney failure, unspecified Status: Acute Assessment and Plan: Creat is 1.7, continue to watch (7) Acute hyperkalemia: Code(s): E87.5 - Hyperkalemia Status: Resolved Assessment and Plan: After fluids (8) History of open heart surgery: Code(s): Z98.890 - Other specified postprocedural states Status: Acute Assessment and Plan: [place] obtain notes, wound swab on sternotomy wound (9) Sepsis: Qualifiers: Sepsis type: sepsis due to unspecified organism Sepsis acute organ dysfunction status: with acute organ dysfunction Severe sepsis acute organ dysfunction type: acute renal failure Acute renal failure type: unspecified Severe sepsis shock status: without septic shock Qualified Code(s): A41.9 - Sepsis, unspecified organism; R65.20 - Severe sepsis without septic shock; N17.9 - Acute kidney failure, unspecified Code(s): A41.9 - Sepsis, unspecified organism Status: Acute Assessment and Plan: Upon arrival patient with criteria of sepsis most likely secondary to pneumonia patient being treated Cefepime for [address] Richardson and micafungin IV Subjective Date/time seen: 11/24/19 17:33 Interval history: Patient with acute respiratory failure secondary to hypercapnia most likely secondary to exacerbation of COPD, intubated due to respiratory distress, pt has history of COPD, HTN, GERD, DM, schizoaffective disorder and ischemic cardiomyopathy with low EF,. Some sternal fluid/ infection after his CABG. Ongoing sepsis and fever. Pt also has acute kidney injury
--- NOTE | 2019-11-24 17:36 | PM.PNPUL ---
Progress Note: A&P Assessment and Plan (1) Acute respiratory failure: Qualifiers: Respiratory failure complication: hypoxia and hypercapnia Qualified Code(s): J96.01 - Acute respiratory failure with hypoxia; J96.02 - Acute respiratory failure with hypercapnia Code(s): J96.00 - Acute respiratory failure, unspecified whether with hypoxia or hypercapnia Status: Acute Assessment and Plan: Reintubated 11/20; CXR is worsening; he is on PS mode 30%, 5 PEEP, resp rate 30; oxygenating well on 30%. underlying COPD, ischemic cardiomyopathy plans for trach Nov 25, was treated for Pseudomonas pneumonia; (2) Pneumonia: Qualifiers: Laterality: unspecified laterality Lung location: unspecified part of lung Pneumonia type: due to unspecified organism Qualified Code(s): J18.9 - Pneumonia, unspecified organism Code(s): J18.9 - Pneumonia, unspecified organism Status: Acute Assessment and Plan: - continue cefepime for Pseudomonas Pneumonia; imipenem started today 11/23 (3) COPD exacerbation: Code(s): J44.1 - Chronic obstructive pulmonary disease with (acute) exacerbation Status: Acute Assessment and Plan: - continue levalbuterol and ipratropium as prescribed. (4) CHF (congestive heart failure): Qualifiers: Heart failure type: other Qualified Code(s): I50.9 - Heart failure, unspecified Code(s): I50.9 - Heart failure, unspecified Status: Acute Assessment and Plan: - continue diuersis judiciously as tolerated - BP and HR control Subjective Date/time seen: 11/24/19 17:36 69 yo man on with acute respiratory failure, intubated 09/09, extubated 11/19 with need to reintubate 11/20 due to increased respiratory rate and inability to protect his airway; now off sedatives, still febrile, 103 & 104; not responsive in a meaningful way, family opted to proceed with trach and plans to go to LTAC. On PS mode 30%. No secretions. 11/22 - peg placed 11/20 - intubated 11/19 - extubated 11/18- infrasternal fluid aspirated Review of Systems Review of Systems: ROS unobtainable: unobtainable due to endotracheal tube (and encephalopathy) Exam Const: General: comfortable, no acute distress and patient obtunded Orientation/consciousness: patient obtunded HENMT: Mouth: Yes moist mucous membranes Neck: Neck: supple and no JVD Resp: Auscultation: crackles and diminished lung sounds Cardio: Rate: regular rate Rhythm: regular rhythm Heart sounds: no murmurs GI: Auscultation: normal bowel sounds Urinary Catheter: Urinary Catheter: patent and draining and urine clear Skin: General skin exam: normal color Neuro: General: patient obtunded and Unable to assess gait Cognition (Neuro): abnormal cognition Gait exam (Neuro): Unable to assess gait Sensory Exam: Sensory deficit (Neuro) Extrem: General: normal to inspection, no edema and no pedal edema Objective Data Vital Signs Vital Signs: Vital Signs - 24 hr 11/23/19 18:00 11/23/19 18:57 11/23/19 19:06 Temperature 38.3 C H Pulse Rate 120 H 121 H 121 H Respiratory Rate 32 H 30 H 31 H Blood Pressure 101/71 Pulse Oximetry 97 97 11/23/19 20:00 11/23/19 21:00 11/23/19 22:00 Temperature 38.4 C H 38.5 C H 38.5 C H Pulse Rate 123 H 124 H Respiratory Rate 32 H 34 H Blood Pressure 98/68 L 103/74 Pulse Oximetry 96 95 11/23/19 22:49 11/24/19 00:00 11/24/19 00:46 Temperature 38.9 C H 39.1 C H Pulse Rate 128 H 132 H Respiratory Rate 32 H Blood Pressure 96/73 L Pulse Oximetry 97 98 11/24/19 01:46 11/24/19 02:00 11/24/19 02:24 Temperature 38.2 C H 38.2 C H Pulse Rate 134 H 136 H Respiratory Rate 36 H 37 H Blood Pressure 105/78 Pulse Oximetry 97 11/24/19 02:25 11/24/19 04:00 11/24/19 05:24 Temperature 38.2 C H Pulse Rate 134 H 133 H 134 H Respiratory Rate 39 H Blood Pressure 99/75 L Pulse Oximetry 96 95 94 11/24/19 06:00 11/24/19
--- NOTE | 2019-11-24 18:02 | WPDINFPN2 ---
Subjective Date/time seen: 11/24/2019 Exam HENMT: Other: ET tube in place. Neck: Other: Neck is supple no lymphadenopathy Resp: Other: Good bilateral air entry with minimal scattered rhonchi bilaterally no change. Cardio: Other: Positive S1 and positive S2 no tachycardia. Skin: Other: No rash. Right side port is in place. No erythema functioning well Extrem: Other: No edema. Early signs of mottling on the left lower extremity. Objective Data Vital Signs Vital Signs: Vital Signs - 24 hr 11/23/19 18:57 11/23/19 19:06 11/23/19 20:00 Temperature 38.4 C H Pulse Rate 121 H 121 H 123 H Respiratory Rate 30 H 31 H 32 H Blood Pressure 98/68 L Pulse Oximetry 97 96 11/23/19 21:00 11/23/19 22:00 11/23/19 22:49 Temperature 38.5 C H 38.5 C H Pulse Rate 124 H 128 H Respiratory Rate 34 H Blood Pressure 103/74 Pulse Oximetry 95 97 11/24/19 00:00 11/24/19 00:46 11/24/19 01:46 Temperature 38.9 C H 39.1 C H 38.2 C H Pulse Rate 132 H Respiratory Rate 32 H Blood Pressure 96/73 L Pulse Oximetry 98 11/24/19 02:00 11/24/19 02:24 11/24/19 02:25 Temperature 38.2 C H Pulse Rate 134 H 136 H 134 H Respiratory Rate 36 H 37 H Blood Pressure 105/78 Pulse Oximetry 97 96 11/24/19 04:00 11/24/19 05:24 11/24/19 06:00 Temperature 38.2 C H Pulse Rate 133 H 134 H 134 H Respiratory Rate 39 H 39 H Blood Pressure 99/75 L 101/70 Pulse Oximetry 95 94 95 11/24/19 08:00 11/24/19 08:02 11/24/19 08:03 Temperature 39.0 C H 39.1 C H Pulse Rate 137 H 134 H Respiratory Rate 40 H Blood Pressure 93/81 L Pulse Oximetry 96 11/24/19 08:10 11/24/19 08:20 11/24/19 10:00 Temperature Pulse Rate 123 H 121 H 133 H Respiratory Rate 33 H 33 H 42 H Blood Pressure 96/80 L Pulse Oximetry 96 95 11/24/19 10:27 11/24/19 10:30 11/24/19 12:00 Temperature 39.4 C H 39.5 C H Pulse Rate 123 H 121 H Respiratory Rate 42 H Blood Pressure 86/66 L Pulse Oximetry 95 95 11/24/19 12:05 11/24/19 13:05 11/24/19 13:55 Temperature 39.5 C H 39.4 C H Pulse Rate 115 H Respiratory Rate 38 H Blood Pressure Pulse Oximetry 95 11/24/19 14:00 11/24/19 14:05 11/24/19 16:00 Temperature 38.3 C H Pulse Rate 115 H 117 H 119 H Respiratory Rate 40 H 38 H 36 H Blood Pressure 102/78 85/62 L Pulse Oximetry 95 96 11/24/19 16:29 11/24/19 17:30 11/24/19 17:57 Temperature 38.3 C H 39.0 C H Pulse Rate 116 H Respiratory Rate 38 H Blood Pressure 102/76 Pulse Oximetry 95 Intake/Output Intake/Output: Intake & Output 11/21/19 11/22/19 11/23/19 11/24/19 23:59 23:59 23:59 23:59 Intake Total 0191 686 5610 1932 Output Total 2500 0989 286 0164 Balance -638 990 1530 282 Meds/Results Medications: Active Medications Generic Name Dose Route Start Last Admin Trade Name Freq PRN Reason Stop Dose Admin Acetaminophen 650 mg 11/16/19 09:36 11/24/19 16:29 Tylenol Tablet PO 650 mg Q4H PRN Administration Mild Pain (1-3) or Fever Acetazolamide Sodium 500 mg 11/19/19 09:00 11/24/19 07:50 Diamox Inj IV PUSH 500 mg QAM KASSIDY Administration Aspirin 325 mg 11/11/19 09:00 11/24/19 08:03 Aspirin PO 325 mg DAILY KASSIDY Administration Citalopram Hydrobromide 20 mg 11/11/19 09:00 11/24/19 08:03 Celexa PO 20 mg DAILY KASSIDY Administration Dextrose 12.5 gm 11/10/19 13:31 11/20/19 04:13 Dextrose 50% Syringe IV PUSH 12.5 gm PRN PRN Administration Hypoglycemia Protocol Digoxin 125 mcg 11/20/19 09:00 11/24/19 08:03 Lanoxin Tab PO 125 mcg QAM KASSIDY Administration Enoxaparin Sodium 40 mg 11/20/19 09:00 11/24/19 07:43 Lovenox SUB-Q 40 mg DAILY KASSIDY Administration Famotidine 20 mg 11/16/19 09:00 11/24/19 07:50 Pepcid Iv IV PUSH 20 mg Q12HR KASSIDY Administration Fentanyl Citrate 25 mcg 11/20/19 09:34 11/24/19 07:50 Sublimaze IV PUSH 25 mcg Q1HR PRN Administration AGITATION Furosemi
[2019-11-24] MEDS: MICAFUNGIN SODIUM 100 MG in SODIUM CHLORIDE 0.9% IV 100 ML IVPB (21:07)
[2019-11-24 21:22] LABS: Glucose Point of Care 291 (65-105)
[2019-11-24] MEDS: INSULIN GLARGINE (*BKC) 100 UNITS/ML 35 UNITS SUB-Q (21:25)
[2019-11-24] MEDS: IMIPENEM/CILASTATIN SODIUM 250 MG in DEXTROSE 5% 100 ML 300 MG IVPB (22:35)
[2019-11-24 23:59] LABS: Glucose Point of Care 276 (65-105)
[2019-11-25] VITALS (33 sets, daily range): BP systolic 82–110; BP diastolic 55–86; PULSE 99–110; RESP 20–29; TEMP 37.2–38.4; O2SAT 95–98
[2019-11-25] MEDS: INSULIN ASPART (*BKC) 100 UNITS/ML SUB-Q ×6 (00:03→22:06)
[2019-11-25] MEDS: IPRATROPIUM BR 0.02% INH SOLN 0.5 MG/2.5 ML VIAL INHALATION ×4 (02:11→20:09)
[2019-11-25] MEDS: LEVALBUTEROL NEB 1.25 MG/3 ML 0.63 MG INHALATION ×4 (02:11→20:09)
[2019-11-25 04:48] LABS: Hematocrit 37.1 % (42.0-52.0); Hemoglobin 11.1 g/dL (14.0-18.0); Mean Corpuscular HGB Conc 29.9 g/dl (32-36); Mean Corpuscular Hemoglobin 27.8 pg (26-34); Mean Corpuscular Volume 92.8 fl (80-100); Mean Platelet Volume 12.5 fl (7.4-10.4); Platelet Count Result 214 k/mm3 (150-375); Red Cell Distribution Width 19.2 % (11.5-14.5); White Blood Count 13.2 K/mm3 (4.5-10.0)
[2019-11-25 05:04] LABS: Glucose Point of Care 216 (65-105)
[2019-11-25 05:08] LABS: Alveolar/Arterial O2 Gradient 99.8 mmHg; Base Excess ABG -3.1 mEq/l (+/-2.0); Carboxyhemoglobin 0.3 % THb (0-2.0); Fractional Inspired Oxygen 30 %; HCO3 ABG 21.4 mEq/l (22.0-26.0); Methemoglobin ABG 0.4 %THb (0-1.5); Oxygen Content ABG 15.3 %vol (16.0-22.0); Oxygen Saturation ABG 94.4 % (95.0-100.0); Oxyhemoglobin 92.1 % THb (90.0-100.0); PCO2 ABG 36.3 mmHg (35.0-45.0); PO2 ABG 71.5 mmHg (80.0-100.0); PO2 FiO2 Ratio Arterial Blood 2.38 %; Reduced Hemoglobin 7.2 %THb (0-5.0); Total Hemoglobin 11.8 g/dL (12.0-18.0); pH ABG 7.388 (7.350-7.450)
[2019-11-25 05:09] LABS: Device VENTILATOR; Modified Allen's Test Unable to perform; Site Drawn RIGHT RADIAL
[2019-11-25 05:10] LABS: Arterial Blood Gas PEEP 5 cmH2O; Arterial Blood Gas Tidal Volume 320 ml; Arterial Blood Gas Vent Mode CMV; Arterial Blood Gas Ventilator rate 16 /MIN
[2019-11-25] MEDS: IMIPENEM/CILASTATIN SODIUM 250 MG in DEXTROSE 5% 100 ML 300 MG IVPB ×3 (05:20→22:04)
[2019-11-25 05:23] LABS: Blood Urea Nitrogen 71 mg/dL (9-20); Calcium 8.3 mg/dL (8.4-10.2); Carbon Dioxide 26 mmol/L (22-30); Chloride 118 mmol/L (98-107); Estimated CRCL calculation 33 ml/min; Estimated Glomerular Filt Rate 36; Glucose 233 mg/dL (75-110); Magnesium 2.6 mg/dL (1.6-2.3); Potassium 3.7 mmol/L (3.4-5.0); Sodium 149 mmol/L (137-145)
[2019-11-25] MEDS: INSULIN GLARGINE (*BKC) 100 UNITS/ML 35 UNITS SUB-Q (07:28)
[2019-11-25] MEDS: DIGOXIN TAB 125 MCG TABLET PO (07:32)
[2019-11-25] MEDS: ASPIRIN 325 MG TABLET PO (07:32)
[2019-11-25] MEDS: ENOXAPARIN 40 MG/0.4 ML SYRINGE SUB-Q (07:32)
[2019-11-25] MEDS: SENNA/DOCUSATE SODIUM TABLET 2 TAB PO ×2 (07:32→16:27)
[2019-11-25] MEDS: FAMOTIDINE 20 MG/2 ML VIAL IV PUSH ×2 (07:32→20:34)
[2019-11-25] MEDS: SIMVASTATIN 20 MG TABLET PO (07:33)
[2019-11-25] MEDS: CITALOPRAM HYDROBROMIDE 20 MG TABLET PO (07:33)
[2019-11-25 07:57] LABS: Glucose Point of Care 279 (65-105)
[2019-11-25] MEDS: INSULIN GLARGINE (*BKC) 100 UNITS/ML SUB-Q (08:34)
--- NOTE | 2019-11-25 09:37 | PM.PNCARD ---
Progress Note: A&P Assessment and Plan (1) Cardiomyopathy: Code(s): I42.9 - Cardiomyopathy, unspecified Status: Acute Assessment and Plan: He has ischemic cardiomyopathy with low EF Euvolemic and creatinine slowly rising. 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 (5) Pneumonia: Qualifiers: Laterality: unspecified laterality Lung location: unspecified part of lung Pneumonia type: due to unspecified organism Qualified Code(s): J18.9 - Pneumonia, unspecified organism Code(s): J18.9 - Pneumonia, unspecified organism Status: Acute (6) Coronary artery disease: Code(s): I25.10 - Atherosclerotic heart disease of [place] coronary artery without angina pectoris Status: Acute Assessment and Plan: Status post coronary bypass surgery last year Additional Plan he get PEG tube placement, getting tracheostomy next week Subjective Date/time seen: 11/25/19 09:37 intubated and sedated. Review of Systems Review of Systems: Narrative: unable to obtain Exam Narrative: Exam Narrative: Sedated and intubated Neck is supple no obvious JVD, no carotid bruit Chest: decreased breathing sounds at the bases, with crackles noted and rhonchi noted Cardiovascular: Regular rate and rhythm, 2/6 systolic murmur noted left sternal border Abdomen: Soft nontender bowel sounds positive Extremities: No edema has good pulses distally bilaterally Objective Data Vital Signs Vital Signs: Vital Signs - 24 hr 11/24/19 10:00 11/24/19 10:27 11/24/19 10:30 Temperature 39.4 C H Pulse Rate 133 H 123 H Respiratory Rate 42 H Blood Pressure 96/80 L Pulse Oximetry 95 95 11/24/19 12:00 11/24/19 12:05 11/24/19 13:05 Temperature 39.5 C H 39.5 C H 39.4 C H Pulse Rate 121 H Respiratory Rate 42 H Blood Pressure 86/66 L Pulse Oximetry 95 11/24/19 13:55 11/24/19 14:00 11/24/19 14:05 Temperature Pulse Rate 115 H 115 H 117 H Respiratory Rate 38 H 40 H 38 H Blood Pressure 102/78 Pulse Oximetry 95 95 11/24/19 16:00 11/24/19 16:29 11/24/19 17:15 Temperature 38.3 C H 38.3 C H Pulse Rate 119 H 111 H Respiratory Rate 36 H Blood Pressure 85/62 L Pulse Oximetry 96 96 11/24/19 17:30 11/24/19 17:57 11/24/19 20:00 Temperature 39.0 C H Pulse Rate 116 H 111 H Respiratory Rate 38 H 36 H Blood Pressure 102/76 100/72 Pulse Oximetry 95 94 11/24/19 20:15 11/24/19 20:24 11/24/19 21:18 Temperature 39.3 C H Pulse Rate 113 H 115 H Respiratory Rate 31 H 34 H Blood Pressure Pulse Oximetry 96 11/24/19 22:00 11/24/19 23:06 11/24/19 23:50 Temperature 39.3 C H Pulse Rate 110 H 109 H 106 H Respiratory Rate 29 H 24 H Blood Pressure 105/76 Pulse Oximetry 95 96 95 11/25/19 00:00 11/25/19 02:00 11/25/19 02:11 Temperature 38.1 C H 37.4 C Pulse Rate 106 H 106 H 106 H Respiratory Rate 25 H 26 H 24 H Blood Pressure 97/72 L 110/86 Pulse Oximetry 96 97 97 11/25/19 02:20 11/25/19 03:00 11/25/19 03:42 Temperature 37.4 C Pulse Rate 104 H 103
--- NOTE | 2019-11-25 11:10 | PCDIET ---
ICU Rounding Note: Patient tolerating Glucerna 1.2 at 70mL/hr goal rate. Water flush increased to 100mL every 4 hours which is appropriate. Last recorded weight is 80.3kg which is increased. +I/O noted. Bowel Motility: +BM today. Labs Reviewed: Glu (279), BUN (71), Cr (1.9), Na (149), Ca (8.3), Mg (2.6) Meds Noted: Diamox, Maxipime, Pepcid, Sublimaze, Lasix, Lantus, Novolog, Miralax, Senna Additional Notes: Mepilex to left heel blister. Bottom reddened. No other skin issues reported. Recommend continuing present tube feeding and adding volume based feeding protocol. Following daily in ICU rounds. Assessing/reassessing every Monday/Monday.
[2019-11-25] MEDS: ACETAMINOPHEN 325 MG TABLET 650 MG PO ×2 (11:48→16:54)
[2019-11-25 12:01] LABS: Glucose Point of Care 331 (65-105)
--- NOTE | 2019-11-25 12:08 | WPDINTPN ---
Progress Note: A&P Assessment and Plan (1) Acute respiratory failure with hypoxia and hypercapnia: Code(s): J96.01 - Acute respiratory failure with hypoxia; J96.02 - Acute respiratory failure with hypercapnia Status: Acute Assessment and Plan: Acute hypoxic and hypercapnic respiratory failure - multifactorial- Pseudomonas pneumonia, COPD, CHF, generalized weakness - Initially pt did not tolerate a trial of BiPAP and was intubated on 09/09/2020 - he was extubated on 11/19. his respiratory status worsened overnight with increased work of breathing or tachypnea and respiratory distress - patient was reintubated on 11/20 - chest x-ray and ABG reviewed - Patient on CMV mode of ventilation, 30% FiO2. - Will place pt on ASV and then try PSV 06/29 - Pt started on Imipenem on 11/24/2019 along with Cefepime by infectious disease team. - continue bronchodilators - Prednisone was tapered off - HOLD LASIX AND Acetazolamide - patient has been scheduled for tracheostomy on Tuesday November 26, 2019 (2) Sepsis: Qualifiers: Sepsis type: sepsis due to unspecified organism Sepsis acute organ dysfunction status: with acute organ dysfunction Severe sepsis acute organ dysfunction type: acute renal failure Acute renal failure type: unspecified Severe sepsis shock status: without septic shock Qualified Code(s): A41.9 - Sepsis, unspecified organism; R65.20 - Severe sepsis without septic shock; N17.9 - Acute kidney failure, unspecified Code(s): A41.9 - Sepsis, unspecified organism Status: Acute Assessment and Plan: secondary to Pseudomona PNA - Patient febrile persistently. Sputum cultures grew Pseudomonas, sensitive to cefepime. white cell count rising - Continue cefepime for now. Imipenem added by Infectious disease team on 11/24/2019, - Merritt cultured again on 11/24/2019 by infectious disease - CT Report reviewed - UA unremarkable - Infrasternal fluid collection aspirated 11/18 and fluid growing YEAST and Katia albicans. On Micafungin - Lipase normal - US B/L showed superficial cephalic thrombosis on left side - off Levophed (3) Cardiomyopathy: Code(s): I42.9 - Cardiomyopathy, unspecified Status: Acute Assessment and Plan: He has known ischemic cardiomyopathy with low EF. He had bypass surgery at [facility] after he was transferred from [facility] with some neurological changes in February 2019. He had CABG done in the [facility] but apparently had a complicated course afterward is he remained in ICU for almost 8 weeks. echocardiogram done on 11/14/2019 showed normal LV size with concentric hypertrophy. Hypokinesis of the mid anteroseptal segments and akinesis of the distal septum, anterior wall, lateral wall, inferior wall and apex. This is consistent with ischemic or Takotsubo cardiomyopathy. Is 25-30%. Grade 2 diastolic dysfunction. Mild mitral valve regurg - Not on carvedilol because of hypotension. - Cardiology Service recommendation appreciated. Bedside echo done by myself showed decreased EF and small IVC with significant respiratory variation. - On Lasix but but will hold at this time due to worsening creatinine - digoxin started by cardiology. - May need inotrope (4) COPD exacerbation: Code(s): J44.1 - Chronic obstructive pulmonary disease with (acute) exacerbation Status: Acute Assessment and Plan: Continue bronchodilators, steroids, antibiotics and mechanical ventilation - Pulmonology following the patient - Prednisone tapered off (5) Acute kidney injury: Code(s): N17.9 - Acute kidney failure, unspecified Status: Acute Assessment and Plan: patient was admitted with elevated creatinine which improved with resuscitation. over time patient was started on diuretics. - increased sodium and chloride, increase free water for hypernatremia and hyperchloremia - discontinue lasix. - Worsening cre
--- NOTE | 2019-11-25 14:21 | WPDINFPN2 ---
Progress Note: A&P Additional Plan 1. Febrile illness secondary to lower respiratory tract infection including pneumonia versus retrosternal infection with fluid accumulation. Status post drainage with cultures showing Katia. fever is rising agin. Patient is currently on Micafungin #6, continue. Imipenem #2, continue, stop cefepime. 2. Respiratory failure on a ventilator. Patient is not arousable of sedation. 3. Leukocytosis improving with white count trending down at 15,000. 4. Change in mental status with no improvement despite being off sedation. Subjective Date/time seen: 11/25/19 14:21 Exam Narrative: Exam Narrative: t max 39.5 core (Flores probe) Const: General: in distress Eyes: General: appearance normal, both eyes and all related structures Resp: Auscultation: clear to auscultation bilaterally and diminished lung sounds Cardio: Rate: tachycardic Rhythm: regular rhythm Heart sounds: no gallops and no murmurs GI: Inspection: non-distended GI Palp: Yes Soft to palpation Urinary Catheter: Urinary Catheter: patent and draining Skin: General skin exam: no rashes or lesions noted Other: mottling at knees Objective Data Vital Signs Vital Signs: Vital Signs - 24 hr 11/24/19 16:00 11/24/19 16:29 11/24/19 17:15 Temperature 38.3 C H 38.3 C H Pulse Rate 119 H 111 H Respiratory Rate 36 H Blood Pressure 85/62 L Pulse Oximetry 96 96 11/24/19 17:30 11/24/19 17:57 11/24/19 20:00 Temperature 39.0 C H Pulse Rate 116 H 111 H Respiratory Rate 38 H 36 H Blood Pressure 102/76 100/72 Pulse Oximetry 95 94 11/24/19 20:15 11/24/19 20:24 11/24/19 21:18 Temperature 39.3 C H Pulse Rate 113 H 115 H Respiratory Rate 31 H 34 H Blood Pressure Pulse Oximetry 96 11/24/19 22:00 11/24/19 23:06 11/24/19 23:50 Temperature 39.3 C H Pulse Rate 110 H 109 H 106 H Respiratory Rate 29 H 24 H Blood Pressure 105/76 Pulse Oximetry 95 96 95 11/25/19 00:00 11/25/19 02:00 11/25/19 02:11 Temperature 38.1 C H 37.4 C Pulse Rate 106 H 106 H 106 H Respiratory Rate 25 H 26 H 24 H Blood Pressure 97/72 L 110/86 Pulse Oximetry 96 97 97 11/25/19 02:20 11/25/19 03:00 11/25/19 03:42 Temperature 37.4 C Pulse Rate 104 H 103 H Respiratory Rate 24 H 24 H Blood Pressure Pulse Oximetry 97 11/25/19 04:00 11/25/19 05:15 11/25/19 06:00 Temperature 38.0 C H Pulse Rate 104 H 102 H 101 H Respiratory Rate 23 H 23 H Blood Pressure 102/74 105/73 Pulse Oximetry 97 97 97 11/25/19 07:32 11/25/19 07:49 11/25/19 08:00 Temperature 37.2 C Pulse Rate 101 H 99 102 H Respiratory Rate 20 Blood Pressure 96/85 L Pulse Oximetry 97 11/25/19 08:21 11/25/19 08:36 11/25/19 10:00 Temperature Pulse Rate 103 H 102 H 104 H Respiratory Rate 23 H 21 H 24 H Blood Pressure 104/83 Pulse Oximetry 96 11/25/19 10:27 11/25/19 11:48 11/25/19 12:00 Temperature 37.7 C H 37.8 C H Pulse Rate 102 H 107 H Respiratory Rate 26 H Blood Pressure 102/61 Pulse Oximetry 97 95 11/25/19 12:48 11/25/19 14:00 11/25/19 14:03 Temperature 38.0 C H 38.1 C H 38.1 C H Pulse Rate 105 H 106 H Respiratory Rate 22 H 22 H Blood Pressure 82/55 L 97/67 L Pulse Oximetry 96 98 Intake/Output Intake/Output: Intake & Output 11/22/19 11/23/19 11/24/19 11/25/19 23:59 23:59 23:59 23:59 Intake Total 960 2480 2182 1307 Output Total 4463 568 9110 500 Balance -990 1530 532 807 Meds/Results Medications: Active Medications Generic Name Dose Route Start Last Admin Trade Name Freq PRN Reason Stop Dose Admin Acetaminophen 650 mg 11/16/19 09:36 11/25/19 11:48 Tylenol Tablet PO 650 mg Q4H PRN Administration Mild Pain (1-3) or Fever Aspirin 325 mg 11/11/19 09:00 11/25/19 07:32 Aspirin PO 325 mg DAILY KASSIDY Administration Citalopram Hydrobromide 20 mg 11/11/19 09:00 11/25/19 07:33 Celexa PO 20 mg DAILY KASSIDY Administration Dextrose 12.5 gm 11/10/19
[2019-11-25 16:29] LABS: Glucose Point of Care 245 (65-105)
--- NOTE | 2019-11-25 17:48 | WPDCN ---
Assessment and Plan Assessment and plan (1) Acute respiratory failure with hypoxia and hypercapnia: Code(s): J96.01 - Acute respiratory failure with hypoxia; J96.02 - Acute respiratory failure with hypercapnia Status: Acute Assessment and Plan: Marquis has sepsis, fever, respiratory failure, hx of CABG and low EF and ENT has been consulted for tracheostomy which is scheduled for 0730 on 11/26/2019. Consent obtained. Hold tube feeds overnight. Please call if clinical changes occur. Jesu South M.D. HPI Data of Consult Date/Time: 11/25/19 17:48 Requesting Physician: Sg Shaw MD Primary Care Provider: Tito Thompson, Consult Narrative Narrative: Marquis Cosme is a 69 year old male with sepsis, respiratory failure, hx of CABG, ENT consulted for tracheostomy Review of Systems Review of Systems: ROS unobtainable: unobtainable due to endotracheal tube and unobtainable due to mental status PMFSH Past Medical History Medical History COPD (chronic obstructive pulmonary disease) Diabetes type 2, controlled GERD (gastroesophageal reflux disease) Hyperlipidemia Hypertension Schizoaffective disorder Surgical History Surgical History History of thoracotomy Hx of CABG 02/2019 Family History Family History Other Unknown family medical history Social History Social History Smoking status: Current every day smoker Alcohol intake: former Substance use: unknown Gender identity (if verbalized by the patient): Male Spiritual care concerns: No Agree to blood products: Yes Meds Home Medications and Allergies Home Medications Medication Instructions Recorded Confirmed Type Antifungal Cream (miconazole) 1 unit TOPICAL Q12H 11/10/19 11/10/19 History Daily Multivitamin 1 tab-cap PO DAILY 11/10/19 11/10/19 History Spiriva Respimat 1 cap INHALATION DAILY 11/10/19 11/10/19 History acetaminophen [Tylenol] 650 mg PO Q6H PRN 11/10/19 11/10/19 History albuterol sulfate [ProAir HFA] 2 puff INHALATION Q4H PRN 11/10/19 11/10/19 History aspirin 325 mg PO DAILY 11/10/19 11/10/19 History citalopram 20 mg PO DAILY 11/10/19 11/10/19 History cyanocobalamin (vitamin B-12) 1,000 mcg PO DAILY 11/10/19 11/10/19 History [Vitamin B-12] esomeprazole magnesium 40 mg PO DAILY 11/10/19 11/10/19 History ferrous sulfate 325 mg PO BID 11/10/19 11/10/19 History fluticasone propion-salmeterol 1 puff INHALATION Q12H 11/10/19 11/10/19 History [Advair Diskus] furosemide 40 mg PO DAILY 11/10/19 11/10/19 History gabapentin 600 mg PO BID 11/10/19 11/10/19 History hydroxyzine pamoate 25 mg PO TID 11/10/19 11/10/19 History insulin glargine [Lantus U-100 14 unit SUBCUT HS 11/10/19 11/10/19 History Insulin] insulin lispro [Humalog U-100 See Rx Instructions .ROUTE .COMPLEX 11/10/19 11/10/19 History Insulin] ipratropium-albuterol 3 ml INHALATION Q6H PRN 11/10/19 11/10/19 History lanolin ctebxrt-nk-s.pet-ceres 1 applic TOPICAL Q12H 11/10/19 11/10/19 History [Eucerin] linagliptin [Tradjenta] 5 mg PO DAILY 11/10/19 11/10/19 History losartan 25 mg PO DAILY 11/10/19 11/10/19 History metformin 500 mg PO BID 11/10/19 11/10/19 History metoprolol tartrate 12.5 mg PO Q12H 11/10/19 11/10/19 History nicotine 1 patch TRANSDERMAL DAILY 11/10/19 11/10/19 History paliperidone palmitate [Invega 156 mg IM MONTHLY 11/10/19 11/10/19 History Sustenna] polyethylene glycol 3350 17 g PO DAILY 11/10/19 11/10/19 History sennosides-docusate sodium [Senna 2 tablet PO BID 11/10/19 11/10/19 History with Docusate Sodium] simvastatin 20 mg PO DAILY 11/10/19 11/10/19 History sodium chloride 1,000 mg PO BID 11/10/19 11/10/19 History trihexyphenidyl 2 mg PO BID 11/10/19 11/10/19 History Allergies Allergy/AdvReac Type Elhami
--- NOTE | 2019-11-25 17:51 | PM.IMPN ---
Progress Note: A&P Assessment and Plan (1) COPD exacerbation: Code(s): J44.1 - Chronic obstructive pulmonary disease with (acute) exacerbation Status: Acute Assessment and Plan: Patient with acute respiratory failure secondary to hypercapnia most likely secondary to exacerbation of COPD, intubated due to respiratory distress, pt has history of COPD, HTN, GERD, DM, schizoaffective disorder and ischemic cardiomyopathy with low EF,. Some sternal fluid/ infection after his CABG. Ongoing sepsis and fever. Pt also has acute kidney injury and suspected fungal infection. Family have decided on active medical therapy but do not resuscitate pt in case of cardiac arrest. Pt will need Trach which is scheduled for tomorrow. Family are aware of poor prognosis. Pt had PEG on 11/22, will have trach placement tomorrow. No improvement with condition. ischemic cardiomyopathy with low EF, along with systolic CHF chronic and stable. (2) Diabetes: Qualifiers: Diabetes mellitus type: type 2 Diabetes mellitus director long term care insulin use: with director long term care use Diabetes mellitus complication status: with other specified complication Qualified Code(s): E11.69 - Type 2 diabetes mellitus with other specified complication; Z79.4 - senior living (current) use of insulin Code(s): E11.9 - Type 2 diabetes mellitus without complications Status: Acute Assessment and Plan: Accuchecks, SSI, hold home medications (3) DVT prophylaxis: Code(s): Z29.9 - Encounter for prophylactic measures, unspecified Status: Acute Assessment and Plan: Lovenox (4) Acute hypercapnic respiratory failure: Code(s): J96.02 - Acute respiratory failure with hypercapnia Status: Acute Assessment and Plan: Worsening ABG was emergently intubated @1 weeks ago. (5) Pneumonia: Qualifiers: Laterality: unspecified laterality Lung location: unspecified part of lung Pneumonia type: due to unspecified organism Qualified Code(s): J18.9 - Pneumonia, unspecified organism Code(s): J18.9 - Pneumonia, unspecified organism Status: Acute Assessment and Plan: Cxr shows Small right pleural effusion versus pleural parenchymal scarring at the right costophrenic angle related to prior surgical procedure in the right hemithorax with posterior right thoracotomy defect. Patient being treated Cefepime 07/[address] Richardson and micafungin IV (6) Acute kidney injury: Code(s): N17.9 - Acute kidney failure, unspecified Status: Acute Assessment and Plan: Creat is 1.7, continue to watch (7) Acute hyperkalemia: Code(s): E87.5 - Hyperkalemia Status: Resolved Assessment and Plan: After fluids (8) History of open heart surgery: Code(s): Z98.890 - Other specified postprocedural states Status: Acute Assessment and Plan: Recent CABG in [facility] [place] obtain notes, wound swab on sternotomy wound (9) Sepsis: Qualifiers: Sepsis type: sepsis due to unspecified organism Sepsis acute organ dysfunction status: with acute organ dysfunction Severe sepsis acute organ dysfunction type: acute renal failure Acute renal failure type: unspecified Severe sepsis shock status: without septic shock Qualified Code(s): A41.9 - Sepsis, unspecified organism; R65.20 - Severe sepsis without septic shock; N17.9 - Acute kidney failure, unspecified Code(s): A41.9 - Sepsis, unspecified organism Status: Acute Assessment and Plan: Upon arrival patient with criteria of sepsis most likely secondary to pneumonia patient being treated Cefepime for [address] Richardson stops upon pain continued meropenem and micafungin IV Subjective Date/time seen: 11/25/19 17:51 Interval history: Patient with acute respiratory failure secondary to hypercapnia most likely secondary to exacerbation of COPD, intubated due to respiratory distress, pt has history of C
--- NOTE | 2019-11-25 20:48 | PM.PNPUL ---
Progress Note: A&P Assessment and Plan (1) Acute respiratory failure: Code(s): J96.00 - Acute respiratory failure, unspecified whether with hypoxia or hypercapnia Status: Acute Assessment and Plan: Reintubated 11/20; CXR is worsening; now in ASV, 30%, 5 PEEP, resp rate 25; oxygenating well on 30%. underlying COPD, ischemic cardiomyopathy plans for trach Nov 25, was treated for Pseudomonas pneumonia; (2) Pneumonia: Qualifiers: Laterality: unspecified laterality Lung location: unspecified part of lung Pneumonia type: due to unspecified organism Qualified Code(s): J18.9 - Pneumonia, unspecified organism Code(s): J18.9 - Pneumonia, unspecified organism Status: Acute Assessment and Plan: - continue cefepime for Pseudomonas Pneumonia; imipenem started 11/23 (3) COPD exacerbation: Code(s): J44.1 - Chronic obstructive pulmonary disease with (acute) exacerbation Status: Acute Assessment and Plan: - continue levalbuterol and ipratropium as prescribed. (4) CHF (congestive heart failure): Qualifiers: Heart failure type: other Qualified Code(s): I50.9 - Heart failure, unspecified Code(s): I50.9 - Heart failure, unspecified Status: Acute Assessment and Plan: - stopped diuresis as BUN/creat increased today 71/1.9. - BP and HR control Subjective Date/time seen: 11/25/19 20:00 69 yo man on with acute respiratory failure, intubated 09/09, extubated 11/19 with need to reintubate 11/20 due to increased respiratory rate and inability to protect his airway; now off sedatives, still febrile, 100.3; not responsive in a meaningful way, opens eyes, does not respond to stimuli. Family opted to proceed with trach and plans to go to LTAC. Tolerated CPAP today from 10 am until 14:00; now on ASV. 30%. 5 PEEP. BUN/creat 71/1.9; increased; diuretics held. Has encephalopathy with poor prognosis. 11/22 - peg placed 11/20 - intubated 11/19 - extubated 11/18- infrasternal fluid aspirated now growing Katia, on Mycafungin. Review of Systems Review of Systems: All systems reviewed & are unremarkable except as noted in HPI and below ROS unobtainable: unobtainable due to endotracheal tube (and encephalopathy) Exam Const: General: comfortable, no acute distress and patient obtunded Orientation/consciousness: patient obtunded HENMT: Mouth: Yes moist mucous membranes Neck: Neck: supple and no JVD Resp: Auscultation: crackles and diminished lung sounds Cardio: Rate: regular rate Rhythm: regular rhythm Heart sounds: no murmurs GI: Auscultation: normal bowel sounds Urinary Catheter: Urinary Catheter: patent and draining and urine clear Skin: General skin exam: normal color Neuro: General: patient obtunded and Unable to assess gait Cognition (Neuro): abnormal cognition Gait exam (Neuro): Unable to assess gait Sensory Exam: Sensory deficit (Neuro) Extrem: General: normal to inspection, no edema and no pedal edema Objective Data Vital Signs Vital Signs: Vital Signs - 24 hr 11/24/19 21:18 11/24/19 22:00 11/24/19 23:06 Temperature 39.3 C H 39.3 C H Pulse Rate 110 H 109 H Respiratory Rate 29 H Blood Pressure 105/76 Pulse Oximetry 95 96 11/24/19 23:50 11/25/19 00:00 11/25/19 02:00 Temperature 38.1 C H 37.4 C Pulse Rate 106 H 106 H 106 H Respiratory Rate 24 H 25 H 26 H Blood Pressure 97/72 L 110/86 Pulse Oximetry 95 96 97 11/25/19 02:11 11/25/19 02:20 11/25/19 03:00 Temperature 37.4 C Pulse Rate 106 H 104 H Respiratory Rate 24 H 24 H Blood Pressure Pulse Oximetry 97 11/25/19 03:42 11/25/19 04:00 11/25/19 05:15 Temperature Pulse Rate 103 H 104 H 102 H Respiratory Rate 24 H 23 H Blood Pressure 102/74 Pulse Oximetry 97 97 97 11/25/19 06:00 11/25/19 07:32 11/25/19 07:49 Temperature 38.0 C H 37.2 C Pulse Rate 101 H 101 H 99 Respiratory Rate 23 H 20 Blood Pressure 105/73 96/85 L Pul
[2019-11-25 22:03] LABS: Glucose Point of Care 247 (65-105)
[2019-11-25] MEDS: MICAFUNGIN SODIUM 100 MG in SODIUM CHLORIDE 0.9% IV 100 ML IVPB (22:05)
[2019-11-25] MEDS: INSULIN GLARGINE (*BKC) 100 UNITS/ML 15 UNITS SUB-Q (22:38)
[2019-11-26] VITALS (33 sets, daily range): BP systolic 90–106; BP diastolic 61–74; PULSE 98–120; RESP 20–30; TEMP 36.9–38; O2SAT 95–99
[2019-11-26 02:19] LABS: Glucose Point of Care 227 (65-105)
[2019-11-26] MEDS: INSULIN ASPART (*BKC) 100 UNITS/ML SUB-Q (02:19)
[2019-11-26] MEDS: IPRATROPIUM BR 0.02% INH SOLN 0.5 MG/2.5 ML VIAL INHALATION ×4 (02:57→20:28)
[2019-11-26] MEDS: LEVALBUTEROL NEB 1.25 MG/3 ML 0.63 MG INHALATION ×4 (02:57→20:27)
[2019-11-26 04:58] LABS: Hematocrit 36.8 % (42.0-52.0); Mean Corpuscular HGB Conc 29.9 g/dl (32-36); Mean Corpuscular Hemoglobin 27.6 pg (26-34); Mean Corpuscular Volume 92.2 fl (80-100); Platelet Count Result 193 k/mm3 (150-375); Red Blood Count 3.99 M/mm3 (4.6-6.20); Red Cell Distribution Width 19.6 % (11.5-14.5); White Blood Count 12.4 K/mm3 (4.5-10.0)
[2019-11-26 05:18] LABS: Blood Urea Nitrogen 83 mg/dL (9-20); Calcium 8.4 mg/dL (8.4-10.2); Carbon Dioxide 25 mmol/L (22-30); Chloride 112 mmol/L (98-107); Estimated CRCL calculation 30 ml/min; Estimated Glomerular Filt Rate 32; Glucose 204 mg/dL (75-110); Magnesium 2.7 mg/dL (1.6-2.3); Potassium 3.9 mmol/L (3.4-5.0); Sodium 150 mmol/L (137-145)
[2019-11-26 05:45] LABS: Alveolar/Arterial O2 Gradient 96.9 mmHg; Base Excess ABG -1.1 mEq/l (+/-2.0); Carboxyhemoglobin 0.3 % THb (0-2.0); Fractional Inspired Oxygen 30 %; HCO3 ABG 23.6 mEq/l (22.0-26.0); Methemoglobin ABG 0.2 %THb (0-1.5); Oxygen Content ABG 16.9 %vol (16.0-22.0); Oxygen Saturation ABG 94.3 % (95.0-100.0); Oxyhemoglobin 92.8 % THb (90.0-100.0); PCO2 ABG 39.2 mmHg (35.0-45.0); PO2 ABG 70.9 mmHg (80.0-100.0); PO2 FiO2 Ratio Arterial Blood 2.36 %; Reduced Hemoglobin 6.7 %THb (0-5.0); Total Hemoglobin 12.9 g/dL (12.0-18.0); pH ABG 7.397 (7.350-7.450)
[2019-11-26] MEDS: IMIPENEM/CILASTATIN SODIUM 250 MG in DEXTROSE 5% 100 ML 300 MG IVPB ×3 (05:57→21:14)
[2019-11-26 06:20] LABS: Glucose Point of Care 193 (65-105)
[2019-11-26] MEDS: LIDO 1%/EPINEPHRINE 1:100,000 20 ML VIAL 5 ML INFILTRATE (07:27)
--- NOTE | 2019-11-26 08:14 | P.OP_ITS ---
Procedure Note - Detailed Date of procedure: 11/26/19 Pre-op diagnosis: acute respiratoy,pneumonia,acute renal failure,sep Post-op diagnosis: same Procedure performed: Tracheostomy placement Description of procedure: The patient was previously consented by family. They were then brought back to the OR and induced with anesthesia through the endotracheal tube. They were then transferred to the OR table. A shoulder roll was placed. Landmarks were palpated and marked. A timeout was performed. An 8- 0 DCT cuffed shiley tracheostomy tube was selected and tested. The patient was prepped and drapped in the usual sterile fashion for an trac heotostomy. A horizontal incision was made along the marked line 1-2 cm above the suprasternal notch. Dissection was carried down in the midline through subcutaneous tissues using a hemostat and retraction by vein retractor and then [place] retractors. The strap muscles were identified and divided using a combination of blunt dissection through the median raphe and electrocautery. The thyroid isthmus was encounted and divided using electrocautery and retracted. The trachea was encountered. A cricoid hook was placed to stabilize and elevate the trachea. The tracheostomy tube was tested on the field and showed no leak. After confirmation with anesthesia and the aircraft maintenance technician ensuring FiO2 was acceptable an #11 blade was used to make a horizontal incision into the trachea. Heavy scissors were used to make parallel vertical cuts laterally through the second ring. The endotracheal tube was pulled. The tracheostomy tube was placed and successfully hooked up the circuit. The airway was stabilized and verified by anesthesia. The cricoid/tracheal hook was carefully removed. The tracheotomy tube was then secured with 0 silk sutures placed at each corner of the trach tube and the underlying skin. A tracheal tie was then placed. This ended this portion of the procedure and care of the patient was returned to anesthesia who recovered him in the ICU. Jesu South M.D. Anesthesia: GETA Surgeon: Jesu South MD Estimated blood loss (mL): 5 Drains: No Packing: No Pathology: none sent Complications: No immediate complications Condition: critical Disposition: ICU Findings: 8-0 cuffed shiley placed
[2019-11-26] MEDS: LACTATED RINGERS 1,000 ML 999 ML IV CONT (08:35)
[2019-11-26] MEDS: ENOXAPARIN 40 MG/0.4 ML SYRINGE SUB-Q (08:36)
[2019-11-26] MEDS: CITALOPRAM HYDROBROMIDE 20 MG TABLET PO (08:36)
[2019-11-26] MEDS: DIGOXIN TAB 125 MCG TABLET PO (08:36)
[2019-11-26] MEDS: FAMOTIDINE 20 MG/2 ML VIAL IV PUSH ×2 (08:36→20:56)
[2019-11-26] MEDS: SIMVASTATIN 20 MG TABLET PO (08:37)
[2019-11-26] MEDS: INSULIN GLARGINE (*BKC) 100 UNITS/ML 40 UNITS SUB-Q (08:43)
[2019-11-26] MEDS: ASPIRIN 325 MG TABLET PO (08:45)
[2019-11-26 08:47] LABS: Glucose Point of Care 156 (65-105)
[2019-11-26 09:58] LABS: Device VENTILATOR; Modified Allen's Test Pass; Site Drawn RIGHT RADIAL
[2019-11-26 09:59] LABS: Arterial Blood Gas PEEP 5 cmH2O; Arterial Blood Gas Vent Mode ASV
--- NOTE | 2019-11-26 11:20 | PCDIET ---
Nutrition Follow-Up Complete: Inadequate oral intake related to respiratory failure as evidenced by NPO. Patient to meet estimated nutritional needs. Goal: goal met, continue current goal Pt current nutrition is Glucerna 1.2@70ml/hr. Nutrition recommendation: Agree Last recorded weight is 77.3 kg (down from 87.5kg on assessment, possibly fluids due to lasix-will monitor) Bowel Motility: BM today Labs Review:Hgb/Hct 11.0, Hct 36.8, Na 150, Cr 2.10, BUN 83, GFR 32 (trending down), Glucose 156, Mg 2.7 Meds Noted: Fentanyl, lasix, insulin Additional Notes: Pt back from tracheotomy today. EN restarted and tolerating well. Pt at 30ml/hr currently of EN. Was at goal of 70ml/hr and tolerating well with 0 residuals. EN of Glucerna 1.2 providing 1848 kcals and 92g protein and 1240 free water. Water flush up to 100ml q 4hrs which is appropriate due to Na of 150 today. Plans for LTAC. CPAP trial tomorrow. Bottom breaking down. Off sedation. We will monitor weight and skin to assess for additional protein needs. Follow up every 3 days. Follow daily in ICU rounds.
--- NOTE | 2019-11-26 11:56 | WPDINTPN ---
Progress Note: A&P Assessment and Plan (1) Acute respiratory failure with hypoxia and hypercapnia: Code(s): J96.01 - Acute respiratory failure with hypoxia; J96.02 - Acute respiratory failure with hypercapnia Status: Acute Assessment and Plan: Acute hypoxic and hypercapnic respiratory failure - multifactorial- Pseudomonas pneumonia, COPD, CHF, generalized weakness - tracheostomy placed 11/26/2019, PEG tube placed on 11/22/2019 - chest x-ray and ABG reviewed - patient on ASV mode of ventilation, 30% FiO2 - Infectious Disease team started patient on imipenem on 11/24/2019, cefepime was discontinued - continue bronchodilators - HOLD LASIX AND Acetazolamide (2) Sepsis: Qualifiers: Sepsis type: sepsis due to unspecified organism Sepsis acute organ dysfunction status: with acute organ dysfunction Severe sepsis acute organ dysfunction type: acute renal failure Acute renal failure type: unspecified Severe sepsis shock status: without septic shock Qualified Code(s): A41.9 - Sepsis, unspecified organism; R65.20 - Severe sepsis without septic shock; N17.9 - Acute kidney failure, unspecified Code(s): A41.9 - Sepsis, unspecified organism Status: Acute Assessment and Plan: secondary to Pseudomona PNA - fever curve trending down so is the WBC count.. Sputum cultures grew Pseudomonas, Continue imipenem by Infectious Disease was started on 11/24/2019, cefepime was discontinued - 11/24/2019 sputum culture with growth of normal oropharyngeal hubert, blood cultures no growth to date x2, urine culture no growth - Infrasternal fluid collection aspirated 11/18 and fluid growing YEAST and Katia albicans. On Micafungin - Lipase normal - US B/L showed superficial cephalic thrombosis on left side - off Levophed (3) Cardiomyopathy: Code(s): I42.9 - Cardiomyopathy, unspecified Status: Acute Assessment and Plan: He has known ischemic cardiomyopathy with low EF. He had bypass surgery at [facility] after he was transferred from [facility] with some neurological changes in February 2019. He had CABG done in the [facility] but apparently had a complicated course afterward is he remained in ICU for almost 8 weeks. echocardiogram done on 11/14/2019 showed normal LV size with concentric hypertrophy. Hypokinesis of the mid anteroseptal segments and akinesis of the distal septum, anterior wall, lateral wall, inferior wall and apex. This is consistent with ischemic or Takotsubo cardiomyopathy. Is 25-30%. Grade 2 diastolic dysfunction. Mild mitral valve regurg - Not on carvedilol because of hypotension. - Cardiology Service recommendation appreciated. Bedside echo done by myself showed decreased EF and small IVC with significant respiratory variation. - On Lasix but but will hold at this time due to worsening creatinine - digoxin started by cardiology. - May need inotrope (4) COPD exacerbation: Code(s): J44.1 - Chronic obstructive pulmonary disease with (acute) exacerbation Status: Acute Assessment and Plan: Continue bronchodilators, antibiotics and mechanical ventilation - Pulmonology following the patient - Prednisone tapered off (5) Acute kidney injury: Code(s): N17.9 - Acute kidney failure, unspecified Status: Acute Assessment and Plan: patient was admitted with elevated creatinine which improved with resuscitation. over time patient was started on diuretics. - increased sodium and chloride, increase free water for hypernatremia and hyperchloremia - Worsening creatinine, Hold lasix and acetazolamide. will give IV fluid bolus (6) Diabetes: Qualifiers: Diabetes mellitus type: type 2 Diabetes mellitus assisted insulin use: with assisted use Diabetes mellitus complication status: with other specified complication Qualified Code(s): E11.69 - Type 2 diabetes mellitus with other specified complic
[2019-11-26 12:06] LABS: Glucose Point of Care 148 (65-105)
--- NOTE | 2019-11-26 12:10 | WPDINFPN2 ---
Progress Note: A&P Additional Plan 1. Febrile illness secondary to lower respiratory tract infection including pneumonia versus retrosternal infection with fluid accumulation. Status post drainage with cultures showing Katia. Temperature curve now favorable. Micafungin #7, continue. Imipenem #3, continue. 2. Respiratory failure on a ventilator with trach. He opens his eyes readily. 3. Leukocytosis improving 4. Change in mental status with no improvement despite being off sedation. Hypernatremia may be the responsible insult. 5. Renal insufficiency, no new dose adjustment. Subjective Date/time seen: 11/26/19 12:10 Interval history: trach, no sedation, no pressors Exam Narrative: Exam Narrative: t max 38.4 core Const: General: no acute distress Eyes: General: appearance normal, both eyes and all related structures Resp: Effort & Inspection: normal respiratory effort Auscultation: clear to auscultation bilaterally Cardio: Rate: tachycardic Rhythm: regular rhythm Heart sounds: no gallops and no murmurs GI: Inspection: non-distended GI Palp: Yes Soft to palpation and No Tenderness to palpation present (GI) Urinary Catheter: Urinary Catheter: patent and draining and urine clear Skin: General skin exam: normal color Objective Data Vital Signs Vital Signs: Vital Signs - 24 hr 11/25/19 12:48 11/25/19 14:00 11/25/19 14:03 Temperature 38.0 C H 38.1 C H 38.1 C H Pulse Rate 105 H 106 H Respiratory Rate 22 H 22 H Blood Pressure 82/55 L 97/67 L Pulse Oximetry 96 98 11/25/19 14:42 11/25/19 14:43 11/25/19 16:00 Temperature 38.3 C H Pulse Rate 107 H 107 H 110 H Respiratory Rate 24 H 29 H Blood Pressure 94/59 L Pulse Oximetry 96 96 11/25/19 16:54 11/25/19 17:22 11/25/19 17:54 Temperature 38.4 C H 38.4 C H Pulse Rate 109 H Respiratory Rate Blood Pressure Pulse Oximetry 96 11/25/19 18:00 11/25/19 19:52 11/25/19 20:00 Temperature 38.4 C H 38.0 C H Pulse Rate 110 H 106 H 105 H Respiratory Rate 25 H 25 H 27 H Blood Pressure 87/61 L 102/72 Pulse Oximetry 96 96 96 11/25/19 20:05 11/25/19 22:00 11/25/19 23:00 Temperature 37.8 C H Pulse Rate 105 H 106 H 106 H Respiratory Rate 22 H Blood Pressure 104/68 Pulse Oximetry 97 95 96 11/26/19 00:00 11/26/19 02:00 11/26/19 02:59 Temperature 37.7 C H 37.9 C H Pulse Rate 106 H 104 H 100 Respiratory Rate 24 H 26 H 20 Blood Pressure 97/68 L 100/71 Pulse Oximetry 96 96 11/26/19 03:02 11/26/19 03:54 11/26/19 04:00 Temperature 37.9 C H Pulse Rate 100 106 H 106 H Respiratory Rate 24 H 23 H Blood Pressure 100/73 Pulse Oximetry 96 95 96 11/26/19 06:00 11/26/19 07:21 11/26/19 07:25 Temperature 37.6 C H Pulse Rate 105 H 106 H 107 H Respiratory Rate 22 H 20 21 H Blood Pressure 100/72 106/74 Pulse Oximetry 96 97 11/26/19 07:26 11/26/19 08:33 11/26/19 08:36 Temperature Pulse Rate 98 104 H 102 H Respiratory Rate Blood Pressure Pulse Oximetry 97 99 11/26/19 10:00 11/26/19 11:58 Temperature 36.9 C Pulse Rate 105 H 108 H Respiratory Rate 22 H Blood Pressure 103/70 Pulse Oximetry 96 97 Intake/Output Intake/Output: Intake & Output 11/23/19 11/24/19 11/25/19 11/26/19 23:59 23:59 23:59 23:59 Intake Total 2480 2182 3567 1790 Output Total 950 1650 2100 450 Balance 7052 708 2309 1340 Meds/Results Medications: Active Medications Generic Name Dose Route Start Last Admin Trade Name Freq PRN Reason Stop Dose Admin Acetaminophen 650 mg 11/16/19 09:36 11/25/19 16:54 Tylenol Tablet PO 650 mg Q4H PRN Administration Mild Pain (1-3) or Fever Alteplase, Recombinant 2 mg 11/26/19 12:05 Cathflo Activase IV PUSH ONCE PRN Line Occlusion Aspirin 325 mg 11/11/19 09:00 11/26/19 08:45 Aspirin PO 325 mg DAILY KASSIDY Administration Citalopram Hydrobromide 20 mg 11/11/19 09:00 11/26/19 08:36 Celexa PO 20 mg DAILY KASSIDY Administration Dextr
[2019-11-26] MEDS: ALTEPLASE 2 MG VIAL (CATHFLO) IV PUSH (12:43)
[2019-11-26 16:44] LABS: Glucose Point of Care 160 (65-105)
[2019-11-26] MEDS: SENNA/DOCUSATE SODIUM TABLET 2 TAB PO (16:45)
[2019-11-26] MEDS: ACETAMINOPHEN 325 MG TABLET 650 MG PO ×2 (16:45→21:14)
--- NOTE | 2019-11-26 17:09 | PM.PNCARD ---
Progress Note: A&P Assessment and Plan (1) Cardiomyopathy: Code(s): I42.9 - Cardiomyopathy, unspecified Status: Acute Assessment and Plan: He has ischemic cardiomyopathy with low EF but stable since CABG Euvolemic and creatinine slowly rising. Agree with holding diuretics (2) CHF (congestive heart failure): Qualifiers: Heart failure type: other Qualified Code(s): I50.9 - Heart failure, unspecified Code(s): I50.9 - Heart failure, unspecified Status: Acute Assessment and Plan: Hold diuretics, follow up input and outputs closely. Appears euvolemic. (3) Acute hypercapnic respiratory failure: Code(s): J96.02 - Acute respiratory failure with hypercapnia Status: Acute Assessment and Plan: With COPD, pneumonia and CHF. 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 Diabetes mellitus complication status: with other specified complication Qualified Code(s): E11.69 - Type 2 diabetes mellitus with other specified complication; Z79.4 - jail (current) use of insulin Code(s): E11.9 - Type 2 diabetes mellitus without complications Status: Acute (5) Pneumonia: Qualifiers: Laterality: unspecified laterality Lung location: unspecified part of lung Pneumonia type: due to unspecified organism Qualified Code(s): J18.9 - Pneumonia, unspecified organism Code(s): J18.9 - Pneumonia, unspecified organism Status: Acute (6) Coronary artery disease: Code(s): I25.10 - Atherosclerotic heart disease of [place] coronary artery without angina pectoris Status: Acute Assessment and Plan: Status post coronary bypass surgery last year Subjective Date/time seen: 11/26/19 17:09 s/p tracheostomy, tolerated well Review of Systems Review of Systems: Narrative: Unable to obtain. Exam Narrative: Exam Narrative: Sedated and intubated Neck is supple no obvious JVD, no carotid bruit Chest: decreased breathing sounds at the bases, with crackles noted and rhonchi noted Cardiovascular: Regular rate and rhythm, 2/6 systolic murmur noted left sternal border Abdomen: Soft nontender bowel sounds positive Extremities: No edema has good pulses distally bilaterally Objective Data Vital Signs Vital Signs: Vital Signs - 24 hr 11/25/19 17:22 11/25/19 17:54 11/25/19 18:00 Temperature 38.4 C H 38.4 C H Pulse Rate 109 H 110 H Respiratory Rate 25 H Blood Pressure 87/61 L Pulse Oximetry 96 96 11/25/19 19:52 11/25/19 20:00 11/25/19 20:05 Temperature 38.0 C H Pulse Rate 106 H 105 H 105 H Respiratory Rate 25 H 27 H Blood Pressure 102/72 Pulse Oximetry 96 96 97 11/25/19 22:00 11/25/19 23:00 11/26/19 00:00 Temperature 37.8 C H 37.7 C H Pulse Rate 106 H 106 H 106 H Respiratory Rate 22 H 24 H Blood Pressure 104/68 97/68 L Pulse Oximetry 95 96 96 11/26/19 02:00 11/26/19 02:59 11/26/19 03:02 Temperature 37.9 C H Pulse Rate 104 H 100 100 Respiratory Rate 26 H 20 Blood Pressure 100/71 Pulse Oximetry 96 96 11/26/19 03:54 11/26/19 04:00 11/26/19 06:00 Temperature 37.9 C H Pulse Rate 106 H 106 H 105 H Respiratory Rate 24 H 23 H 22 H Blood Pressure 100/73 100/72 Pulse Oximetry 95 96 96 11/26/19 07:21 11/26/19 07:25 11/26/19 07:26 Temperature 37.6 C H Pulse Rate 106 H 107 H 98 Respiratory Rate 20 21 H Blood Pressure 106/74 Pulse Oximetry 97 97 11/26/19 08:33 11/26/19 08:36 11/26/19 10:00 Temperature 36.9 C Pulse Rate 104 H 102 H 105 H Respiratory Rate 22 H Blood Pressure 103/70 Pulse Oximetry 99 96 11/26/19 11:58 11/26/19 12:00 11/26/19 14:00 Temperature 37.4 C 37.6 C H Pulse Rate 108 H 107 H 111 H Respiratory Rate 21 H 27 H Blood Pressure 103/70 90/70 L Pulse Oximetry 97 97 97 11/26/19 14:42 11/26/19 14:44 11/26/19 15:00 Temperature Puls
--- NOTE | 2019-11-26 18:12 | PM.IMPN ---
Progress Note: A&P Assessment and Plan (1) COPD exacerbation: Code(s): J44.1 - Chronic obstructive pulmonary disease with (acute) exacerbation Status: Acute Assessment and Plan: 11/26/19 18:12 Patient with acute respiratory failure secondary to hypercapnia most likely secondary to exacerbation of COPD, intubated due to respiratory distress, pt has history of COPD, HTN, GERD, DM, schizoaffective disorder and ischemic cardiomyopathy with low EF,. Some sternal fluid/ infection after his CABG. Ongoing sepsis and fever. Pt also has acute kidney injury and suspected fungal infection. Family have decided on active medical therapy but do not resuscitate pt in case of cardiac arrest. Pt will need Trach which is scheduled for tomorrow. Family are aware of poor prognosis. Pt had PEG on 11/22, patient had a trach placed. No improvement with condition. ischemic cardiomyopathy with low EF, along with systolic CHF chronic and stable. Patient is awaiting LTAC placement (2) Diabetes: Qualifiers: Diabetes mellitus type: type 2 Diabetes mellitus jail insulin use: with jail use Diabetes mellitus complication status: with other specified complication Qualified Code(s): E11.69 - Type 2 diabetes mellitus with other specified complication; Z79.4 - long term care administrator (current) use of insulin Code(s): E11.9 - Type 2 diabetes mellitus without complications Status: Acute Assessment and Plan: Accuchecks, SSI, hold home medications (3) DVT prophylaxis: Code(s): Z29.9 - Encounter for prophylactic measures, unspecified Status: Acute Assessment and Plan: Lovenox (4) Acute hypercapnic respiratory failure: Code(s): J96.02 - Acute respiratory failure with hypercapnia Status: Acute Assessment and Plan: Worsening ABG was emergently intubated @1 weeks ago. (5) Pneumonia: Qualifiers: Laterality: unspecified laterality Lung location: unspecified part of lung Pneumonia type: due to unspecified organism Qualified Code(s): J18.9 - Pneumonia, unspecified organism Code(s): J18.9 - Pneumonia, unspecified organism Status: Acute Assessment and Plan: Cxr shows Small right pleural effusion versus pleural parenchymal scarring at the right costophrenic angle related to prior surgical procedure in the right hemithorax with posterior right thoracotomy defect. Patient being treated Cefepime 07/[address] Richardson and micafungin IV (6) Acute kidney injury: Code(s): N17.9 - Acute kidney failure, unspecified Status: Acute Assessment and Plan: Creat is 1.7, continue to watch (7) Acute hyperkalemia: Code(s): E87.5 - Hyperkalemia Status: Resolved Assessment and Plan: After fluids (8) History of open heart surgery: Code(s): Z98.890 - Other specified postprocedural states Status: Acute Assessment and Plan: Recent CABG in [facility] obtain notes, wound swab on sternotomy wound (9) Sepsis: Qualifiers: Sepsis type: sepsis due to unspecified organism Sepsis acute organ dysfunction status: with acute organ dysfunction Severe sepsis acute organ dysfunction type: acute renal failure Acute renal failure type: unspecified Severe sepsis shock status: without septic shock Qualified Code(s): A41.9 - Sepsis, unspecified organism; R65.20 - Severe sepsis without septic shock; N17.9 - Acute kidney failure, unspecified Code(s): A41.9 - Sepsis, unspecified organism Status: Acute Assessment and Plan: Upon arrival patient with criteria of sepsis most likely secondary to pneumonia patient being treated Cefepime for [address] Richardson stops upon pain continued meropenem and micafungin IV Subjective Date/time seen: 11/26/19 18:12 Patient with acute respiratory failure secondary to hypercapnia most likely secondary to exacerbation of COPD, intubated due to respiratory distre
[2019-11-26] MEDS: METOPROLOL TARTRATE 12.5 MG TABLET PO (20:57)
[2019-11-26 21:05] LABS: Glucose Point of Care 132 (65-105)
[2019-11-26] MEDS: MICAFUNGIN SODIUM 100 MG in SODIUM CHLORIDE 0.9% IV 100 ML IVPB (21:14)
[2019-11-27] VITALS (22 sets, daily range): BP systolic 88–105; BP diastolic 57–76; PULSE 105–123; RESP 19–31; TEMP 37.8–38.2; O2SAT 94–98
[2019-11-27 00:41] LABS: Glucose Point of Care 169 (65-105)
[2019-11-27] MEDS: IPRATROPIUM BR 0.02% INH SOLN 0.5 MG/2.5 ML VIAL INHALATION ×3 (03:28→14:20)
[2019-11-27] MEDS: LEVALBUTEROL NEB 1.25 MG/3 ML 0.63 MG INHALATION ×3 (03:29→14:20)
[2019-11-27 04:44] LABS: Basophils Percent Auto 0.3 % (0.2-1.2); Eosinophils Absolute Auto 0.2 K/mm3 (0-0.3); Hematocrit 35.5 % (42.0-52.0); Hemoglobin 10.5 g/dL (14.0-18.0); Immature Granulocyte Absolute 0.04 K/mm3 (0.00-0.031); Immature Granulocyte Percent A 0.4 % (0-0.5); Lymphocytes Absolute Auto 0.57 K/mm3 (0.9-3.2); Lymphocytes Percent Auto 5.2 % (18.3-44.2); Mean Corpuscular HGB Conc 29.6 g/dl (32-36); Mean Corpuscular Hemoglobin 27.9 pg (26-34); Mean Corpuscular Volume 94.4 fl (80-100); Mean Platelet Volume 12.4 fl (7.4-10.4); Monocytes Absolute Auto 0.4 K/mm3 (0.1-0.6); Monocytes Percent Auto 3.8 % (2.6-8.5); Neutrophils Absolute Auto 9.7 K/mm3 (1.3-6.7); Neutrophils Percent Auto 88.3 % (45.5-73.1); Platelet Count Result 182 k/mm3 (150-375); Red Blood Count 3.76 M/mm3 (4.6-6.20); Red Cell Distribution Width 19.9 % (11.5-14.5); White Blood Count 10.9 K/mm3 (4.5-10.0)
[2019-11-27 05:06] LABS: Alveolar/Arterial O2 Gradient 93.1 mmHg; Base Excess ABG -1.4 mEq/l (+/-2.0); Carboxyhemoglobin 0.3 % THb (0-2.0); Fractional Inspired Oxygen 30 %; HCO3 ABG 22.7 mEq/l (22.0-26.0); Methemoglobin ABG 0.2 %THb (0-1.5); Oxygen Content ABG 14.9 %vol (16.0-22.0); Oxygen Saturation ABG 95.8 % (95.0-100.0); Oxyhemoglobin 93.6 % THb (90.0-100.0); PCO2 ABG 36.2 mmHg (35.0-45.0); PO2 ABG 78.3 mmHg (80.0-100.0); PO2 FiO2 Ratio Arterial Blood 2.61 %; Reduced Hemoglobin 5.9 %THb (0-5.0); Total Hemoglobin 11.3 g/dL (12.0-18.0); pH ABG 7.416 (7.350-7.450)
[2019-11-27 05:07] LABS: Device VENTILATOR; Modified Allen's Test Pass; Site Drawn RIGHT RADIAL
[2019-11-27 05:09] LABS: Arterial Blood Gas Minute Volume 7 LPM; Arterial Blood Gas PEEP 5 cmH2O; Arterial Blood Gas Tidal Volume 520 ml; Arterial Blood Gas Vent Mode ASV
[2019-11-27 05:10] LABS: Blood Urea Nitrogen 79 mg/dL (9-20); Calcium 8.3 mg/dL (8.4-10.2); Carbon Dioxide 27 mmol/L (22-30); Chloride 115 mmol/L (98-107); Estimated CRCL calculation 30 ml/min; Estimated Glomerular Filt Rate 32; Glucose 181 mg/dL (75-110); Magnesium 2.8 mg/dL (1.6-2.3); Phosphorus 3.8 mg/dL (2.5-4.5); Potassium 3.9 mmol/L (3.4-5.0); Sodium 151 mmol/L (137-145)
[2019-11-27] MEDS: IMIPENEM/CILASTATIN SODIUM 250 MG in DEXTROSE 5% 100 ML 300 MG IVPB ×2 (05:15→14:00)
[2019-11-27 05:32] LABS: Macrocytosis 1+ (NORMAL); Microcytosis 1+ (NORMAL); Platelet Estimate Adequate (Adequate)
--- NOTE | 2019-11-27 09:13 | ECG_ITS ---
Measurements Intervals [place] Rate: 123 P: 28 MD: 219 QRS: -1 QRSD: 134 T: 20 QT: 344 QTc: 493 Interpretive Statements SINUS OR ECTOPIC ATRIAL TACHYCARDIA WITH FIRST DEGREE AV BLOCK VENTRICULAR PREMATURE COMPLEX RIGHT BUNDLE BRANCH BLOCK BASELINE ARTIFACT- II, III, AVF ABNORMAL ECG Electronically Signed On 11-27-2019 9:34:26 [employer] by Torito Stapleton D.O.
[2019-11-27] MEDS: CITALOPRAM HYDROBROMIDE 20 MG TABLET PO (09:26)
[2019-11-27] MEDS: ASPIRIN 325 MG TABLET PO (09:26)
[2019-11-27] MEDS: FAMOTIDINE 20 MG/2 ML VIAL IV PUSH (09:27)
[2019-11-27] MEDS: ENOXAPARIN 40 MG/0.4 ML SYRINGE SUB-Q (09:27)
[2019-11-27] MEDS: METOPROLOL TARTRATE 12.5 MG TABLET PO (09:28)
[2019-11-27] MEDS: SIMVASTATIN 20 MG TABLET PO (09:29)
--- NOTE | 2019-11-27 09:40 | PM.PNCARD ---
Progress Note: A&P Assessment and Plan (1) Cardiomyopathy: Code(s): I42.9 - Cardiomyopathy, unspecified Status: Acute Assessment and Plan: He has ischemic cardiomyopathy with low EF but stable since CABG Euvolemic and creatinine went up while diuresing. Lasix on hold. Sinus tachycardia noted. Will resume Metoprolol. Increase dose as BP allows. (2) CHF (congestive heart failure): Qualifiers: Heart failure type: other Qualified Code(s): I50.9 - Heart failure, unspecified Code(s): I50.9 - Heart failure, unspecified Status: Acute Assessment and Plan: Appears euvolemic Resume BB Resume MARANDA once kidney function improve. (3) Acute hypercapnic respiratory failure: Code(s): J96.02 - Acute respiratory failure with hypercapnia Status: Acute Assessment and Plan: With COPD, pneumonia and CHF. 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 Diabetes mellitus complication status: with other specified complication Qualified Code(s): E11.69 - Type 2 diabetes mellitus with other specified complication; Z79.4 - group home (current) use of insulin Code(s): E11.9 - Type 2 diabetes mellitus without complications Status: Acute (5) Pneumonia: Qualifiers: Laterality: unspecified laterality Lung location: unspecified part of lung Pneumonia type: due to unspecified organism Qualified Code(s): J18.9 - Pneumonia, unspecified organism Code(s): J18.9 - Pneumonia, unspecified organism Status: Acute (6) Coronary artery disease: Code(s): I25.10 - Atherosclerotic heart disease of [place] coronary artery without angina pectoris Status: Acute Assessment and Plan: Status post coronary bypass surgery last year Continue ASA Additional Plan he get PEG tube placement, getting tracheostomy next week Subjective Date/time seen: 11/27/19 09:40 S/p tracheostomy Tachycardiac ~ 110-120, sinus tachycardia. Review of Systems Review of Systems: Narrative: Unable to obtain. Exam Narrative: Exam Narrative: Sedated and intubated Neck is supple no obvious JVD, no carotid bruit Chest: decreased breathing sounds at the bases, with crackles noted and rhonchi noted Cardiovascular: Regular rate and rhythm, 2/6 systolic murmur noted left sternal border Abdomen: Soft nontender bowel sounds positive Extremities: No edema has good pulses distally bilaterally Objective Data Vital Signs Vital Signs: Vital Signs - 24 hr 11/26/19 10:00 11/26/19 11:58 11/26/19 12:00 Temperature 36.9 C 37.4 C Pulse Rate 105 H 108 H 107 H Respiratory Rate 22 H 21 H Blood Pressure 103/70 103/70 Pulse Oximetry 96 97 97 11/26/19 14:00 11/26/19 14:42 11/26/19 14:44 Temperature 37.6 C H Pulse Rate 111 H 113 H 112 H Respiratory Rate 27 H 24 H Blood Pressure 90/70 L Pulse Oximetry 97 96 11/26/19 15:00 11/26/19 16:00 11/26/19 16:45 Temperature 37.8 C H 37.9 C H Pulse Rate 116 H 120 H Respiratory Rate 28 H 27 H Blood Pressure 104/70 Pulse Oximetry 95 11/26/19 17:45 11/26/19 17:49 11/26/19 18:00 Temperature 38.0 C H 38.0 C H Pulse Rate 120 H 119 H Respiratory Rate 30 H Blood Pressure 97/68 L Pulse Oximetry 95 95 11/26/19 19:53 11/26/19 20:00 11/26/19 20:20 Temperature 37.9 C H Pulse Rate 116 H 117 H 115 H Respiratory Rate 21 H 23 H Blood Pressure 104/71 Pulse Oximetry 96 96 96 11/26/19 20:28 11/26/19 20:36 11/26/19 20:57 Temperature Pulse Rate 115 H 116 H 115 H Respiratory Rate 25 H 23 H Blood Pressure Pulse Oximetry 11/26/19 21:14 11/26/19 22:00 11/26/19 23:20 Temperature 37.8 C H 37.8 C H Pulse Rate 114 H 115 H Respiratory Rate 25 H Blood Pressure 93/61 L Pulse Oximetry 96 96 11/27/19 00:00 11/27/19 02:00 11/27/19 02:20 Temperature 37.9 C H 37.8 C H Pulse R
[2019-11-27] MEDS: INSULIN GLARGINE (*BKC) 100 UNITS/ML 15 UNITS SUB-Q (09:49)
--- NOTE | 2019-11-27 10:47 | PCDIET ---
ICU Rounding Note: Pt current nutrition is Glucerna 1.2 @ 70ml/hr Nutrition recommendation: Agree Last recorded weight is 79.2 kg up from 77.3kg yesterday Bowel Motility: BM today Labs Reviewed:Na 151 (EN has been on hold due to procedure), GFR 32, Glucose 181, Mg 2.8 Meds Noted:Off all sedation, no insulin provided yet Additional Notes: Pt ready for transfer to LTAC. Trach and peg in place. EN restarting today, which he has been tolerating well. Off all sedation, but only opens eyes to name, no tracking per MD. WE will continue to monitor EN, labs, bms. Following daily in ICU rounds. Assessing/reassessing T/F
[2019-11-27 11:12] LABS: Glucose Point of Care 190 (65-105)
--- NOTE | 2019-11-27 12:39 | WPDINFPN2 ---
Progress Note: A&P Additional Plan 1. Febrile illness secondary to lower respiratory tract infection including pneumonia versus retrosternal infection with fluid accumulation. Status post drainage with cultures showing Katia. Temperature curve now favorable. Micafungin #8 / 10, continue. Imipenem #4 /7, continue. 2. Respiratory failure on a ventilator with trach. He opens his eyes readily. 3. Leukocytosis improving, almost back to normal 4. Change in mental status with no improvement despite being off sedation. Hypernatremia may be the responsible insult. 5. Renal insufficiency, no new dose adjustment. Subjective Date/time seen: 11/27/19 12:39 Exam Narrative: Exam Narrative: afebrile ( t max 38.0 core, nearly flat temperature curve) Const: General: no acute distress Eyes: General: appearance normal, both eyes and all related structures Resp: Effort & Inspection: normal respiratory effort Auscultation: clear to auscultation bilaterally Cardio: Rate: regular rate and tachycardic Rhythm: regular rhythm Heart sounds: Murmur heart sound present GI: Inspection: non-distended GI Palp: Yes Soft to palpation Urinary Catheter: Urinary Catheter: patent and draining and urine clear Skin: General skin exam: no rashes or lesions noted Extrem: General: no edema Objective Data Vital Signs Vital Signs: Vital Signs - 24 hr 11/26/19 14:00 11/26/19 14:42 11/26/19 14:44 Temperature 37.6 C H Pulse Rate 111 H 113 H 112 H Respiratory Rate 27 H 24 H Blood Pressure 90/70 L Pulse Oximetry 97 96 11/26/19 15:00 11/26/19 16:00 11/26/19 16:45 Temperature 37.8 C H 37.9 C H Pulse Rate 116 H 120 H Respiratory Rate 28 H 27 H Blood Pressure 104/70 Pulse Oximetry 95 11/26/19 17:45 11/26/19 17:49 11/26/19 18:00 Temperature 38.0 C H 38.0 C H Pulse Rate 120 H 119 H Respiratory Rate 30 H Blood Pressure 97/68 L Pulse Oximetry 95 95 11/26/19 19:53 11/26/19 20:00 11/26/19 20:20 Temperature 37.9 C H Pulse Rate 116 H 117 H 115 H Respiratory Rate 21 H 23 H Blood Pressure 104/71 Pulse Oximetry 96 96 96 11/26/19 20:28 11/26/19 20:36 11/26/19 20:57 Temperature Pulse Rate 115 H 116 H 115 H Respiratory Rate 25 H 23 H Blood Pressure Pulse Oximetry 11/26/19 21:14 11/26/19 22:00 11/26/19 23:20 Temperature 37.8 C H 37.8 C H Pulse Rate 114 H 115 H Respiratory Rate 25 H Blood Pressure 93/61 L Pulse Oximetry 96 96 11/27/19 00:00 11/27/19 02:00 11/27/19 02:20 Temperature 37.9 C H 37.8 C H Pulse Rate 105 H 108 H 110 H Respiratory Rate 24 H 24 H Blood Pressure 95/57 L 94/65 L Pulse Oximetry 96 96 96 11/27/19 03:29 11/27/19 03:34 11/27/19 04:00 Temperature 37.8 C H Pulse Rate 110 H 110 H 109 H Respiratory Rate 28 H 19 23 H Blood Pressure 100/68 Pulse Oximetry 96 11/27/19 04:55 11/27/19 06:00 11/27/19 08:37 Temperature 37.8 C H Pulse Rate 113 H 114 H 118 H Respiratory Rate 23 H 30 H Blood Pressure 99/75 L Pulse Oximetry 96 98 96 11/27/19 08:46 11/27/19 09:28 Temperature Pulse Rate 120 H 123 H Respiratory Rate 28 H Blood Pressure Pulse Oximetry Intake/Output Intake/Output: Intake & Output 11/24/19 11/25/19 11/26/19 11/27/19 23:59 23:59 23:59 23:59 Intake Total 2182 3567 2490 1102 Output Total 1650 2100 1100 650 Balance 532 1467 1390 452 Meds/Results Medications: Active Medications Generic Name Dose Route Start Last Admin Trade Name Freq PRN Reason Stop Dose Admin Acetaminophen 650 mg 11/16/19 09:36 11/26/19 21:14 Tylenol Tablet PO 650 mg Q4H PRN Administration Mild Pain (1-3) or Fever Alteplase, Recombinant 2 mg 11/26/19 12:05 11/26/19 12:43 Cathflo Activase IV PUSH 2 mg ONCE PRN Administration Line Occlusion Aspirin 325 mg 11/11/19 09:00 11/27/19 09:26 Aspirin PO 325 mg DAILY KASSIDY Administration Citalopram Hydrobromide 20 mg 11/11/19 09:00 11/27/19 09:26 Celexa
[2019-11-27 13:19] LABS: Glucose Point of Care 144 (65-105)
--- NOTE | 2019-11-27 13:35 | WPDANESPN ---
Anes - Prog Note Post-Op Date/Time: 11/27/19 13:35 Cardiovascular status: normal Respiratory status: normal and other (patient has new trach) Airway patency: baseline Mental status: other (patient has decreased mental status, unable to assess) Post-Op hydration status: normal Vital Signs: Last Vital Signs Temp 37.8 C H 11/27/19 06:00 Pulse 112 H 11/27/19 13:06 Resp 28 H 11/27/19 08:46 BP 99/75 L 11/27/19 06:00 Pulse Ox 96 11/27/19 13:06 I/O: Intake & Output 11/26/19 11/27/19 11/27/19 23:59 07:59 15:59 Intake Total 600 1102 Output Total 650 650 Balance -50 452 Laboratory Tests 11/27/19 04:35 11/27/19 04:35 11/26/19 11/26/19 11/27/19 16:42 21:02 00:39 WBC RBC Hgb Hct MCV MCH MCHC RDW Plt Count MPV Immature Gran % (Auto) Neut % (Auto) Lymph % (Auto) [place] % (Auto) Eos % (Auto) Baso % (Auto) Lymph # (Auto) [place] # (Auto) Eos # (Auto) Baso # (Auto) Abs Immat Gran (auto) Absolute Neuts (auto) Absolute Nucleated RBC Nucleated RBC % Platelet Estimate Microcytosis Macrocytosis Puncture Site ABG pH ABG pCO2 ABG pO2 ABG PO2/FiO2 Ratio ABG HCO3 ABG O2 Saturation ABG O2 Content ABG Base Excess A-a Gradient Oxyhemoglobin Carboxyhemoglobin Methemoglobin Reduced Hemoglobin Total Hemoglobin O2 Delivery Device O2 Liters/Min Minute Volume Vent Rate Vent Mode FiO2 Tidal Volume PEEP Peak Inspir Pressure Pressure Support Sodium Potassium Chloride Carbon Dioxide BUN Creatinine Estim Creat Clear Calc Estimated GFR Glucose POC Capillary Glucose 160 H 132 H 169 H Calcium Phosphorus Magnesium 11/27/19 11/27/19 11/27/19 04:27 04:35 04:35 WBC 10.9 H RBC 3.76 L Hgb 10.5 L Hct 35.5 L MCV 94.4 MCH 27.9 MCHC 29.6 L RDW 19.9 H Plt Count 182 MPV 12.4 H Immature Gran % (Auto) 0.4 Neut % (Auto) 88.3 H Lymph % (Auto) 5.2 L [place] % (Auto) 3.8 Eos % (Auto) 2.0 Baso % (Auto) 0.3 Lymph # (Auto) 0.57 L [place] # (Auto) 0.4 Eos # (Auto) 0.2 Baso # (Auto) 0.0 Abs Immat Gran (auto) 0.04 H Absolute Neuts (auto) 9.7 H Absolute Nucleated RBC 0.0 Nucleated RBC % 0.0 Platelet Estimate Adequate Microcytosis 1+ Macrocytosis 1+ Puncture Site Right radial ABG pH 7.416 ABG pCO2 36.2 ABG pO2 78.3 L ABG PO2/FiO2 Ratio 2.61 ABG HCO3 22.7 ABG O2 Saturation 95.8 ABG O2 Content 14.9 L ABG Base Excess -1.4 A-a Gradient 93.1 Oxyhemoglobin 93.6 Carboxyhemoglobin 0.3 Methemoglobin 0.2 Reduced Hemoglobin 5.9 H Total Hemoglobin 11.3 L O2 Delivery Device Ventilator O2 Liters/Min Not Reportable Minute Volume 7 Vent Rate Not Reportable Vent Mode Asv FiO2 30 Tidal Volume 520 PEEP 5 Peak Inspir Pressure Not Reportable Pressure Support Not Reportable Sodium 151 H Potassium 3.9 Chloride 115 H Carbon Dioxide 27 BUN 79 H Creatinine 2.10 H Estim Creat Clear Calc 30 Estimated GFR 32 L Glucose 181 H POC Capillary Glucose Calcium 8.3 L Phosphorus 3.8 Magnesium 2.8 H 11/27/19 11/27/19 09:48 13:16 WBC RBC Hgb Hct MCV MCH MCHC RDW Plt Count MPV Immature Gran % (Auto) Neut % (Auto) Lymph % (Auto) [place] % (Auto) Eos % (Auto) Baso % (Auto) Lymph # (Auto) [place] # (Auto) Eos # (Auto) Baso # (Auto) Abs Immat Gran (auto) Absolute Neuts (auto) Absolute Nucleated RBC Nucleated RBC % Platelet Estimate Microcytosis Macrocytosis Puncture Site ABG pH ABG pCO2 ABG pO2 ABG PO2/FiO2 Ratio ABG HCO3 ABG O2 Saturation ABG O2 Content ABG Base Excess A-a Gradient Oxyhemoglobin Carboxyhemoglobin Methemoglobin Reduced Hemo
--- NOTE | 2019-11-27 14:02 | WPDINTPN ---
Progress Note: A&P Assessment and Plan (1) Acute respiratory failure with hypoxia and hypercapnia: Code(s): J96.01 - Acute respiratory failure with hypoxia; J96.02 - Acute respiratory failure with hypercapnia Status: Acute Assessment and Plan: Acute hypoxic and hypercapnic respiratory failure - multifactorial- Pseudomonas pneumonia, COPD, CHF, generalized weakness - tracheostomy placed 11/26/2019, PEG tube placed on 11/22/2019 - chest x-ray and ABG reviewed - patient on ASV mode of ventilation, 30% FiO2 - Infectious Disease team started patient on imipenem on 11/24/2019, cefepime was discontinued - continue bronchodilators - HOLD LASIX AND Acetazolamide - oozing around tracheostomy is tight (2) Sepsis: Qualifiers: Sepsis type: sepsis due to unspecified organism Sepsis acute organ dysfunction status: with acute organ dysfunction Severe sepsis acute organ dysfunction type: acute renal failure Acute renal failure type: unspecified Severe sepsis shock status: without septic shock Qualified Code(s): A41.9 - Sepsis, unspecified organism; R65.20 - Severe sepsis without septic shock; N17.9 - Acute kidney failure, unspecified Code(s): A41.9 - Sepsis, unspecified organism Status: Acute Assessment and Plan: secondary to Pseudomona PNA - fever curve trending down so is the WBC count.. Sputum cultures grew Pseudomonas, Continue imipenem by Infectious Disease was started on 11/24/2019, - 11/24/2019 sputum culture with growth of normal oropharyngeal hubert, blood cultures no growth to date x2, urine culture no growth - Infrasternal fluid collection aspirated 11/18 and fluid growing YEAST and Katia albicans. On Micafungin - Lipase normal - US B/L showed superficial cephalic thrombosis on left side - off Levophed (3) Cardiomyopathy: Code(s): I42.9 - Cardiomyopathy, unspecified Status: Acute Assessment and Plan: He has known ischemic cardiomyopathy with low EF. He had bypass surgery at [facility] after he was transferred from [facility] with some neurological changes in February 2019. He had CABG done in the [facility] but apparently had a complicated course afterward is he remained in ICU for almost 8 weeks. echocardiogram done on 11/14/2019 showed normal LV size with concentric hypertrophy. Hypokinesis of the mid anteroseptal segments and akinesis of the distal septum, anterior wall, lateral wall, inferior wall and apex. This is consistent with ischemic or Takotsubo cardiomyopathy. Is 25-30%. Grade 2 diastolic dysfunction. Mild mitral valve regurg - Cardiology Service recommendation appreciated. - Lasix on hold - digoxin on hold due to kidney urine - continue metoprolol per Cardiology (4) COPD exacerbation: Code(s): J44.1 - Chronic obstructive pulmonary disease with (acute) exacerbation Status: Acute Assessment and Plan: Continue bronchodilators, antibiotics and mechanical ventilation - Pulmonology following the patient - Prednisone tapered off (5) Acute kidney injury: Code(s): N17.9 - Acute kidney failure, unspecified Status: Acute Assessment and Plan: patient was admitted with elevated creatinine which improved with resuscitation. over time patient was started on diuretics. - increased sodium and chloride, increase free water for hypernatremia and hyperchloremia - Worsening creatinine, Hold lasix and acetazolamide. 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
[2019-11-27 18:29] LABS: Glucose Point of Care 150 (65-105)
--- NOTE | 2019-12-23 12:59 | PM.TDS ---
Transfer Discharge Sum: Prov Provider Date of admission: 11/10/19 05:16 Primary care physician: Tito Thompson, MD Admitting clinician: Sg Shaw MD Consults: 11/10/19 Consult to Physician Routine Comment: 11/10/2019 @ [address] Maldonado Consulting Provider: Georgina Maldonado scallop dredger/MD group to consult: Cardiology service Reason for consultation: ECHO showing depression ejection fraction ? Takasubo cardiomyopathy Has provider been notified: No 11/14/19 08:46 Consult to Physician Routine Comment: called dr. oliveira regarding consult Consulting Provider: Claire Oliveira scallop dredger/MD group to consult: Pulmonology Reason for consultation: COPD exacerbaton, respiratory failure Has provider been notified: Yes 11/16/19 Consult to Physician Routine Comment: called and notified Consulting Provider: Felipe Walsh scallop dredger/MD group to consult: Infectious Disease Reason for consultation: Pneumonia. sputum PSA. Still spiking fever while on appropriate abx Has provider been notified: Yes 11/17/19 Consult to Physician Routine Comment: changed to kathryn Consulting Provider: Leonard Carlos scallop dredger/MD group to consult: Cardiology Reason for consultation: Shock. ECHO ? Takasubo cardiomypathy Has provider been notified: Yes 11/21/19 Consult to Physician Routine Comment: CALLED OFFICE AND NOTIFIED OF CONSULT Consulting Provider: Jesu South scallop dredger/MD group to consult: ENT Reason for consultation: Trach Has provider been notified: Yes Consult to Physician Routine Comment: called office and notified of consult Consulting Provider: Juan Gregorio scallop dredger/MD group to consult: GI Reason for consultation: PEG Has provider been notified: Yes DS: Diagnosis Admitting Diagnosis Admitting Diagnosis: Acute respiratory failure with hypercapnia Transfer Discharge Sum: Med Medications Active and Home Medications: Home Medications Antifungal Cream (miconazole) 1 unit TOPICAL Q12H 11/10/19 [History Confirmed 11/10/19] Daily Multivitamin 1 tab-cap PO DAILY 11/10/19 [History Confirmed 11/10/19] Spiriva Respimat 1 cap INHALATION DAILY 11/10/19 [History Confirmed 11/10/19] acetaminophen [Tylenol] 650 mg PO Q6H PRN 11/10/19 [History Confirmed 11/10/19] albuterol sulfate [ProAir HFA] 2 puff INHALATION Q4H PRN 11/10/19 [History Confirmed 11/10/19] aspirin 325 mg PO DAILY 11/10/19 [History Confirmed 11/10/19] citalopram 20 mg PO DAILY 11/10/19 [History Confirmed 11/10/19] cyanocobalamin (vitamin B-12) [Vitamin B-12] 1,000 mcg PO DAILY 11/10/19 [History Confirmed 11/10/19] esomeprazole magnesium 40 mg PO DAILY 11/10/19 [History Confirmed 11/10/19] ferrous sulfate 325 mg PO BID 11/10/19 [History Confirmed 11/10/19] fluticasone propion-salmeterol [Advair Diskus] 1 puff INHALATION Q12H 11/10/19 [History Confirmed 11/10/19] furosemide 40 mg PO DAILY 11/10/19 [History Confirmed 11/10/19] gabapentin 600 mg PO BID 11/10/19 [History Confirmed 11/10/19] hydroxyzine pamoate 25 mg PO TID 11/10/19 [History Confirmed 11/10/19] insulin glargine [Lantus U-100 Insulin] 14 unit SUBCUT HS 11/10/19 [History Confirmed 11/10/19] insulin lispro [Humalog U-100 Insulin] See Rx Instructions .ROUTE .COMPLEX 11/10/19 [History Confirmed 11/10/19] ipratropium-albuterol 3 ml INHALATION Q6H PRN 11/10/19 [History Confirmed 11/10/19] lanolin yqsavfj-ro-k.pet-ceres [Eucerin] 1 applic TOPICAL Q12H 11/10/19 [History Confirmed 11/10/19] linagliptin [Tradjenta] 5 mg PO DAILY 11/10/19 [History Confirmed 11/10/19] losartan 25 mg PO DAILY 11/10/19 [History Confirmed 11/10/19] metformin 500 mg PO BID 11/10/19 [History Confirmed 11/10/19] metoprolol tartrate 12.5 mg PO Q12H 11/10/19 [History Confirmed 11/10/19] nicotine 1 patch TRANSDERMAL DAILY 11/10/19 [History Confirmed 11/10/19] paliperidone palmitate [Invega Sustenna] 156 mg IM MONTHLY 11/10/19 [History Confirmed 11/10/19] polyethylene glycol 3350 17 g PO DAILY 11/10/19 [History Confirme
== END 2019-11-27 20:00 | DRG 4 ==
LOC: ANHED 05:02 → ANHICU 05:37 → ANH3MEDSUR 11-28 08:38 → ANHICU 11-28 08:38 → ANHIMU 11-28 08:38
PROVIDERS: Family Medicine; Internal Medicine; Internal Medicine Critical Care Medicine; Internal Medicine Gastroenterology; Internal Medicine Infectious Disease; Otolaryngology; Specialist; Admitting Provider Family Medicine; Emergency Provider Emergency Medicine; Visit Provider Family Medicine
PROC: 0DH63UZ Insertion of Feeding Device into Stomach, Percutaneous Approach (ICD-10-PCS; CPT 43246; principal; 2019-11-22 11:30)
PROC: 0B110F4 Bypass Trachea to Cutaneous with Tracheostomy Device, Open Approach (ICD-10-PCS; principal; 2019-11-26 07:30)
DX: A41.9 Sepsis, unspecified organism (principal); J96.01 Acute respiratory failure with hypoxia; J96.02 Acute respiratory failure with hypercapnia; G92 Toxic encephalopathy; J15.1 Pneumonia due to Pseudomonas; N17.9 Acute kidney failure, unspecified; J44.1 Chronic obstructive pulmonary disease with (acute) exacerbation; E87.3 Alkalosis; E87.0 Hyperosmolality and hypernatremia; R65.20 Severe sepsis without septic shock; E87.5 Hyperkalemia; E11.69 Type 2 diabetes mellitus with other specified complication; Z79.4 Long term (current) use of insulin; F25.9 Schizoaffective disorder, unspecified; Z95.1 Presence of aortocoronary bypass graft; K21.9 Gastro-esophageal reflux disease without esophagitis; E78.5 Hyperlipidemia, unspecified; I50.9 Heart failure, unspecified; I25.5 Ischemic cardiomyopathy; I25.10 Atherosclerotic heart disease of native coronary artery without angina pectoris; I11.0 Hypertensive heart disease with heart failure; Z66 Do not resuscitate
CPT/HCPCS: 31500; 36415; 36600; 70450; 71045; 71260; 74018; 74177; 76775; 76942; 80048; 80053; 81001; 82375; 82436; 82570; 82805; 83050; 83605; 83690; 83735; 83880; 84100; 84133; 84300; 84484; 85025; 85027; 85055; 85610; 85730; 85999; 86631; 86632; 87040; 87070; 87075; 87077; 87081; 87086; 87102; 87106; 87186; 87205; 87206; 87449; 87804; 93005; 93970; 94002; 94003; 94640; 95816; 96365; 96375; 99285; A9270; C8929; C9113; J0131; J0330; J0456; J0692; J0696; J0743; J1120; J1160; J1250; J1642; J1650; J1815; J1940; J2248; J2250; J2270; J2370; J2704; J2920; J2930; J2997; J3010; J3475; J7030; J7040; J7050; J7070; J7120; J7512; Q9957; Q9967

== ENCOUNTER 2020-09-09 18:55 | Inpatient (IN) | payer MEDICARE, MEDICAID, SELFPAY ==
[2020-09-09] VITALS (12 sets, daily range): BP systolic 105–140; BP diastolic 76–98; PULSE 77–88; RESP 15–24; TEMP 36.3–37.1; O2SAT 95–99
--- NOTE | ~2020-09-09 | XR_ITS ---
EXAMINATION: XR chest 1V portable EXAM DATE: 09/09/2020 21:04 INDICATION: Shortness of breath, wheezing, rales. History COPD. TECHNIQUE: Portable AP frontal chest x-ray was obtained. Comparison is made to prior examination from 11/27/2019. FINDINGS: There is low lung volume. Previously seen tracheostomy tube no longer identified. Patchy bi lateral nonconfluent opacities, could be atelectasis or possibly infection. No pneumothorax or pleura l effusion. The cardiomediastinal silhouette is prominent but magnified on this AP technique. Mild th oracic spondylosis. IMPRESSION: Bibasilar atelectasis and/or possibly infection Reviewed, dictated and finalized at location A. ESS MANAGER
--- NOTE | ~2020-09-09 | XR_ITS ---
EXAMINATION: XR chest 2V DATE: 09/13/2020 09:49 INDICATION: Cough. Hypoxia. TECHNIQUE: Frontal and lateral views of the chest were obtained on 3 radiographs. COMPARISON: Chest single view 09/09/2020, chest CT 11/17/2019 FINDINGS: Again seen is mild elevation of right hemidiaphragm. There are airspace opacities at the ida ng bases. No pleural effusion or pneumothorax. The heart size is normal. There are changes of coronar y artery bypass grafting. There is a left subclavian port with tip in superior vena cava. There is a thoracotomy defect in right sixth rib. IMPRESSION: 1. Airspace opacities at the lung bases, likely atelectasis. 2. Persistent mild elevation of right hemidiaphragm. Reviewed, dictated and finalized at location A. IAL PROJECTS COORDINATOR
--- NOTE | 2020-09-09 19:17 | ECG_ITS ---
Measurements Intervals [place] Rate: 85 P: 34 FL: 225 QRS: -77 QRSD: 140 T: 15 QT: 397 QTc: 474 Interpretive Statements SINUS RHYTHM WITH FIRST DEGREE AV BLOCK RIGHT BUNDLE BRANCH BLOCK LEFT ANTERIOR FASCICULAR BLOCK BASELINE WANDER- V4-V6 ABNORMAL ECG Electronically Signed On 09-10-2020 6:14:28 CHOIR LEADER by Torito Stapleton D.O.
[2020-09-09] MEDS: IPRATROPIUM BR 0.02% INH SOLN 0.5 MG/2.5 ML VIAL INHALATION (19:28)
[2020-09-09] MEDS: ALBUTEROL SULFATE NEB 2.5 MG/0.5 ML INH 5 MG INHALATION (19:28)
[2020-09-09 19:31] LABS: Basophils Percent Auto 0.2 % (0.2-1.2); Eosinophils Absolute Auto 0.2 K/mm3 (0-0.3); Hematocrit 41.5 % (42.0-52.0); Hemoglobin 13.5 g/dL (14.0-18.0); Immature Granulocyte Absolute 0.12 K/mm3 (0.00-0.031); Immature Granulocyte Percent A 0.8 % (0-0.5); Lymphocytes Absolute Auto 0.82 K/mm3 (0.9-3.2); Lymphocytes Percent Auto 5.4 % (18.3-44.2); Mean Corpuscular HGB Conc 32.5 g/dl (32-36); Mean Corpuscular Hemoglobin 29.2 pg (26-34); Mean Corpuscular Volume 89.8 fl (80-100); Mean Platelet Volume 9.9 fl (7.4-10.4); Monocytes Absolute Auto 0.9 K/mm3 (0.1-0.6); Monocytes Percent Auto 6.2 % (2.6-8.5); Neutrophils Absolute Auto 13.1 K/mm3 (1.3-6.7); Neutrophils Percent Auto 86.4 % (45.5-73.1); Platelet Count Result 219 k/mm3 (150-375); Red Blood Count 4.62 M/mm3 (4.6-6.20); Red Cell Distribution Width 13.2 % (11.5-14.5); White Blood Count 15.2 K/mm3 (4.5-10.0)
--- NOTE | 2020-09-09 19:37 | ED.SOB ---
HPI - SOB/Dyspnea General Chief Complaint: Shortness of Breath/Dyspnea Stated Complaint: sob Time Seen by Provider: 09/09/20 19:05 History of Present Illness HPI Narrative: Patient is a 70-year-old gentleman who presents to the emergency department with chief complaint of shortness of breath. Patient reports he has history of COPD also has history of cardiac disease and has had a sternectomy before. Patient states symptoms have been getting worse over the last couple of weeks reports that he has had a cough that has been productive denies fever patient initially presented on CPAP that was started by EMS and the patient has been transitioned over to BiPAP in the emergency department. MD elicited complaint: shortness of breath Related Data Home Medications Medication Instructions Recorded Confirmed Antifungal Cream (miconazole) 1 unit TOPICAL Q12H 11/10/19 11/10/19 Daily Multivitamin 1 tab-cap PO DAILY 11/10/19 11/10/19 Spiriva Respimat 1 cap INHALATION DAILY 11/10/19 11/10/19 acetaminophen [Tylenol] 650 mg PO Q6H PRN 11/10/19 11/10/19 albuterol sulfate [ProAir HFA] 2 puff INHALATION Q4H PRN 11/10/19 11/10/19 aspirin 325 mg PO DAILY 11/10/19 11/10/19 citalopram 20 mg PO DAILY 11/10/19 11/10/19 cyanocobalamin (vitamin B-12) 1,000 mcg PO DAILY 11/10/19 11/10/19 [Vitamin B-12] esomeprazole magnesium 40 mg PO DAILY 11/10/19 11/10/19 ferrous sulfate 325 mg PO BID 11/10/19 11/10/19 fluticasone propion-salmeterol 1 puff INHALATION Q12H 11/10/19 11/10/19 [Advair Diskus] furosemide 40 mg PO DAILY 11/10/19 11/10/19 gabapentin 600 mg PO BID 11/10/19 11/10/19 hydroxyzine pamoate 25 mg PO TID 11/10/19 11/10/19 insulin glargine [Lantus U-100 14 unit SUBCUT HS 11/10/19 11/10/19 Insulin] insulin lispro [Humalog U-100 See Rx Instructions .ROUTE .COMPLEX 11/10/19 11/10/19 Insulin] ipratropium-albuterol 3 ml INHALATION Q6H PRN 11/10/19 11/10/19 lanolin fdmpwdw-ey-q.pet-ceres 1 applic TOPICAL Q12H 11/10/19 11/10/19 [Eucerin] linagliptin [Tradjenta] 5 mg PO DAILY 11/10/19 11/10/19 losartan 25 mg PO DAILY 11/10/19 11/10/19 metformin 500 mg PO BID 11/10/19 11/10/19 metoprolol tartrate 12.5 mg PO Q12H 11/10/19 11/10/19 nicotine 1 patch TRANSDERMAL DAILY 11/10/19 11/10/19 paliperidone palmitate [Invega 156 mg IM MONTHLY 11/10/19 11/10/19 Sustenna] polyethylene glycol 3350 17 g PO DAILY 11/10/19 11/10/19 sennosides-docusate sodium [Senna 2 tablet PO BID 11/10/19 11/10/19 with Docusate Sodium] simvastatin 20 mg PO DAILY 11/10/19 11/10/19 sodium chloride 1,000 mg PO BID 11/10/19 11/10/19 trihexyphenidyl 2 mg PO BID 11/10/19 11/10/19 Allergies Allergy/AdvReac Type Severity Reaction Status Date / Time latex Allergy Unknown Verified 11/10/19 03:42 PLASTIC Allergy Unknown Uncoded 11/10/19 03:43 Review of Systems Review of Systems: Narrative: CONSTITUTIONAL: Denies fever, chills, or sweats. EYES: Denies visual changes, redness, or discharge. ENT: Denies rhinorrhea, congestion, sore throat, or otalgia. CARDIOVASCULAR: Denies chest pain, palpitations, or edema. RESPIRATORY: Denies cough or dyspnea. GASTROINTESTINAL: Denies abdominal pain, nausea, vomiting, or diarrhea. GENITOURINARY: Denies dysuria or hematuria. SKIN: Denies rash or itching. MUSCULOSKELETAL: Denies back pain, joint pain, or myalgia. NEUROLOGIC: Denies headache, numbness, or weakness. PSYCHIATRIC: Denies anxiety or depression. A 10 system review of systems was completed on the patient and is negative except for what is stated in the HPI. Nursing and ancillary documentation was reviewed. [facility] Past Medical History Medical History (Updated 09/09/20 @ 21:15 by Kirby Ortega MD) COPD (chronic obstructive pulmonary disease) Diabetes type 2, controlled GERD (gastroesophageal reflux disease) Hyperlipidemia Hypertension Schizoaffective disorder Surgical History Surgical History History of thorac
[2020-09-09 19:39] LABS: Alveolar/Arterial O2 Gradient 77.5 mmHg; Base Excess ABG 0.6 mEq/l (+/-2.0); Device NON-INVASIVE VENT; Fractional Inspired Oxygen 30 %; HCO3 ABG 26.6 mEq/l (22.0-26.0); Modified Allen's Test Pass; Non-Invasive Expiratory Pressure 5 CMH2O; Non-Invasive Inspiratory Pressure 12 CMH2O; Non-Invasive Vent Rate 10 /MIN; Oxygen Content ABG 17.9 %vol (16.0-22.0); Oxygen Saturation ABG 95.4 % (95.0-100.0); Oxyhemoglobin 91.5 % THb (90.0-100.0); PCO2 ABG 47.8 mmHg (35.0-45.0); PO2 ABG 80.2 mmHg (80.0-100.0); PO2 FiO2 Ratio Arterial Blood 2.67 %; Site Drawn RIGHT RADIAL; Total Hemoglobin 13.9 g/dL (12.0-18.0); pH ABG 7.363 (7.350-7.450)
[2020-09-09 19:45] LABS: Alanine Aminotransferase 13 U/L (4-50); Albumin Level 3.4 g/dL (3.5-5.1); Alkaline Phosphatase 109 U/L (38-126); Anion Gap 7 mmol/L (8-16); Aspartate Amino Transferase 15 U/L (17-59); Bilirubin,Total 0.4 mg/dL (0.2-1.3); Blood Urea Nitrogen 20 mg/dL (9-20); Calcium 8.7 mg/dL (8.4-10.2); Carbon Dioxide 33 mmol/L (22-30); Chloride 88 mmol/L (98-107); Estimated CRCL calculation 71 ml/min; Estimated Glomerular Filt Rate > 60; Glucose 281 mg/dL (75-110); Potassium 4.3 mmol/L (3.4-5.0); Sodium 128 mmol/L (137-145)
[2020-09-09] MEDS: methylPREDNISolone SOD SUCC 125 MG VIAL IV PUSH (19:54)
[2020-09-09 19:57] LABS: NT Pro B Type Natriuretic Pept 2300 PG/ML (5-100); Troponin I 0.014 ng/mL (0.000-0.034)
--- NOTE | 2020-09-09 21:31 | PM.IMHP ---
H&P: HPI History of Present Illness Date/Time: 09/09/20 21:31 Chief Complaint: Dyspnea, weakness Narrative: Marquis Cosme is a 70 year old male with past medical history of COPD, type 2 diabetes, CABG 02/2019, GERD, hyperlipidemia, hypertension, schizoaffective disorder presents to the ED with dyspnea. 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 Patient is very difficult to understand due to his previous history of tracheostomy and being edentulous. Is complaining of low back pain for which he takes Vicodin. Patient was previously admitted 11/10/2019-11/27/2019 for acute hypoxic and hypercapnic respiratory failure and COPD exacerbation. Tracheostomy 11/26/2019, peg tube 11/22/2019. He had been on cefepime and imipenem, Pseudomonas pneumonia, infra sternal fluid collection growing yeast on Micafungin, ischemic cardiomyopathy with low EF 25-30%, grade 2 diastolic dysfunction. The time he was DNR. Patient now wishes to be full code. In the ED: Chest x-ray was consistent with bibasilar atelectasis versus infiltrate. His ABG was stable. WBC elevated at 15.2 Patient was given Rocephin and Zithromax for pneumonia for COPD exacerbation. He was swabbed for COVID-19. Patient was on CPAP from the EMS and was able to be weaned off to 2 L nasal cannula in the ED. Patient admitted for likely COPD exacerbation versus community-acquired pneumonia. Review of Systems Review of Systems: Narrative: Constitutional: No Fever, No Chills, No Night Sweats, No Fatigue, No Malaise ENT/Mouth: No Hearing Changes, No Ear Pain, No Nasal Congestion, No Sinus Pain, endorses dry throat and cough. Eyes: No Eye Pain, No Redness, No Vision Changes Cardiovascular: No Chest Pain, No Palpitations, No Dyspnea on Exertion, No Orthopnea, No Claudication, No Edema Respiratory: Endorses cough and dyspnea for weeks. Gastrointestinal: No Nausea, No Vomiting, No Diarrhea, No Constipation, No Abdominal Pain, No Heartburn, No Hematochezia, No Melena Genitourinary: No Dysuria, No Urinary Frequency, No Hematuria, No Urinary Incontinence, No Urgency Musculoskeletal: Endorses chronic low back pain. Skin: No Skin Lesions, No Pruritis, No Hair Changes Neuro: No Weakness, No Numbness, No Paresthesias, No Loss of Consciousness, No Syncope, No Dizziness, No Headache Psych: No Anxiety/Panic, No Depression, No Insomnia Heme: No Bruising, No Bleeding Lymph: No Adenopathy Endocrine: No Polyuria, No Polydipsia, No Temperature Intolerance [facility] Past Medical History Medical History COPD (chronic obstructive pulmonary disease) Diabetes type 2, controlled GERD (gastroesophageal reflux disease) History of Pseudomonas pneumonia Hyperlipidemia Hypertension Infected sternotomy closure wire Ischemic cardiomyopathy Schizoaffective disorder Surgical History Surgical History History of thoracotomy Hx of CABG 02/2019 Status post insertion of percutaneous endoscopic gastrostomy (PEG) tube Status post tracheostomy Family History Family History Other Unknown family medical history Social History Social History Smoking packs per day: 1 Smoking cigarettes per day: 20.0 Years smoked: 55 Smoking pack-years: 55.00 Smoking status: Former smoker Alcohol intake: never Substance use: never Gender identity (if verbalized by the patient): Male Spiritual care concerns: No Agree to blood products: Yes Meds Home Medications and Allergies Home Medications Medication Instructions Recorded Confirmed Type acetaminophen [Tylenol] 650 mg PO Q6H PRN 11/10/19 09/09/20 History albuterol sulfate [ProAir HFA] 2 puff INHALATION Q6H PRN 11/10/19 09/09/20 History gabapentin 600 mg PO BID 11/10/19 12
[2020-09-10] VITALS (19 sets, daily range): BP systolic 136–172; BP diastolic 78–87; PULSE 75–97; RESP 18–20; TEMP 36.2–37; O2SAT 90–100; BMI 28.4
[2020-09-10] MEDS: MAGNESIUM OXIDE 400 MG TABLET PO ×2 (08:28→20:35)
[2020-09-10] MEDS: guaiFENesin 12 HR 600 MG TABCR PO (08:28)
[2020-09-10] MEDS: DIVALPROEX SODIUM SPRINKLE 125 MG CAP.DR PO ×3 (08:28→17:00)
[2020-09-10] MEDS: FAMOTIDINE 20 MG TABLET PO (08:28)
[2020-09-10] MEDS: SODIUM CHLORIDE 0.9% IV 1,000 ML 75 ML IV CONT (08:28)
[2020-09-10] MEDS: ASPIRIN 81 MG ENTERIC TABLET PO (08:28)
[2020-09-10] MEDS: HYDROcodone/acetaminophen (*CRX) 5-325 MG TABLET 1 TAB PO ×4 (08:28→20:40)
[2020-09-10] MEDS: EZETIMIBE 10 MG TABLET PO (08:28)
[2020-09-10] MEDS: ESCITALOPRAM OXALATE 10 MG TABLET PO (08:28)
[2020-09-10] MEDS: ENOXAPARIN 40 MG/0.4 ML SYRINGE SUB-Q (08:29)
[2020-09-10] MEDS: INSULIN ASPART (*BKC) 100 UNITS/ML SUB-Q ×2 (08:29→17:07)
[2020-09-10] MEDS: INSULIN GLARGINE (*BKC) 100 UNITS/ML 18 UNITS SUB-Q (08:29)
[2020-09-10 08:40] LABS: Basophils Percent Auto 0.1 % (0.2-1.2); Hematocrit 42.8 % (42.0-52.0); Hemoglobin 14.1 g/dL (14.0-18.0); Lymphocytes Absolute Auto 0.39 K/mm3 (0.9-3.2); Mean Corpuscular HGB Conc 32.9 g/dl (32-36); Mean Corpuscular Hemoglobin 28.8 pg (26-34); Mean Corpuscular Volume 87.5 fl (80-100); Mean Platelet Volume 10.4 fl (7.4-10.4); Monocytes Absolute Auto 0.1 K/mm3 (0.1-0.6); Monocytes Percent Auto 1.1 % (2.6-8.5); Neutrophils Absolute Auto 9.3 K/mm3 (1.3-6.7); Neutrophils Percent Auto 93.8 % (45.5-73.1); Platelet Count Result 227 k/mm3 (150-375); Red Blood Count 4.89 M/mm3 (4.6-6.20); Red Cell Distribution Width 12.9 % (11.5-14.5); White Blood Count 9.9 K/mm3 (4.5-10.0)
[2020-09-10] MEDS: IPRATROPIUM BR 0.02% INH SOLN 0.5 MG/2.5 ML VIAL INHALATION ×3 (08:51→21:28)
[2020-09-10] MEDS: ALBUTEROL SULFATE NEB 2.5 MG/0.5 ML INH INHALATION ×3 (08:51→21:28)
[2020-09-10 08:59] LABS: Alanine Aminotransferase 17 U/L (4-50); Albumin Level 3.4 g/dL (3.5-5.1); Alkaline Phosphatase 116 U/L (38-126); Anion Gap 7 mmol/L (8-16); Aspartate Amino Transferase 18 U/L (17-59); Bilirubin,Total 0.4 mg/dL (0.2-1.3); Blood Urea Nitrogen 21 mg/dL (9-20); Calcium 8.9 mg/dL (8.4-10.2); Carbon Dioxide 33 mmol/L (22-30); Chloride 91 mmol/L (98-107); Estimated CRCL calculation 77 ml/min; Estimated Glomerular Filt Rate > 60; Glucose 350 mg/dL (75-110); Magnesium 1.8 mg/dL (1.6-2.3); Potassium 4.5 mmol/L (3.4-5.0); Sodium 131 mmol/L (137-145)
[2020-09-10 09:19] LABS: Glucose Point of Care 346 (65-105)
[2020-09-10 12:30] LABS: Add Urine Microscopic? YES; Appearance Urine Clear (Clear); Bilirubin Urine Negative (Negative); Blood Urine Negative (Negative); Color Urine Yellow (Yellow); Glucose Urine UA 3+ mg/dL (Negative); Ketones Urine Trace mg/dL (Negative); Leukocyte Esterase Ur Negative LEU/UL (Negative); Nitrate Urine Negative (Negative); Protein Urine 3+ mg/dL (Negative); Specific Grav Ur 1.017 (1.001-1.035); Urobilinogen Urine Negative mg/dL (<2.0); WBC Urine 0-3 /hpf
[2020-09-10] MEDS: methylPREDNISolone SOD SUCC 125 MG VIAL 60 MG IV PUSH (12:30)
[2020-09-10] MEDS: INSULIN ASPART (*BKC) 100 UNITS/ML 15 UNITS SUB-Q (12:31)
[2020-09-10 12:34] LABS: Glucose Point of Care 449 (65-105)
[2020-09-10 13:29] LABS: Anion Gap 8 mmol/L (8-16); Blood Urea Nitrogen 26 mg/dL (9-20); Calcium 8.5 mg/dL (8.4-10.2); Carbon Dioxide 32 mmol/L (22-30); Chloride 87 mmol/L (98-107); Estimated CRCL calculation 69 ml/min; Estimated Glomerular Filt Rate > 60; Glucose 484 mg/dL (75-110); Potassium 4.7 mmol/L (3.4-5.0); Sodium 127 mmol/L (137-145)
[2020-09-10 13:33] LABS: Beta-Hydroxybutyrate/Acetoacetate 0.22 mmol/L (0.02-0.27)
--- NOTE | 2020-09-10 14:17 | PCSTNOTE ---
Please refer to the Bedside Swallow Evaluation in the EMR. Please note, silent aspiration cannot be ruled out at bedside.
--- NOTE | 2020-09-10 16:32 | P.PNIM_ITS ---
Progress Note: A&P Assessment and Plan (1) COPD exacerbation: Code(s): J44.1 - Chronic obstructive pulmonary disease with (acute) exacerbation Status: Acute Assessment and Plan: * Continue nebulized bronchodilator therapy. COVID pending. Continue azithromycin and mucinex. Legionella and pneumococcal urine antigens pending. * Improving, wean steroids. (2) Person under investigation for COVID-19: Code(s): Z20.828 - Contact with and (suspected) exposure to other viral communicable diseases Status: Acute Assessment and Plan: * Continue droplet isolation until COVID results are available. (3) Hyponatremia: Code(s): E87.1 - Hypo-osmolality and hyponatremia Status: Acute Assessment and Plan: * Sodium low and fluctuating, appears slightly dehydrated however with ischemic cardiomyopathy and low EF will be careful with IV fluids. * Continue gentle hydration with normal saline and monitor BMP. (4) Diabetes: Qualifiers: Diabetes mellitus type: type 2 Diabetes mellitus longterm insulin use: with termite exterminator helper use Diabetes mellitus complication status: with other specified complication Qualified Code(s): E11.69 - Type 2 diabetes mellitus with other specified complication; Z79.4 - emt intermediate (current) use of insulin Code(s): E11.9 - Type 2 diabetes mellitus without complications Status: Chronic Assessment and Plan: * Blood sugars elevated today into 400s. Steroids could be contributing. Anion gap and b-OHb are within normal limits. Increase insulin. * Continue home Lantus BID. Add scheduled mealtime Novolog and continue SSI coverage. Monitor accu-cheks and adjust treatment as needed. (5) Cardiomyopathy: Qualifiers: Cardiomyopathy type: unspecified Qualified Code(s): I42.9 - Cardiomyopathy, unspecified Code(s): I42.9 - Cardiomyopathy, unspecified Status: Chronic Assessment and Plan: * Ischemic cardiomyopathy known EF 25-30%. Continue his home beta blockade, will initiate MARANDA since renal function is stable. * Monitor fluid status closely with daily weights and I&Os. (6) Hypertension: Qualifiers: Hypertension type: essential hypertension Qualified Code(s): I10 - Essential (primary) hypertension Code(s): I10 - Essential (primary) hypertension Status: Chronic Assessment and Plan: * BP elevated on arrival now improved a bit. Continue his home metoprolol and initiate low-dose lisinopril due to HF. Appears MARANDA was held earlier this year due to renal function. * Monitor BP and adjust as needed. (7) Schizoaffective disorder: Qualifiers: Schizoaffective disorder type: unspecified Qualified Code(s): F25.9 - Schizoaffective disorder, unspecified Code(s): F25.9 - Schizoaffective disorder, unspecified Status: Chronic Assessment and Plan: * Stable; continue home medications. (8) Coronary artery disease: Qualifiers: Coronary Disease-Associated Artery/Lesion type: bypass graft [place] vs. transplanted heart: [place] heart Associated angina: without angina Qualified Code(s): I25.810 - Atherosclerosis of coronary artery bypass graft(s) without angina pectoris Code(s): I25.10 - Atherosclerotic heart disease of [place] coronary artery withou
--- NOTE | 2020-09-10 16:32 | PM.IMPN ---
Progress Note: A&P Assessment and Plan (1) COPD exacerbation: Code(s): J44.1 - Chronic obstructive pulmonary disease with (acute) exacerbation Status: Acute Assessment and Plan: Continue nebulized bronchodilator therapy. COVID pending. Continue azithromycin and mucinex. Legionella and pneumococcal urine antigens pending. Improving, wean steroids. (2) Person under investigation for COVID-19: Code(s): Z20.828 - Contact with and (suspected) exposure to other viral communicable diseases Status: Acute Assessment and Plan: Continue droplet isolation until COVID results are available. (3) Hyponatremia: Code(s): E87.1 - Hypo-osmolality and hyponatremia Status: Acute Assessment and Plan: Sodium low and fluctuating, appears slightly dehydrated however with ischemic cardiomyopathy and low EF will be careful with IV fluids. Continue gentle hydration with normal saline and monitor BMP. (4) Diabetes: Qualifiers: Diabetes mellitus type: type 2 Diabetes mellitus intermediate accountant insulin use: with mcc use Diabetes mellitus complication status: with other specified complication Qualified Code(s): E11.69 - Type 2 diabetes mellitus with other specified complication; Z79.4 - correction (current) use of insulin Code(s): E11.9 - Type 2 diabetes mellitus without complications Status: Chronic Assessment and Plan: Blood sugars elevated today into 400s. Steroids could be contributing. Anion gap and b-OHb are within normal limits. Increase insulin. Continue home Lantus BID. Add scheduled mealtime Novolog and continue SSI coverage. Monitor accu-cheks and adjust treatment as needed. (5) Cardiomyopathy: Qualifiers: Cardiomyopathy type: unspecified Qualified Code(s): I42.9 - Cardiomyopathy, unspecified Code(s): I42.9 - Cardiomyopathy, unspecified Status: Chronic Assessment and Plan: Ischemic cardiomyopathy known EF 25-30%. Continue his home beta blockade, will initiate MARANDA since renal function is stable. Monitor fluid status closely with daily weights and I&Os. (6) Hypertension: Qualifiers: Hypertension type: essential hypertension Qualified Code(s): I10 - Essential (primary) hypertension Code(s): I10 - Essential (primary) hypertension Status: Chronic Assessment and Plan: BP elevated on arrival now improved a bit. Continue his home metoprolol and initiate low-dose lisinopril due to HF. Appears MARANDA was held earlier this year due to renal function. Monitor BP and adjust as needed. (7) Schizoaffective disorder: Qualifiers: Schizoaffective disorder type: unspecified Qualified Code(s): F25.9 - Schizoaffective disorder, unspecified Code(s): F25.9 - Schizoaffective disorder, unspecified Status: Chronic Assessment and Plan: Stable; continue home medications. (8) Coronary artery disease: Qualifiers: Coronary Disease-Associated Artery/Lesion type: bypass graft [place] vs. transplanted heart: [place] heart Associated angina: without angina Qualified Code(s): I25.810 - Atherosclerosis of coronary artery bypass graft(s) without angina pectoris Code(s): I25.10 - Atherosclerotic heart disease of [place] coronary artery without angina pectoris Status: Chronic Assessment and Plan: Stable, no chest pain. Continue ASA and statin therapy. Subjective Date/time seen: 09/10/20 1545 Interval history: Mr. Cosme is a 70yo M with multiple comorbidities presents with acute respiratory failure. He is feeling better this aft
[2020-09-10] MEDS: INSULIN ASPART (*BKC) 100 UNITS/ML 6 UNITS SUB-Q (17:08)
[2020-09-10 17:19] LABS: SARS-CoV-2 RNA PCR Negative
[2020-09-10 17:46] LABS: Glucose Point of Care 391 (65-105)
[2020-09-10] MEDS: QUEtiapine FUMARATE 25 MG TABLET 50 MG PO (20:34)
[2020-09-10] MEDS: SENNA/DOCUSATE SODIUM TABLET 1 TAB PO (20:35)
[2020-09-10] MEDS: INSULIN GLARGINE (*BKC) 100 UNITS/ML 22 UNITS SUB-Q (20:35)
[2020-09-10] MEDS: methylPREDNISolone SOD SUCC 40 MG VIAL IV PUSH (22:17)
[2020-09-10 23:00] LABS: Glucose Point of Care 444 (65-105)
[2020-09-11] VITALS (10 sets, daily range): BP systolic 142–169; BP diastolic 68–90; PULSE 72–111; RESP 16–20; TEMP 36.2–36.6; O2SAT 93–94
[2020-09-11] MEDS: HYDROcodone/acetaminophen (*CRX) 5-325 MG TABLET 1 TAB PO ×6 (00:23→21:37)
[2020-09-11] MEDS: IPRATROPIUM BR 0.02% INH SOLN 0.5 MG/2.5 ML VIAL INHALATION ×4 (02:42→20:12)
[2020-09-11] MEDS: ALBUTEROL SULFATE NEB 2.5 MG/0.5 ML INH INHALATION ×4 (02:42→20:12)
[2020-09-11] MEDS: methylPREDNISolone SOD SUCC 40 MG VIAL IV PUSH ×2 (06:01→21:38)
[2020-09-11 06:25] LABS: Basophils Percent Auto 0.2 % (0.2-1.2); Hematocrit 39.6 % (42.0-52.0); Hemoglobin 13.3 g/dL (14.0-18.0); Immature Granulocyte Absolute 0.07 K/mm3 (0.00-0.031); Immature Granulocyte Percent A 0.7 % (0-0.5); Lymphocytes Absolute Auto 0.36 K/mm3 (0.9-3.2); Lymphocytes Percent Auto 3.4 % (18.3-44.2); Mean Corpuscular HGB Conc 33.6 g/dl (32-36); Mean Corpuscular Hemoglobin 29.3 pg (26-34); Mean Corpuscular Volume 87.2 fl (80-100); Mean Platelet Volume 10.6 fl (7.4-10.4); Monocytes Absolute Auto 0.2 K/mm3 (0.1-0.6); Monocytes Percent Auto 2.3 % (2.6-8.5); Neutrophils Absolute Auto 9.8 K/mm3 (1.3-6.7); Neutrophils Percent Auto 93.4 % (45.5-73.1); Platelet Count Result 216 k/mm3 (150-375); Red Blood Count 4.54 M/mm3 (4.6-6.20); Red Cell Distribution Width 12.9 % (11.5-14.5); White Blood Count 10.5 K/mm3 (4.5-10.0)
[2020-09-11 06:29] LABS: Anion Gap 5 mmol/L (8-16); Blood Urea Nitrogen 25 mg/dL (9-20); Calcium 8.8 mg/dL (8.4-10.2); Carbon Dioxide 33 mmol/L (22-30); Chloride 93 mmol/L (98-107); Estimated CRCL calculation 69 ml/min; Estimated Glomerular Filt Rate > 60; Glucose 335 mg/dL (75-110); Magnesium 1.9 mg/dL (1.6-2.3); Potassium 4.4 mmol/L (3.4-5.0); Sodium 131 mmol/L (137-145)
[2020-09-11 06:44] LABS: Hemoglobin A1C 10.2 % (<5.7)
[2020-09-11] MEDS: INSULIN ASPART (*BKC) 100 UNITS/ML SUB-Q ×2 (08:17→12:29)
[2020-09-11] MEDS: INSULIN ASPART (*BKC) 100 UNITS/ML 8 UNITS SUB-Q ×4 (08:18→16:52)
[2020-09-11] MEDS: EZETIMIBE 10 MG TABLET PO (08:18)
[2020-09-11] MEDS: MAGNESIUM OXIDE 400 MG TABLET PO ×2 (08:18→21:37)
[2020-09-11] MEDS: ESCITALOPRAM OXALATE 10 MG TABLET PO (08:18)
[2020-09-11] MEDS: DIVALPROEX SODIUM SPRINKLE 125 MG CAP.DR PO ×3 (08:18→16:33)
[2020-09-11] MEDS: ASPIRIN 81 MG ENTERIC TABLET PO (08:19)
[2020-09-11] MEDS: INSULIN GLARGINE (*BKC) 100 UNITS/ML 22 UNITS SUB-Q ×2 (08:19→21:38)
[2020-09-11] MEDS: ENOXAPARIN 40 MG/0.4 ML SYRINGE SUB-Q (08:19)
[2020-09-11] MEDS: lisinopriL 5 MG TABLET PO (08:19)
[2020-09-11] MEDS: FAMOTIDINE 20 MG TABLET PO (08:19)
[2020-09-11] MEDS: guaiFENesin 12 HR 600 MG TABCR PO (08:19)
[2020-09-11 09:12] LABS: Glucose Point of Care 323 (65-105)
--- NOTE | 2020-09-11 10:55 | PCPTNOTE ---
Patient refused treatment this session stating I am going to sleep.
--- NOTE | 2020-09-11 13:21 | P.PNIM_ITS ---
Progress Note: A&P Assessment and Plan (1) COPD exacerbation: Code(s): J44.1 - Chronic obstructive pulmonary disease with (acute) exacerbation Status: Acute Assessment and Plan: * Continue nebulized bronchodilator therapy. COVID negative. Continue mucinex. Legionella and pneumococcal urine antigens pending. * Improving, wean IV steroids again today. (2) Person under investigation for COVID-19: Code(s): Z20.828 - Contact with and (suspected) exposure to other viral communicable diseases Status: Ruled-out Assessment and Plan: * Ruled out. Discontinue isolation. (3) Hyponatremia: Code(s): E87.1 - Hypo-osmolality and hyponatremia Status: Acute Assessment and Plan: * Improved with gentle IV fluids which were stopped 09/10. Na low but stable at 131 today. (4) Diabetes: Qualifiers: Diabetes mellitus type: type 2 Diabetes mellitus [place] insulin use: with rodent exterminator use Diabetes mellitus complication status: with other specified complication Qualified Code(s): E11.69 - Type 2 diabetes mellitus with other specified complication; Z79.4 - alf (current) use of insulin Code(s): E11.9 - Type 2 diabetes mellitus without complications Status: Chronic Assessment and Plan: * Blood sugars elevated. Steroids could be contributing however A1c is 10.2% suggesting hyperglycemia longer than just this hospital stay. * Continue home Lantus BID, increased. Add scheduled mealtime Novolog and continue SSI coverage. Monitor accu-cheks and adjust treatment as needed. (5) Cardiomyopathy: Qualifiers: Cardiomyopathy type: unspecified Qualified Code(s): I42.9 - Cardiomyopathy, unspecified Code(s): I42.9 - Cardiomyopathy, unspecified Status: Chronic Assessment and Plan: * Ischemic cardiomyopathy known EF 25-30%. Continue his home beta blockade, started MARANDA since renal function is stable. * Monitor fluid status closely with daily weights and I&Os. (6) Hypertension: Qualifiers: Hypertension type: essential hypertension Qualified Code(s): I10 - Essential (primary) hypertension Code(s): I10 - Essential (primary) hypertension Status: Chronic Assessment and Plan: * BPs reviewed and variable, elevated this morning prior to medications. * Continue his home metoprolol and initiate low-dose lisinopril due to HF. Appears MARANDA was held earlier this year due to renal function. * Monitor BP and adjust as needed. (7) Schizoaffective disorder: Qualifiers: Schizoaffective disorder type: unspecified Qualified Code(s): F25.9 - Schizoaffective disorder, unspecified Code(s): F25.9 - Schizoaffective disorder, unspecified Status: Chronic Assessment and Plan: * Stable; continue home medications. (8) Coronary artery disease: Qualifiers: Coronary Disease-Associated Artery/Lesion type: bypass graft [place] vs. transplanted heart: [place] heart Associated angina: without angina Qualified Code(s): I25.810 - Atherosclerosis of coronary artery bypass graft(s) without angina pectoris Code(s): I25.10 - Atherosclerotic heart disease of [place] coronary artery without angina pectoris Status: Chronic Assessment and Plan: * Stable, no ches
--- NOTE | 2020-09-11 13:21 | PM.IMPN ---
Progress Note: A&P Assessment and Plan (1) COPD exacerbation: Code(s): J44.1 - Chronic obstructive pulmonary disease with (acute) exacerbation Status: Acute Assessment and Plan: Continue nebulized bronchodilator therapy. COVID negative. Continue mucinex. Legionella and pneumococcal urine antigens pending. Improving, wean IV steroids again today. (2) Person under investigation for COVID-19: Code(s): Z20.828 - Contact with and (suspected) exposure to other viral communicable diseases Status: Ruled-out Assessment and Plan: Ruled out. Discontinue isolation. (3) Hyponatremia: Code(s): E87.1 - Hypo-osmolality and hyponatremia Status: Acute Assessment and Plan: Improved with gentle IV fluids which were stopped 09/10. Na low but stable at 131 today. (4) Diabetes: Qualifiers: Diabetes mellitus type: type 2 Diabetes mellitus extermination inspector insulin use: with custodial use Diabetes mellitus complication status: with other specified complication Qualified Code(s): E11.69 - Type 2 diabetes mellitus with other specified complication; Z79.4 - group home (current) use of insulin Code(s): E11.9 - Type 2 diabetes mellitus without complications Status: Chronic Assessment and Plan: Blood sugars elevated. Steroids could be contributing however A1c is 10.2% suggesting hyperglycemia longer than just this hospital stay. Continue home Lantus BID, increased. Add scheduled mealtime Novolog and continue SSI coverage. Monitor accu-cheks and adjust treatment as needed. (5) Cardiomyopathy: Qualifiers: Cardiomyopathy type: unspecified Qualified Code(s): I42.9 - Cardiomyopathy, unspecified Code(s): I42.9 - Cardiomyopathy, unspecified Status: Chronic Assessment and Plan: Ischemic cardiomyopathy known EF 25-30%. Continue his home beta blockade, started MARANDA since renal function is stable. Monitor fluid status closely with daily weights and I&Os. (6) Hypertension: Qualifiers: Hypertension type: essential hypertension Qualified Code(s): I10 - Essential (primary) hypertension Code(s): I10 - Essential (primary) hypertension Status: Chronic Assessment and Plan: BPs reviewed and variable, elevated this morning prior to medications. Continue his home metoprolol and initiate low-dose lisinopril due to HF. Appears MARANDA was held earlier this year due to renal function. Monitor BP and adjust as needed. (7) Schizoaffective disorder: Qualifiers: Schizoaffective disorder type: unspecified Qualified Code(s): F25.9 - Schizoaffective disorder, unspecified Code(s): F25.9 - Schizoaffective disorder, unspecified Status: Chronic Assessment and Plan: Stable; continue home medications. (8) Coronary artery disease: Qualifiers: Coronary Disease-Associated Artery/Lesion type: bypass graft [place] vs. transplanted heart: [place] heart Associated angina: without angina Qualified Code(s): I25.810 - Atherosclerosis of coronary artery bypass graft(s) without angina pectoris Code(s): I25.10 - Atherosclerotic heart disease of [place] coronary artery without angina pectoris Status: Chronic Assessment and Plan: Stable, no chest pain. Continue ASA and statin therapy. Subjective Date/time seen: 09/11/20 1230 Interval history: Mr. Cosme is a 70yo M with multiple comorbidities admitted for COPD exacerbation. He tells me he is feeling better today. Shortness of breath improved. Still coughing a bit. Slept okay last night. Tolerating oral intake
[2020-09-11] MEDS: GABAPENTIN 300 MG CAPSULE PO ×3 (13:34→22:04)
[2020-09-11 16:46] LABS: Glucose Point of Care 275 (65-105)
[2020-09-11 20:03] LABS: Glucose Point of Care 426 (65-105)
[2020-09-11] MEDS: SENNA/DOCUSATE SODIUM TABLET 1 TAB PO (21:37)
[2020-09-11] MEDS: QUEtiapine FUMARATE 25 MG TABLET 50 MG PO (21:37)
[2020-09-11 22:44] LABS: Glucose Point of Care 329 (65-105)
[2020-09-12] VITALS (10 sets, daily range): BP systolic 129–174; BP diastolic 88–96; PULSE 82–115; RESP 18–22; TEMP 36.3–36.9; O2SAT 87–97
[2020-09-12] MEDS: ALBUTEROL SULFATE NEB 2.5 MG/0.5 ML INH INHALATION ×3 (02:21→20:20)
[2020-09-12] MEDS: IPRATROPIUM BR 0.02% INH SOLN 0.5 MG/2.5 ML VIAL INHALATION ×3 (02:21→20:20)
[2020-09-12] MEDS: HYDROcodone/acetaminophen (*CRX) 5-325 MG TABLET 1 TAB PO ×4 (04:55→21:45)
[2020-09-12] MEDS: ALBUTEROL SULFATE (*SP) AEROSOL 1 PUFF 2 PUFF INHALATION ×2 (05:53→21:46)
[2020-09-12 07:11] LABS: Anion Gap 3 mmol/L (8-16); Blood Urea Nitrogen 24 mg/dL (9-20); Calcium 8.8 mg/dL (8.4-10.2); Carbon Dioxide 34 mmol/L (22-30); Chloride 96 mmol/L (98-107); Estimated CRCL calculation 69 ml/min; Estimated Glomerular Filt Rate > 60; Glucose 219 mg/dL (75-110); Potassium 4.4 mmol/L (3.4-5.0); Sodium 133 mmol/L (137-145)
[2020-09-12] MEDS: GABAPENTIN 300 MG CAPSULE PO ×3 (09:20→17:41)
[2020-09-12] MEDS: lisinopriL 5 MG TABLET PO ×2 (09:20→17:40)
[2020-09-12] MEDS: ASPIRIN 81 MG ENTERIC TABLET PO (09:20)
[2020-09-12] MEDS: FAMOTIDINE 20 MG TABLET PO (09:20)
[2020-09-12] MEDS: DIVALPROEX SODIUM SPRINKLE 125 MG CAP.DR PO ×3 (09:20→17:41)
[2020-09-12] MEDS: MAGNESIUM OXIDE 400 MG TABLET PO ×2 (09:21→21:10)
[2020-09-12] MEDS: ESCITALOPRAM OXALATE 10 MG TABLET PO (09:21)
[2020-09-12] MEDS: guaiFENesin 12 HR 600 MG TABCR PO (09:21)
[2020-09-12] MEDS: EZETIMIBE 10 MG TABLET PO (09:21)
[2020-09-12] MEDS: methylPREDNISolone SOD SUCC 40 MG VIAL IV PUSH ×2 (09:21→21:10)
[2020-09-12] MEDS: ENOXAPARIN 40 MG/0.4 ML SYRINGE SUB-Q (09:30)
[2020-09-12] MEDS: INSULIN ASPART (*BKC) 100 UNITS/ML 8 UNITS SUB-Q ×3 (09:30→17:45)
[2020-09-12] MEDS: INSULIN GLARGINE (*BKC) 100 UNITS/ML 22 UNITS SUB-Q ×2 (09:31→21:08)
[2020-09-12] MEDS: INSULIN ASPART (*BKC) 100 UNITS/ML SUB-Q ×2 (12:54→17:44)
[2020-09-12 13:03] LABS: Glucose Point of Care 236 (65-105)
[2020-09-12 13:33] LABS: Glucose Point of Care 190 (65-105)
--- NOTE | 2020-09-12 15:59 | PCRCNOTE ---
Window of time for administration has passed. See next scheduled administration.
--- NOTE | 2020-09-12 16:08 | P.PNIM_ITS ---
Progress Note: A&P Assessment and Plan (1) COPD exacerbation: Code(s): J44.1 - Chronic obstructive pulmonary disease with (acute) exacerbation Status: Acute Assessment and Plan: * Continue nebulized bronchodilator therapy. COVID negative. Continue mucinex. Legionella and pneumococcal urine antigens pending. * Improving, wean steroids onto oral prednisone in AM. (2) Positive blood culture: Code(s): R78.81 - Bacteremia Status: Acute Assessment and Plan: * Blood cultures 2/2 from 09/09/20 growing coagulase negative Staph but report noted inadequate volume in bottles. Contaminant vs. bacteremia source unclear. Appreciate Dr Richardson's recommendations in this setting. * No leukocytosis, afebrile. 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 (3) Hyponatremia: Code(s): E87.1 - Hypo-osmolality and hyponatremia Status: Acute Assessment and Plan: * Improved with gentle IV fluids which were stopped 09/10. Na improved to 133 today. (4) Diabetes: Qualifiers: Diabetes mellitus complication status: with other specified complication Diabetes mellitus exterminator helper termite insulin use: with skilled nursing use Diabetes mellitus type: type 2 Qualified Code(s): E11.69 - Type 2 diabetes mellitus with other specified complication; Z79.4 - alf (current) use of insulin Code(s): E11.9 - Type 2 diabetes mellitus without complications Status: Chronic Assessment and Plan: * Blood sugars elevated but improved now with increased insulin. Steroids could be contributing however A1c is 10.2% suggesting hyperglycemia longer than just this hospital stay. * Continue Lantus BID. Added scheduled mealtime Novolog and continue SSI c overage. Monitor accu-cheks and adjust treatment as needed. (5) Cardiomyopathy: Qualifiers: Cardiomyopathy type: unspecified Qualified Code(s): I42.9 - Cardiomyopathy, unspecified Code(s): I42.9 - Cardiomyopathy, unspecified Status: Chronic Assessment and Plan: * Ischemic cardiomyopathy known EF 25-30%. Continue his home beta blockade, started MARANDA since renal function is stable. * Monitor fluid status closely with daily weights and I&Os. (6) Hypertension: Qualifiers: Hypertension type: essential hypertension Qualified Code(s): I10 - Essential (primary) hypertension Code(s): I10 - Essential (primary) hypertension Status: Chronic Assessment and Plan: * BPs reviewed and variable, elevated. Increase lisinopril and monitor. * Continue his home metoprolol and initiate low-dose lisinopril due to HF. Appears MARANDA was held earlier this year due to renal function. * Monitor BP and adjust as needed. (7) Schizoaffective disorder: Qualifiers: Schizoaffective disorder type: unspecified Qualified Code(s): F25.9 - Schizoaffective disorder, unspecified Code(s): F25.9 - Schizoaffective disorder, unspecified Status: Chronic Assessment and Plan: * Stable; continue home medications. (8) Coronary artery disease: Qualifiers: Associated angina: without angina Coronary Disease-Associated Artery/Lesion type: bypass graft [place] vs. transplanted heart: [place] heart Qualified Code(s): I25.810 - Atherosclerosis of coronary artery
--- NOTE | 2020-09-12 16:08 | PM.IMPN ---
Progress Note: A&P Assessment and Plan (1) COPD exacerbation: Code(s): J44.1 - Chronic obstructive pulmonary disease with (acute) exacerbation Status: Acute Assessment and Plan: Continue nebulized bronchodilator therapy. COVID negative. Continue mucinex. Legionella and pneumococcal urine antigens pending. Improving, wean steroids onto oral prednisone in AM. (2) Positive blood culture: Code(s): R78.81 - Bacteremia Status: Acute Assessment and Plan: Blood cultures 2/2 from 09/09/20 growing coagulase negative Staph but report noted inadequate volume in bottles. Contaminant vs. bacteremia source unclear. Appreciate Dr Richardson's recommendations in this setting. No leukocytosis, afebrile. 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 (3) Hyponatremia: Code(s): E87.1 - Hypo-osmolality and hyponatremia Status: Acute Assessment and Plan: Improved with gentle IV fluids which were stopped 09/10. Na improved to 133 today. (4) Diabetes: Qualifiers: Diabetes mellitus complication status: with other specified complication Diabetes mellitus keno terminal operator insulin use: with keno terminal operator use Diabetes mellitus type: type 2 Qualified Code(s): E11.69 - Type 2 diabetes mellitus with other specified complication; Z79.4 - keno terminal operator (current) use of insulin Code(s): E11.9 - Type 2 diabetes mellitus without complications Status: Chronic Assessment and Plan: Blood sugars elevated but improved now with increased insulin. Steroids could be contributing however A1c is 10.2% suggesting hyperglycemia longer than just this hospital stay. Continue Lantus BID. Added scheduled mealtime Novolog and continue SSI coverage. Monitor accu-cheks and adjust treatment as needed. (5) Cardiomyopathy: Qualifiers: Cardiomyopathy type: unspecified Qualified Code(s): I42.9 - Cardiomyopathy, unspecified Code(s): I42.9 - Cardiomyopathy, unspecified Status: Chronic Assessment and Plan: Ischemic cardiomyopathy known EF 25-30%. Continue his home beta blockade, started MARANDA since renal function is stable. Monitor fluid status closely with daily weights and I&Os. (6) Hypertension: Qualifiers: Hypertension type: essential hypertension Qualified Code(s): I10 - Essential (primary) hypertension Code(s): I10 - Essential (primary) hypertension Status: Chronic Assessment and Plan: BPs reviewed and variable, elevated. Increase lisinopril and monitor. Continue his home metoprolol and initiate low-dose lisinopril due to HF. Appears MARANDA was held earlier this year due to renal function. Monitor BP and adjust as needed. (7) Schizoaffective disorder: Qualifiers: Schizoaffective disorder type: unspecified Qualified Code(s): F25.9 - Schizoaffective disorder, unspecified Code(s): F25.9 - Schizoaffective disorder, unspecified Status: Chronic Assessment and Plan: Stable; continue home medications. (8) Coronary artery disease: Qualifiers: Associated angina: without angina Coronary Disease-Associated Artery/Lesion type: bypass graft [place] vs. transplanted heart: [place] heart Qualified Code(s): I25.810 - Atherosclerosis of coronary artery bypass graft(s) without angina pectoris Code(s): I25.10 - Atherosclerotic heart disease of [place] coronary artery without angina pectoris Status: Chronic Assessment and Plan: Stable, no chest pain. Continue ASA and statin therapy. Subjective Date/time seen: 09/12/20 1345 Interval history
[2020-09-12 17:50] LABS: Glucose Point of Care 258 (65-105)
[2020-09-12 18:54] LABS: Pneumococcal Antigen Urine Not Detected (Not Detected)
[2020-09-12 18:58] LABS: SARS-CoV-2 RNA PCR Negative
[2020-09-12] MEDS: ACETAMINOPHEN 325 MG TABLET 650 MG PO (21:06)
[2020-09-12] MEDS: SENNA/DOCUSATE SODIUM TABLET 1 TAB PO (21:08)
[2020-09-12] MEDS: QUEtiapine FUMARATE 25 MG TABLET 50 MG PO (21:09)
[2020-09-12 22:40] LABS: Glucose Point of Care 209 (65-105)
[2020-09-13] VITALS (9 sets, daily range): BP systolic 144–175; BP diastolic 71–90; PULSE 56–104; RESP 18–22; TEMP 36–36.5; O2SAT 80–98
[2020-09-13] MEDS: HYDROcodone/acetaminophen (*CRX) 5-325 MG TABLET 1 TAB PO ×5 (01:43→21:20)
[2020-09-13] MEDS: IPRATROPIUM BR 0.02% INH SOLN 0.5 MG/2.5 ML VIAL INHALATION ×2 (03:11→16:11)
[2020-09-13] MEDS: ALBUTEROL SULFATE NEB 2.5 MG/0.5 ML INH INHALATION ×2 (03:11→16:11)
[2020-09-13] MEDS: ALBUTEROL SULFATE (*SP) AEROSOL 1 PUFF 2 PUFF INHALATION (05:45)
[2020-09-13 07:07] LABS: Legionella pneumophila Ag Ur Not Detected (Not Detected)
[2020-09-13 08:33] LABS: Glucose Point of Care 262 (65-105)
[2020-09-13] MEDS: ESCITALOPRAM OXALATE 10 MG TABLET PO (08:51)
[2020-09-13] MEDS: DIVALPROEX SODIUM SPRINKLE 125 MG CAP.DR PO ×3 (08:52→17:37)
[2020-09-13] MEDS: EZETIMIBE 10 MG TABLET PO (08:52)
[2020-09-13] MEDS: FAMOTIDINE 20 MG TABLET PO (08:52)
[2020-09-13] MEDS: GABAPENTIN 300 MG CAPSULE PO ×3 (08:52→17:37)
[2020-09-13] MEDS: guaiFENesin 12 HR 600 MG TABCR PO (08:53)
[2020-09-13] MEDS: ASPIRIN 81 MG ENTERIC TABLET PO (08:53)
[2020-09-13] MEDS: lisinopriL 10 MG TABLET PO (08:53)
[2020-09-13] MEDS: predniSONE 20 MG TABLET 60 MG PO (08:53)
[2020-09-13] MEDS: MAGNESIUM OXIDE 400 MG TABLET PO ×2 (08:53→21:19)
[2020-09-13] MEDS: ENOXAPARIN 40 MG/0.4 ML SYRINGE SUB-Q (08:54)
[2020-09-13] MEDS: INSULIN ASPART (*BKC) 100 UNITS/ML SUB-Q ×3 (09:02→17:37)
[2020-09-13] MEDS: INSULIN ASPART (*BKC) 100 UNITS/ML 8 UNITS SUB-Q ×3 (09:03→17:38)
[2020-09-13] MEDS: INSULIN GLARGINE (*BKC) 100 UNITS/ML 22 UNITS SUB-Q (09:05)
[2020-09-13 09:25] LABS: Basophils Percent Auto 0.2 % (0.2-1.2); Hematocrit 41.3 % (42.0-52.0); Hemoglobin 13.6 g/dL (14.0-18.0); Immature Granulocyte Absolute 0.12 K/mm3 (0.00-0.031); Immature Granulocyte Percent A 1.2 % (0-0.5); Lymphocytes Absolute Auto 0.57 K/mm3 (0.9-3.2); Lymphocytes Percent Auto 5.5 % (18.3-44.2); Mean Corpuscular HGB Conc 32.9 g/dl (32-36); Mean Corpuscular Hemoglobin 28.6 pg (26-34); Mean Corpuscular Volume 86.9 fl (80-100); Mean Platelet Volume 10.1 fl (7.4-10.4); Monocytes Absolute Auto 0.6 K/mm3 (0.1-0.6); Monocytes Percent Auto 5.4 % (2.6-8.5); Neutrophils Absolute Auto 9.2 K/mm3 (1.3-6.7); Neutrophils Percent Auto 87.7 % (45.5-73.1); Platelet Count Result 194 k/mm3 (150-375); Red Blood Count 4.75 M/mm3 (4.6-6.20); Red Cell Distribution Width 13.3 % (11.5-14.5); White Blood Count 10.4 K/mm3 (4.5-10.0)
[2020-09-13 09:37] LABS: Anion Gap 6 mmol/L (8-16); Blood Urea Nitrogen 23 mg/dL (9-20); Calcium 8.9 mg/dL (8.4-10.2); Carbon Dioxide 32 mmol/L (22-30); Chloride 93 mmol/L (98-107); Estimated CRCL calculation 77 ml/min; Estimated Glomerular Filt Rate > 60; Glucose 226 mg/dL (75-110); Magnesium 1.8 mg/dL (1.6-2.3); Potassium 4.3 mmol/L (3.4-5.0); Sodium 131 mmol/L (137-145)
[2020-09-13 10:05] LABS: Vancomycin Trough 6.8 ug/mL (10.0-20.0)
--- NOTE | 2020-09-13 11:10 | PCRCNOTE ---
Window of time for administration has passed. See next scheduled administration.
[2020-09-13 13:06] LABS: Glucose Point of Care 273 (65-105)
--- NOTE | 2020-09-13 15:12 | P.PNIM_ITS ---
Progress Note: A&P Assessment and Plan (1) COPD exacerbation: Code(s): J44.1 - Chronic obstructive pulmonary disease with (acute) exacerbation Status: Acute Assessment and Plan: * Continue nebulized bronchodilator therapy. COVID negative. Continue mucinex. Legionella and pneumococcal urine antigens negative. * Improving, steroids weaned to oral. (2) Positive blood culture: Code(s): R78.81 - Bacteremia Status: Acute Assessment and Plan: * Blood cultures 2/2 from 09/09/20 growing coagulase negative Staph but report noted inadequate volume in bottles. Contaminant vs. bacteremia source unclear. Appreciate Dr Richardson's recommendations in this setting. Continue vancomycin until ID consultation. * No leukocytosis, afebrile. 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 (3) Hyponatremia: Code(s): E87.1 - Hypo-osmolality and hyponatremia Status: Acute Assessment and Plan: * Improved with gentle IV fluids which were stopped 09/10. Na low but stable. (4) Diabetes: Qualifiers: Diabetes mellitus type: type 2 Diabetes mellitus terminologist insulin use: with senior care use Diabetes mellitus complication status: with other specified complication Qualified Code(s): E11.69 - Type 2 diabetes mellitus with other specified complication; Z79.4 - salvage determiner (current) use of insulin Code(s): E11.9 - Type 2 diabetes mellitus without complications Status: Chronic Assessment and Plan: * Blood sugars elevated. Steroids could be contributing however A1c is 10.2% suggesting hyperglycemia longer than just this hospital stay. * Continue Lantus BID, increase today. Continue scheduled mealtime Novolog and continue SSI coverage. Monitor accu-cheks and adjust treatment as needed. (5) Cardiomyopathy: Qualifiers: Cardiomyopathy type: unspecified Qualified Code(s): I42.9 - Cardiomyopathy, unspecified Code(s): I42.9 - Cardiomyopathy, unspecified Status: Chronic Assessment and Plan: * Ischemic cardiomyopathy known EF 25-30%. Continue his home beta blockade, started MARANDA since renal function is stable. * Monitor fluid status closely with daily weights and I&Os. (6) Hypertension: Qualifiers: Hypertension type: essential hypertension Qualified Code(s): I10 - Essential (primary) hypertension Code(s): I10 - Essential (primary) hypertension Status: Chronic Assessment and Plan: * BPs reviewed and variable, elevated. Increase lisinopril and monitor. * Continue his home metoprolol and initiate low-dose lisinopril due to HF. Appears MARANDA was held earlier this year due to renal function. * Monitor BP and adjust as needed. (7) Schizoaffective disorder: Qualifiers: Schizoaffective disorder type: unspecified Qualified Code(s): F25.9 - Schizoaffective disorder, unspecified Code(s): F25.9 - Schizoaffective disorder, unspecified Status: Chronic Assessment and Plan: * Stable; continue home medications. (8) Coronary artery disease: Qualifiers: Coronary Disease-Associated Artery/Lesion type: bypass graft [place] vs. transplanted heart: [place] heart Associated angina: without angina Qualified Code(s): I25.810 - Atherosclerosis of coronary artery bypass
--- NOTE | 2020-09-13 15:12 | PM.IMPN ---
Progress Note: A&P Assessment and Plan (1) COPD exacerbation: Code(s): J44.1 - Chronic obstructive pulmonary disease with (acute) exacerbation Status: Acute Assessment and Plan: Continue nebulized bronchodilator therapy. COVID negative. Continue mucinex. Legionella and pneumococcal urine antigens negative. Improving, steroids weaned to oral. (2) Positive blood culture: Code(s): R78.81 - Bacteremia Status: Acute Assessment and Plan: Blood cultures 2/2 from 09/09/20 growing coagulase negative Staph but report noted inadequate volume in bottles. Contaminant vs. bacteremia source unclear. Appreciate Dr Richardson's recommendations in this setting. Continue vancomycin until ID consultation. No leukocytosis, afebrile. 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 (3) Hyponatremia: Code(s): E87.1 - Hypo-osmolality and hyponatremia Status: Acute Assessment and Plan: Improved with gentle IV fluids which were stopped 09/10. Na low but stable. (4) Diabetes: Qualifiers: Diabetes mellitus type: type 2 Diabetes mellitus intermodal dispatcher insulin use: with intermodal dispatcher use Diabetes mellitus complication status: with other specified complication Qualified Code(s): E11.69 - Type 2 diabetes mellitus with other specified complication; Z79.4 - longterm (current) use of insulin Code(s): E11.9 - Type 2 diabetes mellitus without complications Status: Chronic Assessment and Plan: Blood sugars elevated. Steroids could be contributing however A1c is 10.2% suggesting hyperglycemia longer than just this hospital stay. Continue Lantus BID, increase today. Continue scheduled mealtime Novolog and continue SSI coverage. Monitor accu-cheks and adjust treatment as needed. (5) Cardiomyopathy: Qualifiers: Cardiomyopathy type: unspecified Qualified Code(s): I42.9 - Cardiomyopathy, unspecified Code(s): I42.9 - Cardiomyopathy, unspecified Status: Chronic Assessment and Plan: Ischemic cardiomyopathy known EF 25-30%. Continue his home beta blockade, started MARANDA since renal function is stable. Monitor fluid status closely with daily weights and I&Os. (6) Hypertension: Qualifiers: Hypertension type: essential hypertension Qualified Code(s): I10 - Essential (primary) hypertension Code(s): I10 - Essential (primary) hypertension Status: Chronic Assessment and Plan: BPs reviewed and variable, elevated. Increase lisinopril and monitor. Continue his home metoprolol and initiate low-dose lisinopril due to HF. Appears MARANDA was held earlier this year due to renal function. Monitor BP and adjust as needed. (7) Schizoaffective disorder: Qualifiers: Schizoaffective disorder type: unspecified Qualified Code(s): F25.9 - Schizoaffective disorder, unspecified Code(s): F25.9 - Schizoaffective disorder, unspecified Status: Chronic Assessment and Plan: Stable; continue home medications. (8) Coronary artery disease: Qualifiers: Coronary Disease-Associated Artery/Lesion type: bypass graft [place] vs. transplanted heart: [place] heart Associated angina: without angina Qualified Code(s): I25.810 - Atherosclerosis of coronary artery bypass graft(s) without angina pectoris Code(s): I25.10 - Atherosclerotic heart disease of [place] coronary artery without angina pectoris Status: Chronic Assessment and Plan: Stable, no chest pain. Continue ASA and statin therapy. Subjective Date/time seen: 09/13/20 1200 Interval history
[2020-09-13] MEDS: METOPROLOL TARTRATE 25 MG TABLET PO (17:37)
[2020-09-13 18:01] LABS: Glucose Point of Care 235 (65-105)
[2020-09-13] MEDS: SENNA/DOCUSATE SODIUM TABLET 1 TAB PO (21:18)
[2020-09-13] MEDS: QUEtiapine FUMARATE 25 MG TABLET 50 MG PO (21:19)
[2020-09-13] MEDS: INSULIN GLARGINE (*BKC) 100 UNITS/ML 25 UNITS SUB-Q (21:19)
[2020-09-13 22:07] LABS: Glucose Point of Care 308 (65-105)
[2020-09-14] VITALS (9 sets, daily range): BP systolic 151–167; BP diastolic 61–77; PULSE 72–112; RESP 12–20; TEMP 35.5–37; O2SAT 94–100
--- NOTE | 2020-09-14 | ECHO_ITS ---
Patient Info Name: Marquis Cosme Age: 70 years : 1950 Gender: Male Ht: 69 in Wt: 193 lbs BSA: 2.08 m2 HR: 75 bpm BP: 175 / 78 mmHg Heart Rhythm: Sinus Rhythm Technical Quality: Good Exam Date: 09/14/2020 11:38 AM Exam Location: [facility] Pul[facility] Patient Status: Inpatient Admit Date: 09/09/2020 Staff Ordering Physician: Kristy Wild PA-C [place] Operator: Adria Greene RDCS Attending Provider: Kristy Wild PA-C Exam Type: CA echo doppler color flow Study Info Indications J96.01 - Acute respiratory failure with hypoxia Complete two-dimensional, color flow and Doppler transthoracic echocardiogram is performed. History/Risk Factors COPD exacerbation; CHF, respiratory failure, CHF w/ ICM, HTN, DM, SOB. Summary 1. Complete two-dimensional, color flow and Doppler transthoracic echocardiogram is performed. 2. Overall normal left and right ventricular systolic function despite history of ischemic cardiomyopathy. 3. Dilated left atrium. 4. Small amount of mitral regurgitation. Left Ventricle Left ventricular chamber dimension is normal. Left ventricular systolic function is normal, estimated at 50-55%. The left ventricular diastolic function is grade I diastolic dysfunction. Right Ventricle Right ventricular chamber dimension is normal. Left Atria Left atrial chamber dimension is moderately enlarged. Right Atria Right atrial chamber dimension is normal. Aortic Valve The aortic valve is normal. Pulmonic Valve The pulmonic valve is not well visualized. Mitral Valve The mitral valve has normal leaflets. There is trace mitral valve regurgitation. Tricuspid Valve The tricuspid valve leaflets are normal. Pericardium/Pleural The pericardium appears normal. Aorta The aortic root size at the sinus of Valsalva is normal. Left Ventricular Outflow Tract Name Value Normal LVOT 2D LVOT Diameter 2.2 cm LVOT Doppler LVOT Peak Gradient 2 mmHg LVOT Mean Gradient 1 mmHg LVOT VTI 12 cm LVOT VTI/AV VTI Ratio 0.9 LVOT Stroke Volume 46 ml LVOT CO 3.2 l/min LVOT CI 1.5 l/min/m2 Mitral Valve Name Value Normal MV Doppler MV Decel [place] 260 cm/s2 MV PHT 53 ms MV Area (PHT) 4.1 cm2 4.0-5.0 MV Diastolic Function MV E Peak Velocity 48 cm/s MV A Peak Velocity 91 cm/s MV E/A 0.5 MV Decel Time 183 ms MV A
[2020-09-14] MEDS: HYDROcodone/acetaminophen (*CRX) 5-325 MG TABLET 1 TAB PO ×3 (01:26→10:26)
[2020-09-14] MEDS: ALBUTEROL SULFATE NEB 2.5 MG/0.5 ML INH INHALATION ×3 (02:35→15:27)
[2020-09-14] MEDS: IPRATROPIUM BR 0.02% INH SOLN 0.5 MG/2.5 ML VIAL INHALATION ×3 (02:35→15:26)
[2020-09-14 07:00] LABS: Anion Gap 3 mmol/L (8-16); Blood Urea Nitrogen 21 mg/dL (9-20); Calcium 8.7 mg/dL (8.4-10.2); Carbon Dioxide 34 mmol/L (22-30); Chloride 95 mmol/L (98-107); Estimated CRCL calculation 77 ml/min; Estimated Glomerular Filt Rate > 60; Glucose 157 mg/dL (75-110); Magnesium 1.8 mg/dL (1.6-2.3); Potassium 3.8 mmol/L (3.4-5.0); Sodium 132 mmol/L (137-145)
[2020-09-14 08:31] LABS: Glucose Point of Care 108 (65-105)
[2020-09-14] MEDS: ENOXAPARIN 40 MG/0.4 ML SYRINGE SUB-Q (10:27)
[2020-09-14] MEDS: DIVALPROEX SODIUM SPRINKLE 125 MG CAP.DR PO ×2 (10:28→13:29)
[2020-09-14] MEDS: GABAPENTIN 300 MG CAPSULE PO ×2 (10:28→13:29)
[2020-09-14] MEDS: guaiFENesin 12 HR 600 MG TABCR PO (10:28)
[2020-09-14] MEDS: predniSONE 20 MG TABLET 60 MG PO (10:28)
[2020-09-14] MEDS: ASPIRIN 81 MG ENTERIC TABLET PO (10:29)
[2020-09-14] MEDS: ESCITALOPRAM OXALATE 10 MG TABLET PO (10:29)
[2020-09-14] MEDS: EZETIMIBE 10 MG TABLET PO (10:29)
[2020-09-14] MEDS: FAMOTIDINE 20 MG TABLET PO (10:29)
[2020-09-14] MEDS: lisinopriL 10 MG TABLET PO (10:29)
[2020-09-14] MEDS: METOPROLOL TARTRATE 25 MG TABLET PO (10:30)
[2020-09-14] MEDS: MAGNESIUM OXIDE 400 MG TABLET PO (10:30)
[2020-09-14] MEDS: INSULIN GLARGINE (*BKC) 100 UNITS/ML 10 UNITS SUB-Q (10:31)
[2020-09-14 12:47] LABS: Glucose Point of Care 173 (65-105)
--- NOTE | 2020-09-14 12:59 | WPDINFPN2 ---
Progress Note: A&P Assessment and Plan (1) Positive blood culture: Code(s): R78.81 - Bacteremia Status: Acute Assessment and Plan: CNSS bacteremia. Port in place, not currently accessed. COPD exacerbation REC (antibiotic # 3) Doxy # 1 / 5 days. Port can remain in place. Subjective Date/time seen: 09/14/20 12:59 Objective Data Vital Signs Vital Signs: Vital Signs - 24 hr 09/13/20 14:00 09/13/20 16:12 09/13/20 20:58 Temperature 36.5 C Pulse Rate 104 H 82 80 Respiratory Rate 18 18 20 Blood Pressure 147/90 H Pulse Oximetry 96 09/13/20 21:00 09/13/20 22:00 09/13/20 23:12 Temperature 36.0 C L Pulse Rate 66 Respiratory Rate 20 22 H Blood Pressure 175/78 H Pulse Oximetry 96 92 98 09/14/20 02:38 09/14/20 06:00 09/14/20 09:15 Temperature 37.0 C Pulse Rate 80 72 Respiratory Rate 20 20 Blood Pressure 167/77 H Pulse Oximetry 100 94 09/14/20 09:16 09/14/20 09:25 09/14/20 10:30 Temperature Pulse Rate 96 112 H Respiratory Rate 20 20 Blood Pressure Pulse Oximetry Intake/Output Intake/Output: Intake & Output 09/11/20 09/12/20 09/13/20 09/14/20 23:59 23:59 23:59 23:59 Intake Total 2130 21889 3810 680 Output Total 3150 2950 1500 1100 Balance -1020 18038 2310 -420 Meds/Results Medications: Active Medications Generic Name Dose Route Start Last Admin Trade Name Freq PRN Reason Stop Dose Admin Acetaminophen 650 mg 09/10/20 05:58 09/12/20 21:06 Acetaminophen 325 Mg Tablet PO 650 mg Q6H PRN Administration Mild Pain (Scale Score 1-4) Hydrocodone Bitart/Acetaminophen 1 tab 09/10/20 05:58 09/14/20 10:26 Hydrocodone/Acetaminophen (*Crx) 5-325 Mg Tablet PO 1 tab Q4H PRN Administration Pain Rated 4-6 Albuterol 2 puff 09/10/20 05:58 09/13/20 05:45 Albuterol Sulfate (*Sp) Aerosol 1 Puff INHALATION 2 puff Q6H PRN Administration Shortness Of Breath Albuterol 2.5 mg 09/10/20 08:00 09/14/20 09:16 Albuterol Sulfate Neb 2.5 Mg/0.5 Ml Inh INHALATION 2.5 mg Q6HRT KASSIDY Administration Aspirin 81 mg 09/10/20 09:00 09/14/20 10:29 Aspirin 81 Mg Enteric Tablet PO 81 mg QAM KASSIDY Administration Dextrose 12.5 gm 09/10/20 05:59 Dextrose 50% 25 Gm/50 Ml Syringe IV PUSH PRN PRN Hypoglycemia Protocol Divalproex Sodium 125 mg 09/10/20 08:00 09/14/20 10:28 Divalproex Sodium Sprinkle 125 Mg Cap.Dr PO 125 mg TIDWM KASSIDY Administration Ezetimibe 10 mg 09/10/20 09:00 09/14/20 10:29 Ezetimibe 10 Mg Tablet PO 10 mg DAILY KASSIDY Administration Enoxaparin Sodium 40 mg 09/10/20 09:00 09/14/20 10:27 Enoxaparin 40 Mg/0.4 Ml Syringe SUB-Q 40 mg DAILY KASSIDY Administration Escitalopram Oxalate 10 mg 09/10/20 09:00 09/14/20 10:29 Escitalopram Oxalate 10 Mg Tablet PO 10 mg DAILY KASSIDY Administration Famotidine 20 mg 09/10/20 09:00 09/14/20 10:29 Famotidine 20 Mg Tablet PO 20 mg DAILY KASSIDY Administration Gabapentin 300 mg 09/11/20 13:00 09/14/20 10:28 Gabapentin 300 Mg Capsule PO 300 mg TID KASSIDY Administration Glucagon 1 mg 09/10/20 05:59 Glucagon For Inj 1 Mg Vial IM PRN PRN Hypoglycemia Protocol Glucose 15 gm 09/10/20 05:59 Glucose Oral Gel 15 Gm Of Glucse In 37.5 Gm Tube PO PRN PRN Hypoglycemia Protocol Guaifenesin 600 mg 09/10/20 09:00 09/14/20 10:28 Guaifenesin 12 Hr 600 Mg Tabcr PO 10/10/20 09:01 600 mg DAILY KASSIDY Administration Dextrose 1,000 mls @ 100 mls/hr 09/10/20 05:59 Dextrose 5% 1,000 Ml IVPB PRN PRN Hypoglycemia Protocol Insulin Aspart 3 - 6 units 09/10/20 08:00 12/21/20 12:46 Insulin Aspart (*Bkc) 100 Units/Ml SUB-Q Not Given TIDWM [facility] Protocol Insulin Aspart 8 units 09/11/20 08:00 09/14/20 09:49 Insulin Aspart (*Bkc) 100 Units/Ml SUB-Q Not Given TIDWM [facility] Insulin Glargine 10 units 09/14/20 09:55 09/14/20 10:31 Insulin
--- NOTE | 2020-09-14 13:11 | PM.DS ---
DS: Admitting Diagnosis Admitting Diagnosis Admitting Diagnosis: COPD exacerbation DS: Discharge Diagnosis Discharge Diagnosis (1) COPD exacerbation: Code(s): J44.1 - Chronic obstructive pulmonary disease with (acute) exacerbation Status: Acute Assessment and Plan: Date of Admission 09/09/20 Date of Discharge/DOS 09/14/20 Mr. Cosme is a 70yo M with COPD, type 2 diabetes mellitus, ischemic cardiomyopathy known EF 25-30%, coronary artery disease, schizoaffective disorder, hospitalized earlier this year November 2019 requiring trach and mechanical ventilation in ICU, who presented to the ED from [facility] for evaluation of shortness of breath with saturations low 80s on room air at alf. He was COVID negative. He was treated here for acute COPD exacerbation with steroids and nebulized bronchodilator therapy. He was also found to have Coagulase negative staphylococcus bacteremia. He was evaluated by infectious disease, treated with vancomycin and discharged with oral doxycycline per ID recommendations. Patient was feeling much improved with the therapy outlined above and was eager for discharge. He was hemodynamically stable for discharge on 09/14/20 with plans to be seen by PCP in 1 week. Continue nebulized bronchodilator therapy. COVID negative. Legionella and pneumococcal urine antigens negative. IV steroids weaned to oral prednisone, discharged with tapered course. Mucinex. (2) Positive blood culture: Code(s): R78.81 - Bacteremia Status: Acute Assessment and Plan: Blood cultures 2/2 from 09/09/20 growing coagulase negative Staph, repeat cultures drawn 09/11/20 prior to abx are also both positive. Source unclear. Appreciate Dr Richardson's recommendations in this setting. Treated with IV vanc, discharged with oral doxy per ID recommendations. No leukocytosis, afebrile. 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 (3) Hyponatremia: Code(s): E87.1 - Hypo-osmolality and hyponatremia Status: Acute Assessment and Plan: Improved with gentle IV fluids which were stopped 09/10. Na low but stable. 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 Steroids could be contributing however A1c is 10.2% suggesting hyperglycemia longer than just this hospital stay. Continue insulin regimen and follow up with PCP. (5) Cardiomyopathy: Qualifiers: Cardiomyopathy type: unspecified Qualified Code(s): I42.9 - Cardiomyopathy, unspecified Code(s): I42.9 - Cardiomyopathy, unspecified Status: Chronic Assessment and Plan: Ischemic cardiomyopathy known EF 25-30%. Continue his home beta blockade, started MARANDA since renal function is stable. (6) Hypertension: Qualifiers: Hypertension type: essential hypertension Qualified Code(s): I10 - Essential (primary) hypertension Code(s): I10 - Essential (primary) hypertension Status: Chronic Assessment and Plan: Continue his home metoprolol and initiate low-dose lisinopril due to HF. Appears MARANDA was held earlier this year due to renal function. (7) Schizoaffective disorder: Qualifiers: Schizoaffective disorder type: unspecifie
[2020-09-14] MEDS: ACETAMINOPHEN 325 MG TABLET 650 MG PO (13:30)
--- NOTE | 2020-09-14 17:35 | CONS_ITS ---
DATE OF CONSULTATION: REASON FOR CONSULTATION: Positive blood culture. HISTORY OF PRESENT ILLNESS: A 70-year-old male known to me from October and November when he had a fungal isolation from his sternal wound. He has had previous sternotomy. He reports his chest incision has healed well except for a scab over the inferior aspect, which occasionally will drain, but is painless in nature. He also has had previous PEG and tracheostomy, both have now been removed. He presented to the hospital once again on September 09 with shortness of breath. Here, he has been treated for COPD exacerbation with respiratory treatments as well as corticosteroids. Blood cultures were collected in the emergency room, and he was given ceftriaxone and azithromycin. This was changed to vancomycin 2 days ago and consultation requested. He has a Port-A-Cath in the left upper chest present for IV access apparently. It is not being accessed currently. He reports the last time it was accessed was about 6 months ago. Otherwise, no prosthetic devices in place. No fever, chills, or sweats. His chest pain persists though is less marked than previously. If he does not follow his diet, he does have some choking with eating. His breathing has improved with therapy. HABITS: Ex-smoker. No alcohol. PRESENT MEDICATIONS: Extensive list reviewed and includes the prednisone as above. No other immunosuppressants. PAST MEDICAL HISTORY: CABG in February 2019, schizoaffective disorder, ischemic cardiomyopathy, infected sternal wire, hypertension, hyperlipidemia, GERD, type 2 diabetes mellitus, and COPD. REVIEW OF SYSTEMS: 14-point review otherwise negative. FAMILY HISTORY: Not pertinent to his present illness. SOCIAL HISTORY: He is single, retired, and lives locally. PHYSICAL EXAMINATION: GENERAL: This is a middle-aged male who appears his actual age. No acute distress. VITAL SIGNS: He is consistently afebrile, 96, 20, 167/77, and on room air 94%. SKIN: Warm and dry. No rashes. No ulcers. NODES: He has no cervical adenopathy. EENT: Poor dentition. Oropharynx, oral mucosa normal. No thrush. Pupils equal, round, reactive to light. No conjunctival injection. No paranasal sinus erythema, edema, tenderness. NECK: Old tracheostomy, which is healed. He has no neck masses, asymmetry, stridor. LUNGS: Diminished breath sounds with bibasilar rales. No wheezing. No rhonchi. CHEST: Port-A-Cath present in the left upper chest, not accessed. He has a 0.5 cm crusted ulcer inferior aspect of the sternum. No surrounding erythema, warmth, tenderness, or sinus tracts. He has asymmetry of the chest wall and that muscle mass on the right appears markedly diminished pectoralis muscle. CARDIAC: Tachycardic, regular. No murmurs, gallops. ABDOMEN: Soft, nontender. No masses. No organomegaly. Old G-tube site is well healed. EXTREMITIES: No clubbing, cyanosis, edema. LABORATORY DATA: On admission, blood cultures 2/2 sets coagulase-negative staph. I reviewed the susceptibilities. Repeat blood culture on the , 1 out of 2 sets, same organism. His white count 10.4, after recently being 15.2, hemoglobin 13.6, platelets are 194, differential minimal left shift. Blood gases 7.36, 48, 80, 27, 95% on noninvasive vent according to the computer. Chemistries with mild hyponatremia. BUN 21, creatinine 0.8, glucose variable 157 up to 484, A1c 10.2%, albumin 3.4. His urinalysis does not suggest infection. His coronavirus assay was negative on 2 occasions. Pneumococcal antigen, Legionella antigen nonreactive. His vancomycin trough level 7. RADIOLOGY: I personally reviewed his chest x-ray. He has the Port-A-Cath in place with tip in the appropriate position. ASSESSMENT: 1. Staphylococcus bacteremia
== END 2020-09-14 16:10 | DRG 191 ==
LOC: ANHED 21:15 → ANH3MEDSUR 09-10 10:59
PROVIDERS: Family Medicine; Admitting Provider Student in an Organized Health Care Education/Training Program; Emergency Provider Emergency Medicine; Visit Provider Physician Assistant
DX: J44.1 Chronic obstructive pulmonary disease with (acute) exacerbation (principal); E87.1 Hypo-osmolality and hyponatremia; R78.81 Bacteremia; I25.810 Atherosclerosis of coronary artery bypass graft(s) without angina pectoris; Z20.828 Contact with and (suspected) exposure to other viral communicable diseases; I11.0 Hypertensive heart disease with heart failure; I50.9 Heart failure, unspecified; E11.42 Type 2 diabetes mellitus with diabetic polyneuropathy; K21.9 Gastro-esophageal reflux disease without esophagitis; E78.5 Hyperlipidemia, unspecified; F25.9 Schizoaffective disorder, unspecified; I25.5 Ischemic cardiomyopathy; K59.03 Drug induced constipation; T40.2X5A Adverse effect of other opioids, initial encounter; M54.5 Low back pain; G89.29 Other chronic pain; Z79.4 Long term (current) use of insulin; Z79.82 Long term (current) use of aspirin; Z79.899 Other long term (current) drug therapy; Z87.891 Personal history of nicotine dependence; Z95.1 Presence of aortocoronary bypass graft; Z95.828 Presence of other vascular implants and grafts
CPT/HCPCS: 36415; 36600; 71045; 71046; 80048; 80053; 80202; 81001; 82010; 82805; 83036; 83735; 83880; 84484; 85025; 87040; 87070; 87077; 87186; 87205; 87449; 87635; 87899; 92610; 93005; 93306; 94002; 94003; 94640; 96374; 97110; 97116; 97161; 97165; 97530; 97535; 99285; A9270; C9803; J0456; J0696; J1650; J1815; J2920; J2930; J3370; J7030; J7512; U0003

== ENCOUNTER 2020-09-28 12:31 | Emergency (ER) | payer MEDICARE, MEDICAID, SELFPAY ==
[2020-09-28] VITALS (7 sets, daily range): BP systolic 93–152; BP diastolic 61–94; PULSE 95–109; RESP 18–25; TEMP 36.8; O2SAT 90–99
--- NOTE | ~2020-09-28 | CT_ITS ---
EXAMINATION: CTA chest PE protocol DATE: 09/28/2020 15:30 INDICATION: Shortness of breath. Elevated d-dimer. TECHNIQUE: Computed tomography angiography (CTA) of the chest was performed with 100 mL Omnipaque-350 intravenous contrast timed to evaluate the pulmonary arteries. Coronal maximum intensity projection 3D-reconstructions were created by the technologist. Automated exposure control and iterative reconst ruction technique were employed. Exam dose: 897.70 mGy-cm total exam DLP. COMPARISON: 09/2020 AP and lateral chest FINDINGS: Status post sternotomy and coronary artery bypass graft surgery. Left Port-A-Cath catheter tip near origin of superior vena cava. Deformity of the right posterior fifth rib, likely secondary to thoracotomy; recommend correlation wi clinical/surgical history. There is narrowing of the middle and right lower lobe bronchi with associated infiltrate/atelectasis in the right lower lung zone and elevation of the right leaf of the diaphragm. There is extensive muc ous plugging in the right lower lobe bronchi. Scattered tree-in-bud infiltrates throughout the right lung. Surgical clips are noted in the posteromedial right lower lung. There is mild groundglass infiltrate or atelectasis in the posterior segment of the left upper lobe. There is discoid atelectasis and/or scarring in the left lung base, left lower lobe. Emphysematous changes are suggested. Lung detail is limited due to motion. There is diagnostic contrast enhancement of the pulmonary arteries. No evidence of pulmonary embolism is detected. No thoracic aortic aneurysm or dissection is detected. Mild right hilar lymphadenopathy. Normal heart size. Coronary artery calcifications. No pericardial effusion. No pleural effusion. Normal morphology of the adrenal glands. There is pathologic burst fracture with extensive destruction of T7 vertebral body, with surrounding paraspinal soft tissue thickening at both T6 and T7, as well as some bone destruction at the lower T6 vertebral body. There is mediastinal air in this region. Infection must be considered , as well as metastatic disease. The mediastinal emphysema might be due to infection or hollow viscus (tracheobr onchial or esophageal) rupture. Degenerative changes of the cervical and thoracic spine. Osteoarthritic change at the glenohumeral joints, particularly severe on the right. IMPRESSION: No evidence of pulmonary embolism Pathologic burst fracture and extensive destruction of T7 vertebral body, with bone destruction the l ower T6 vertebral body as well, surrounding soft tissue thickening and mild mediastinal emphysema. In fection must be considered, as well as metastatic disease Prominent narrowing of the middle and lower lobe bronchi on the right with associated atelectasis and extensive mucous plugging Mild groundglass infiltrate or atelectasis in the posterior segment of left upper lobe Discoid atelectasis and/or scarring, left lower lobe Emphysema Left Port-A-Cath Dr. Donald telephoned the report to emergency room physician Dr. Morgan on 09/28/2020 at 1607 hours. Reviewed, dictated and finalized at [facility]. Reviewed, dictated and finalized at [facility]. 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 Infection must be considered, as well as metastatic disease Prominent narrowing of the middle and lower lobe bronchi on the right with asso ciated atelectasis and extensive mucous plugging Mild groundglass infiltrate or atelectasis in the posterior segment o
--- NOTE | ~2020-09-28 | XR_ITS ---
XR chest 2V 09/28/2020 13:18 Indication: Shortness of breath Procedure: AP and lateral views of the chest Comparison: Comparison to multiple prior studies sequentially, with oldest reviewed study dated 11/2019. Findings: Portacatheter tip in the SVC. Chronic elevation of the right diaphragm. Chronic airspace di sease right lung base. No significant pleural effusion or pneumothorax. Impression: 1: Chronic right basilar airspace disease which may represent atelectasis and/or pneumonia. 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 Reviewed, dictated and finalized at location [facility]. TION ECONOMIST Impression: 1: Chronic right basilar airspace disease which may represent atelectasis and/o r pneumonia. 2: Chronic elevation of the right diaphragm, possibly due to phrenic nerve par alysis.
--- NOTE | 2020-09-28 12:41 | ECG_ITS ---
Measurements Intervals [place] Rate: 106 P: -7 [place]: 212 QRS: 73 QRSD: 139 T: 23 QT: 345 QTc: 458 Interpretive Statements SINUS TACHYCARDIA WITH FIRST DEGREE AV BLOCK POSSIBLE LEFT ATRIAL ENLARGEMENT RIGHT BUNDLE BRANCH BLOCK BASELINE WANDER- I, II, III, AVL, AVF ABNORMAL ECG Electronically Signed On 09-28-2020 12:56:21 [place] by Torito Stapleton D.O.
--- NOTE | 2020-09-28 12:46 | ED.GENADULT ---
HPI - General Adult General Chief complaint: Shortness of Breath/Dyspnea <Ross Tomas PA-C - Last Filed: 09/28/20 20:48> Stated complaint: ABD Pain <Ross Tomas PA-C - Last Filed: 09/28/20 20:48> Time Seen by Provider: 09/28/20 12:43 <Ross Tomas PA-C - Last Filed: 09/28/20 20:48> History of Present Illness HPI narrative: Patient is a 62-year-old male with history of COPD, CAD who comes to the emergency room today complaining of shortness of breath and pain in lower part of chest. Patient reports he has been worsening shortness of breath for the last 2 weeks. Admits to cough. Denies any fevers. Complaining of pain in bilateral lower anterior rib cage, left worse than right for the last 1 week. Pain is worse with deep breathing and with coughing. Better with rest. According to EMS report patient [facility] 88[facility] Received DuoNeb in EMS transport. Currently satting 97% on 2 L nasal cannula. Patient is somewhat of a poor historian. <Ross Tomas PA-C - Last Filed: 09/28/20 20:48> Related Data Home medications: Home Medications Medication Instructions Recorded Confirmed Invega Sustenna 156 mg IM MONTHLY 11/10/19 09/09/20 acetaminophen [Tylenol] 650 mg PO Q6H PRN 11/10/19 09/09/20 albuterol sulfate [ProAir HFA] 2 puff INHALATION Q6H PRN 11/10/19 09/09/20 metoprolol tartrate 37.5 mg PO TID 11/10/19 09/09/20 polyethylene glycol 3350 17 g PO DAILY PRN 11/10/19 09/09/20 sennosides-docusate sodium [Senna 2 tablet PO BID PRN 11/10/19 09/09/20 with Docusate Sodium] Basaglar KwikPen U-100 Insulin 18 unit SUBCUT Q12H 09/09/20 09/09/20 Incruse Ellipta 1 inh INHALATION DAILY 09/09/20 09/09/20 Mucinex 1 tablet PO DAILY 09/09/20 09/09/20 aspirin 81 mg PO DAILY 09/09/20 09/09/20 divalproex 125 mg PO TID 09/09/20 09/09/20 escitalopram oxalate 10 mg PO DAILY 09/09/20 09/09/20 ezetimibe 10 mg PO DAILY 09/09/20 09/09/20 famotidine 20 mg PO DAILY 09/09/20 09/09/20 gentamicin 1 applic TOPICAL DAILY 09/09/20 09/09/20 insulin aspart U-100 [Novolog See Rx Instructions .ROUTE .COMPLEX 09/09/20 09/09/20 Flexpen U-100 Insulin] magnesium oxide 400 mg PO Q12H 09/09/20 09/09/20 quetiapine 50 mg PO HS 09/09/20 09/09/20 <Ross Tomas PA-C - Last Filed: 09/28/20 20:48> Allergies/adverse reactions: Allergies Allergy/AdvReac Type Severity Reaction Status Date / Time latex Allergy Unknown Verified 09/28/20 12:54 PLASTIC Allergy Unknown Uncoded 09/28/20 12:54 <Ross Tomas PA-C - Last Filed: 09/28/20 20:48> Review of Systems Review of Systems: All systems reviewed & are unremarkable except as noted in HPI and below <Ross Tomas PA-C - Last Filed: 09/28/20 20:48> [facility] Past Medical History Medical History: Medical History (Updated 09/28/20 @ 17:05 by Ross Tomas PA-C) COPD (chronic obstructive pulmonary disease) Diabetes type 2, controlled GERD (gastroesophageal reflux disease) History of Pseudomonas pneumonia Hyperlipidemia Hypertension Infected sternotomy closure wire Ischemic cardiomyopathy Schizoaffective disorder <Ross Tomas PA-C - Last Filed: 09/28/20 20:48> Surgical History Surgical History: Surgical History History of thoracotomy Hx of CABG 02/2019 Status post insertion of percutaneous endoscopic gastrostomy (PEG) tube Status post tracheostomy <GRISELDA Cordero Last Filed: 09/28/20 20:48> Family History Family History: Family History Other Unknown family medical history <Ross Tomas PA-C - Last Filed: 09/28/20 20:48> Social History Social History: Social History Smoking packs per day: 1 Smoking cigarettes per day: 20.0 Years smoked: 55 Smoking pack-year
[2020-09-28 12:59] LABS: Basophils Percent Auto 0.3 % (0.2-1.2); Eosinophils Absolute Auto 0.1 K/mm3 (0-0.3); Eosinophils Percent Auto 0.8 % (0-4.4); Hemoglobin 11.9 g/dL (14.0-18.0); Immature Granulocyte Absolute 0.16 K/mm3 (0.00-0.031); Immature Granulocyte Percent A 1.2 % (0-0.5); Lymphocytes Absolute Auto 0.45 K/mm3 (0.9-3.2); Lymphocytes Percent Auto 3.5 % (18.3-44.2); Mean Corpuscular HGB Conc 33.1 g/dl (32-36); Mean Corpuscular Volume 87.6 fl (80-100); Mean Platelet Volume 10.5 fl (7.4-10.4); Monocytes Absolute Auto 0.5 K/mm3 (0.1-0.6); Monocytes Percent Auto 3.7 % (2.6-8.5); Neutrophils Absolute Auto 11.8 K/mm3 (1.3-6.7); Neutrophils Percent Auto 90.5 % (45.5-73.1); Platelet Count Result 206 k/mm3 (150-375); Red Blood Count 4.11 M/mm3 (4.6-6.20); Red Cell Distribution Width 13.6 % (11.5-14.5)
[2020-09-28 13:08] LABS: Hypochromasia 1+ (NORMAL); Platelet Estimate Adequate (Adequate)
[2020-09-28 13:13] LABS: Anion Gap 4 mmol/L (8-16); Blood Urea Nitrogen 33 mg/dL (9-20); Calcium 8.8 mg/dL (8.4-10.2); Carbon Dioxide 35 mmol/L (22-30); Chloride 83 mmol/L (98-107); Estimated CRCL calculation 57 ml/min; Estimated Glomerular Filt Rate > 60; Glucose 311 mg/dL (75-110); Lactic Acid Reflex 1.4 mmol/L (0.7-2.1); Potassium 5.3 mmol/L (3.4-5.0); Sodium 122 mmol/L (137-145)
[2020-09-28 14:01] LABS: D Dimer 2.22 ug/mL (<0.48)
[2020-09-28 15:20] LABS: Add Urine Microscopic? YES; Appearance Urine Clear (Clear); Bacteria Urine Trace /hpf; Bilirubin Urine Negative (Negative); Blood Urine 1+ (Negative); Budding Yeast Urine Present /hpf; Color Urine Yellow (Yellow); Glucose Urine UA 1+ mg/dL (Negative); Ketones Urine Trace mg/dL (Negative); Leukocyte Esterase Ur 2+ LEU/UL (Negative); Nitrate Urine Negative (Negative); Protein Urine 2+ mg/dL (Negative); RBC Urine 0-2 /hpf (0-2); Specific Grav Ur 1.013 (1.001-1.035); Squamous Epithelial Cell Urine Rare /hpf (Few); Urobilinogen Urine Negative mg/dL (<2.0); WBC Urine 31-50 /hpf
[2020-09-28] MEDS: methylPREDNISolone SOD SUCC 40 MG VIAL 60 MG IV PUSH (15:50)
[2020-09-28] MEDS: ACETAMINOPHEN 325 MG TABLET 650 MG PO (15:50)
[2020-09-28] MEDS: HYDROcodone/acetaminophen (*CRX) 5-325 MG TABLET 1 TAB PO (16:51)
== END 2020-09-28 19:54 | disposition short-term general hospital (02) ==
PROVIDERS: Emergency Medicine; Physician Assistant Medical; Emergency Provider Emergency Medicine
DX: J44.1 Chronic obstructive pulmonary disease with (acute) exacerbation (principal); E87.1 Hypo-osmolality and hyponatremia; S22.062A Unstable burst fracture of T7-T8 vertebra, initial encounter for closed fracture; X58.XXXA Exposure to other specified factors, initial encounter; E11.9 Type 2 diabetes mellitus without complications; K21.9 Gastro-esophageal reflux disease without esophagitis; E78.5 Hyperlipidemia, unspecified; F20.9 Schizophrenia, unspecified; Z95.1 Presence of aortocoronary bypass graft; Z87.891 Personal history of nicotine dependence; R82.90 Unspecified abnormal findings in urine; I11.9 Hypertensive heart disease without heart failure; I43 Cardiomyopathy in diseases classified elsewhere
CPT/HCPCS: 36415; 51701; 71046; 71275; 80048; 81001; 83605; 85025; 85380; 87040; 87077; 87086; 87088; 87186; 93005; 96374; 99285; A9270; J2920; Q9967